=== PATIENT | female | born 1990 | race Caucasian/White ===

== ENCOUNTER 2016-08-08 18:27 | Emergency (ER) | payer MEDICAID, OTHER ==
[2016-08-08 20:56] LABS: CONTROL LINE UCG INT CTR LINE PRESENT
[2016-08-08] MEDS ORDERED: KETOROLAC 30 MG/ML VIAL (J1885) As Ordered ONE (22:07)
[2016-08-08] MEDS ORDERED: ONDANSETRON 4MG/2ML VIAL (J2405) As Ordered ONE ×2 (22:07→23:07)
[2016-08-08 22:36] LABS: BASO % 0.2 % (0.0-1.0); EOS % 0.2 % (0.0-3.0); LARGE UNSTAINED CELL # 0.1 K/mm3 (0.0-0.4); LYMPH # 0.9 K/mm3 (1.5-6.5); LYMPH % 17.8 % (24.0-44.0); MEAN CORPUSCULAR HEMOGLOBIN 29.7 pg (27.0-33.0); MEAN CORPUSCULAR HGB CONC 34.8 g/dl (32.0-36.5); MEAN CORPUSCULAR VOLUME 85.3 fl (80.0-96.0); MONO # 0.2 K/mm3 (0.0-0.8); NEUTROPHILS # 3.6 K/mm3 (1.8-7.7); NEUTROPHILS % 75.7 % (36.0-66.0); PLATELET COUNT, AUTOMATED 183 k/mm3 (150-450); RED CELL DISTRIBUTION WIDTH 12.1 % (11.5-14.5); WHITE BLOOD COUNT 4.8 K/mm3 (4.0-10.0)
[2016-08-08 22:55] LABS: ALBUMIN/GLOBULIN RATIO 1.11 (1.00-1.93); ALKALINE PHOSPHATASE 95 U/L (45-117); ALT/SGPT 24 U/L (12-78); ANION GAP 9 MEQ/L (8-16); AST/SGOT 33 U/L (15-37); BILIRUBIN,DIRECT 0.1 MG/DL (0.0-0.2); BILIRUBIN,TOTAL 0.4 MG/DL (0.2-1.0); BLOOD UREA NITROGEN 14 MG/DL (7-18); CARBON DIOXIDE LEVEL 27 MEQ/L (21-32); CHLORIDE LEVEL 102 MEQ/L (98-107); CREATININE FOR GFR 0.75 MG/DL (0.55-1.02); GLOMERULAR FILTRATION RATE > 60.0 (>60); GLUCOSE, FASTING 63 MG/DL (70-105); POTASSIUM SERUM 4.2 MEQ/L (3.5-5.1); SODIUM LEVEL 138 MEQ/L (136-145); TOTAL PROTEIN 7.6 GM/DL (6.4-8.2)
--- NOTE | 2016-08-08 23:42 | EDDOCDS ---
Physician Documentation [facility] Name: Marisa Hahn Age: 26 yrs Sex: Female : 1990 Arrival Date: 08/08/2016 Time: 18:27 Bed I3 / M3 Private MD: NO PRIMARY PHYSICIAN, . Disposition: 08/08/16 23:15 Discharged to Home/Self Care. Impression: Vomiting, Dehydration. - Condition is Stable. - Discharge Instructions: Dehydration, Adult, Nausea and Vomiting. - Prescriptions for ZOFRAN ODT 4 mg Oral - dissolve 1 tablet by ORAL route 4 times per day As needed do not chew, do not swallow whole; 20 tablet. - Medication Reconciliation, Work Release Form - 3 day, Local Pharmacy Hours form. - [facility] up: [facility]; When: Call to arrange an appointment; Reason: Recheck today's complaints, Continuance of care. Follow up: Jonathon Dick MD; When: Call to arrange an appointment; Reason: Recheck today's complaints, Continuance of care. - Problem is new. - Symptoms have improved. Historical: - Allergies: no known allergies; - Home Meds: 1. Suboxone 4-1 mg SL film 1 film once daily - PMHx: Substance Abuse; - PSHx: Tonsillectomy; ; - Social history: Smoking status: Patient uses tobacco products, current every day smoker. No barriers to communication noted, The patient speaks fluent Irish, Speaks appropriately for age. - Family history: Not pertinent. - : The pt / caregiver states he / she is not on anticoagulants. Home medication list is obtained from the patient. - Exposure Risk Screening:: None identified. 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 4 in. (162.56 cm) (R); Pain 4/10; 19:54 BP 108 / 61 LA Sitting (auto/reg); Pulse 89; Resp 18; Temp 99.5; Pulse Ox 90% on R/A; bnb Pain 9/10; 23:10 BP 98 / 52; Pulse 77; Resp 18; Temp 98.8(TE); Pulse Ox 97% on R/A; Pain 0/10; jmb 18:30 Body Mass Index 20.08 (53.07 kg, 162.56 cm) gr2 MDM: 20:27 UA Ordered. EDMS 20:27 Urine Culture Ordered. EDMS 20:27 UCG- In Lab Ordered. EDMS 21:52 NS 0.9% 1000 ml IV at bolus once ordered. mo1 21:52 Ondansetron 4 mg IVP once ordered. mo1 21:52 ketorolac 30 mg IVP once ordered. mo1 21:52 IV Saline Lock ordered. mo1 21:52 Undress patient appropriately for examination ordered. mo1 21:52 Basic Metabolic Profile Ordered. EDMS 21:52 CBC with Diff Ordered. EDMS 21:52 Lipase Ordered. EDMS 21:53 Liver Profile Ordered. EDMS 21:53 NOTHING BY MOUTH+DIET ordered. EDMS 22:18 Financial registration complete. zo 22:19 ON LICENSE OF [facility] Payment Agreement was scanned into [employer] and attached to record. zo 22:26 UCG- In Lab Reviewed. mo1 22:35 UA Reviewed. mo1 22:53 CBC with Diff Reviewed. mo1 23:03 Liver Profile Reviewed. mo1 23:03 Lipase Reviewed. mo1 23:03 Basic Metabolic Profile Reviewed. mo1 23:06 Ondansetron 4 mg IVP once ordered. mo1 Administered Medications: 22:19 Drug: NS 0.9% 1000 ml [sodium chloride 0.9 % intravenous solution] Route: IV; Rate: jmb bolus; Site: right antecubital; 22:19 Drug: Ondansetron 4 mg [ondansetron HCl 2 mg/mL intravenous solution (2 mL)] Route: jmb IVP; Site: right antecubital; 22:19 Drug: ketorolac 30 mg [ketorolac 30 mg/mL (1 mL) injection solution (1 mL)] Route: IVP; b Site: right antecubital; 23:10 Drug: Ondansetron 4 mg [ondansetron HCl 2 mg/mL intravenous solution (2 mL)] Route: jmb IVP; Site: right antecubital; Signatures: Dispatcher [employer] EDMS Denia Obando Michael, PA PA mo1 Pan Lockwood,RN RN Roxana BowmanRN RN carmencita The chart was reviewed and I authenticate all verbal orders and agree with the evaluation and treatment provided.Attachments: 22:19 ON LICENSE OF [facility] Payment Agreement zo MTDD
--- NOTE | 2016-08-08 23:42 | EDDOCDS ---
Nurse's Notes [facility] Name: Marisa Hahn Age: 26 yrs Sex: Female : 1990 Arrival Date: 08/08/2016 Time: 18:27 Bed I3 / M3 Private MD: NO PRIMARY PHYSICIAN, . Diagnosis: Vomiting;Dehydration Presentation: 08/08 18:43 Presenting complaint: Patient states: pt c/o n/v since last night. denies abdominal ead pain. denies vaginal bleeding. Adult Sepsis Screening: The patient does not have new or worsening altered mentation. Patient's respiratory rate is less than 22. Systolic blood pressure is greater than 100. Patient has a qSOFA score of 0- Negative Sepsis Screen. Suicide/Homicide risk assessment- the patient denies having any suicidal and/or homicidal ideations and does not present with any other emotional, behavioral or mental health complaints. Status: Patient is not a service architect or dependent. Transition of care: patient was not received from another setting of care. 18:43 Acuity: GIOVANNY Level 3 ead 18:43 Method Of Arrival: Walkin/Carried/Asstd ead Triage Assessment: 18:44 General: Appears in no apparent distress, Behavior is appropriate for age, cooperative. ead Pain: Location: abdomen Pain currently is 9 out of 10 on a pain scale. HIV screening NA for this visit Offered previously. Respiratory: Airway is patent Respiratory effort is even, unlabored. GI: Reports lower abdominal pain, nausea, vomiting. : Denies burning with urination, vaginal bleeding. Derm: Skin is pink, warm & dry. 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 Suboxone 4-1 mg SL film 1 film once daily - PMHx: Substance Abuse; - PSHx: Tonsillectomy; ; - Social history: Smoking status: Patient uses tobacco products, current every day smoker. No barriers to communication noted, The patient speaks fluent Albanian, Speaks appropriately for age. - Family history: Not pertinent. - : The pt / caregiver states he / she is not on anticoagulants. Home medication list is obtained from the patient. - Exposure Risk Screening:: None identified. Screenin:40 Screening information is obtained from the patient. Fall risk: No risks identified. jmb Assistance ADL's: requires no assistance with activities of daily living. Abuse/DV Screen: The patient / caregiver reports he/she is: not in a situation that causes fear, pain or injury. Nutritional screening: No deficits noted. Advance Directives: Currently, there is no health care proxy. There is no active DNR order. There is no living will. There is no Power of Livestock Agent. home support is adequate. Assessment: 22:44 General: Appears in no apparent distress, Behavior is appropriate for age, cooperative. jmb Neurological: Level of Consciousness is awake, alert, obeys commands, Oriented to person, place, time, Speech is normal, Facial symmetry appears normal, Facial symmetry: tongue is midline. Cardiovascular: Capillary refill < 3 seconds Heart tones present Pulses are all present. Rhythm is regular. Respiratory: Airway is patent Respiratory effort is even, unlabored, Respiratory pattern is regular, symmetrical, Breath sounds are clear bilaterally. GI: Abdomen is non- distended Bowel sounds present X 4 quads. Abd is soft X 4 quads. Derm: Skin is pink, warm & dry. Musculoskeletal: Range of motion intact in all extremities. 23:40 General: Patient instructed on discharge instructions. Patient asked if there were any b questions regarding discharge, patient stated no. IV discontinued per hospital policy. Patient signed discharge instructions. Patient discharged in stable condition.. Vital Signs: 18:30 BP 114 / 66; Pulse 103; Resp 18 S; Temp 98.7(O); Pulse Ox 97% on R/A; Weight 53.07 kg gr2 (R); Height 5 ft. 4 in. (162.56 cm) (R); Pain 4/10; 19:54 BP 108 / 61 LA Sitting (auto/reg); Pulse 89; Resp 18; Temp 99.5; Pulse Ox 90% on R/A; bnb Pain 9/10; 23:10 BP 98 / 52; Pulse 77; Resp 18; Temp 98.8(TE); Pulse Ox 97% on R/A; Pain 0/10; jmb 18:30 Body Mass Index 20.08 (53.07 kg, 162.56 cm) gr2 Vitals: 18:30 Log In Time: August 08, 2016 at 18:30. gr2 ED Course: 18:29 Patient visited by Brad Ni. gr2 18:29 Patient moved to Waiting gr2 18:30 NO PRIMARY PHYSICIAN, . is Private Physician. gr2 18:31 Patient visited by Brad Ni. gr2 18:31 Patient moved to Pre RCE gr2 18:44 Triage Initiated ead 19:57 Patient visited by Yuko Lockwood PCA. bnb 20:40 Patient moved to Triage 3 cz 21:32 Henrique Osorio PA is PHCP. mo1 21:32 Cosmo Rob DO is Attending Physician. mo1 21:53 Patient visited by Henrique Osorio PA. mo1 21:54 Patient moved to I3 / M3 ms18 22:13 Patient visited by Hoa Scott LPN. cp1 22:13 Basic Metabolic Profile Sent. cp1 22:13 CBC with Diff Sent. cp1 22:13 Lipase Sent. cp1 22:13 Liver Profile Sent. cp1 22:19 [facility] Payment Agreement was scanned into [employer] and attached to record. zo 22:45 Patient visited by Pan Lockwood RN. jmb 23:15 [facility] is Referral Physician. mo1 23:15 Jonathon Dick MD is Referral Physician. mo1 23:40 The patient / caregiver is instructed regarding the plan of care and ED course. jmb 23:40 Discontinued lock intact, bleeding controlled, pressure dressing applied, No jmb redness/swelling at site. No procedures done that require assistance. Administered Medications: 22:19 Drug: NS 0.9% 1000 ml [sodium chloride 0.9 % intravenous solution] Route: IV; Rate: jmb bolus; Site: right antecubital; 22:19 Drug: Ondansetron 4 mg [ondansetron HCl 2 mg/mL intravenous solution (2 mL)] Route: jmb IVP; Site: right antecubital; 22:19 Drug: ketorolac 30 mg [ketorolac 30 mg/mL (1 mL) injection solution (1 mL)] Route: IVP; jmb Site: right antecubital; 23:10 Drug: Ondansetron 4 mg [ondansetron HCl 2 mg/mL intravenous solution (2 mL)] Route: jmb IVP; Site: right antecubital; Order Results: Lab Order: UA; SPEC'M 08/08/16 20:31 Test: APPEARANCE, URINE; Value: HAZY; Range: CLEAR; Status: F Test: COLOR, URINE; Value: JACQUELINE; Range: YELLOW; Status: F Test: PH,URINE; Value: 5.0; Range: 5.0-9.0; Units: UNITS; Status: F Test: SPECIFIC GRAVITY URINE AUTO; Value: 1.028; Range: 1.002-1.035; Status: F Test: PROTEIN, URINE AUTO; Value: 1+; Range: NEGATIVE; Abnormal: Above high normal; Units: mg/dL; Status: F Test: GLUCOSE, URINE (UA) AUTO; Value: NEGATIVE; Range: NEGATIVE; Units: mg/dL; Status: F Test: KETONE, URINE AUTO; Value: 2+; Range: NEGATIVE; Abnormal: Above high normal; Units: mg/dL; Status: F Test: UROBILINOGEN, URINE AUTO; Value: 4.0; Range: 0.0-2.0; Abnormal: Above high normal; Units: mg/dL; Status: F Test: BILIRUBIN, URINE AUTO; Value: 1+; Range: NEGATIVE; Abnormal: Above high normal; Status: F Test: NITRITE, URINE AUTO; Value: NEGATIVE; Range: NEGATIVE; Status: F Test: LEUKOCYTE ESTERASE, URINE AUTO; Value: NEGATIVE; Range: NEGATIVE; Status: F Test: BLOOD, URINE BLOOD; Value: 1+; Range: NEGATIVE; Abnormal: Above high normal; Status: F Test: WBC, URINE AUTO; Value: 2; Range: 0-3; Units: /HPF; Status: F Test: RBC, URINE AUTO; Value: 2; Range: 0-3; Units: /HPF; Status: F Test: BACTERIA, URINE AUTO; Value: 1+; Range: NEGATIVE; Abnormal: Above high normal; Status: F Test: SQUAMOUS EPITHELIAL CELL UR AU; Value: 3; Range: 0-6; Units: /HPF; Status: F Test: TRANSITIONAL EPITHELIAL AUTO; Value: <1; Range: NONE; Units: /HPF; Status: F Test: MUCUS, URINE; Value: SMALL; Range: NEGATIVE; Status: F Test: HYALINE CAST, URINE AUTO; Value: 0; Range: 0-1; Units: /LPF; Status: F Lab Order: UCG- In Lab; SPEC'M 08/08/16 20:31 Test: URINE PREG TEST; Value: NEGATIVE; Range: NEGATIVE; Status: F Lab Order: Basic Metabolic Profile; SPEC'08/08/16 22:00 Test: GLUCOSE, FASTING; Value: 63; Range: 70-105; Abnormal: Below low normal; Units: MG/DL; Status: F Test: BLOOD UREA NITROGEN; Value: 14; Range: 7-18; Units: MG/DL; Status: F Test: CREATININE FOR GFR; Value: 0.75; Range: 0.55-1.02; Units: MG/DL; Status: F Test: GLOMERULAR FILTRATION RATE; Value: > 60.0; Range: >60; Status: F Test: SODIUM LEVEL; Value: 138; Range: 136-145; Units: MEQ/L; Status: F Test: POTASSIUM SERUM; Value: 4.2; Range: 3.5-5.1; Units: MEQ/L; Status: F Test: CHLORIDE LEVEL; Value: 102; Range: 98-107; Units: MEQ/L; Status: F Test: CARBON DIOXIDE LEVEL; Value: 27; Range: 21-32; Units: MEQ/L; Status: F Test: ANION GAP; Value: 9; Range: 8-16; Units: MEQ/L; Status: F Test: CALCIUM LEVEL; Value: 9.0; Range: 8.5-10.1; Units: MG/DL; Status: F Test Note: ; Units are mL/min/1.73 m2 Chronic Kidney Disease Staging per NKF: Stage I & II GFR >=60 Normal to Mildly Decreased Stage III GFR 30-59 Moderately Decreased Stage IV GFR 15-29 Severely Decreased Stage V GFR <15 Very Little GFR Left ESRD GFR <15 on FRONT OFFICE SUPERVISOR Lab Order: CBC with Diff; SPEC'08/08/16 22:00 Test: WHITE BLOOD COUNT; Value: 4.8; Range: 4.0-10.0; Units: K/mm3; Status: F Test: RED BLOOD COUNT; Value: 4.74; Range: 4.00-5.40; Units: M/mm3; Status: F Test: HEMOGLOBIN; Value: 14.1; Range: 12.0-16.0; Units: g/dl; Status: F Test: HEMATOCRIT; Value: 40.4; Range: 36.0-47.0; Units: %; Status: F Test: MEAN CORPUSCULAR VOLUME; Value: 85.3; Range: 80.0-96.0; Units: fl; Status: F Test: MEAN CORPUSCULAR HEMOGLOBIN; Value: 29.7; Range: 27.0-33.0; Units: pg; Status: F Test: MEAN CORPUSCULAR HGB CONC; Value: 34.8; Range: 32.0-36.5; Units: g/dl; Status: F Test: RED CELL DISTRIBUTION WIDTH; Value: 12.1; Range: 11.5-14.5; Units: %; Status: F Test: PLATELET COUNT, AUTOMATED; Value: 183; Range: 150-450; Units: k/mm3; Status: F Test: NEUTROPHILS %; Value: 75.7; Range: 36.0-66.0; Abnormal: Above high normal; Units: %; Status: F Test: LYMPH %; Value: 17.8; Range: 24.0-44.0; Abnormal: Below low normal; Units: %; Status: F Test: MONO %; Value: 4.0; Range: 0.0-5.0; Units: %; Status: F Test: EOS %; Value: 0.2; Range: 0.0-3.0; Units: %; Status: F Test: BASO %; Value: 0.2; Range: 0.0-1.0; Units: %; Status: F Test: LARGE UNSTAINED CELL %; Value: 2.0; Range: 0.0-4.0; Units: %; Status: F Test: NEUTROPHILS #; Value: 3.6; Range: 1.8-7.7; Units: K/mm3; Status: F Test: LYMPH #; Value: 0.9; Range: 1.5-6.5; Abnormal: Below low normal; Units: K/mm3; Status: F Test: MONO #; Value: 0.2; Range: 0.0-0.8; Units: K/mm3; Status: F Test: EOS #; Value: 0.0; Range: 0.0-0.50; Units: K/mm3; Status: F Test: BASO #; Value: 0.0; Range: 0.0-0.2; Units: K/mm3; Status: F Test: LARGE UNSTAINED CELL #; Value: 0.1; Range: 0.0-0.4; Units: K/mm3; Status: F Lab Order: Lipase; SPEC'M 08/08/16 22:00 Test: LIPASE; Value: 65; Range: 73-393; Abnormal: Below low normal; Units: U/L; Status: F Lab Order: Liver Profile; SPEC'M 08/08/16 22:00 Test: AST/SGOT; Value: 33; Range: 15-37; Units: U/L; Status: F Test: ALT/SGPT; Value: 24; Range: 12-78; Units: U/L; Status: F Test: ALKALINE PHOSPHATASE; Value: 95; Range: 45-117; Units: U/L; Status: F Test: BILIRUBIN,TOTAL; Value: 0.4; Range: 0.2-1.0; Units: MG/DL; Status: F Test: BILIRUBIN,DIRECT; Value: 0.1; Range: 0.0-0.2; Units: MG/DL; Status: F Test: TOTAL PROTEIN; Value: 7.6; Range: 6.4-8.2; Units: GM/DL; Status: F Test: ALBUMIN; Value: 4.0; Range: 3.2-5.2; Units: GM/DL; Status: F Test: ALBUMIN/GLOBULIN RATIO; Value: 1.11; Range: 1.00-1.93; Status: F Outcome: 23:15 Discharge ordered by Provider. mo1 23:40 Discharge Assessment: Patient awake, alert and oriented x 3. No cognitive and/or jmb functional deficits noted. Patient verbalized understanding of disposition instructions. Patient awake and alert. obeys commands, Oriented to person, place and time. Patient verbalized understanding of disposition instructions. Patient has no functional deficits. patient administered narcotics - no. The following High Risk Discharge criteria are identified: None. Discharged to home ambulatory. Condition: stable. Discharge instructions given to patient, Instructed on discharge instructions, follow up and referral plans. medication usage, Demonstrated understanding of instructions, medications, Pt was receptive of discharge instructions/ teaching. Prescriptions given X 1. Work note provided to patient. No special radiology studies were completed. Property sent home with patient. 23:42 Patient left the ED. jmb Signatures: Chang Key, RN RN cz Denia Obando Cheryl,SCHOOL LIBRARY MEDIA PROGRAM DIRECTOR SCHOOL LIBRARY MEDIA PROGRAM DIRECTOR cp1 Brad Ni gr2 Henrique Osorio PA PA mo1 Pan Locwkood,RN RN simonb Roxana Haro,RN RN Selene Redmond,RN RN [id number] Yuko Lockwood, ORGAN TUNER ELECTRONIC ORGAN TUNER ELECTRONIC bnb MTDD
--- NOTE | 2016-08-11 00:42 | EDDOCDS ---
Nurse's Notes [facility] Name: Marisa Hahn Age: 26 yrs Sex: Female : 1990 Arrival Date: 08/08/2016 Time: 18:27 Bed I3 / M3 Private MD: NO PRIMARY PHYSICIAN, . Diagnosis: Vomiting;Dehydration Presentation: 08/08 18:43 Presenting complaint: Patient states: pt c/o n/v since last night. denies abdominal ead pain. denies vaginal bleeding. Adult Sepsis Screening: The patient does not have new or worsening altered mentation. Patient's respiratory rate is less than 22. Systolic blood pressure is greater than 100. Patient has a qSOFA score of 0- Negative Sepsis Screen. Suicide/Homicide risk assessment- the patient denies having any suicidal and/or homicidal ideations and does not present with any other emotional, behavioral or mental health complaints. Status: Patient is not a financial services technician or dependent. Transition of care: patient was not received from another setting of care. 18:43 Acuity: GIOVANNY Level 3 ead 18:43 Method Of Arrival: Walkin/Carried/Asstd ead Triage Assessment: 18:44 General: Appears in no apparent distress, Behavior is appropriate for age, cooperative. ead Pain: Location: abdomen Pain currently is 9 out of 10 on a pain scale. HIV screening NA for this visit Offered previously. Respiratory: Airway is patent Respiratory effort is even, unlabored. GI: Reports lower abdominal pain, nausea, vomiting. : Denies burning with urination, vaginal bleeding. Derm: Skin is pink, warm & dry. 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 Suboxone 4-1 mg SL film 1 film once daily - PMHx: Substance Abuse; - PSHx: Tonsillectomy; ; - Social history: Smoking status: Patient uses tobacco products, current every day smoker. No barriers to communication noted, The patient speaks fluent Sudanese, Speaks appropriately for age. - Family history: Not pertinent. - : The pt / caregiver states he / she is not on anticoagulants. Home medication list is obtained from the patient. - Exposure Risk Screening:: None identified. Screenin:40 Screening information is obtained from the patient. Fall risk: No risks identified. jmb Assistance ADL's: requires no assistance with activities of daily living. Abuse/DV Screen: The patient / caregiver reports he/she is: not in a situation that causes fear, pain or injury. Nutritional screening: No deficits noted. Advance Directives: Currently, there is no health care proxy. There is no active DNR order. There is no living will. There is no Power of Ammonia Worker. home support is adequate. Assessment: 22:44 General: Appears in no apparent distress, Behavior is appropriate for age, cooperative. jmb Neurological: Level of Consciousness is awake, alert, obeys commands, Oriented to person, place, time, Speech is normal, Facial symmetry appears normal, Facial symmetry: tongue is midline. Cardiovascular: Capillary refill < 3 seconds Heart tones present Pulses are all present. Rhythm is regular. Respiratory: Airway is patent Respiratory effort is even, unlabored, Respiratory pattern is regular, symmetrical, Breath sounds are clear bilaterally. GI: Abdomen is non- distended Bowel sounds present X 4 quads. Abd is soft X 4 quads. Derm: Skin is pink, warm & dry. Musculoskeletal: Range of motion intact in all extremities. 23:40 General: Patient instructed on discharge instructions. Patient asked if there were any b questions regarding discharge, patient stated no. IV discontinued per hospital policy. Patient signed discharge instructions. Patient discharged in stable condition.. Vital Signs: 18:30 BP 114 / 66; Pulse 103; Resp 18 S; Temp 98.7(O); Pulse Ox 97% on R/A; Weight 53.07 kg gr2 (R); Height 5 ft. 4 in. (162.56 cm) (R); Pain 4/10; 19:54 BP 108 / 61 LA Sitting (auto/reg); Pulse 89; Resp 18; Temp 99.5; Pulse Ox 90% on R/A; bnb Pain 9/10; 23:10 BP 98 / 52; Pulse 77; Resp 18; Temp 98.8(TE); Pulse Ox 97% on R/A; Pain 0/10; jmb 18:30 Body Mass Index 20.08 (53.07 kg, 162.56 cm) gr2 Vitals: 18:30 Log In Time: August 08, 2016 at 18:30. gr2 ED Course: 18:29 Patient visited by Brad Ni. gr2 18:29 Patient moved to Waiting gr2 18:30 NO PRIMARY PHYSICIAN, . is Private Physician. gr2 18:31 Patient visited by Brad Ni. gr2 18:31 Patient moved to Pre RCE gr2 18:44 Triage Initiated ead 19:57 Patient visited by Yuko Lockwood PCA. bnb 20:40 Patient moved to Triage 3 cz 21:32 Henrique Osorio PA is PHCP. mo1 21:32 Cosmo Rob DO is Attending Physician. mo1 21:53 Patient visited by Henrique Osorio PA. mo1 21:54 Patient moved to I3 / M3 ms18 22:13 Patient visited by Hoa Scott LPN. cp1 22:13 Basic Metabolic Profile Sent. cp1 22:13 CBC with Diff Sent. cp1 22:13 Lipase Sent. cp1 22:13 Liver Profile Sent. cp1 22:19 [facility] Payment Agreement was scanned into [employer] and attached to record. zo 22:45 Patient visited by Pan Lockwood RN. jmb 23:15 [facility] is Referral Physician. mo1 23:15 Jonathon Dick MD is Referral Physician. mo1 23:40 The patient / caregiver is instructed regarding the plan of care and ED course. jmb 23:40 Discontinued lock intact, bleeding controlled, pressure dressing applied, No jmb redness/swelling at site. No procedures done that require assistance. 08/09 09:47 T-Sheet-- Draft Copy was scanned into [employer] and attached to record. gb Administered Medications: 08/08 22:19 Drug: NS 0.9% 1000 ml [sodium chloride 0.9 % intravenous solution] Route: IV; Rate: jmb bolus; Site: right antecubital; 22:19 Drug: Ondansetron 4 mg [ondansetron HCl 2 mg/mL intravenous solution (2 mL)] Route: jmb IVP; Site: right antecubital; 22:19 Drug: ketorolac 30 mg [ketorolac 30 mg/mL (1 mL) injection solution (1 mL)] Route: IVP; jmb Site: right antecubital; 23:10 Drug: Ondansetron 4 mg [ondansetron HCl 2 mg/mL intravenous solution (2 mL)] Route: jmb IVP; Site: right antecubital; Order Results: Lab Order: UA; SPEC'M 08/08/16 20:31 Test: APPEARANCE, URINE; Value: HAZY; Range: CLEAR; Status: F Test: COLOR, URINE; Value: JACQUELINE; Range: YELLOW; Status: F Test: PH,URINE; Value: 5.0; Range: 5.0-9.0; Units: UNITS; Status: F Test: SPECIFIC GRAVITY URINE AUTO; Value: 1.028; Range: 1.002-1.035; Status: F Test: PROTEIN, URINE AUTO; Value: 1+; Range: NEGATIVE; Abnormal: Above high normal; Units: mg/dL; Status: F Test: GLUCOSE, URINE (UA) AUTO; Value: NEGATIVE; Range: NEGATIVE; Units: mg/dL; Status: F Test: KETONE, URINE AUTO; Value: 2+; Range: NEGATIVE; Abnormal: Above high normal; Units: mg/dL; Status: F Test: UROBILINOGEN, URINE AUTO; Value: 4.0; Range: 0.0-2.0; Abnormal: Above high normal; Units: mg/dL; Status: F Test: BILIRUBIN, URINE AUTO; Value: 1+; Range: NEGATIVE; Abnormal: Above high normal; Status: F Test: NITRITE, URINE AUTO; Value: NEGATIVE; Range: NEGATIVE; Status: F Test: LEUKOCYTE ESTERASE, URINE AUTO; Value: NEGATIVE; Range: NEGATIVE; Status: F Test: BLOOD, URINE BLOOD; Value: 1+; Range: NEGATIVE; Abnormal: Above high normal; Status: F Test: WBC, URINE AUTO; Value: 2; Range: 0-3; Units: /HPF; Status: F Test: RBC, URINE AUTO; Value: 2; Range: 0-3; Units: /HPF; Status: F Test: BACTERIA, URINE AUTO; Value: 1+; Range: NEGATIVE; Abnormal: Above high normal; Status: F Test: SQUAMOUS EPITHELIAL CELL UR AU; Value: 3; Range: 0-6; Units: /HPF; Status: F Test: TRANSITIONAL EPITHELIAL AUTO; Value: <1; Range: NONE; Units: /HPF; Status: F Test: MUCUS, URINE; Value: SMALL; Range: NEGATIVE; Status: F Test: HYALINE CAST, URINE AUTO; Value: 0; Range: 0-1; Units: /LPF; Status: F Lab Order: Urine Culture; SPECM 08/08/16 20:31 Test: URINE CULTURE; Value: URINE CULTURE RESULT NO GROWTH CLINICAL SIGNIFICANCE 1 ORGANISM; Status: F Lab Order: UCG- In Lab; SPEC08/08/16 20:31 Test: URINE PREG TEST; Value: NEGATIVE; Range: NEGATIVE; Status: F Lab Order: Basic Metabolic Profile; SPEC08/08/16 22:00 Test: GLUCOSE, FASTING; Value: 63; Range: 70-105; Abnormal: Below low normal; Units: MG/DL; Status: F Test: BLOOD UREA NITROGEN; Value: 14; Range: 7-18; Units: MG/DL; Status: F Test: CREATININE FOR GFR; Value: 0.75; Range: 0.55-1.02; Units: MG/DL; Status: F Test: GLOMERULAR FILTRATION RATE; Value: > 60.0; Range: >60; Status: F Test: SODIUM LEVEL; Value: 138; Range: 136-145; Units: MEQ/L; Status: F Test: POTASSIUM SERUM; Value: 4.2; Range: 3.5-5.1; Units: MEQ/L; Status: F Test: CHLORIDE LEVEL; Value: 102; Range: 98-107; Units: MEQ/L; Status: F Test: CARBON DIOXIDE LEVEL; Value: 27; Range: 21-32; Units: MEQ/L; Status: F Test: ANION GAP; Value: 9; Range: 8-16; Units: MEQ/L; Status: F Test: CALCIUM LEVEL; Value: 9.0; Range: 8.5-10.1; Units: MG/DL; Status: F Test Note: ; Units are mL/min/1.73 m2 Chronic Kidney Disease Staging per NKF: Stage I & II GFR >=60 Normal to Mildly Decreased Stage III GFR 30-59 Moderately Decreased Stage IV GFR 15-29 Severely Decreased Stage V GFR <15 Very Little GFR Left ESRD GFR <15 on MOLDED GOODS SPOT PICKER Lab Order: CBC with Diff; SPECM 08/08/16 22:00 Test: WHITE BLOOD COUNT; Value: 4.8; Range: 4.0-10.0; Units: K/mm3; Status: F Test: RED BLOOD COUNT; Value: 4.74; Range: 4.00-5.40; Units: M/mm3; Status: F Test: HEMOGLOBIN; Value: 14.1; Range: 12.0-16.0; Units: g/dl; Status: F Test: HEMATOCRIT; Value: 40.4; Range: 36.0-47.0; Units: %; Status: F Test: MEAN CORPUSCULAR VOLUME; Value: 85.3; Range: 80.0-96.0; Units: fl; Status: F Test: MEAN CORPUSCULAR HEMOGLOBIN; Value: 29.7; Range: 27.0-33.0; Units: pg; Status: F Test: MEAN CORPUSCULAR HGB CONC; Value: 34.8; Range: 32.0-36.5; Units: g/dl; Status: F Test: RED CELL DISTRIBUTION WIDTH; Value: 12.1; Range: 11.5-14.5; Units: %; Status: F Test: PLATELET COUNT, AUTOMATED; Value: 183; Range: 150-450; Units: k/mm3; Status: F Test: NEUTROPHILS %; Value: 75.7; Range: 36.0-66.0; Abnormal: Above high normal; Units: %; Status: F Test: LYMPH %; Value: 17.8; Range: 24.0-44.0; Abnormal: Below low normal; Units: %; Status: F Test: MONO %; Value: 4.0; Range: 0.0-5.0; Units: %; Status: F Test: EOS %; Value: 0.2; Range: 0.0-3.0; Units: %; Status: F Test: BASO %; Value: 0.2; Range: 0.0-1.0; Units: %; Status: F Test: LARGE UNSTAINED CELL %; Value: 2.0; Range: 0.0-4.0; Units: %; Status: F Test: NEUTROPHILS #; Value: 3.6; Range: 1.8-7.7; Units: K/mm3; Status: F Test: LYMPH #; Value: 0.9; Range: 1.5-6.5; Abnormal: Below low normal; Units: K/mm3; Status: F Test: MONO #; Value: 0.2; Range: 0.0-0.8; Units: K/mm3; Status: F Test: EOS #; Value: 0.0; Range: 0.0-0.50; Units: K/mm3; Status: F Test: BASO #; Value: 0.0; Range: 0.0-0.2; Units: K/mm3; Status: F Test: LARGE UNSTAINED CELL #; Value: 0.1; Range: 0.0-0.4; Units: K/mm3; Status: F Lab Order: Lipase; SPEC'M 08/08/16 22:00 Test: LIPASE; Value: 65; Range: 73-393; Abnormal: Below low normal; Units: U/L; Status: F Lab Order: Liver Profile; [facility]' 08/08/16 22:00 Test: AST/SGOT; Value: 33; Range: 15-37; Units: U/L; Status: F Test: ALT/SGPT; Value: 24; Range: 12-78; Units: U/L; Status: F Test: ALKALINE PHOSPHATASE; Value: 95; Range: 45-117; Units: U/L; Status: F Test: BILIRUBIN,TOTAL; Value: 0.4; Range: 0.2-1.0; Units: MG/DL; Status: F Test: BILIRUBIN,DIRECT; Value: 0.1; Range: 0.0-0.2; Units: MG/DL; Status: F Test: TOTAL PROTEIN; Value: 7.6; Range: 6.4-8.2; Units: GM/DL; Status: F Test: ALBUMIN; Value: 4.0; Range: 3.2-5.2; Units: GM/DL; Status: F Test: ALBUMIN/GLOBULIN RATIO; Value: 1.11; Range: 1.00-1.93; Status: F Outcome: 23:15 Discharge ordered by Provider. mo1 23:40 Discharge Assessment: Patient awake, alert and oriented x 3. No cognitive and/or jmb functional deficits noted. Patient verbalized understanding of disposition instructions. Patient awake and alert. obeys commands, Oriented to person, place and time. Patient verbalized understanding of disposition instructions. Patient has no functional deficits. patient administered narcotics - no. The following High Risk Discharge criteria are identified: None. Discharged to home ambulatory. Condition: stable. Discharge instructions given to patient, Instructed on discharge instructions, follow up and referral plans. medication usage, Demonstrated understanding of instructions, medications, Pt was receptive of discharge instructions/ teaching. Prescriptions given X 1. Work note provided to patient. No special radiology studies were completed. Property sent home with patient. 23:42 Patient left the ED. sultana Signatures: Chang Key, RN RN cz Yamel Mccall, Reg Reg gb Denia Obando Cheryl,SENIOR SUPPORT ENGINEER SENIOR SUPPORT ENGINEER cp1 Brad Ni gr2 Henrique Osorio PA PA mo1 Pan Lockwood,RN RN Roxana BowmanRN RN Selene Redmond RN RN [id number] Yuko Lockwood, GISSELLE BUSINESS CONTINUITY CONSULTANT bnb Chart Complete DEEDEED
--- NOTE | 2016-08-11 00:42 | EDDOCDS ---
Physician Documentation [facility] Name: Marisa Hahn Age: 26 yrs Sex: Female : 1990 Arrival Date: 08/08/2016 Time: 18:27 Bed I3 / M3 Private MD: NO PRIMARY PHYSICIAN, . Disposition: 08/08/16 23:15 Discharged to Home/Self Care. Impression: Vomiting, Dehydration. - Condition is Stable. - Discharge Instructions: Dehydration, Adult, Nausea and Vomiting. - Prescriptions for ZOFRAN ODT 4 mg Oral - dissolve 1 tablet by ORAL route 4 times per day As needed do not chew, do not swallow whole; 20 tablet. - Medication Reconciliation, Work Release Form - 3 day, Local Pharmacy Hours form. - [facility]: [facility]; When: Call to arrange an appointment; Reason: Recheck today's complaints, Continuance of care. Follow up: Jonathon Dick MD; When: Call to arrange an appointment; Reason: Recheck today's complaints, Continuance of care. - Problem is new. - Symptoms have improved. Historical: - Allergies: no known allergies; - Home Meds: 1. Suboxone 4-1 mg SL film 1 film once daily - PMHx: Substance Abuse; - PSHx: Tonsillectomy; ; - Social history: Smoking status: Patient uses tobacco products, current every day smoker. No barriers to communication noted, The patient speaks fluent Irish, Speaks appropriately for age. - Family history: Not pertinent. - : The pt / caregiver states he / she is not on anticoagulants. Home medication list is obtained from the patient. - Exposure Risk Screening:: None identified. 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 4 in. (162.56 cm) (R); Pain 4/10; 19:54 BP 108 / 61 LA Sitting (auto/reg); Pulse 89; Resp 18; Temp 99.5; Pulse Ox 90% on R/A; bnb Pain 9/10; 23:10 BP 98 / 52; Pulse 77; Resp 18; Temp 98.8(TE); Pulse Ox 97% on R/A; Pain 0/10; jmb 18:30 Body Mass Index 20.08 (53.07 kg, 162.56 cm) gr2 MDM: 20:27 UA Ordered. EDMS 20:27 Urine Culture Ordered. EDMS 20:27 UCG- In Lab Ordered. EDMS 21:52 NS 0.9% 1000 ml IV at bolus once ordered. mo1 21:52 Ondansetron 4 mg IVP once ordered. mo1 21:52 ketorolac 30 mg IVP once ordered. mo1 21:52 IV Saline Lock ordered. mo1 21:52 Undress patient appropriately for examination ordered. mo1 21:52 Basic Metabolic Profile Ordered. EDMS 21:52 CBC with Diff Ordered. EDMS 21:52 Lipase Ordered. EDMS 21:53 Liver Profile Ordered. EDMS 21:53 NOTHING BY MOUTH+DIET ordered. EDMS 22:18 Financial registration complete. zo 22:19 [facility] Payment Agreement was scanned into [employer] and attached to record. zo 22:26 UCG- In Lab Reviewed. mo1 22:35 UA Reviewed. mo1 22:53 CBC with Diff Reviewed. mo1 23:03 Liver Profile Reviewed. mo1 23:03 Lipase Reviewed. mo1 23:03 Basic Metabolic Profile Reviewed. mo1 23:06 Ondansetron 4 mg IVP once ordered. mo1 08/09 09:47 T-Sheet-- Draft Copy was scanned into [employer] and attached to record. gb Administered Medications: 08/08 22:19 Drug: NS 0.9% 1000 ml [sodium chloride 0.9 % intravenous solution] Route: IV; Rate: jmb bolus; Site: right antecubital; 22:19 Drug: Ondansetron 4 mg [ondansetron HCl 2 mg/mL intravenous solution (2 mL)] Route: jmb IVP; Site: right antecubital; 22:19 Drug: ketorolac 30 mg [ketorolac 30 mg/mL (1 mL) injection solution (1 mL)] Route: IVP; jmb Site: right antecubital; 23:10 Drug: Ondansetron 4 mg [ondansetron HCl 2 mg/mL intravenous solution (2 mL)] Route: jmb IVP; Site: right antecubital; Signatures: Dispatcher [employer] EDYamel Figueroa, Reg Reg gb Denia Obando Michael, PA PA mo1 Pan Lockwood,RN RN Roxana Bowman,RN RN carmencita The chart was reviewed and I authenticate all verbal orders and agree with the evaluation and treatment provided.Attachments: 22:19 [facility] [place] Agreement zo 08/09 09:47 T-Sheet-- Draft Copy gb Chart Complete MTDD
--- NOTE | 2016-08-11 00:42 | EDDOCDS ---
Physician Documentation [facility] Name: Marisa Hahn Age: 26 yrs Sex: Female : 1990 Arrival Date: 08/08/2016 Time: 18:27 Bed I3 / M3 Private MD: NO PRIMARY PHYSICIAN, . Disposition: 08/08/16 23:15 Discharged to Home/Self Care. Impression: Vomiting, Dehydration. - Condition is Stable. - Discharge Instructions: Dehydration, Adult, Nausea and Vomiting. - Prescriptions for ZOFRAN ODT 4 mg Oral - dissolve 1 tablet by ORAL route 4 times per day As needed do not chew, do not swallow whole; 20 tablet. - Medication Reconciliation, Work Release Form - 3 day, Local Pharmacy Hours form. - [facility] up: [facility]; When: Call to arrange an appointment; Reason: Recheck today's complaints, Continuance of care. Follow up: Jonathon Dick MD; When: Call to arrange an appointment; Reason: Recheck today's complaints, Continuance of care. - Problem is new. - Symptoms have improved. Historical: - Allergies: no known allergies; - Home Meds: 1. Suboxone 4-1 mg SL film 1 film once daily - PMHx: Substance Abuse; - PSHx: Tonsillectomy; ; - Social history: Smoking status: Patient uses tobacco products, current every day smoker. No barriers to communication noted, The patient speaks fluent Greenlandic, Speaks appropriately for age. - Family history: Not pertinent. - : The pt / caregiver states he / she is not on anticoagulants. Home medication list is obtained from the patient. - Exposure Risk Screening:: None identified. 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 4 in. (162.56 cm) (R); Pain 4/10; 19:54 BP 108 / 61 LA Sitting (auto/reg); Pulse 89; Resp 18; Temp 99.5; Pulse Ox 90% on R/A; bnb Pain 9/10; 23:10 BP 98 / 52; Pulse 77; Resp 18; Temp 98.8(TE); Pulse Ox 97% on R/A; Pain 0/10; jmb 18:30 Body Mass Index 20.08 (53.07 kg, 162.56 cm) gr2 MDM: 20:27 UA Ordered. EDMS 20:27 Urine Culture Ordered. EDMS 20:27 UCG- In Lab Ordered. EDMS 21:52 NS 0.9% 1000 ml IV at bolus once ordered. mo1 21:52 Ondansetron 4 mg IVP once ordered. mo1 21:52 ketorolac 30 mg IVP once ordered. mo1 21:52 IV Saline Lock ordered. mo1 21:52 Undress patient appropriately for examination ordered. mo1 21:52 Basic Metabolic Profile Ordered. EDMS 21:52 CBC with Diff Ordered. EDMS 21:52 Lipase Ordered. EDMS 21:53 Liver Profile Ordered. EDMS 21:53 NOTHING BY MOUTH+DIET ordered. EDMS 22:18 Financial registration complete. zo 22:19 [facility] Payment Agreement was scanned into [employer] and attached to record. zo 22:26 UCG- In Lab Reviewed. mo1 22:35 UA Reviewed. mo1 22:53 CBC with Diff Reviewed. mo1 23:03 Liver Profile Reviewed. mo1 23:03 Lipase Reviewed. mo1 23:03 Basic Metabolic Profile Reviewed. mo1 23:06 Ondansetron 4 mg IVP once ordered. mo1 08/09 09:47 T-Sheet-- Draft Copy was scanned into [employer] and attached to record. gb Administered Medications: 08/08 22:19 Drug: NS 0.9% 1000 ml [sodium chloride 0.9 % intravenous solution] Route: IV; Rate: jmb bolus; Site: right antecubital; 22:19 Drug: Ondansetron 4 mg [ondansetron HCl 2 mg/mL intravenous solution (2 mL)] Route: jmb IVP; Site: right antecubital; 22:19 Drug: ketorolac 30 mg [ketorolac 30 mg/mL (1 mL) injection solution (1 mL)] Route: IVP; jmb Site: right antecubital; 23:10 Drug: Ondansetron 4 mg [ondansetron HCl 2 mg/mL intravenous solution (2 mL)] Route: jmb IVP; Site: right antecubital; Signatures: Dispatcher [employer] EDYamel Figueroa, Reg Reg gb Denia Obando Michael, PA PA mo1 Pan Lockwood,RN RN Roxana Bowman,RN RN carmencita The chart was reviewed and I authenticate all verbal orders and agree with the evaluation and treatment provided.Attachments: 22:19 [facility] [place] Agreement zo 08/09 09:47 T-Sheet-- Draft Copy gb Chart Complete MTDD
== END 2016-08-08 23:42 | disposition home or self-care (01) ==
LOC: M ED 18:27
DX: R11.2 Nausea with vomiting, unspecified (principal); E86.0 Dehydration; F17.210 Nicotine dependence, cigarettes, uncomplicated; Z79.899 Other long term (current) drug therapy

== ENCOUNTER 2016-09-17 01:40 | Emergency (ER) | payer OTHER ==
[2016-09-17 02:17] LABS: CONTROL LINE UCG INT CTR LINE PRESENT; MICROSCOPIC INDICATED? MAN YES (NO)
[2016-09-17 02:24] LABS: HYALINE CAST, URINE NONE SEEN /lpf (0-1); RBC, URINE 0-1 /hpf (0-3); SQUAMOUS EPITHELIAL CELL URINE LARGE AMOUNT /hpf (SMALL AMT); WBC, URINE 0-1 /hpf (0-3)
[2016-09-17 02:26] LABS: BACTERIA, URINE MOD AMOUNT; MICROSCOPIC EXAM PERFORMED
--- NOTE | 2016-09-17 02:54 | EDDOCDS ---
Physician Documentation [facility] Name: Marisa Hahn Age: 26 yrs Sex: Female : 1990 Arrival Date: 09/17/2016 Time: 01:40 Bed Triage 2 Private MD: Disposition: 09/17/16 02:47 Discharged to Home/Self Care. Impression: Dysuria. - Condition is Stable. - Discharge Instructions: Dysuria. - Prescriptions for Pyridium 200 mg Oral Tablet - take 1 tablet by ORAL route every 8 hours for 3 days; 9 tablet. - Medication Reconciliation, Local Pharmacy Hours form. - Follow up: Private Physician; When: Call to arrange an appointment; Reason: Recheck today's complaints, Continuance of care. - Problem is an ongoing problem. - Symptoms are unchanged. Historical: - Allergies: No known drug Allergies; - Home Meds: 1. Suboxone 4-1 mg SL film .5 film once daily (Last dose: 09/16/2016) 2. nitrofurantoin macrocrystal 100 mg Oral cap 1 cap twice a day (Last dose: 09/16/2016) 3. AZO Standard 95 mg Oral tab as needed (Last dose: 09/16/2016 22:00) 4. cranberry oral oral 2 tabs (Last dose: 09/16/2016) - PMHx: Substance Abuse; - PSHx: Tonsillectomy; ; - Social history: Smoking status: Patient uses tobacco products, light tobacco smoker. No barriers to communication noted, The patient speaks fluent Puerto Rican, Speaks appropriately for age. - Family history: Not pertinent. - : The pt / caregiver states he / she is not on anticoagulants. Home medication list is obtained from the patient. - Exposure Risk Screening:: None identified. 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 4 in. (162.56 cm) (R); Pain 7/10; 02:25 Body Mass Index 20.08 (53.07 kg, 162.56 cm) kmg1 MDM: 01:59 Urine Culture Ordered. EDMS 01:59 Urine Test-In Lab Ordered. EDMS 02:16 URINALYSIS MANUAL Ordered. EDMS 02:18 MICROSCOPIC, URINE Ordered. EDMS 02:19 Urine Test-In Lab Reviewed. mo1 02:20 URINALYSIS MANUAL Reviewed. mo1 02:42 MICROSCOPIC, URINE Reviewed. mo1 Signatures: Dispatcher [employer] EDMS Alicia Fatima RN RN kmg1 Henrique Osorio PA PA mo1 Kiara Thomas LPN LPN slm The chart was reviewed and I authenticate all verbal orders and agree with the evaluation and treatment provided.Corrections: (The following items were deleted from the chart) 02:16 01:59 URINALYSIS+LAB ordered. EDMS EDMS MTDD
--- NOTE | 2016-09-17 02:54 | EDDOCDS ---
Nurse's Notes [facility] Name: Marisa Hahn Age: 26 yrs Sex: Female : 1990 Arrival Date: 09/17/2016 Time: 01:40 Bed Triage 2 Private MD: Diagnosis: Dysuria Presentation: 09/17 02:21 Presenting complaint: Patient states: Was seen at doctor Monday and treated for UTI. kmg1 Taking generic macrobid and Azo but symptoms are not improvong. Suicide/Homicide risk assessment- the patient denies having any suicidal and/or homicidal ideations and does not present with any other emotional, behavioral or mental health complaints. Status: Patient is not a service delivery manager or dependent. Transition of care: patient was not received from another setting of care. 02:21 Acuity: GIOVANNY Level 5 [facility] 02:21 Method Of Arrival: Walkin/Carried/Asstd [facility] Triage Assessment: 02:25 General: Appears in no apparent distress, comfortable, Behavior is appropriate for age, kmg1 cooperative, pleasant. Pain: Location: suprapubic area Pain currently is 7 out of 10 on a pain scale. Quality of pain is described as pressure. HIV screening NA for this visit Offered previously. : Reports burning with urination urgency urinary frequency. 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 Suboxone 4-1 mg SL film .5 film once daily (Last dose: 09/16/2016) 2. nitrofurantoin macrocrystal 100 mg Oral cap 1 cap twice a day (Last dose: 09/16/2016) 3. AZO Standard 95 mg Oral tab as needed (Last dose: 09/16/2016 22:00) 4. cranberry oral oral 2 tabs (Last dose: 09/16/2016) - PMHx: Substance Abuse; - PSHx: Tonsillectomy; ; - Social history: Smoking status: Patient uses tobacco products, light tobacco smoker. No barriers to communication noted, The patient speaks fluent Cambodian, Speaks appropriately for age. - Family history: Not pertinent. - : The pt / caregiver states he / she is not on anticoagulants. Home medication list is obtained from the patient. - Exposure Risk Screening:: None identified. Screenin:51 Screening information is obtained from the patient. Fall risk: No risks identified. slm Assistance ADL's: requires no assistance with activities of daily living. Abuse/DV Screen: The patient / caregiver reports he/she is: not in a situation that causes fear, pain or injury. Nutritional screening: No deficits noted. Advance Directives: Currently, there is no health care proxy. There is no active DNR order. There is no living will. There is no Power of Regulatory Affairs Director. Advance directive information has not previously been placed in an [facility] medical record. home support is adequate. Assessment: 02:50 General: Appears in no apparent distress, comfortable, Behavior is appropriate for age, slm cooperative. Vital Signs: 02:25 BP 118 / 55; Pulse 80; Resp 18; Temp 99(TE); Weight 53.07 kg (R); Height 5 ft. 4 in. [facility] (162.56 cm) (R); Pain 7/10; 02:25 Body Mass Index 20.08 (53.07 kg, 162.56 cm) [facility] ED Course: 01:41 Patient visited by Karyn Jack Reg. hs2 01:41 Patient moved to Waiting hs2 02:22 Triage Initiated kmg1 02:24 Henrique Osorio PA is PHCP. mo1 02:24 Davie Juan DO is Attending Physician. mo1 02:45 Patient moved to Triage Bed 1 mo1 02:46 Patient visited by Henrique Osorio PA. mo1 02:46 Patient moved to Triage 2 mo1 02:50 Kiara Thomas LPN is Primary Nurse. slm 02:52 No IV's were initiated during this patient's visit. No procedures done that require slm assistance. Order Results: Lab Order: Urine Test-In Lab; SPEC'M 09/17/16 02:06 Test: URINE PREG TEST; Value: NEGATIVE; Range: NEGATIVE; Status: F Lab Order: URINALYSIS MANUAL; SPEC'M 09/17/16 02:06 Test: APPEARANCE, URINE MANUAL; Value: HAZY; Range: CLEAR; Abnormal: Above high normal; Status: F Test: COLOR, URINE MANUAL; Value: ORANGE; Range: YELLOW; Abnormal: Above high normal; Status: F Test: PH,URINE MAN; Value: OBSCURED; Range: 5.0 - 9.0; Abnormal: Above high normal; Units: UNITS; Status: F Test: SPECIFIC GRAVITY,URINE MANUAL; Value: 1.022; Range: 1.002-1.035; Status: F Test: PROTEIN, URINE MANUAL; Value: OBSCURED; Range: NEGATIVE; Abnormal: Above high normal; Units: mg/dL; Status: F Test: GLUCOSE, URINE (UA) MANUAL; Value: OBSCURED; Range: NEGATIVE; Abnormal: Above high normal; Units: mg/dL; Status: F Test: KETONE, URINE MANUAL; Value: OBSCURED; Range: NEGATIVE; Abnormal: Above high normal; Units: mg/dL; Status: F Test: UROBILINOGEN, URINE MANUAL; Value: OBSCURED; Range: NORMAL; Abnormal: Above high normal; Units: mg/dl; Status: F Test: BILIRUBIN, URINE MANUAL; Value: OBSCURED; Range: NEGATIVE; Abnormal: Above high normal; Status: F Test: NITRITE, URINE MANUAL; Value: OBSCURED; Range: NEGATIVE; Abnormal: Above high normal; Status: F Test: LEUKOCYTE ESTERASE, URINE MAN; Value: OBSCURED; Range: NEGATIVE; Abnormal: Above high normal; Status: F Test: BLOOD URINE MANUAL; Value: OBSCURED; Range: NEGATIVE; Abnormal: Above high normal; Status: F Lab Order: MICROSCOPIC, URINE; SPEC'M 09/17/16 02:06 Test: WBC, URINE; Value: 0-1; Range: 0-3; Units: /hpf; Status: F Test: RBC, URINE; Value: 0-1; Range: 0-3; Units: /hpf; Status: F Test: SQUAMOUS EPITHELIAL CELL URINE; Value: LARGE AMOUNT; Range: SMALL AMT; Abnormal: Above high normal; Units: /hpf; Status: F Test: BACTERIA, URINE; Value: MOD AMOUNT; Range: NONE; Abnormal: Above high normal; Status: F Test: HYALINE CAST, URINE; Value: NONE SEEN; Range: 0-1; Units: /lpf; Status: F Test: MICROSCOPIC EXAM; Status: I Test: MUCUS, URINE; Value: LARGE AMOUNT; Range: NEGATIVE; Abnormal: Above high normal; Status: F Test: AMORPHOUS SEDIMENT, URINE; Value: MOD AMOUNT; Range: NEGATIVE; Abnormal: Above high normal; Status: F Test: MICROSCOPIC EXAM; Value: PERFORMED; Status: F Outcome: 02:47 Discharge ordered by Provider. mo1 02:51 Discharge Assessment: Patient awake, alert and oriented x 3. No cognitive and/or slm functional deficits noted. Patient verbalized understanding of disposition instructions. patient administered narcotics - no. The following High Risk Discharge criteria are identified: None. Discharged to home ambulatory. Condition: good. Discharge instructions given to patient, Instructed on discharge instructions, follow up and referral plans. medication usage, Demonstrated understanding of instructions, medications, Pt was receptive of discharge instructions/ teaching. Prescriptions given X 1. No special radiology studies were completed. Property :Personal belongings accompany Pt. 02:53 Patient left the ED. slm Signatures: Alicia Fatima RN RN km Henrique Osorio PA PA mo1 Kiara Thomas LPN LPN slm Karyn Jack, Reg Reg hs2 KI
--- NOTE | 2016-09-19 03:54 | EDDOCDS ---
Physician Documentation [facility] Name: Marisa Hahn Age: 26 yrs Sex: Female : 1990 Arrival Date: 09/17/2016 Time: 01:40 Bed Triage 2 Private MD: Disposition: 09/17/16 02:47 Discharged to Home/Self Care. Impression: Dysuria. - Condition is Stable. - Discharge Instructions: Dysuria. - Prescriptions for Pyridium 200 mg Oral Tablet - take 1 tablet by ORAL route every 8 hours for 3 days; 9 tablet. - Medication Reconciliation, Local Pharmacy Hours form. - Follow up: Private Physician; When: Call to arrange an appointment; Reason: Recheck today's complaints, Continuance of care. - Problem is an ongoing problem. - Symptoms are unchanged. Historical: - Allergies: No known drug Allergies; - Home Meds: 1. Suboxone 4-1 mg SL film .5 film once daily (Last dose: 09/16/2016) 2. nitrofurantoin macrocrystal 100 mg Oral cap 1 cap twice a day (Last dose: 09/16/2016) 3. AZO Standard 95 mg Oral tab as needed (Last dose: 09/16/2016 22:00) 4. cranberry oral oral 2 tabs (Last dose: 09/16/2016) - PMHx: Substance Abuse; - PSHx: Tonsillectomy; ; - Social history: Smoking status: Patient uses tobacco products, light tobacco smoker. No barriers to communication noted, The patient speaks fluent French, Speaks appropriately for age. - Family history: Not pertinent. - : The pt / caregiver states he / she is not on anticoagulants. Home medication list is obtained from the patient. - Exposure Risk Screening:: None identified. REPRODUCTIVE HEALTHCARE ASSISTANT: 09/17 02:25 LMP 09/03/2016 kmg1 Vital Signs: 02:25 BP 118 / 55; Pulse 80; Resp 18; Temp 99(TE); Weight 53.07 kg / 117 lbs (R); Height 5 kmg1 ft. 4 in. (162.56 cm) (R); Pain 7/10; 02:25 Body Mass Index 20.08 (53.07 kg, 162.56 cm) kmg1 MDM: 01:59 Urine Culture Ordered. EDMS 01:59 Urine Test-In Lab Ordered. EDMS 02:16 URINALYSIS MANUAL Ordered. EDMS 02:18 MICROSCOPIC, URINE Ordered. EDMS 02:19 Urine Test-In Lab Reviewed. mo1 02:20 URINALYSIS MANUAL Reviewed. mo1 02:42 MICROSCOPIC, URINE Reviewed. mo1 02:54 Financial registration complete. hs2 04:02 [facility] Payment Agreement was scanned into [employer] and attached to record. hs2 08:39 T-Sheet-- Draft Copy was scanned into [employer] and attached to record. [facility] Signatures: Dispatcher [employer] [facility] Alicia Fatima, RN RN kmg1 Henrique Osorio, PA PA mo1 Kiara Thomas LPN EXECUTIVE SECRETARY slm Karyn Jack, Reg Reg hs2 Shanelle Linares [facility] The chart was reviewed and I authenticate all verbal orders and agree with the evaluation and treatment provided.Corrections: (The following items were deleted from the chart) 02:16 01:59 URINALYSIS+LAB ordered. EDOH EDMS Attachments: 04:02 [facility] Payment Agreement hs2 08:39 T-Sheet-- Draft Copy [facility] Chart Complete [facility]
--- NOTE | 2016-09-19 03:54 | EDDOCDS ---
Nurse's Notes [facility] Name: Marisa Hahn Age: 26 yrs Sex: Female : 1990 Arrival Date: 09/17/2016 Time: 01:40 Bed Triage 2 Private MD: Diagnosis: Dysuria Presentation: 09/17 02:21 Presenting complaint: Patient states: Was seen at doctor Monday and treated for UTI. kmg1 Taking generic macrobid and Azo but symptoms are not improvong. Suicide/Homicide risk assessment- the patient denies having any suicidal and/or homicidal ideations and does not present with any other emotional, behavioral or mental health complaints. 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 Transition of care: patient was not received from another setting of care. 02:21 Acuity: GIOVANNY Level 5 [facility] [place] Method Of Arrival: [place]in[place] [facility] [place] Assessment: 02:25 General: Appears in no apparent distress, comfortable, Behavior is appropriate for age, kmg1 cooperative, pleasant. Pain: Location: suprapubic area Pain currently is 7 out of 10 on a pain scale. Quality of pain is described as pressure. HIV screening NA for this visit Offered previously. : Reports burning with urination urgency urinary frequency. 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 Suboxone 4-1 mg SL film .5 film once daily (Last dose: 09/16/2016) 2. nitrofurantoin macrocrystal 100 mg Oral cap 1 cap twice a day (Last dose: 09/16/2016) 3. AZO Standard 95 mg Oral tab as needed (Last dose: 09/16/2016 22:00) 4. cranberry oral oral 2 tabs (Last dose: 09/16/2016) - PMHx: Substance Abuse; - PSHx: Tonsillectomy; ; - Social history: Smoking status: Patient uses tobacco products, light tobacco smoker. No barriers to communication noted, The patient speaks fluent Jamaican, Speaks appropriately for age. - Family history: Not pertinent. - : The pt / caregiver states he / she is not on anticoagulants. Home medication list is obtained from the patient. - Exposure Risk Screening:: None identified. Screenin:51 Screening information is obtained from the patient. Fall risk: No risks identified. slm Assistance ADL's: requires no assistance with activities of daily living. Abuse/DV Screen: The patient / caregiver reports he/she is: not in a situation that causes fear, pain or injury. Nutritional screening: No deficits noted. Advance Directives: Currently, there is no health care proxy. There is no active DNR order. There is no living will. There is no Power of Electronic Assembler Group Leader. Advance directive information has not previously been placed in an [facility] medical record. home support is adequate. Assessment: 02:50 General: Appears in no apparent distress, comfortable, Behavior is appropriate for age, slm cooperative. Vital Signs: 02:25 BP 118 / 55; Pulse 80; Resp 18; Temp 99(TE); Weight 53.07 kg (R); Height 5 ft. 4 in. km (162.56 cm) (R); Pain 7/10; 02:25 Body Mass Index 20.08 (53.07 kg, 162.56 cm) [facility] [place] Course: 01:41 Patient visited by Karyn Jack Reg. hs2 01:41 Patient moved to Waiting hs2 02:22 Triage Initiated kmg1 02:24 Henrique Osorio PA is PHCP. mo1 02:24 Davie Juan DO is Attending Physician. mo1 02:45 Patient moved to Triage Bed 1 mo1 02:46 Patient visited by Henrique Osorio PA. mo1 02:46 Patient moved to Triage 2 mo1 02:50 Kiara Thomas LPN is Primary Nurse. slm 02:52 No IV's were initiated during this patient's visit. No procedures done that require slm assistance. 04:02 [facility] Payment Agreement was scanned into [employer] and attached to record. hs2 08:39 T-Sheet-- Draft Copy was scanned into [employer] and attached to record. [facility] Order Results: Lab Order: Urine Culture; SPEC'M 09/17/16 02:05 Test: URINE CULTURE; Value: <EXTERNAL COMMENT eCWMed> FULL REPORT IN LAB NOTES (eCW and Medent).; Status: F Test: URINE CULTURE; Value: URINE CULTURE RESULT NO GROWTH; Status: F Lab Order: Urine Test-In Lab; SPEC'M 09/17/16 02:06 Test: URINE PREG TEST; Value: NEGATIVE; Range: NEGATIVE; Status: F Lab Order: URINALYSIS MANUAL; SPEC' 09/17/16 02:06 Test: APPEARANCE, URINE MANUAL; Value: HAZY; Range: CLEAR; Abnormal: Above high normal; Status: F Test: COLOR, URINE MANUAL; Value: ORANGE; Range: YELLOW; Abnormal: Above high normal; Status: F Test: PH,URINE MAN; Value: OBSCURED; Range: 5.0 - 9.0; Abnormal: Above high normal; Units: UNITS; Status: F Test: SPECIFIC GRAVITY,URINE MANUAL; Value: 1.022; Range: 1.002-1.035; Status: F Test: PROTEIN, URINE MANUAL; Value: OBSCURED; Range: NEGATIVE; Abnormal: Above high normal; Units: mg/dL; Status: F Test: GLUCOSE, URINE (UA) MANUAL; Value: OBSCURED; Range: NEGATIVE; Abnormal: Above high normal; Units: mg/dL; Status: F Test: KETONE, URINE MANUAL; Value: OBSCURED; Range: NEGATIVE; Abnormal: Above high normal; Units: mg/dL; Status: F Test: UROBILINOGEN, URINE MANUAL; Value: OBSCURED; Range: NORMAL; Abnormal: Above high normal; Units: mg/dl; Status: F Test: BILIRUBIN, URINE MANUAL; Value: OBSCURED; Range: NEGATIVE; Abnormal: Above high normal; Status: F Test: NITRITE, URINE MANUAL; Value: OBSCURED; Range: NEGATIVE; Abnormal: Above high normal; Status: F Test: LEUKOCYTE ESTERASE, URINE MAN; Value: OBSCURED; Range: NEGATIVE; Abnormal: Above high normal; Status: F Test: BLOOD URINE MANUAL; Value: OBSCURED; Range: NEGATIVE; Abnormal: Above high normal; Status: F Lab Order: MICROSCOPIC, URINE; SPEC'M 09/17/16 02:06 Test: WBC, URINE; Value: 0-1; Range: 0-3; Units: /hpf; Status: F Test: RBC, URINE; Value: 0-1; Range: 0-3; Units: /hpf; Status: F Test: SQUAMOUS EPITHELIAL CELL URINE; Value: LARGE AMOUNT; Range: SMALL AMT; Abnormal: Above high normal; Units: /hpf; Status: F Test: BACTERIA, URINE; Value: MOD AMOUNT; Range: NONE; Abnormal: Above high normal; Status: F Test: HYALINE CAST, URINE; Value: NONE SEEN; Range: 0-1; Units: /lpf; Status: F Test: MICROSCOPIC EXAM; Status: I Test: MUCUS, URINE; Value: LARGE AMOUNT; Range: NEGATIVE; Abnormal: Above high normal; Status: F Test: AMORPHOUS SEDIMENT, URINE; Value: MOD AMOUNT; Range: NEGATIVE; Abnormal: Above high normal; Status: F Test: MICROSCOPIC EXAM; Value: PERFORMED; Status: F Outcome: 02:47 Discharge ordered by Provider. mo1 02:51 Discharge Assessment: Patient awake, alert and oriented x 3. No cognitive and/or slm functional deficits noted. Patient verbalized understanding of disposition instructions. patient administered narcotics - no. The following High Risk Discharge criteria are identified: None. Discharged to home ambulatory. Condition: good. Discharge instructions given to patient, Instructed on discharge instructions, follow up and referral plans. medication usage, Demonstrated understanding of instructions, medications, Pt was receptive of discharge instructions/ teaching. Prescriptions given X 1. No special radiology studies were completed. Property :Personal belongings accompany Pt. 02:53 Patient left the ED. slm Signatures: Alicia Fatima, RN RN kmg1 Henrique Osorio PA PA mo1 Kiara Thomas LPN LPN slm Karyn Jack, Reg Reg hs2 Shanelle Linares Chart Complete MTDD
--- NOTE | 2016-09-19 03:54 | EDDOCDS ---
Physician Documentation [facility] Name: Marisa Hahn Age: 26 yrs Sex: Female : 1990 Arrival Date: 09/17/2016 Time: 01:40 Bed Triage 2 Private MD: Disposition: 09/17/16 02:47 Discharged to Home/Self Care. Impression: Dysuria. - Condition is Stable. - Discharge Instructions: Dysuria. - Prescriptions for Pyridium 200 mg Oral Tablet - take 1 tablet by ORAL route every 8 hours for 3 days; 9 tablet. - Medication Reconciliation, Local Pharmacy Hours form. - Follow up: Private Physician; When: Call to arrange an appointment; Reason: Recheck today's complaints, Continuance of care. - Problem is an ongoing problem. - Symptoms are unchanged. Historical: - Allergies: No known drug Allergies; - Home Meds: 1. Suboxone 4-1 mg SL film .5 film once daily (Last dose: 09/16/2016) 2. nitrofurantoin macrocrystal 100 mg Oral cap 1 cap twice a day (Last dose: 09/16/2016) 3. AZO Standard 95 mg Oral tab as needed (Last dose: 09/16/2016 22:00) 4. cranberry oral oral 2 tabs (Last dose: 09/16/2016) - PMHx: Substance Abuse; - PSHx: Tonsillectomy; ; - Social history: Smoking status: Patient uses tobacco products, light tobacco smoker. No barriers to communication noted, The patient speaks fluent South Korean, Speaks appropriately for age. - Family history: Not pertinent. - : The pt / caregiver states he / she is not on anticoagulants. Home medication list is obtained from the patient. - Exposure Risk Screening:: None identified. 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 4 in. (162.56 cm) (R); Pain 7/10; 02:25 Body Mass Index 20.08 (53.07 kg, 162.56 cm) kmg1 MDM: 01:59 Urine Culture Ordered. EDMS 01:59 Urine Test-In Lab Ordered. EDMS 02:16 URINALYSIS MANUAL Ordered. EDMS 02:18 MICROSCOPIC, URINE Ordered. EDMS 02:19 Urine Test-In Lab Reviewed. mo1 02:20 URINALYSIS MANUAL Reviewed. mo1 02:42 MICROSCOPIC, URINE Reviewed. mo1 02:54 Financial registration complete. hs2 04:02 [facility] Payment Agreement was scanned into [employer] and attached to record. hs2 08:39 T-Sheet-- Draft Copy was scanned into [employer] and attached to record. [facility] Signatures: Dispatcher [employer] [facility] Alicia Fatima, RN RN kmg1 Henrique Osorio, PA PA mo1 Kiara Thomas LPN FOREST LANDSCAPE ECOLOGY PROFESSOR slm Karyn Jack, Reg Reg hs2 Shanelle Linares [facility] The chart was reviewed and I authenticate all verbal orders and agree with the evaluation and treatment provided.Corrections: (The following items were deleted from the chart) 02:16 01:59 URINALYSIS+LAB ordered. EDID EDMS Attachments: 04:02 [facility] Payment Agreement hs2 08:39 T-Sheet-- Draft Copy [facility]
== END 2016-09-17 02:53 | disposition home or self-care (01) ==
LOC: M ED 01:40
DX: R30.0 Dysuria (principal); F19.10 Other psychoactive substance abuse, uncomplicated; Z72.0 Tobacco use; Z79.899 Other long term (current) drug therapy

== ENCOUNTER → 2016-09-17 | Outpatient (REF) | payer OTHER | LOC: M LAB REF 17:36 | PROVIDERS: ATTEND Physician Assistant Medical | DX: N39.0 Urinary tract infection, site not specified (principal) ==

== ENCOUNTER 2016-09-18 17:52 | Emergency (ER) | payer OTHER ==
[2016-09-18] MEDS ORDERED: KETOROLAC 30 MG/ML VIAL (J1885) As Ordered ONE (19:03)
[2016-09-18 19:11] LABS: MICROSCOPIC INDICATED? MAN YES (NO)
[2016-09-18 19:22] LABS: RBC, URINE NONE SEEN /hpf (0-3); SQUAMOUS EPITHELIAL CELL URINE MOD AMOUNT /hpf (SMALL AMT); WBC, URINE NONE SEEN /hpf (0-3)
[2016-09-18 19:23] LABS: BACTERIA, URINE NONE SEEN; HYALINE CAST, URINE NONE SEEN /lpf (0-1)
[2016-09-18 19:25] LABS: MICROSCOPIC EXAM PERFORMED
[2016-09-18 19:45] LABS: BASO % 0.2 % (0.0-1.0); EOS # 0.1 K/mm3 (0.0-0.50); EOS % 0.9 % (0.0-3.0); LARGE UNSTAINED CELL # 0.1 K/mm3 (0.0-0.4); LARGE UNSTAINED CELL % 1.2 % (0.0-4.0); LYMPH # 2.5 K/mm3 (1.5-6.5); LYMPH % 29.7 % (24.0-44.0); MEAN CORPUSCULAR HEMOGLOBIN 28.9 pg (27.0-33.0); MEAN CORPUSCULAR HGB CONC 33.7 g/dl (32.0-36.5); MEAN CORPUSCULAR VOLUME 85.7 fl (80.0-96.0); MONO # 0.4 K/mm3 (0.0-0.8); MONO % 4.5 % (0.0-5.0); NEUTROPHILS # 5.1 K/mm3 (1.8-7.7); NEUTROPHILS % 63.5 % (36.0-66.0); PLATELET COUNT, AUTOMATED 244 k/mm3 (150-450); RED CELL DISTRIBUTION WIDTH 12.2 % (11.5-14.5)
[2016-09-18 19:57] LABS: ALBUMIN/GLOBULIN RATIO 1.08 (1.00-1.93); ALKALINE PHOSPHATASE 73 U/L (45-117); ALT/SGPT 17 U/L (12-78); AMYLASE 45 U/L (25-115); ANION GAP 9 MEQ/L (8-16); AST/SGOT 20 U/L (15-37); BILIRUBIN,DIRECT 0.1 MG/DL (0.0-0.2); BILIRUBIN,TOTAL 0.4 MG/DL (0.2-1.0); BLOOD UREA NITROGEN 10 MG/DL (7-18); CALCIUM LEVEL 8.5 MG/DL (8.5-10.1); CARBON DIOXIDE LEVEL 25 MEQ/L (21-32); CHLORIDE LEVEL 105 MEQ/L (98-107); CREATININE FOR GFR 0.89 MG/DL (0.55-1.02); GLOMERULAR FILTRATION RATE > 60.0 (>60); GLUCOSE, FASTING 94 MG/DL (70-105); POTASSIUM SERUM 3.7 MEQ/L (3.5-5.1); SODIUM LEVEL 139 MEQ/L (136-145); TOTAL PROTEIN 7.7 GM/DL (6.4-8.2)
[2016-09-18] MEDS ORDERED: ISOVUE-370 76% 100ML VIAL (Q9967) As Ordered ONE (20:56)
--- NOTE | 2016-09-18 21:40 | REPUSA ---
CT of the abdomen and pelvis with contrast Clinical statement: Pain. Technique: Multiple axial CT images were obtained from the base of the lungs through the floor of the pelvis utilizing 5 mm axial slices after administration of nonionic intravenous contrast. Coronal an d sagittal reconstructions were also obtained. No comparison is available. Findings: Chest: The visualized lung bases are clear. Abdomen: The liver, spleen, pancreas, kidneys, and adrenal glands are unremarkable. Several gallstone s are seen within the gallbladder. A small amount of pericholecystic free fluid is seen. The aorta is within normal limits. There is no evidence of abdominal lymphadenopathy. Pelvis: Moderate amount of stool fills the colon.The bowel is otherwise unremarkable, with no obstruc tive or inflammatory changes. The urinary bladder is within normal limits. The other pelvic structure s appear grossly intact. There is no evidence of pelvic lymphadenopathy or ascites. Bones: There are no suspicious osseous abnormalities seen. Impression: 1. Gallstone filled gallbladder with small amount of pericholecystic free fluid. No evidence of bilia ry ductal dilatation. Ultrasound would be helpful for further evaluation. 2. Mild constipation. No obstructive or inflammatory bowel changes. 3. The kidneys are unremarkable bilaterally.
--- NOTE | 2016-09-18 22:35 | EDDOCDS ---
Physician Documentation [facility] Name: Marisa Hahn Age: 26 yrs Sex: Female : 1990 Arrival Date: 09/18/2016 Time: 17:52 Bed I3 / M3 Private MD: Disposition: 09/18/16 22:19 Discharged to Home/Self Care. Impression: Frequency of micturition, Constipation, Cholelithiasis. - Condition is Stable. - Discharge Instructions: Constipation, Adult, Cholelithiasis, Urinary Frequency. - Prescriptions for Cipro 500 mg Oral Tablet - take 1 tablet by ORAL route every 12 hours; 14 tablet. Lactulose 10 gram/15 mL Oral Solution - take 30 milliliter by ORAL route once daily; 300 milliliter. - Medication Reconciliation, Local Pharmacy Hours form. - Follow up: Jarvis Malone; When: 1 - 2 days; Reason: Recheck today's complaints, Continuance of care. Follow up: Andrew Arceo; When: 1 week; Reason: Recheck today's complaints, Continuance of care. - Problem is new. - Symptoms have improved. - Notes: STOP BACTRIM, START CIPRO, CALL UROLOGY TOMORROW FOR FOLLOW UP WITH WEEK. FOLLOW UP WITH DR ARCEO REGARDING YOUR GALL STONES, IF NAUSEA/VOMITING/ UPPER ABDOMINAL PAIN OR OTHER CONCERNING SYMPTOMS OCCUR, RETURN TO THE ER Historical: - Allergies: no known allergies; - Home Meds: 1. Suboxone 4-1 mg SL film 0.5 film once daily (Last dose: 09/18/2016 07:00) 2. nitrofurantoin macrocrystal 100 mg Oral cap 1 cap twice a day (Last dose: 09/18/2016 08:00) 3. Bactrim DS 800-160 mg Oral tab 1 tab 2 times per day (Last dose: 09/18/2016 08:00) - PMHx: Substance Abuse; - PSHx: Cesearean Section; Tonsillectomy; - Social history: Smoking status: Patient uses tobacco products, current every day smoker. Patient uses saboxone , Patient/guardian denies using alcohol, No barriers to communication noted, The patient speaks fluent Qatari, Speaks appropriately for age. - Family history: Not pertinent. - : The pt / caregiver states he / she is not on anticoagulants. Home medication list is obtained from the patient. - Exposure Risk Screening:: None identified. 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 4 in. (162.56 cm) (R); Pain 9/10; 17:53 Body Mass Index 19.57 (51.71 kg, 162.56 cm) lr2 MDM: 18:56 Undress patient appropriately for examination ordered. ck7 18:56 IV Saline Lock ordered. ck7 18:56 NS 0.9% 1000 ml IV at bolus once ordered. ck7 18:56 ketorolac 30 mg IVP once ordered. ck7 18:57 Amylase Ordered. EDMS 18:57 Basic Metabolic Profile Ordered. EDMS 18:57 CBC with Diff Ordered. EDMS 18:57 Lipase Ordered. EDMS 18:57 Liver Profile Ordered. EDMS 18:57 Urine Culture Ordered. EDMS 18:57 NOTHING BY MOUTH+DIET ordered. EDMS 18:57 CT ABD & PELVIS: IV Contrast Only Ordered. EDMS 19:10 URINALYSIS MANUAL Ordered. EDMS 19:13 MICROSCOPIC, URINE Ordered. EDMS 19:45 Financial registration complete. zo 19:59 URINALYSIS MANUAL Reviewed. ck7 19:59 MICROSCOPIC, URINE Reviewed. ck7 19:59 Amylase Reviewed. ck7 19:59 Basic Metabolic Profile Reviewed. ck7 19:59 CBC with Diff Reviewed. ck7 19:59 Lipase Reviewed. ck7 19:59 Liver Profile Reviewed. ck7 20:08 [facility] Payment Agreement was scanned into [employer] and attached to record. zo Point of Care Testing: Urine : 20:08 hCG Reading: Negative; Control Reading: Positive; jlm Ranges: Administered Medications: 19:32 Drug: NS 0.9% 1000 ml [sodium chloride 0.9 % intravenous solution] Route: IV; Rate: rs3 bolus; Site: right forearm; 19:32 Drug: ketorolac 30 mg [ketorolac 30 mg/mL (1 mL) injection solution (1 mL)] Route: IVP; rs3 Site: right forearm; Signatures: Dispatcher [employer] EDMS Denia Obando Michele,FLEET MAINTENANCE FOREMAN FLEET MAINTENANCE FOREMAN [id number] Charles Haque, RPA-C [id number] Olga Barboza RN RN ttb Trudy Martínez RN rs3 The chart was reviewed and I authenticate all verbal orders and agree with the evaluation and treatment provided.Corrections: (The following items were deleted from the chart) 19:10 18:57 URINALYSIS+LAB ordered. EDMS EDMS 20:10 20:01 LAB URINE TEST+LAB ordered. EDMS EDMS Attachments: 20:08 [facility] Payment Agreement zo MTDD
--- NOTE | 2016-09-18 22:35 | EDDOCDS ---
Nurse's Notes [facility] Name: Marisa Hahn Age: 26 yrs Sex: Female : 1990 Arrival Date: 09/18/2016 Time: 17:52 Bed I3 / M3 Private MD: Diagnosis: Frequency of micturition;Constipation;Cholelithiasis Presentation: 09/18 18:54 Presenting complaint: Patient states: UTI symptoms x5 days. Adult Sepsis Screening: The ttb patient does not have new or worsening altered mentation. Patient's respiratory rate is less than 22. Systolic blood pressure is greater than 100. Patient has a qSOFA score of 0- Negative Sepsis Screen. Suicide/Homicide risk assessment- the patient denies having any suicidal and/or homicidal ideations and does not present with any other emotional, behavioral or mental health complaints. Status: Patient is not a radiology services manager or dependent. Transition of care: patient was not received from another setting of care. 18:54 Acuity: GIOVANNY Level 3 ttb 18:54 Method Of Arrival: Walkin/Carried/Asstd ttb Triage Assessment: 18:56 General: Appears uncomfortable, well nourished, well groomed, Behavior is appropriate ttb for age, cooperative, pleasant. Pain: Location: lower abd 9/10. HIV screening NA for this visit Offered previously. Neurological: Level of Consciousness is awake, alert. Respiratory: No deficits noted. GI: Reports nausea. : Denies burning with urination, urinary frequency, urgency. Derm: Skin is normal. NEWS LIBRARIAN: 18:56 LMP 09/02/2016 ttb Historical: - Allergies: no known allergies; - Home Meds: 1. Suboxone 4-1 mg SL film 0.5 film once daily (Last dose: 09/18/2016 07:00) 2. nitrofurantoin macrocrystal 100 mg Oral cap 1 cap twice a day (Last dose: 09/18/2016 08:00) 3. Bactrim DS 800-160 mg Oral tab 1 tab 2 times per day (Last dose: 09/18/2016 08:00) - PMHx: Substance Abuse; - PSHx: Cesearean Section; Tonsillectomy; - Social history: Smoking status: Patient uses tobacco products, current every day smoker. Patient uses saboxone , Patient/guardian denies using alcohol, No barriers to communication noted, The patient speaks fluent Kyrgyz, Speaks appropriately for age. - Family history: Not pertinent. - : The pt / caregiver states he / she is not on anticoagulants. Home medication list is obtained from the patient. - Exposure Risk Screening:: None identified. Screenin:33 Screening information is obtained from the patient. Fall risk: No risks identified. mf4 Assistance ADL's: requires no assistance with activities of daily living. Abuse/DV Screen: The patient / caregiver reports he/she is: not in a situation that causes fear, pain or injury. Nutritional screening: No deficits noted. Advance Directives: Unable to assess Advance Directive status due to pt condition. home support is adequate. Assessment: 19:34 General: Appears in no apparent distress, Behavior is appropriate for age, cooperative. rs3 Pain: Location: pelvis. Respiratory: Airway is patent Respiratory effort is even, unlabored. : Reports burning with urination pain in lower back with urination urgency urinary frequency. Derm: Skin is pink, warm & dry. 20:45 General: Appears in no apparent distress, Behavior is appropriate for age, cooperative. rs3 General: denies of acute distress. waiting for CT scan. Neurological: Level of Consciousness is awake, alert. Vital Signs: 17:53 BP 122 / 61; Pulse 72; Resp 16; Temp 97.7(O); Pulse Ox 99% on R/A; Weight 51.71 kg (R); lr2 Height 5 ft. 4 in. (162.56 cm) (R); Pain 9/10; 17:53 Body Mass Index 19.57 (51.71 kg, 162.56 cm) lr2 Vitals: 17:53 Log In Time: September 18, 2016 at 17:52. lr2 ED Course: 17:53 Patient visited by Abril Pemberton. lr2 17:53 Patient moved to Waiting lr2 17:55 Patient moved to Pre RCE lr2 18:18 Patient visited by Henrique Webster RN. mlb1 18:19 Triage Initiated mlb1 18:22 Patient moved to Triage 2 ar3 18:29 Charles Haque RPA-C [facility] ck7 18:29 Puma Starr MD is Attending Physician. ck7 18:29 Patient visited by Charles Haque RPA-C. ck7 18:57 Patient moved to I3 / M3 ttb 19:23 Patient visited by Charles Haque RPA-C. ck7 19:28 Patient visited by Kiara Thomas LPN. slm 19:28 Inserted saline lock: 20 gauge in right antecubital area and blood collected. The [facility] patient tolerated the procedure well. 19:33 Liver Profile Sent. rs3 19:33 Lipase Sent. rs3 19:33 CBC with Diff Sent. rs3 19:33 Basic Metabolic Profile Sent. rs3 19:58 Patient visited by Charles Haque RPA-C. ck7 20:08 Patient visited by Michelle Gibson Unit Clerk. jlm 20:08 [facility] Payment Agreement was scanned into [employer] and attached to record. zo 20:44 Patient visited by Trudy aMrtínez RN. rs3 21:31 Patient visited by Charles Haque RPA-C. ck7 22:03 Patient visited by Charles Haque RPA-C. ck7 22:07 CT ABD & PELVIS: IV Contrast Only Returned. EDMS 22:18 Jarvis Malone is Referral Physician. ck7 22:19 Andrew Camacho is Referral Physician. ck7 22:33 The patient / caregiver is instructed regarding the plan of care and ED course. mf4 22:33 Discontinued lock. No procedures done that require assistance. mf4 Administered Medications: 19:32 Drug: NS 0.9% 1000 ml [sodium chloride 0.9 % intravenous solution] Route: IV; Rate: rs3 bolus; Site: right forearm; 19:32 Drug: ketorolac 30 mg [ketorolac 30 mg/mL (1 mL) injection solution (1 mL)] Route: IVP; rs3 Site: right forearm; Point of Care Testing: Urine : 20:08 hCG Reading: Negative; Control Reading: Positive; [facility] Ranges: Order Results: Lab Order: Amylase; SPEC'M 09/18/16 19:25 Test: AMYLASE; Value: 45; Range: 25-115; Units: U/L; Status: F Lab Order: Basic Metabolic Profile; SPEC'M 09/18/16 19:25 Test: GLUCOSE, FASTING; Value: 94; Range: 70-105; Units: MG/DL; Status: F Test: BLOOD UREA NITROGEN; Value: 10; Range: 7-18; Units: MG/DL; Status: F Test: CREATININE FOR GFR; Value: 0.89; Range: 0.55-1.02; Units: MG/DL; Status: F Test: GLOMERULAR FILTRATION RATE; Value: > 60.0; Range: >60; Status: F Test: SODIUM LEVEL; Value: 139; Range: 136-145; Units: MEQ/L; Status: F Test: POTASSIUM SERUM; Value: 3.7; Range: 3.5-5.1; Units: MEQ/L; Status: F Test: CHLORIDE LEVEL; Value: 105; Range: 98-107; Units: MEQ/L; Status: F Test: CARBON DIOXIDE LEVEL; Value: 25; Range: 21-32; Units: MEQ/L; Status: F Test: ANION GAP; Value: 9; Range: 8-16; Units: MEQ/L; Status: F Test: CALCIUM LEVEL; Value: 8.5; Range: 8.5-10.1; Units: MG/DL; Status: F Test Note: ; Units are mL/min/1.73 m2 Chronic Kidney Disease Staging per NKF: Stage I & II GFR >=60 Normal to Mildly Decreased Stage III GFR 30-59 Moderately Decreased Stage IV GFR 15-29 Severely Decreased Stage V GFR <15 Very Little GFR Left ESRD GFR <15 on EMERGENCY VEHICLE TECHNICIAN Lab Order: CBC with Diff; SPEC'M 09/18/16 19:25 Test: WHITE BLOOD COUNT; Value: 8.0; Range: 4.0-10.0; Units: K/mm3; Status: F Test: RED BLOOD COUNT; Value: 4.54; Range: 4.00-5.40; Units: M/mm3; Status: F Test: HEMOGLOBIN; Value: 13.1; Range: 12.0-16.0; Units: g/dl; Status: F Test: HEMATOCRIT; Value: 38.9; Range: 36.0-47.0; Units: %; Status: F Test: MEAN CORPUSCULAR VOLUME; Value: 85.7; Range: 80.0-96.0; Units: fl; Status: F Test: MEAN CORPUSCULAR HEMOGLOBIN; Value: 28.9; Range: 27.0-33.0; Units: pg; Status: F Test: MEAN CORPUSCULAR HGB CONC; Value: 33.7; Range: 32.0-36.5; Units: g/dl; Status: F Test: RED CELL DISTRIBUTION WIDTH; Value: 12.2; Range: 11.5-14.5; Units: %; Status: F Test: PLATELET COUNT, AUTOMATED; Value: 244; Range: 150-450; Units: k/mm3; Status: F Test: NEUTROPHILS %; Value: 63.5; Range: 36.0-66.0; Units: %; Status: F Test: LYMPH %; Value: 29.7; Range: 24.0-44.0; Units: %; Status: F Test: MONO %; Value: 4.5; Range: 0.0-5.0; Units: %; Status: F Test: EOS %; Value: 0.9; Range: 0.0-3.0; Units: %; Status: F Test: BASO %; Value: 0.2; Range: 0.0-1.0; Units: %; Status: F Test: LARGE UNSTAINED CELL %; Value: 1.2; Range: 0.0-4.0; Units: %; Status: F Test: NEUTROPHILS #; Value: 5.1; Range: 1.8-7.7; Units: K/mm3; Status: F Test: LYMPH #; Value: 2.5; Range: 1.5-6.5; Units: K/mm3; Status: F Test: MONO #; Value: 0.4; Range: 0.0-0.8; Units: K/mm3; Status: F Test: EOS #; Value: 0.1; Range: 0.0-0.50; Units: K/mm3; Status: F Test: BASO #; Value: 0.0; Range: 0.0-0.2; Units: K/mm3; Status: F Test: LARGE UNSTAINED CELL #; Value: 0.1; Range: 0.0-0.4; Units: K/mm3; Status: F Lab Order: Lipase; SPEC'M 09/18/16 19:25 Test: LIPASE; Value: 105; Range: 73-393; Units: U/L; Status: F Lab Order: Liver Profile; SPEC'M 09/18/16 19:25 Test: AST/SGOT; Value: 20; Range: 15-37; Units: U/L; Status: F Test: ALT/SGPT; Value: 17; Range: 12-78; Units: U/L; Status: F Test: ALKALINE PHOSPHATASE; Value: 73; Range: 45-117; Units: U/L; Status: F Test: BILIRUBIN,TOTAL; Value: 0.4; Range: 0.2-1.0; Units: MG/DL; Status: F Test: BILIRUBIN,DIRECT; Value: 0.1; Range: 0.0-0.2; Units: MG/DL; Status: F Test: TOTAL PROTEIN; Value: 7.7; Range: 6.4-8.2; Units: GM/DL; Status: F Test: ALBUMIN; Value: 4.0; Range: 3.2-5.2; Units: GM/DL; Status: F Test: ALBUMIN/GLOBULIN RATIO; Value: 1.08; Range: 1.00-1.93; Status: F Lab Order: URINALYSIS MANUAL; SPEC'M 09/18/16 18:58 Test: APPEARANCE, URINE MANUAL; Value: HAZY; Range: CLEAR; Abnormal: Above high normal; Status: F Test: COLOR, URINE MANUAL; Value: ORANGE; Range: YELLOW; Abnormal: Above high normal; Status: F Test: PH,URINE MAN; Value: OBSCURED; Range: 5.0 - 9.0; Abnormal: Above high normal; Units: UNITS; Status: F Test: SPECIFIC GRAVITY,URINE MANUAL; Value: 1.026; Range: 1.002-1.035; Status: F Test: PROTEIN, URINE MANUAL; Value: OBSCURED; Range: NEGATIVE; Abnormal: Above high normal; Units: mg/dL; Status: F Test: GLUCOSE, URINE (UA) MANUAL; Value: OBSCURED; Range: NEGATIVE; Abnormal: Above high normal; Units: mg/dL; Status: F Test: KETONE, URINE MANUAL; Value: OBSCURED; Range: NEGATIVE; Abnormal: Above high normal; Units: mg/dL; Status: F Test: UROBILINOGEN, URINE MANUAL; Value: OBSCURED; Range: NORMAL; Abnormal: Above high normal; Units: mg/dl; Status: F Test: BILIRUBIN, URINE MANUAL; Value: OBSCURED; Range: NEGATIVE; Abnormal: Above high normal; Status: F Test: NITRITE, URINE MANUAL; Value: OBSCURED; Range: NEGATIVE; Abnormal: Above high normal; Status: F Test: LEUKOCYTE ESTERASE, URINE MAN; Value: OBSCURED; Range: NEGATIVE; Abnormal: Above high normal; Status: F Test: BLOOD URINE MANUAL; Value: OBSCURED; Range: NEGATIVE; Abnormal: Above high normal; Status: F Lab Order: MICROSCOPIC, URINE; SPEC'M 09/18/16 18:58 Test: WBC, URINE; Value: NONE SEEN; Range: 0-3; Units: /hpf; Status: F Test: RBC, URINE; Value: NONE SEEN; Range: 0-3; Units: /hpf; Status: F Test: SQUAMOUS EPITHELIAL CELL URINE; Value: MOD AMOUNT; Range: SMALL AMT; Abnormal: Above high normal; Units: /hpf; Status: F Test: BACTERIA, URINE; Value: NONE SEEN; Range: NONE; Status: F Test: HYALINE CAST, URINE; Value: NONE SEEN; Range: 0-1; Units: /lpf; Status: F Test: MICROSCOPIC EXAM; Status: I Test: AMORPHOUS SEDIMENT, URINE; Value: LARGE AMOUNT; Range: NEGATIVE; Abnormal: Above high normal; Status: F Test: MICROSCOPIC EXAM; Value: PERFORMED; Status: F Radiology Order: CT ABD & PELVIS: IV Contrast Only Test: CT ABD & PELVIS: IV Contrast Only REASON FOR EXAMINATION: R/O PYELONEPHRITIS; ; CT of the abdomen and pelvis with contrast; Clinical statement: Pain.; Technique: Multiple axial CT images were obtained from the base of the lungs through the floor of the; pelvis utilizing 5 mm axial slices after administration of nonionic intravenous contrast. Coronal an; d sagittal reconstructions were also obtained.; No comparison is available.; Findings:; Chest: The visualized lung bases are clear.; Abdomen: The liver, spleen, pancreas, kidneys, and adrenal glands are unremarkable. Several gallstone; s are seen within the gallbladder. A small amount of pericholecystic free fluid is seen. The aorta is; within normal limits. There is no evidence of abdominal lymphadenopathy.; Pelvis: Moderate amount of stool fills the colon.The bowel is otherwise unremarkable, with no obstruc; tive or inflammatory changes. The urinary bladder is within normal limits. The other pelvic structure; s appear grossly intact. There is no evidence of pelvic lymphadenopathy or ascites.; Bones: There are no suspicious osseous abnormalities seen.; Impression:; 1. Gallstone filled gallbladder with small amount of pericholecystic free fluid. No evidence of bilia; ry ductal dilatation. Ultrasound would be helpful for further evaluation.; 2. Mild constipation. No obstructive or inflammatory bowel changes.; 3. The kidneys are unremarkable bilaterally.; ; Outcome: 22:19 Discharge ordered by Provider. ck7 22:33 Discharge Assessment: Patient awake, alert and oriented x 3. No cognitive and/or mf4 functional deficits noted. Patient verbalized understanding of disposition instructions. patient administered narcotics - no. The following High Risk Discharge criteria are identified: None. Discharged to home ambulatory. Condition: good Condition: stable. Discharge instructions given to patient, Instructed on discharge instructions, follow up and referral plans. medication usage, Demonstrated understanding of instructions, Pt was receptive of discharge instructions/ teaching. Prescriptions given X escribed. No special radiology studies were completed. Property sent home with patient. 22:34 Patient left the ED. mf4 Signatures: Dispatcher [employer] EDMS Henrique Webster RN RN mlb1 Denia Obando Rosemary,RN RN rs3 Betsey Winn, BALANCE WHEEL FACER BALANCE WHEEL FACER ar3 Zander Mack,LORI BELT BUILDER HELPER mf4 Charles Haque, RPA-C RPA-Cck7 Olga Barboza RN RN ttb Kiara Thomas LPN BELT BUILDER HELPER slMichelle Flores, Tube And Manifold Builder Unit Abril King lr2 Corrections: (The following items were deleted from the chart) 18:20 18:19 Presenting complaint: Patient states: Tripped over a pet gait at home injuring mlb1 right elbow last evening mlb1 18:20 18:19 Adult Sepsis Screening: The patient does not have new or worsening altered mlb1 mentation. Patient's respiratory rate is less than 22. Systolic blood pressure is greater than 100. Patient has a qSOFA score of 0- Negative Sepsis Screen. mlb1 18:20 18:19 Suicide/Homicide risk assessment- the patient denies having any suicidal and/or mlb1 homicidal ideations and does not present with any other emotional, behavioral or mental health complaints [facility] 18: 18:19 Status: Patient is not a radiology services manager or dependent. b1 [facility] : 18: Transition of care: patient was not received from another setting of care. b1 [facility] 18: Acuity: GIOVANNY Level 4 [place] [id number] : 18: Method Of Arrival: Walkin/Carried/Asstd [place] [id number] MTDD
--- NOTE | 2016-09-20 23:36 | EDDOCDS ---
Physician Documentation [facility] Name: Marisa Hahn Age: 26 yrs Sex: Female : 1990 Arrival Date: 09/18/2016 Time: 17:52 Bed I3 / M3 Private MD: Disposition: 09/18/16 22:19 Discharged to Home/Self Care. Impression: Frequency of micturition, Constipation, Cholelithiasis. - Condition is Stable. - Discharge Instructions: Constipation, Adult, Cholelithiasis, Urinary Frequency. - Prescriptions for Cipro 500 mg Oral Tablet - take 1 tablet by ORAL route every 12 hours; 14 tablet. Lactulose 10 gram/15 mL Oral Solution - take 30 milliliter by ORAL route once daily; 300 milliliter. - Medication Reconciliation, Local Pharmacy Hours form. - Follow up: Jarvis Malone; When: 1 - 2 days; Reason: Recheck today's complaints, Continuance of care. Follow up: Andrew Arceo; When: 1 week; Reason: Recheck today's complaints, Continuance of care. - Problem is new. - Symptoms have improved. - Notes: STOP BACTRIM, START CIPRO, CALL UROLOGY TOMORROW FOR FOLLOW UP WITH WEEK. FOLLOW UP WITH DR ARCEO REGARDING YOUR GALL STONES, IF NAUSEA/VOMITING/ UPPER ABDOMINAL PAIN OR OTHER CONCERNING SYMPTOMS OCCUR, RETURN TO THE ER Historical: - Allergies: no known allergies; - Home Meds: 1. Suboxone 4-1 mg SL film 0.5 film once daily (Last dose: 09/18/2016 07:00) 2. nitrofurantoin macrocrystal 100 mg Oral cap 1 cap twice a day (Last dose: 09/18/2016 08:00) 3. Bactrim DS 800-160 mg Oral tab 1 tab 2 times per day (Last dose: 09/18/2016 08:00) - PMHx: Substance Abuse; - PSHx: Cesearean Section; Tonsillectomy; - Social history: Smoking status: Patient uses tobacco products, current every day smoker. Patient uses saboxone , Patient/guardian denies using alcohol, No barriers to communication noted, The patient speaks fluent [place], Speaks appropriately for age. - Family history: Not pertinent. - : The pt / caregiver states he / she is not on anticoagulants. Home medication list is obtained from the patient. - Exposure Risk Screening:: None identified. 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 4 in. (162.56 cm) (R); Pain 9/10; 17:53 Body Mass Index 19.57 (51.71 kg, 162.56 cm) lr2 MDM: 18:56 Undress patient appropriately for examination ordered. ck7 18:56 IV Saline Lock ordered. ck7 18:56 NS 0.9% 1000 ml IV at bolus once ordered. ck7 18:56 ketorolac 30 mg IVP once ordered. ck7 18:57 Amylase Ordered. EDMS 18:57 Basic Metabolic Profile Ordered. EDMS 18:57 CBC with Diff Ordered. EDMS 18:57 Lipase Ordered. EDMS 18:57 Liver Profile Ordered. EDMS 18:57 Urine Culture Ordered. EDMS 18:57 NOTHING BY MOUTH+DIET ordered. EDMS 18:57 CT ABD & PELVIS: IV Contrast Only Ordered. EDMS 19:10 URINALYSIS MANUAL Ordered. EDMS 19:13 MICROSCOPIC, URINE Ordered. EDMS 19:45 Financial registration complete. zo 19:59 URINALYSIS MANUAL Reviewed. ck7 19:59 MICROSCOPIC, URINE Reviewed. ck7 19:59 Amylase Reviewed. ck7 19:59 Basic Metabolic Profile Reviewed. ck7 19:59 CBC with Diff Reviewed. ck7 19:59 Lipase Reviewed. ck7 19:59 Liver Profile Reviewed. ck7 20:08 [facility] Payment Agreement was scanned into [employer] and attached to record. zo 09/19 09:52 T-Sheet-- Draft Copy was scanned into [employer] and attached to record. gb Point of Care Testing: Urine : 09/18 20:08 hCG Reading: Negative; Control Reading: Positive; jlm Ranges: Administered Medications: 19:32 Drug: NS 0.9% 1000 ml [sodium chloride 0.9 % intravenous solution] Route: IV; Rate: rs3 bolus; Site: right forearm; 19:32 Drug: ketorolac 30 mg [ketorolac 30 mg/mL (1 mL) injection solution (1 mL)] Route: IVP; rs3 Site: right forearm; Signatures: Dispatcher [employer] EDMS Yamel Mccall, Rangel Reg gb Topher, Zander Hu LPN LPN mf4 Charles Haque, DEEPC RPA-Cck7 Olga Barboza RN RN ttb Trudy Martínez RN rs3 The chart was reviewed and I authenticate all verbal orders and agree with the evaluation and treatment provided.Corrections: (The following items were deleted from the chart) 19:10 18:57 URINALYSIS+LAB ordered. EDMS EDMS 20:10 20:01 LAB URINE TEST+LAB ordered. EDMS EDMS Attachments: 20:08 [facility] Payment Agreement zo 09/19 09:52 T-Sheet-- Draft Copy gb Chart Complete MTDD
--- NOTE | 2016-09-20 23:36 | EDDOCDS ---
Physician Documentation [facility] Name: Marisa Hahn Age: 26 yrs Sex: Female : 1990 Arrival Date: 09/18/2016 Time: 17:52 Bed I3 / M3 Private MD: Disposition: 09/18/16 22:19 Discharged to Home/Self Care. Impression: Frequency of micturition, Constipation, Cholelithiasis. - Condition is Stable. - Discharge Instructions: Constipation, Adult, Cholelithiasis, Urinary Frequency. - Prescriptions for Cipro 500 mg Oral Tablet - take 1 tablet by ORAL route every 12 hours; 14 tablet. Lactulose 10 gram/15 mL Oral Solution - take 30 milliliter by ORAL route once daily; 300 milliliter. - Medication Reconciliation, Local Pharmacy Hours form. - Follow up: Jarvis Malone; When: 1 - 2 days; Reason: Recheck today's complaints, Continuance of care. Follow up: Andrew Arceo; When: 1 week; Reason: Recheck today's complaints, Continuance of care. - Problem is new. - Symptoms have improved. - Notes: STOP BACTRIM, START CIPRO, CALL UROLOGY TOMORROW FOR FOLLOW UP WITH WEEK. FOLLOW UP WITH DR ARCEO REGARDING YOUR GALL STONES, IF NAUSEA/VOMITING/ UPPER ABDOMINAL PAIN OR OTHER CONCERNING SYMPTOMS OCCUR, RETURN TO THE ER Historical: - Allergies: no known allergies; - Home Meds: 1. Suboxone 4-1 mg SL film 0.5 film once daily (Last dose: 09/18/2016 07:00) 2. nitrofurantoin macrocrystal 100 mg Oral cap 1 cap twice a day (Last dose: 09/18/2016 08:00) 3. Bactrim DS 800-160 mg Oral tab 1 tab 2 times per day (Last dose: 09/18/2016 08:00) - PMHx: Substance Abuse; - PSHx: Cesearean Section; Tonsillectomy; - Social history: Smoking status: Patient uses tobacco products, current every day smoker. Patient uses saboxone , Patient/guardian denies using alcohol, No barriers to communication noted, The patient speaks fluent Argentine, Speaks appropriately for age. - Family history: Not pertinent. - : The pt / caregiver states he / she is not on anticoagulants. Home medication list is obtained from the patient. - Exposure Risk Screening:: None identified. 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 4 in. (162.56 cm) (R); Pain 9/10; 17:53 Body Mass Index 19.57 (51.71 kg, 162.56 cm) lr2 MDM: 18:56 Undress patient appropriately for examination ordered. ck7 18:56 IV Saline Lock ordered. ck7 18:56 NS 0.9% 1000 ml IV at bolus once ordered. ck7 18:56 ketorolac 30 mg IVP once ordered. ck7 18:57 Amylase Ordered. EDMS 18:57 Basic Metabolic Profile Ordered. EDMS 18:57 CBC with Diff Ordered. EDMS 18:57 Lipase Ordered. EDMS 18:57 Liver Profile Ordered. EDMS 18:57 Urine Culture Ordered. EDMS 18:57 NOTHING BY MOUTH+DIET ordered. EDMS 18:57 CT ABD & PELVIS: IV Contrast Only Ordered. EDMS 19:10 URINALYSIS MANUAL Ordered. EDMS 19:13 MICROSCOPIC, URINE Ordered. EDMS 19:45 Financial registration complete. zo 19:59 URINALYSIS MANUAL Reviewed. ck7 19:59 MICROSCOPIC, URINE Reviewed. ck7 19:59 Amylase Reviewed. ck7 19:59 Basic Metabolic Profile Reviewed. ck7 19:59 CBC with Diff Reviewed. ck7 19:59 Lipase Reviewed. ck7 19:59 Liver Profile Reviewed. ck7 20:08 [facility] Payment Agreement was scanned into [employer] and attached to record. zo 09/19 09:52 T-Sheet-- Draft Copy was scanned into [employer] and attached to record. gb Point of Care Testing: Urine : 09/18 20:08 hCG Reading: Negative; Control Reading: Positive; jlm Ranges: Administered Medications: 19:32 Drug: NS 0.9% 1000 ml [sodium chloride 0.9 % intravenous solution] Route: IV; Rate: rs3 bolus; Site: right forearm; 19:32 Drug: ketorolac 30 mg [ketorolac 30 mg/mL (1 mL) injection solution (1 mL)] Route: IVP; rs3 Site: right forearm; Signatures: Dispatcher [employer] EDMS Yamel Mccall, Rangel Reg gb Topher, aZnder Hu LPN LPN mf4 Charles Haque, DEEPC RPA-Cck7 Olga Barboza RN RN ttb Trudy Martínez RN rs3 The chart was reviewed and I authenticate all verbal orders and agree with the evaluation and treatment provided.Corrections: (The following items were deleted from the chart) 19:10 18:57 URINALYSIS+LAB ordered. EDMS EDMS 20:10 20:01 LAB URINE TEST+LAB ordered. EDMS EDMS Attachments: 20:08 [facility] Payment Agreement zo 09/19 09:52 T-Sheet-- Draft Copy gb Chart Complete MTDD
--- NOTE | 2016-09-20 23:36 | EDDOCDS ---
Nurse's Notes [facility] Name: Marisa Hahn Age: 26 yrs Sex: Female : 1990 Arrival Date: 09/18/2016 Time: 17:52 Bed I3 / M3 Private MD: Diagnosis: Frequency of micturition;Constipation;Cholelithiasis Presentation: 09/18 18:54 Presenting complaint: Patient states: UTI symptoms x5 days. Adult Sepsis Screening: The ttb patient does not have new or worsening altered mentation. Patient's respiratory rate is less than 22. Systolic blood pressure is greater than 100. Patient has a qSOFA score of 0- Negative Sepsis Screen. Suicide/Homicide risk assessment- the patient denies having any suicidal and/or homicidal ideations and does not present with any other emotional, behavioral or mental health complaints. Status: Patient is not a nutrition services aide or dependent. Transition of care: patient was not received from another setting of care. 18:54 Acuity: GIOVANNY Level 3 ttb 18:54 Method Of Arrival: Walkin/Carried/Asstd ttb Triage Assessment: 18:56 General: Appears uncomfortable, well nourished, well groomed, Behavior is appropriate ttb for age, cooperative, pleasant. Pain: Location: lower abd 9/10. HIV screening NA for this visit Offered previously. Neurological: Level of Consciousness is awake, alert. Respiratory: No deficits noted. GI: Reports nausea. : Denies burning with urination, urinary frequency, urgency. Derm: Skin is normal. 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 Suboxone 4-1 mg SL film 0.5 film once daily (Last dose: 09/18/2016 07:00) 2. nitrofurantoin macrocrystal 100 mg Oral cap 1 cap twice a day (Last dose: 09/18/2016 08:00) 3. Bactrim DS 800-160 mg Oral tab 1 tab 2 times per day (Last dose: 09/18/2016 08:00) - PMHx: Substance Abuse; - PSHx: Cesearean Section; Tonsillectomy; - Social history: Smoking status: Patient uses tobacco products, current every day smoker. Patient uses saboxone , Patient/guardian denies using alcohol, No barriers to communication noted, The patient speaks fluent Arabic, Speaks appropriately for age. - Family history: Not pertinent. - : The pt / caregiver states he / she is not on anticoagulants. Home medication list is obtained from the patient. - Exposure Risk Screening:: None identified. Screenin:33 Screening information is obtained from the patient. Fall risk: No risks identified. mf4 Assistance ADL's: requires no assistance with activities of daily living. Abuse/DV Screen: The patient / caregiver reports he/she is: not in a situation that causes fear, pain or injury. Nutritional screening: No deficits noted. Advance Directives: Unable to assess Advance Directive status due to pt condition. home support is adequate. Assessment: 19:34 General: Appears in no apparent distress, Behavior is appropriate for age, cooperative. rs3 Pain: Location: pelvis. Respiratory: Airway is patent Respiratory effort is even, unlabored. : Reports burning with urination pain in lower back with urination urgency urinary frequency. Derm: Skin is pink, warm & dry. 20:45 General: Appears in no apparent distress, Behavior is appropriate for age, cooperative. rs3 General: denies of acute distress. waiting for CT scan. Neurological: Level of Consciousness is awake, alert. Vital Signs: 17:53 BP 122 / 61; Pulse 72; Resp 16; Temp 97.7(O); Pulse Ox 99% on R/A; Weight 51.71 kg (R); lr2 Height 5 ft. 4 in. (162.56 cm) (R); Pain 9/10; 17:53 Body Mass Index 19.57 (51.71 kg, 162.56 cm) lr2 Vitals: 17:53 Log In Time: September 18, 2016 at 17:52. lr2 ED Course: 17:53 Patient visited by Abril Pemberton. lr2 17:53 Patient moved to Waiting lr2 17:55 Patient moved to Pre RCE lr2 18:18 Patient visited by Henrique Webster RN. mlb1 18:19 Triage Initiated mlb1 18:22 Patient moved to Triage 2 ar3 18:29 [facility] Haque RPA-C [facility] ck7 18:29 Puma Starr MD is Attending Physician. ck7 18:29 Patient visited by Charles Haque RPA-C. ck7 18:57 Patient moved to I3 / M3 ttb 19:23 Patient visited by Charles Haque RPA-C. ck7 19:28 Patient visited by Kiara Thomas LPN. m 19:28 Inserted saline lock: 20 gauge in right antecubital area and blood collected. The [facility] patient tolerated the procedure well. 19:33 Liver Profile Sent. rs3 19:33 Lipase Sent. rs3 19:33 CBC with Diff Sent. rs3 19:33 Basic Metabolic Profile Sent. rs3 19:58 Patient visited by Charles Haque RPA-C. ck7 20:08 Patient visited by Michelle Gibson Unit Clerk. jlm 20:08 [facility] Payment Agreement was scanned into [employer] and attached to record. zo 20:44 Patient visited by Trudy Martínez RN. rs3 21:31 Patient visited by Charles Haque RPA-C. ck7 22:03 Patient visited by Charles Haque RPA-C. ck7 22:07 CT ABD & PELVIS: IV Contrast Only Returned. EDMS 22:18 Jarvis Malone is Referral Physician. ck7 22:19 Andrew Camacho is Referral Physician. ck7 22:33 The patient / caregiver is instructed regarding the plan of care and ED course. mf4 22:33 Discontinued lock. No procedures done that require assistance. [facility] 09/19 09:52 T-Sheet-- Draft Copy was scanned into [employer] and attached to record. gb Administered Medications: 09/18 19:32 Drug: NS 0.9% 1000 ml [sodium chloride 0.9 % intravenous solution] Route: IV; Rate: rs3 bolus; Site: right forearm; 19:32 Drug: ketorolac 30 mg [ketorolac 30 mg/mL (1 mL) injection solution (1 mL)] Route: IVP; rs3 Site: right forearm; Point of Care Testing: Urine : 20:08 hCG Reading: Negative; Control Reading: Positive; [facility] [place] Ranges: Order Results: Lab Order: Amylase; SPEC'M 09/18/16 19:25 Test: AMYLASE; Value: 45; Range: 25-115; Units: U/L; Status: F Lab Order: Basic Metabolic Profile; SPEC'M 09/18/16 19:25 Test: GLUCOSE, FASTING; Value: 94; Range: 70-105; Units: MG/DL; Status: F Test: BLOOD UREA NITROGEN; Value: 10; Range: 7-18; Units: MG/DL; Status: F Test: CREATININE FOR GFR; Value: 0.89; Range: 0.55-1.02; Units: MG/DL; Status: F Test: GLOMERULAR FILTRATION RATE; Value: > 60.0; Range: >60; Status: F Test: SODIUM LEVEL; Value: 139; Range: 136-145; Units: MEQ/L; Status: F Test: POTASSIUM SERUM; Value: 3.7; Range: 3.5-5.1; Units: MEQ/L; Status: F Test: CHLORIDE LEVEL; Value: 105; Range: 98-107; Units: MEQ/L; Status: F Test: CARBON DIOXIDE LEVEL; Value: 25; Range: 21-32; Units: MEQ/L; Status: F Test: ANION GAP; Value: 9; Range: 8-16; Units: MEQ/L; Status: F Test: CALCIUM LEVEL; Value: 8.5; Range: 8.5-10.1; Units: MG/DL; Status: F Test Note: ; Units are mL/min/1.73 m2 Chronic Kidney Disease Staging per NKF: Stage I & II GFR >=60 Normal to Mildly Decreased Stage III GFR 30-59 Moderately Decreased Stage IV GFR 15-29 Severely Decreased Stage V GFR <15 Very Little GFR Left ESRD GFR <15 on VIDEO GAME PRODUCER Lab Order: CBC with Diff; SPEC'M 09/18/16 19:25 Test: WHITE BLOOD COUNT; Value: 8.0; Range: 4.0-10.0; Units: K/mm3; Status: F Test: RED BLOOD COUNT; Value: 4.54; Range: 4.00-5.40; Units: M/mm3; Status: F Test: HEMOGLOBIN; Value: 13.1; Range: 12.0-16.0; Units: g/dl; Status: F Test: HEMATOCRIT; Value: 38.9; Range: 36.0-47.0; Units: %; Status: F Test: MEAN CORPUSCULAR VOLUME; Value: 85.7; Range: 80.0-96.0; Units: fl; Status: F Test: MEAN CORPUSCULAR HEMOGLOBIN; Value: 28.9; Range: 27.0-33.0; Units: pg; Status: F Test: MEAN CORPUSCULAR HGB CONC; Value: 33.7; Range: 32.0-36.5; Units: g/dl; Status: F Test: RED CELL DISTRIBUTION WIDTH; Value: 12.2; Range: 11.5-14.5; Units: %; Status: F Test: PLATELET COUNT, AUTOMATED; Value: 244; Range: 150-450; Units: k/mm3; Status: F Test: NEUTROPHILS %; Value: 63.5; Range: 36.0-66.0; Units: %; Status: F Test: LYMPH %; Value: 29.7; Range: 24.0-44.0; Units: %; Status: F Test: MONO %; Value: 4.5; Range: 0.0-5.0; Units: %; Status: F Test: EOS %; Value: 0.9; Range: 0.0-3.0; Units: %; Status: F Test: BASO %; Value: 0.2; Range: 0.0-1.0; Units: %; Status: F Test: LARGE UNSTAINED CELL %; Value: 1.2; Range: 0.0-4.0; Units: %; Status: F Test: NEUTROPHILS #; Value: 5.1; Range: 1.8-7.7; Units: K/mm3; Status: F Test: LYMPH #; Value: 2.5; Range: 1.5-6.5; Units: K/mm3; Status: F Test: MONO #; Value: 0.4; Range: 0.0-0.8; Units: K/mm3; Status: F Test: EOS #; Value: 0.1; Range: 0.0-0.50; Units: K/mm3; Status: F Test: BASO #; Value: 0.0; Range: 0.0-0.2; Units: K/mm3; Status: F Test: LARGE UNSTAINED CELL #; Value: 0.1; Range: 0.0-0.4; Units: K/mm3; Status: F Lab Order: Lipase; SPEC'M 09/18/16 19:25 Test: LIPASE; Value: 105; Range: 73-393; Units: U/L; Status: F Lab Order: Liver Profile; [facility] 09/18/16 19:25 Test: AST/SGOT; Value: 20; Range: 15-37; Units: U/L; Status: F Test: ALT/SGPT; Value: 17; Range: 12-78; Units: U/L; Status: F Test: ALKALINE PHOSPHATASE; Value: 73; Range: 45-117; Units: U/L; Status: F Test: BILIRUBIN,TOTAL; Value: 0.4; Range: 0.2-1.0; Units: MG/DL; Status: F Test: BILIRUBIN,DIRECT; Value: 0.1; Range: 0.0-0.2; Units: MG/DL; Status: F Test: TOTAL PROTEIN; Value: 7.7; Range: 6.4-8.2; Units: GM/DL; Status: F Test: ALBUMIN; Value: 4.0; Range: 3.2-5.2; Units: GM/DL; Status: F Test: ALBUMIN/GLOBULIN RATIO; Value: 1.08; Range: 1.00-1.93; Status: F Lab Order: Urine Culture; [facility] 09/18/16 18:58 Test: URINE CULTURE; Value: <EXTERNAL COMMENT eCWMed> FULL REPORT IN LAB NOTES (eCW and Medent).; Status: F Test: URINE CULTURE; Value: URINE CULTURE RESULT NO GROWTH; Status: F Lab Order: URINALYSIS MANUAL; [facility] 09/18/16 18:58 Test: APPEARANCE, URINE MANUAL; Value: HAZY; Range: CLEAR; Abnormal: Above high normal; Status: F Test: COLOR, URINE MANUAL; Value: ORANGE; Range: YELLOW; Abnormal: Above high normal; Status: F Test: PH,URINE MAN; Value: OBSCURED; Range: 5.0 - 9.0; Abnormal: Above high normal; Units: UNITS; Status: F Test: SPECIFIC GRAVITY,URINE MANUAL; Value: 1.026; Range: 1.002-1.035; Status: F Test: PROTEIN, URINE MANUAL; Value: OBSCURED; Range: NEGATIVE; Abnormal: Above high normal; Units: mg/dL; Status: F Test: GLUCOSE, URINE (UA) MANUAL; Value: OBSCURED; Range: NEGATIVE; Abnormal: Above high normal; Units: mg/dL; Status: F Test: KETONE, URINE MANUAL; Value: OBSCURED; Range: NEGATIVE; Abnormal: Above high normal; Units: mg/dL; Status: F Test: UROBILINOGEN, URINE MANUAL; Value: OBSCURED; Range: NORMAL; Abnormal: Above high normal; Units: mg/dl; Status: F Test: BILIRUBIN, URINE MANUAL; Value: OBSCURED; Range: NEGATIVE; Abnormal: Above high normal; Status: F Test: NITRITE, URINE MANUAL; Value: OBSCURED; Range: NEGATIVE; Abnormal: Above high normal; Status: F Test: LEUKOCYTE ESTERASE, URINE MAN; Value: OBSCURED; Range: NEGATIVE; Abnormal: Above high normal; Status: F Test: BLOOD URINE MANUAL; Value: OBSCURED; Range: NEGATIVE; Abnormal: Above high normal; Status: F Lab Order: MICROSCOPIC, URINE; SPEC'M 09/18/16 18:58 Test: WBC, URINE; Value: NONE SEEN; Range: 0-3; Units: /hpf; Status: F Test: RBC, URINE; Value: NONE SEEN; Range: 0-3; Units: /hpf; Status: F Test: SQUAMOUS EPITHELIAL CELL URINE; Value: MOD AMOUNT; Range: SMALL AMT; Abnormal: Above high normal; Units: /hpf; Status: F Test: BACTERIA, URINE; Value: NONE SEEN; Range: NONE; Status: F Test: HYALINE CAST, URINE; Value: NONE SEEN; Range: 0-1; Units: /lpf; Status: F Test: MICROSCOPIC EXAM; Status: I Test: AMORPHOUS SEDIMENT, URINE; Value: LARGE AMOUNT; Range: NEGATIVE; Abnormal: Above high normal; Status: F Test: MICROSCOPIC EXAM; Value: PERFORMED; Status: F Radiology Order: CT ABD & PELVIS: IV Contrast Only Test: CT ABD & PELVIS: IV Contrast Only REASON FOR EXAMINATION: R/O PYELONEPHRITIS; ; CT of the abdomen and pelvis with contrast; Clinical statement: Pain.; Technique: Multiple axial CT images were obtained from the base of the lungs through the floor of the; pelvis utilizing 5 mm axial slices after administration of nonionic intravenous contrast. Coronal an; d sagittal reconstructions were also obtained.; No comparison is available.; Findings:; Chest: The visualized lung bases are clear.; Abdomen: The liver, spleen, pancreas, kidneys, and adrenal glands are unremarkable. Several gallstone; s are seen within the gallbladder. A small amount of pericholecystic free fluid is seen. The aorta is; within normal limits. There is no evidence of abdominal lymphadenopathy.; Pelvis: Moderate amount of stool fills the colon.The bowel is otherwise unremarkable, with no obstruc; tive or inflammatory changes. The urinary bladder is within normal limits. The other pelvic structure; s appear grossly intact. There is no evidence of pelvic lymphadenopathy or ascites.; Bones: There are no suspicious osseous abnormalities seen.; Impression:; 1. Gallstone filled gallbladder with small amount of pericholecystic free fluid. No evidence of bilia; ry ductal dilatation. Ultrasound would be helpful for further evaluation.; 2. Mild constipation. No obstructive or inflammatory bowel changes.; 3. The kidneys are unremarkable bilaterally.; ; Outcome: 22:19 Discharge ordered by Provider. ck7 22:33 Discharge Assessment: Patient awake, alert and oriented x 3. No cognitive and/or mf4 functional deficits noted. Patient verbalized understanding of disposition instructions. patient administered narcotics - no. The following High Risk Discharge criteria are identified: None. Discharged to home ambulatory. Condition: good Condition: stable. Discharge instructions given to patient, Instructed on discharge instructions, follow up and referral plans. medication usage, Demonstrated understanding of instructions, Pt was receptive of discharge instructions/ teaching. Prescriptions given X escribed. No special radiology studies were completed. Property sent home with patient. 22:34 Patient left the ED. mf4 Signatures: Dispatcher [employer] EDMS Yamel Mccall, Reg Reg Henrique Mccloud, RN RN mlb1 Denia Obando RosemaryRN RN rs3 Betsey Winn, DIRECTOR OF STRATEGY & MOBILE DIRECTOR OF STRATEGY & MOBILE ar3 Zander Mack,LORI DIRECTOR OF PHYSICAL SECURITY mf4 Charles Haque, SHARATH-C RPA-Cck7 Olga Barboza, RN RN Kiara Bangura LPN LPN slm Michelle Gibson, Rope Walker Unit Abril King2 Corrections: (The following items were deleted from the chart) 18:20 18:19 Presenting complaint: Patient states: Tripped over a pet gait at home injuring b1 right elbow last evening [facility] 18: 18:19 Adult Sepsis Screening: The patient does not have new or worsening altered mlb1 mentation. Patient's respiratory rate is less than 22. Systolic blood pressure is greater than 100. Patient has a qSOFA score of 0- Negative Sepsis Screen. [facility] 18: 18:19 Suicide/Homicide risk assessment- the patient denies having any suicidal and/or mlb1 homicidal ideations and does not present with any other emotional, behavioral or mental health complaints [facility] 18: 18:19 Status: Patient is not a nutrition services aide or dependent. [place] [id number] : 18:19 Transition of care: patient was not received from another setting of care. [place] [id number] 18: Acuity: GIOVANNY Level 4 [place] [id number] 18:19 Method Of Arrival: Walkin/Carried/Asstd [place] [id number] Chart Complete MTDD
== END 2016-09-18 22:34 | disposition home or self-care (01) ==
LOC: M ED 17:52
DX: R35.0 Frequency of micturition (principal); K59.00 Constipation, unspecified; K80.20 Calculus of gallbladder without cholecystitis without obstruction; F11.21 Opioid dependence, in remission; Z79.899 Other long term (current) drug therapy; F17.210 Nicotine dependence, cigarettes, uncomplicated

== ENCOUNTER 2016-11-14 20:23 | Emergency (ER) | payer OTHER ==
[~2016-11-14] VITALS: Ht 162.6 cm; Wt 51.7 kg
[2016-11-14 20:25] VITALS: BP 105/50
[2016-11-14] MEDS ORDERED: IBUP60TA PO (20:35)
[2016-11-14] MEDS ORDERED: SUBO8MIS SL (20:35)
== END 2016-11-14 22:15 | disposition left against medical advice (07) ==
LOC: M ED 22:11
DX: K08.89 Other specified disorders of teeth and supporting structures (principal); Z53.29 Procedure and treatment not carried out because of patient's decision for other reasons

== ENCOUNTER → 2017-06-23 | Outpatient (REF) | payer OTHER ==
[~2017-06-23] MED LIST: AZO95TAB PO; BACT800T5 PO; CITRSOL8 PO; IBUP1TAB6 PO; SUBO8MIS SL; ZOFR4TAB3 PO
[2017-06-23 13:54] LABS: BASO % 0.3 % (0.0-1.0); EOS # 0.2 10^3/uL (0.0-0.50); EOS % 2.5 % (0.0-3.0); LYMPH # 2.4 10^3/uL (1.5-6.5); LYMPH % 40.3 % (24.0-44.0); MEAN CORPUSCULAR HEMOGLOBIN 29.4 pg (27.0-33.0); MEAN CORPUSCULAR HGB CONC 33.6 g/dl (32.0-36.5); MEAN CORPUSCULAR VOLUME 87.6 fl (80.0-96.0); MONO # 0.4 10^3/uL (0.0-0.8); MONO % 6.4 % (0.0-5.0); NEUTROPHILS % 50.5 % (36.0-66.0); PLATELET COUNT, AUTOMATED 255 10^3/uL (150-450); RED CELL DISTRIBUTION WIDTH 12.1 % (11.5-14.5); WHITE BLOOD COUNT 5.9 10^3/uL (4.0-10.0)
[2017-06-23 14:12] LABS: CONTROL LINE HCG INT CTR LINE PRESENT
[2017-06-23 14:32] LABS: ALBUMIN 4.1 GM/DL (3.2-5.2); ALBUMIN/GLOBULIN RATIO 1.24 (1.00-1.93); ALKALINE PHOSPHATASE 61 U/L (45-117); ALT/SGPT 16 U/L (12-78); ANION GAP 5 MEQ/L (8-16); AST/SGOT 13 U/L (7-37); BILIRUBIN,TOTAL 0.3 MG/DL (0.2-1.0); BLOOD UREA NITROGEN 14 MG/DL (7-18); CALCIUM LEVEL 8.9 MG/DL (8.5-10.1); CARBON DIOXIDE LEVEL 30 MEQ/L (21-32); CHLORIDE LEVEL 104 MEQ/L (98-107); CREATININE FOR GFR 0.76 MG/DL (0.55-1.02); GLOMERULAR FILTRATION RATE > 60.0 (>60); GLUCOSE, FASTING 91 MG/DL (70-105); SODIUM LEVEL 139 MEQ/L (136-145); TOTAL PROTEIN 7.4 GM/DL (6.4-8.2)
[2017-06-28 00:06] LABS: TESTOSTERONE %FREE+WEAKLY BOUN 8.5 % (3.0-18.0); TESTOSTERONE FREE+WEAKLY BOUND 1.9 ng/dL (0.0-9.5)
== END ==
LOC: M LABDRWAD 13:35
DX: F11.20 Opioid dependence, uncomplicated (principal)

== ENCOUNTER 2017-06-29 23:03 | Emergency (ER) | payer OTHER ==
[~2017-06-29] VITALS: Ht 162.6 cm; Wt 53.2 kg
[~2017-06-29 23:03] MED LIST changes: -AZO95TAB PO; -BACT800T5 PO; -CITRSOL8 PO; -ZOFR4TAB3 PO
[2017-06-29 23:04] VITALS: BP 125/71
[2017-06-29] MEDS ORDERED: BACT800T5 PO (23:40)
[2017-06-29] MEDS ORDERED: AZO95TAB PO (23:40)
[2017-06-30] MEDS ORDERED: CITRSOL8 PO (01:50)
[2017-06-30] MEDS ORDERED: MAGNESIUM CITRATE 300 ML BTL PO ONE (02:00)
== END 2017-06-30 02:02 | disposition home or self-care (01) ==
LOC: M ED 23:03
DX: R30.0 Dysuria (principal); K59.00 Constipation, unspecified; Z79.891 Long term (current) use of opiate analgesic

== ENCOUNTER → 2017-06-29 | Outpatient (REF) | payer OTHER | LOC: M SFHCADAM 13:52 | PROVIDERS: ATTEND Family Medicine | DX: R30.0 Dysuria (principal) ==

== ENCOUNTER 2017-07-03 10:15 | Emergency (ER) | payer OTHER ==
[~2017-07-03] VITALS: Ht 162.6 cm; Wt 54.5 kg
[~2017-07-03 10:15] MED LIST changes: +AZO95TAB PO; +BACT800T5 PO; +CITRSOL8 PO
[2017-07-03] MEDS ORDERED: ONDANSETRON 4 MG ORAL DISINTEGRATING TAB (S0181) PO ONE (12:00)
[2017-07-03 12:20] LABS: MICROSCOPIC INDICATED? MAN YES (NO)
[2017-07-03 12:52] LABS: BACTERIA, URINE MOD AMOUNT; RBC, URINE 0-1 /hpf (0-3); SQUAMOUS EPITHELIAL CELL URINE SMALL AMOUNT /hpf (SMALL AMT); WBC, URINE 0-1 /hpf (0-3)
[2017-07-03 12:53] LABS: HYALINE CAST, URINE NONE SEEN /lpf (0-1); MICROSCOPIC EXAM PERFORMED
[2017-07-03] MEDS ORDERED: ZOFR4TAB3 PO (13:18)
[2017-07-03 13:33] VITALS: BP 120/65
== END 2017-07-03 13:37 | disposition home or self-care (01) ==
LOC: M ED 10:15
DX: E86.0 Dehydration (principal); R11.0 Nausea

== ENCOUNTER 2017-07-09 01:49 | Emergency (ER) | payer OTHER ==
[~2017-07-09] VITALS: Ht 162.6 cm; Wt 53.2 kg
[~2017-07-09 01:49] MED LIST changes: +ZOFR4TAB3 PO
[2017-07-09] MEDS ORDERED: KETOROLAC 60 MG/2 ML VIAL (J1885) IM ONE (02:30)
[2017-07-09] MEDS ORDERED: PENICILLIN V POTASSIUM 500 MG TAB PO ONE (02:30)
[2017-07-09] MEDS ORDERED: PENI250T57 PO (02:58)
[2017-07-09 03:02] VITALS: BP 130/60
== END 2017-07-09 03:05 | disposition home or self-care (01) ==
LOC: M ED 01:49
DX: K02.9 Dental caries, unspecified (principal); F19.21 Other psychoactive substance dependence, in remission; Z79.891 Long term (current) use of opiate analgesic
CPT/HCPCS: 96372; 99283; J1885

== ENCOUNTER → 2018-10-04 | Outpatient (REF) | payer OTHER ==
[~2018-10-04] MED LIST changes: +PENI250T57 PO; +PREN1CHW6 PO; +PROM1SUP2 PR; +SUBO4MIS; +ZOFR4TAB14 PO; -ZOFR4TAB3 PO
[2018-10-04 19:32] LABS: HEMATOCRIT 36.5 % (36.0-47.0); HEMOGLOBIN 12.2 g/dl (12.0-15.5); MEAN CORPUSCULAR HEMOGLOBIN 29.6 pg (27.0-33.0); MEAN CORPUSCULAR HGB CONC 33.4 g/dl (32.0-36.5); MEAN CORPUSCULAR VOLUME 88.6 fl (80.0-96.0); PLATELET COUNT, AUTOMATED 235 10^3/uL (150-450); RED BLOOD COUNT 4.12 10^6/uL (4.00-5.40); WHITE BLOOD COUNT 7.6 10^3/uL (4.0-10.0)
[2018-10-05 09:05] LABS: HCG, SERUM QUANTITATIVE 13983 MIU/ML
[2018-10-05 11:43] LABS: RUBELLA IgG QUALITATIVE IMMUNE (IMMUNE)
[2018-10-05 11:44] LABS: HEPATITIS B SURFACE ANTIGEN NEGATIVE (NEGATIVE)
[2018-10-05 12:12] LABS: HIV 1&2 SCREEN CENTAUR NEGATIVE (NEGATIVE)
== END ==
LOC: M LAB REF 16:34
PROVIDERS: ATTEND Obstetrics & Gynecology
DX: Z32.01 Encounter for pregnancy test, result positive (principal); O36.80X0 Pregnancy with inconclusive fetal viability, not applicable or unspecified; Z3A.00 Weeks of gestation of pregnancy not specified

== ENCOUNTER 2018-10-09 11:03 | Emergency (ER) | payer OTHER ==
[~2018-10-09] VITALS: Ht 162.6 cm; Wt 59.1 kg
[~2018-10-09 11:03] MED LIST changes: -PREN1CHW6 PO; -PROM1SUP2 PR; -SUBO4MIS
[2018-10-09] MEDS ORDERED: PREN1CHW6 PO (11:15)
[2018-10-09] MEDS ORDERED: SUBO4MIS (11:15)
[2018-10-09] MEDS ORDERED: METOCLOPRAMIDE INJ 10MG/2ML VIAL (J2765) IV ONE (11:30)
[2018-10-09] MEDS ORDERED: NS 1,000 ML IV ONE ×2 (11:30→13:30)
[2018-10-09 11:44] LABS: BASO % 0.2 % (0.0-1.0); EOS % 0.1 % (0.0-3.0); HEMATOCRIT 37.9 % (36.0-47.0); HEMOGLOBIN 13.1 g/dl (12.0-15.5); LYMPH # 1.1 10^3/uL (1.5-6.5); LYMPH % 10.2 % (24.0-44.0); MEAN CORPUSCULAR HEMOGLOBIN 30.2 pg (27.0-33.0); MEAN CORPUSCULAR HGB CONC 34.6 g/dl (32.0-36.5); MEAN CORPUSCULAR VOLUME 87.3 fl (80.0-96.0); MONO # 0.5 10^3/uL (0.0-0.8); MONO % 4.2 % (0.0-5.0); NEUTROPHILS # 9.6 10^3/uL (1.8-7.7); PLATELET COUNT, AUTOMATED 230 10^3/uL (150-450); RED BLOOD COUNT 4.34 10^6/uL (4.00-5.40); WHITE BLOOD COUNT 11.2 10^3/uL (4.0-10.0)
[2018-10-09 12:17] LABS: ALBUMIN 4.5 GM/DL (3.2-5.2); ALT/SGPT 304 U/L (12-78); BILIRUBIN,DIRECT 0.6 MG/DL (0.0-0.2); BILIRUBIN,TOTAL 1.4 MG/DL (0.2-1.0); BLOOD UREA NITROGEN 15 MG/DL (7-18); CALCIUM LEVEL 8.9 MG/DL (8.5-10.1); CARBON DIOXIDE LEVEL 23 MEQ/L (21-32); CHLORIDE LEVEL 103 MEQ/L (98-107); CREATININE FOR GFR 0.68 MG/DL (0.55-1.30); GLOMERULAR FILTRATION RATE > 60.0 (>60); GLUCOSE, FASTING 78 MG/DL (70-100); LIPASE 48 U/L (73-393); POTASSIUM SERUM 4.2 MEQ/L (3.5-5.1); SODIUM LEVEL 135 MEQ/L (136-145); TOTAL PROTEIN 7.8 GM/DL (6.4-8.2)
--- NOTE | 2018-10-09 14:50 | REP ---
RIGHT UPPER QUADRANT SONOGRAPHY: HISTORY: Elevated liver function studies. Abdominal pain. Previous CT study from September 18, 2016 showed evidence of cholelithiasis. FINDINGS: Scanning through the right upper quadrant of the abdomen demonstrates tenderness to scanning over the gallbladder. Gallstones are seen. Gallbladder wall is not visibly thickened. No pericholecystic fluid is seen. Gallstones are large. Common bile duct is normal measuring 0.6 cm in greatest diameter. Liver parenchyma is homogeneous by ultrasound. No pancreatic abnormality is seen. Pancreas is partially obscured by abdominal gas. There is no evidence of ascites or right renal abnormality. The right kidney measures 11.2 x 4.6 x 3.7 cm. IMPRESSION: Tenderness to scanning over the gallbladder. Multiple large gallstones seen. Otherwise negative right upper quadrant sonography. Electronically Signed by Dioni Mclaughlin MD 10/09/2018 07:50 P
--- NOTE | 2018-10-09 14:51 | REP ---
EMERGENCY OBSTETRIC FIRST TRIMESTER ULTRASOUND: HISTORY: Abdominal pain. FINDINGS: Transabdominal scanning demonstrates a single living intrauterine gestation. The embryonic pole measures 5.3 mm in crown-rump length. This corresponds with a gestational age estimate of 6 weeks 2 days. heart rate is recorded at 112 beats per minute. No subchorionic hemorrhage is seen. There is a 2.3 cm cystic area in the maternal right ovary consistent with corpus luteum. IMPRESSION: Viable single intrauterine gestation at 6 weeks 2 days by crown-rump length. VINCENZO by sonography June 02, 2019. No complication is identified. Electronically Signed by Dioni Mclaughlin MD 10/09/2018 07:50 P
[2018-10-09] MEDS ORDERED: PROMETHAZINE 25 MG TAB PO ONE (15:00)
[2018-10-09] MEDS ORDERED: ONDANSETRON 4MG/2ML VIAL (J2405) IV ONE (15:45)
[2018-10-09] MEDS ORDERED: PROM1SUP2 PR (16:44)
[2018-10-09 16:54] VITALS: BP 115/56
== END 2018-10-09 17:08 | disposition home or self-care (01) ==
LOC: M ED 11:03
DX: O99.611 Diseases of the digestive system complicating pregnancy, first trimester (principal); K80.70 Calculus of gallbladder and bile duct without cholecystitis without obstruction; O21.8 Other vomiting complicating pregnancy; O99.321 Drug use complicating pregnancy, first trimester; F19.10 Other psychoactive substance abuse, uncomplicated; Z3A.08 8 weeks gestation of pregnancy; Z79.899 Other long term (current) drug therapy
CPT/HCPCS: 76705; 76801; 80048; 80076; 81001; 83690; 85025; 96361; 96374; 96375; 99284; J2405; J2765

== ENCOUNTER → 2018-12-20 | Outpatient (REF) | payer OTHER ==
[~2018-12-20] MED LIST changes: +PREN1CHW6 PO; +PROM1SUP2 PR; +SUBO4MIS
== END ==
LOC: M LAB REF 12:26
PROVIDERS: ATTEND Obstetrics & Gynecology
DX: N39.0 Urinary tract infection, site not specified (principal)

== ENCOUNTER → 2019-02-27 | Outpatient (REF) | payer OTHER ==
[2019-02-27 14:19] LABS: ALBUMIN 3.2 GM/DL (3.2-5.2); ALT/SGPT 15 U/L (12-78); BILIRUBIN,DIRECT 0.1 MG/DL (0.0-0.2); BILIRUBIN,TOTAL 0.3 MG/DL (0.2-1.0); HCG, SERUM QUANTITATIVE 18013 MIU/ML; HEPATITIS A ANTIBODY IGM NEGATIVE (NEGATIVE); HEPATITIS B CORE ANTIBODY IGM NEGATIVE (NEGATIVE); HEPATITIS B SURFACE ANTIGEN NEGATIVE (NEGATIVE); HEPATITIS C VIRUS ABY INDEX 0.1 INDEX (<0.8); TESTOSTERONE 48 NG/DL (14-76)
== END ==
LOC: M LABDRWAD 12:26
PROVIDERS: ATTEND Physical Medicine & Rehabilitation
DX: F11.20 Opioid dependence, uncomplicated (principal)

== ENCOUNTER → 2019-04-08 | Outpatient (CLI) | payer OTHER ==
[~2019-04-08] MED LIST changes: +IBUP80TA PO; +OXYC1TAB23 PO
[2019-04-08 11:17] LABS: HEMATOCRIT 26.2 % (36.0-47.0); HEMOGLOBIN 9.1 g/dl (12.0-15.5); MEAN CORPUSCULAR HGB CONC 34.7 g/dl (32.0-36.5); MEAN CORPUSCULAR VOLUME 92.3 fl (80.0-96.0); PLATELET COUNT, AUTOMATED 146 10^3/uL (150-450); RED BLOOD COUNT 2.84 10^6/uL (4.00-5.40); WHITE BLOOD COUNT 12.3 10^3/uL (4.0-10.0)
== END ==
LOC: M LAB 09:47
PROVIDERS: ATTEND Obstetrics & Gynecology
DX: Z34.83 Encounter for supervision of other normal pregnancy, third trimester (principal); Z3A.00 Weeks of gestation of pregnancy not specified

== ENCOUNTER → 2019-05-07 | Outpatient (REF) | payer OTHER ==
[~2019-05-07] MED LIST changes: -IBUP80TA PO; -OXYC1TAB23 PO
== END ==
LOC: M LAB REF 12:09
PROVIDERS: ATTEND Obstetrics & Gynecology
DX: Z36.85 Encounter for antenatal screening for Streptococcus B (principal)

== ENCOUNTER 2019-05-25 20:30 | Outpatient (CLI) | payer OTHER ==
[~2019-05-25] VITALS: Ht 162.6 cm; Wt 66.9 kg
[2019-05-25] MEDS ORDERED: LACTATED RINGER'S 1000 ML IV STA (20:41)
[2019-05-25] MEDS ORDERED: LR 1,000 ML IV SCH (20:41)
[2019-05-25 20:47] VITALS: BP 112/71
[2019-05-25 21:31] LABS: HEMATOCRIT 30.7 % (36.0-47.0); HEMOGLOBIN 10.2 g/dl (12.0-15.5); MEAN CORPUSCULAR HEMOGLOBIN 29.9 pg (27.0-33.0); MEAN CORPUSCULAR HGB CONC 33.2 g/dl (32.0-36.5); PLATELET COUNT, AUTOMATED 201 10^3/uL (150-450); RED BLOOD COUNT 3.41 10^6/uL (4.00-5.40); WHITE BLOOD COUNT 11.9 10^3/uL (4.0-10.0)
[2019-05-25 21:56] LABS: ALBUMIN 2.6 GM/DL (3.2-5.2); ALT/SGPT 11 U/L (12-78); BILIRUBIN,TOTAL 0.6 MG/DL (0.2-1.0); BLOOD UREA NITROGEN 10 MG/DL (7-18); CALCIUM LEVEL 8.3 MG/DL (8.5-10.1); CARBON DIOXIDE LEVEL 24 MEQ/L (21-32); CHLORIDE LEVEL 104 MEQ/L (98-107); CREATININE FOR GFR 0.77 MG/DL (0.55-1.30); GLOMERULAR FILTRATION RATE > 60.0 (>60); GLUCOSE, FASTING 96 MG/DL (70-100); LIPASE 79 U/L (73-393); POTASSIUM SERUM 3.3 MEQ/L (3.5-5.1); SODIUM LEVEL 138 MEQ/L (136-145); TOTAL PROTEIN 5.7 GM/DL (6.4-8.2)
== END 2019-05-25 22:51 | disposition home or self-care (01) ==
LOC: M LDO 20:30
PROVIDERS: ATTEND Specialist
DX: O47.1 False labor at or after 37 completed weeks of gestation (principal); Z3A.38 38 weeks gestation of pregnancy

== ENCOUNTER 2019-05-31 21:04 | Inpatient (IN) | payer OTHER ==
[~2019-05-31] VITALS: Ht 162.6 cm; Wt 66.6 kg
[2019-05-31 21:23] VITALS: BP 135/80
[2019-05-31] MEDS ORDERED: LR 1,000 ML IV SCH ×2 (21:58→23:57)
[2019-05-31] MEDS ORDERED: LACTATED RINGER'S 1000 ML IV STA (21:58)
[2019-05-31] MEDS ORDERED: AZITHROMYCIN INJ 500 MG, VIAL MATE ADAPTER 1 EACH in D5W 250 ML IV ONE (22:00)
[2019-05-31] MEDS ORDERED: ceFAZolin SOD 2 GM in IV 1 EA IV ONE (22:00)
[2019-05-31] MEDS ORDERED: BICITRA 30ML SOLN UDC PO ONE (22:00)
--- NOTE | 2019-05-31 22:18 | HPEPDOC ---
Obstetrical History & Physical General Date of Admission May 31, 2019 at 21:56 History of Present Illness Chief Complaint: Contractions, term, LOF, term Information Provided By: Patient Age: 29 : 2 Term: 1 Pre-term: 0 Abortions: 0 Livin Care Care: Good Care Dating Final EDC: Jun 05, 2019 Final EDC by: 1st trimester (US) EGA at Admission: 39 (+2) Antepartum Course Height (inches): 64 Pre- weight (lbs.): 124 Admission Weight (lbs.): 147 Past Medical History Past Obstetrical History : Past Obstetrical History: Primgravida (2014) Type of Delivery: Ceserean section Sex of : Male (7#4) Complications: Yes (failure to progress) Past Medical History Medical History +HPV Surgical History: section, Tonsilectomy Family History Significant Family History: No pertinent family hx Social History Marital Status: Single Family situation: Spouse/partner home Psychosocial History: No pertinent psych hx * Smoker: former Smoker Alcohol: Denies Drugs: denies, other (currently on suboxone 4mg daily) Abuse Violence Screening Have you been hit/kicked/slapp: No Have you been sexually assault: No Allergies Coded Allergies: No Known Allergies (Unverified , 05/28/19) Medications Scheduled Vit37/Iron/Folic Acid (Prenata Chewable Tablet) 1 Chw Chw, 1 TAB PO DAILY Miscellaneous Medications Buprenorphine HCl/Naloxone HCl (Suboxone 4 mg-1 mg Sl Film) 1 Mis Mis Physical Examination Physical Examination GENERAL: Alert and oriented times three. BREAST: . ABDOMEN: Gravid and non-tender to touch. FETUS: Is vertex (VTX) by sterile vaginal examination (SVE), fetus is vertex (VTX) by Stas. Moderate clear fluid draining PV HEART RATE: Regular rate and rhythm. LUNGS: Clear to auscultation (CTA). EXTREMITIES: No edema. No clonus. Deep tendon reflexes (DTRs) + 2 Vital Signs/I&O Vital Signs Date Time Temp Pulse Resp B/P (MAP) Pulse Ox O2 Delivery O2 Flow Rate FiO2 05/31/19 21:23 98.5 55 18 135/80 (98) Pertinent Laboratoy Data Blood Type: A+ RBC Antibody Screen: Negative HIV: Negative Hepatitis B: Negative Hepatitis C: Negative Rapid Plasma Reagin: Nonreactive Rubella: Immune Chlamydia/Gonorrhea: Negative Group B Streptococcus: Negative Quad Screen Test: Declined Glucose Tolerance Test: 95 Anatomy Ultrasound Ultrasound Date: Jan 18, 2019 Placenta Location: Posterior Normal Anatomy: Yes Placenta Previa: No Estimated Weight (grams): 394 Other Ultrasounds 10/11/18 dating 6w1d VINCENZO 06/05/19 02/21/19 remainder anatomy WNL EFW 906gm 05/17/19 growth 3072gm, 47.4%, vertex Steroid Therapy Steroid Therapy: No Vaginal Examination Dilation: 3 cm Effacement: 90% Station: -1 Cervical Consistency: Soft Cervical Position: Middle Presentation: Cephalic presentation Assessment Heart Rate (FHR): 130 Variability: Moderate Accelerations: Positive Decelerations: None Tocometer Contractions: Yes Frequency: every 3-7 min. Duration: greater than 60 seconds Strength: palpated as moderate Assessment/Plan Assessment Marisa is a 29-year-old (G)2 para (P)1-0-0-1 at 39+2 weeks by 6-week ultrasound. Presents to Labor and Delivery (L&D) with complaints of contractions and loss of fluid since 1400. Reports light bloody show and good movement. Spec exam moderate pooling clear fluid, + nitrazine, + fern. SVE /-1. Pt of [facility] plans a repeat section. Plan Admit and orient. Parts Specialist and consent. Diet: NPO. Group B Streptococcus (GBS) negative. Labs and intravenous (IV) per unit protocol. Lactated Ringers (LR): Bolus 1000 mL, then at 125 mL/hr. Dr White notified for repeat plan Sofía Armas CNM May 31, 2019 22:18
[2019-05-31 22:24] LABS: HEMATOCRIT 31.1 % (36.0-47.0); HEMOGLOBIN 10.4 g/dl (12.0-15.5); MEAN CORPUSCULAR HEMOGLOBIN 30.3 pg (27.0-33.0); MEAN CORPUSCULAR HGB CONC 33.4 g/dl (32.0-36.5); MEAN CORPUSCULAR VOLUME 90.7 fl (80.0-96.0); PLATELET COUNT, AUTOMATED 221 10^3/uL (150-450); RED BLOOD COUNT 3.43 10^6/uL (4.00-5.40); WHITE BLOOD COUNT 13.7 10^3/uL (4.0-10.0)
[2019-05-31] MEDS ORDERED: OXYTOCIN INJ 10 UNITS/ML VIAL (J2590) As Ordered ONE (23:29)
[2019-05-31] MEDS ORDERED: MORPHINE PRES-FREE INJ 10 MG/10 ML VIAL (J2274) As Ordered ONE (23:29)
[2019-05-31] MEDS ORDERED: ONDANSETRON 4MG/2ML VIAL (J2405) As Ordered ONE (23:37)
[2019-05-31] MEDS ORDERED: FAMOTIDINE/NS 20 MG/50 ML BAG (S0028) As Ordered ONE (23:38)
[2019-06-01] VITALS (10 sets, daily range): BP systolic 109–159; BP diastolic 57–90
[2019-06-01] MEDS ORDERED: PERCOCET 5MG/325MG TAB PO PRN
[2019-06-01] MEDS ORDERED: KETOROLAC 30 MG/ML VIAL (J1885) IV SCH
[2019-06-01] MEDS ORDERED: DOCUSATE SODIUM 100 MG CAP PO PRN
[2019-06-01] MEDS ORDERED: RHOGAM 300 MCG (1500 IU) INJ (J2790) IM SCH
[2019-06-01] MEDS ORDERED: MEASLES,MUMPS,RUBELLA VACCINE INJ (MMR-II) (90707) SC SCH
--- NOTE | 2019-06-01 00:24 | RO ---
DATE OF PROCEDURE: 05/31/2019 PREPROCEDURE DIAGNOSIS: 39-5/7 weeks gestation, labor, spontaneous rupture of membranes, prior section times one. POSTPROCEDURE DIAGNOSIS: 39-5/7 weeks gestation, labor, spontaneous rupture of membranes, prior section times one. PROCEDURE: Repeat low transverse section. SURGEON: Jeremy White MD SENIOR ELECTRICAL PROJECT MANAGER: Jon Mcneil DO ANESTHESIA: Spinal. ESTIMATED BLOOD LOSS: 500 mL. URINE OUTPUT: 100 mL. FINDINGS: 6 pound 8 ounce male . scores 8 and 9. Normal uterus, fallopian tubes and ovaries. DESCRIPTION OF PROCEDURE: The patient was taken to the operating room where spinal anesthesia was induced. She was prepped and draped in a sterile fashion in the supine position. A Hutchinson catheter was placed. A Pfannenstiel skin incision was made with a scalpel and carried through to the fascia. The fascia was nicked and extended and the fascia was dissected off the rectus muscles. The peritoneal cavity was entered. A bladder flap was created. A curvilinear incision was made in the lower uterine segment until clear fluid was noted. This was extended manually. The infant was delivered from the vertex position without difficulty. The cord was doubly clamped and cut. The infant was handed off to the awaiting nurse. The placenta was expressed. The uterus was exteriorized and cleared of clots and debris. The uterine incision was closed with #0 Vicryl in a running locked fashion. A second imbricating layer of #0 Vicryl was placed. The uterus was placed back in the abdominal cavity. The peritoneum was closed with #2-0 Vicryl in a running fashion. The fascia was closed with #0 Vicryl. The deep layer was irrigated. The skin was closed with #4-0 Monocryl subcuticular sutures. Sponge, instrument, and needle counts were correct.
[2019-06-01] MEDS ORDERED: NALBUPHINE HCL 10 MG/ML AMP (J2300) IV PRN (00:30)
[2019-06-01] MEDS ORDERED: KETOROLAC 30 MG/ML VIAL (J1885) IV PRN (00:30)
[2019-06-01] MEDS ORDERED: ONDANSETRON 4MG/2ML VIAL (J2405) IV PRN ×2 (00:30)
[2019-06-01] MEDS ORDERED: NORCO, ANEXSIA 5/325MG TABLET (HYDROcodone/ACETAMINOPHEN) PO PRN (00:30)
[2019-06-01] MEDS ORDERED: MEPERIDINE INJ 25 MG/ML VIAL (J2175) IV PRN (00:30)
[2019-06-01] MEDS ORDERED: fentaNYL 100 MCG/2 ML INJECTION (J3010) IV PRN (00:30)
[2019-06-01] MEDS ORDERED: diphenhydrAMINE INJ 50MG/ML VIAL (J1200) IV PRN (00:30)
[2019-06-01] MEDS ORDERED: fentaNYL 100 MCG/2 ML INJECTION (J3010) As Ordered ONE (00:34)
[2019-06-01] MEDS: KETOROLAC 30 MG/ML VIAL (J1885) IV SCH ×3 (03:13→14:10)
[2019-06-01] MEDS: PERCOCET 5MG/325MG TAB PO PRN ×4 (03:45→20:35)
[2019-06-01 07:08] LABS: HEMATOCRIT 25.3 % (36.0-47.0); HEMOGLOBIN 8.6 g/dl (12.0-15.5); MEAN CORPUSCULAR HEMOGLOBIN 30.7 pg (27.0-33.0); MEAN CORPUSCULAR VOLUME 90.4 fl (80.0-96.0); PLATELET COUNT, AUTOMATED 191 10^3/uL (150-450); WHITE BLOOD COUNT 14.9 10^3/uL (4.0-10.0)
[2019-06-01] MEDS: PRENATAL VITAMINS CHEWABLE TABLET PO SCH (08:36)
--- NOTE | 2019-06-01 09:37 | IPNPDOC ---
Text Note Date of Service The patient was seen on 06/01/19. NOTE PO #1 Feels well. . Adequate pain management. Hutchinson discontinued, due to void VSS, afebrile, normotensive Breasts soft Fundus firm, NT Dressing intact with old drainage. Lochia rubra scant without odor PO #1 Routine care. Anticipate D/C in am VS,Fishbone, I+O VS, Fishbone, I+O Laboratory Tests 05/31/19 22:17 06/01/19 06:57 Vital Signs Date Time Temp Pulse Resp B/P (MAP) Pulse Ox O2 Delivery O2 Flow Rate FiO2 06/01/19 07:25 98.6 61 19 112/57 (75) 98 Room Air I&O- Last 24 Hours up to 6 AM 06/01/19 06:00 Intake Total 60 ml Output Total 700 ml Balance -640 ml Sofía Armas CNM Jun 01, 2019 09:37
[2019-06-01] MEDS: IBUPROFEN 800 MG TAB PO SCH (23:33)
[2019-06-02] MEDS: PERCOCET 5MG/325MG TAB PO PRN ×2 (02:23→09:24)
[2019-06-02 06:00] VITALS: BP 116/61
[2019-06-02] MEDS: IBUPROFEN 800 MG TAB PO SCH (06:28)
[2019-06-02] MEDS ORDERED: OXYC1TAB23 PO (08:47)
[2019-06-02] MEDS ORDERED: IBUP80TA PO (08:49)
--- NOTE | 2019-06-02 09:20 | DSES ---
DATE OF ADMISSION: 05/31/2019 DATE OF DISCHARGE: 06/02/2019 29-year-old, (G) 2, para (P) 1 female at 39 plus weeks gestation who presented with ruptured membranes and contractions starting earlier on the day of admission. The contractions increased in intensity. The patient has history of a prior section and was scheduled for repeat later next week. Her medical history is significant for history of drug use and current use of Subutex for narcotic replacement. HOSPITAL COURSE: On 05/31/2019, later in the evening, the patient underwent repeat section for a 6 pound 8 ounce male , Apgars 8 and 9. The procedure was without complication. Her postoperative course was significant for a postoperative hemoglobin of 8.6 g/dL. This was an expected drop compared to her preoperative hemoglobin. She had swelling of her labia and mons postoperatively which was consistent with fluid dissecting through the inguinal canal. This did not inhibit her in any way and it was not overly painful. She had adequate return of bladder and bowel function. For pain management, she used Percocet instead of Subutex and achieved adequate pain relief. She was deemed stable for discharge on postoperative day #2. ADMISSION DIAGNOSIS: at 39 plus weeks, prior section, labor. DISCHARGE DIAGNOSIS: Delivered. PROCEDURE: Repeat low transverse section. DISPOSITION: The patient will followup with Dr. Harris in 1-2 weeks. She prefers to use Percocet for pain relief postoperatively. She understands that she will not use Subutex and Percocet simultaneously and once she is done with Percocet she can transition back to her maintenance Subutex for continued out patient use. edited: 06/03/2019 0744 tkf MTDD
[2019-06-02] MEDS: PRENATAL VITAMINS CHEWABLE TABLET PO SCH (09:23)
== END 2019-06-02 10:54 | disposition home or self-care (01) | DRG 540 ==
LOC: M LDO 21:04 → M LDI 21:56 → M OBS 06-01 01:45
PROVIDERS: ADMIT Advanced Practice Midwife; ATTEND Specialist
PROC: 10D00Z1 Extraction of Products of Conception, Low, Open Approach (ICD-10-PCS; principal; 2019-05-31 23:17)
DX: O34.211 Maternal care for low transverse scar from previous cesarean delivery (principal); O75.82 Onset (spontaneous) of labor after 37 completed weeks of gestation but before 39 completed weeks gestation, with delivery by (planned) cesarean section; Z3A.39 39 weeks gestation of pregnancy; Z37.0 Single live birth

== ENCOUNTER 2019-09-11 03:47 | Emergency (ER) | payer OTHER ==
[~2019-09-11] VITALS: Ht 162.6 cm; Wt 57.8 kg
[~2019-09-11 03:47] MED LIST changes: +IBUP80TA PO; +OXYC1TAB23 PO
[2019-09-11] MEDS ORDERED: BUPR2SUB (03:54)
[2019-09-11 06:18] VITALS: BP 129/63
[2019-09-11] MEDS ORDERED: KETOROLAC 60 MG/2 ML VIAL (J1885) IM ONE (06:30)
== END 2019-09-11 06:25 | disposition home or self-care (01) ==
LOC: M ED 03:47
DX: K02.9 Dental caries, unspecified (principal); K08.89 Other specified disorders of teeth and supporting structures; Z79.899 Other long term (current) drug therapy; Z87.898 Personal history of other specified conditions
CPT/HCPCS: 99283; J1885

== ENCOUNTER → 2019-10-17 | Outpatient (REF) | payer OTHER ==
[~2019-10-17] MED LIST changes: +BUPR2SUB
== END ==
LOC: M SFHCADAM 12:12
PROVIDERS: ATTEND Family Medicine
DX: R30.0 Dysuria (principal)

== ENCOUNTER → 2020-01-08 | Outpatient (REF) | payer OTHER ==
[~2020-01-08] MED LIST changes: +BUPR8SUB SL; +DULC5TAB PO; +IRON1TAB2 PO; +PRENTAB53 PO
[2020-01-08 13:08] LABS: HEMATOCRIT 33.8 % (36.0-47.0); HEMOGLOBIN 11.6 g/dl (12.0-15.5); MEAN CORPUSCULAR HEMOGLOBIN 29.5 pg (27.0-33.0); MEAN CORPUSCULAR HGB CONC 34.3 g/dl (32.0-36.5); PLATELET COUNT, AUTOMATED 227 10^3/uL (150-450); RED BLOOD COUNT 3.93 10^6/uL (4.00-5.40); WHITE BLOOD COUNT 7.6 10^3/uL (4.0-10.0)
[2020-01-08 14:11] LABS: HEPATITIS B SURFACE ANTIGEN NEGATIVE (NEGATIVE); HEPATITIS C VIRUS ABY INDEX 0.2 INDEX (<0.8); HIV 1&2 SCREEN CENTAUR NEGATIVE (NEGATIVE)
[2020-01-08 14:35] LABS: CHLAMYDIA DNA AMPLIFICATION NEGATIVE (NEGATIVE); GC DNA AMPLIFICATION NEGATIVE (NEGATIVE)
== END ==
LOC: M PLALAB 09:52
PROVIDERS: ATTEND Advanced Practice Midwife
DX: O34.211 Maternal care for low transverse scar from previous cesarean delivery (principal)

== ENCOUNTER → 2020-02-21 | Outpatient (CLI) | payer OTHER ==
[~2020-02-21] MED LIST changes: -BUPR8SUB SL; -DULC5TAB PO; -IRON1TAB2 PO; -PRENTAB53 PO
--- NOTE | 2020-04-13 09:10 | REP ---
This report was delayed due to a malware attack on this facility. HISTORY: Supervision of for anatomy. SONOGRAPHIC FINDINGS: Scanning through the gravid uterus demonstrates a single living intrauterine gestation in the transverse, head to the maternal right lie. motion is observed and heart rate is recorded at 156 beats per minute. An anterior grade 0 placenta is seen without evidence of previa or abruption. Amniotic fluid is subjectively normal. Closed cervical length measured transabdominally is 3.1 cm. No anomaly is seen. spine is less than optimally seen due to position today. The following additional anatomic structures are identified and felt to be unremarkable: cranium and intracranial anatomy, left-sided stomach, kidneys and bladder, four chamber heart with left and right ventricular outflow tract views, three-vessel cord, abdominal wall cord insertion, upper and lower extremities, face and lips. BIOMETRY CHART BPD 50 mm 21 weeks 2 days Head Circumference 176 mm 20 weeks 2 days Abdominal Circumference 162 mm 21 weeks 2 days Femur Length 32 mm 20 weeks 2 days Humeral Length 30 mm 20 weeks 2 days Cerebellar Diameter 20 mm 20 weeks 4 days Estimated Weight 374 grams Second percentile IMPRESSION: Viable single intrauterine gestation at 20 weeks 6 days by todays composite sonographic criteria. Estimated date of delivery ([facility]) by today sonography 07/04/2020. spine less than optimally visualized due to position. MTDD
== END ==
LOC: M WHC 10:44
PROVIDERS: ATTEND Advanced Practice Midwife
DX: Z34.00 Encounter for supervision of normal first pregnancy, unspecified trimester (principal)

== ENCOUNTER → 2020-05-20 | Outpatient (REF) | payer OTHER ==
[2020-05-20 13:43] LABS: HEMATOCRIT 29.3 % (36.0-47.0); HEMOGLOBIN 9.9 g/dl (12.0-15.5); MEAN CORPUSCULAR HEMOGLOBIN 31.2 pg (27.0-33.0); MEAN CORPUSCULAR HGB CONC 33.8 g/dl (32.0-36.5); MEAN CORPUSCULAR VOLUME 92.4 fl (80.0-96.0); PLATELET COUNT, AUTOMATED 190 10^3/uL (150-450); RED BLOOD COUNT 3.17 10^6/uL (4.00-5.40); WHITE BLOOD COUNT 11.9 10^3/uL (4.0-10.0)
== END ==
LOC: M PLALAB 11:03
PROVIDERS: ATTEND Advanced Practice Midwife
DX: O34.211 Maternal care for low transverse scar from previous cesarean delivery (principal)

== ENCOUNTER → 2020-06-24 | Outpatient (CLI) | payer OTHER ==
[~2020-06-24] MED LIST changes: +BUPR8SUB SL; +DULC5TAB PO; +IRON1TAB2 PO; +PRENTAB53 PO
== END ==
LOC: M LABSMTC 10:21
PROVIDERS: ATTEND Anesthesiology
DX: Z01.812 Encounter for preprocedural laboratory examination (principal); Z20.828 Contact with and (suspected) exposure to other viral communicable diseases

== ENCOUNTER → 2020-06-25 | Outpatient (REF) | payer OTHER | LOC: M SFHCWAGY 13:24 | PROVIDERS: ATTEND Specialist | DX: Z34.83 Encounter for supervision of other normal pregnancy, third trimester (principal) ==

== ENCOUNTER 2020-06-29 05:40 | Inpatient (IN) | payer OTHER ==
[~2020-06-29] VITALS: Ht 162.6 cm; Wt 63.5 kg
[2020-06-29] VITALS (9 sets, daily range): BP systolic 105–146; BP diastolic 55–81
[2020-06-29] MEDS ORDERED: LR 1,000 ML IV SCH (06:15)
[2020-06-29] MEDS ORDERED: BICITRA 30ML SOLN UDC PO ONE (06:15)
[2020-06-29] MEDS ORDERED: ceFAZolin SOD 2 GM in IV 1 EA IV ONE (06:15)
[2020-06-29] MEDS ORDERED: LR 800 ML IV ONE (06:15)
[2020-06-29 06:38] LABS: HEMOGLOBIN 9.5 g/dl (12.0-15.5); MEAN CORPUSCULAR HEMOGLOBIN 29.5 pg (27.0-33.0); MEAN CORPUSCULAR HGB CONC 32.8 g/dl (32.0-36.5); MEAN CORPUSCULAR VOLUME 90.1 fl (80.0-96.0); PLATELET COUNT, AUTOMATED 271 10^3/uL (150-450); RED BLOOD COUNT 3.22 10^6/uL (4.00-5.40); WHITE BLOOD COUNT 12.9 10^3/uL (4.0-10.0)
[2020-06-29] MEDS ORDERED: MORPHINE PRES-FREE INJ 10 MG/10 ML VIAL (J2274) As Ordered ONE (07:01)
[2020-06-29] MEDS ORDERED: dexameTHASONE 4 MG/ML 1ML VIAL (J1100 PER 1MG) As Ordered ONE (07:02)
[2020-06-29] MEDS ORDERED: ONDANSETRON 4MG/2ML VIAL As Ordered ONE (07:02)
[2020-06-29] MEDS ORDERED: OXYTOCIN INJ 10 UNITS/ML VIAL (J2590) As Ordered ONE (07:02)
[2020-06-29] MEDS ORDERED: OXYTOCIN 30 UNITS IN 0.9% NaCl 500ML IV BAG (J2590) As Ordered ONE ×2 (07:02→09:58)
[2020-06-29] MEDS ORDERED: KETOROLAC 60MG 2ML VIAL As Ordered ONE (07:02)
[2020-06-29] MEDS ORDERED: ePHEDrine SULFATE 25 MG/5 ML(5MG/ML) SYRINGE As Ordered ONE (07:07)
[2020-06-29] MEDS ORDERED: PHENYLephrine HCL 500 MCG/5 ML (100MCG/ML) SYRINGE (J2370) As Ordered ONE (07:07)
[2020-06-29] MEDS ORDERED: NALBUPHINE HCL 10 MG/ML AMP (J2300) IV PRN (08:08)
[2020-06-29] MEDS ORDERED: diphenhydrAMINE 50MG/ML VIAL (J1200) IV PRN ×2 (08:08→09:45)
[2020-06-29] MEDS ORDERED: NALOXONE INJ 0.4MG/1ML VIAL (J2310 PER 1MG) IV PRN ×2 (08:08)
[2020-06-29] MEDS ORDERED: METOCLOPRAMIDE INJ 10MG/2ML VIAL (J2765 PER 1) IV PRN (08:08)
[2020-06-29] MEDS ORDERED: ONDANSETRON 4MG/2ML VIAL IV PRN ×3 (08:08→09:45)
[2020-06-29] MEDS ORDERED: ACETAMINOPHEN 1000MG 100ML IV BTL (OFIRMEV) (J0131 PER 10MG) As Ordered ONE (08:41)
[2020-06-29] MEDS ORDERED: fentaNYL 100 MCG/2 ML INJECTION (J3010) As Ordered ONE ×2 (08:51→09:46)
[2020-06-29] MEDS ORDERED: propofoL 200 MG/20 ML VIAL As Ordered ONE (08:53)
[2020-06-29] MEDS ORDERED: BUPRENORPHINE/NALOXONE 8-2MG SUBLINGUAL TABLET(SUBOXONE) SL SCH (09:00)
[2020-06-29] MEDS ORDERED: OXYTOCIN DRIP 30 UNITS in IV 1 EA IV SCH (09:40)
[2020-06-29] MEDS ORDERED: PROMETHAZINE 25 MG TAB PO PRN (09:45)
[2020-06-29] MEDS ORDERED: HYDROMORPHONE HCL 0.5 MG/ 0.5 ML SYRINGE (J1170 PER 1) IV PRN (09:45)
[2020-06-29] MEDS ORDERED: MEASLES,MUMPS,RUBELLA VACCINE INJ (MMR-II) (90707) SC SCH (09:45)
[2020-06-29] MEDS ORDERED: oxyCODONE 5MG TAB PO PRN (09:45)
[2020-06-29] MEDS ORDERED: MEPERIDINE INJ 25 MG/ML VIAL (J2175) IV PRN (09:45)
[2020-06-29] MEDS ORDERED: DOCUSATE SODIUM 100MG CAPSULE PO PRN (09:45)
[2020-06-29] MEDS ORDERED: RHOGAM 300 MCG (1500 IU) INJ (J2790) IM SCH (09:45)
--- NOTE | 2020-06-29 09:51 | ROOPDOC ---
[facility] Report Of Operation Report of Operation DATE OF PROCEDURE: 06/29/2020 PREPROCEDURE DIAGNOSES: 39+ weeks gestation, history of low transverse section 2, satisfied parity POSTPROCEDURE DIAGNOSES: Same PROCEDURE: Repeat low transverse section with [place] bilateral tubal ligation. SURGEON: Greg Dong DO FACOG ELECTRICAL CONTROLS DESIGNER: Ryan Fuchs CNM (Essential role in retraction, extraction, and closure of all tissue layers) ANESTHESIA: Spinal with Duramorph ESTIMATED BLOOD LOSS: 500 mL. IV FLUIDS: 1500 mL LR URINE OUTPUT: 100 mL COMPLICATIONS: None. FINDINGS: Normal uterus and bilateral fallopian tubes/ovaries. PREOPERATIVE ANTIBIOTICS: Ancef 2g IV x 1. DATA: Apgars 8 and 9. Birthweight 2540g, 5lbs 10oz . SPECIMENS: right and left fallopian tubal segments. PRIMARY INDICATION FOR : history of LTCS x 2, satisfied parity DESCRIPTION OF PROCEDURE: The patient was counseled on the risks, benefits, indications and alternatives of the procedure. Informed consent was obtained. She was taken to the operating room with IV running and placed on the operating table in the dorsal supine position with a leftward tilt. Regional anesthesia/epidural was bolused and found to be adequate. Sequential compression devices were placed on the lower extremities. A Hutchinson catheter was placed under sterile conditions. She was p repared and draped in normal sterile fashion. A time out was performed per protocol. Epidural anesthesia was again found to be adequate. A Pfannenstiel skin incision was made with the 10 blade. The 10 blade was used to dissect down to the level of the rectus sheath fascia. The rectus sheath pressure was incised midline and this was extended bilaterally with Cabrera scissors , and manual stretch. The rectus muscle bellies were dissected off the rectus sheath fascia superiorly and inferiorly using both sharp and blunt dissection. The midline was identified. The peritoneum was identified and entered digitally. The peritoneal opening was extended with manual stretch. The Mobius retractor was placed. The vesicouterine peritoneum was dissected with Metzenbaum scissors to create the bladder flap. A low transverse uterine incision was made with the 10 blade. This was extended with manual stretch. The amniotic sac was punctured, and clear fluid was noted. The head delivered through the hysterotomy without difficulty. The remainder of the body delivered with ease. The cord was doubly clamped and cut, and the baby was handed off to awaiting care. data shown above. The placenta was removed manually. The intrauterine cavity was cleared of all clot and debris. The hysterotomy was closed with 0 Vicryl in running locked fashion. This was reinforced with a second imbricating layer using 0 Vicryl in running fashion. Excellent hemostasis of the hysterotomy was noted. The right and left fallopian tubes were followed out to the fimbriated end. A ligation was performed on each fallopian tube using the following technique (Bryan valle): The ampullary portion of each was grasped with a [place] and elevated. A peritoneal window was created with Bovie along the mesosalpinx. Plain gut suture was used to tie two locations of the fallopian tube at the ends of the created window. The approximate 2-3cm intervening segment of fallopian tube was excised with Metzenbaum scissors. Bovie cautery was used to obliterate the lumen of the fallopian tube on each cut end, and to ensure hemostasis. Excellent hemostasis was noted. The pelvis was irrigated and the fluid suctioned. The Mobius retractor was removed. The peritoneum was closed with 3-0 Vicryl running fashion. The rectus muscle bellies were reapproximated with interrupted stitches using 3-0 Vicryl. The rectus muscles bellies were hemostatic. The rectus sheath fascia was closed with 0 Vicryl running fashion. The subcutaneous layer was irrigated and the fluid suctioned. Small bleeding vessels were cauterized with Bovie. Excellent hemostasis was noted. The subcutaneous layer was reapproximated with 3-0 Vicryl running fashion. Skin was closed with 3-0 Monocryl in subcuticular fashion. An Optifoam bandage was placed over the closed incision. Sponge, needle and instrument counts were correct per protocol throughout the procedure. The patient tolerated the entire procedure very well. She was transferred to the PACU in stable condition. DO IDRIS Purcell JONATHAN R. DO Jun 29, 2020 09:51
[2020-06-29] MEDS: fentaNYL 100 MCG/2 ML INJECTION (J3010) IV PRN ×3 (09:52→10:07)
[2020-06-29] MEDS ORDERED: SLF 3 ML SYR IV PRN (10:00)
[2020-06-29] MEDS ORDERED: PILL CUTTER 1 EACH XX PRN (10:00)
[2020-06-29] MEDS: LR 1,000 ML IV SCH ×2 (10:44→17:40)
[2020-06-29] MEDS: ACETAMINOPHEN 500 MG TAB PO PRN (11:28)
[2020-06-29] MEDS: BUPRENORPHINE HCL 8MG SUBINGUAL TABLET SL SCH (13:13)
[2020-06-29] MEDS ORDERED: PERCOCET 5MG/325MG TAB PO ONE (13:45)
[2020-06-29] MEDS: SLF 3 ML SYR IV SCH ×2 (14:01→22:08)
[2020-06-29] MEDS: KETOROLAC 30 MG/ML 1ML VIAL IV SCH ×2 (16:09→22:08)
[2020-06-29] MEDS: PERCOCET 5MG/325MG TAB PO PRN (20:56)
[2020-06-30 02:00] VITALS: BP 118/58
[2020-06-30] MEDS: KETOROLAC 30 MG/ML 1ML VIAL IV SCH (04:02)
[2020-06-30] MEDS: LR 1,000 ML IV SCH ×2 (05:30→09:40)
[2020-06-30 06:00] VITALS: BP 131/72
[2020-06-30 06:24] LABS: HEMATOCRIT 25.1 % (36.0-47.0); HEMOGLOBIN 8.2 g/dl (12.0-15.5); MEAN CORPUSCULAR HEMOGLOBIN 29.9 pg (27.0-33.0); MEAN CORPUSCULAR HGB CONC 32.7 g/dl (32.0-36.5); MEAN CORPUSCULAR VOLUME 91.6 fl (80.0-96.0); PLATELET COUNT, AUTOMATED 257 10^3/uL (150-450); RED BLOOD COUNT 2.74 10^6/uL (4.00-5.40); WHITE BLOOD COUNT 13.9 10^3/uL (4.0-10.0)
[2020-06-30] MEDS: PERCOCET 5MG/325MG TAB PO PRN ×4 (07:39→21:03)
--- NOTE | 2020-06-30 07:52 | IPNPDOC ---
Progress Note Date of Service: Jun 30, 2020 Day#: 1 Progress Note SUBJECT: Marisa is a 30-year old who is day 1 postoperative after a repeat section with a tubal ligation. She has been ambulating without any symptoms, voiding spontaneously without issue and tolerating regular diet. She is without any issue. Reports good latch from . She states she is feeling much better today. OBJECTIVE: VITAL SIGNS: Within normal limits, afebrile. Alert and oriented times three. Breath sounds clear to auscultation. Abdomen: Fundus firm at U-1. Minimal lochia. ASSESSMENT: Day 1 postoperative PLAN: 1. Continue supportive nursing care. 2. Patient may shower. 3. Continue ambulation. 4. May remove saline locks later today. VS, I&O, 24H, Fishbone Vital Signs/I&O Vital Signs Date Time Temp Pulse Resp B/P (MAP) Pulse Ox O2 Delivery O2 Flow Rate FiO2 06/30/20 07:39 18 Room Air 06/30/20 06:00 98.6 89 131/72 (91) 98 I&O- Last 24 Hours up to 6 AM 06/30/20 06:00 Intake Total 3637.5 ml Output Total 3525 ml Balance 112.5 ml Laboratory Data 24H LABS Laboratory Tests 2 06/30/20 06:06: Nucleated Red Blood Cells % (auto) 0.0 CBC/BMP Laboratory Tests 06/30/20 06:06 EMILIANO CRUZ CNM Jun 30, 2020 07:52
[2020-06-30] MEDS: PRENATAL VITAMINS CHEWABLE TABLET PO SCH (08:17)
[2020-06-30] MEDS: BUPRENORPHINE HCL 8MG SUBINGUAL TABLET SL SCH (08:21)
[2020-06-30] MEDS: SLF 3 ML SYR IV SCH ×3 (09:56→21:03)
[2020-06-30 10:00] VITALS: BP 135/72
[2020-06-30] MEDS: ACETAMINOPHEN 500 MG TAB PO PRN ×2 (10:18→18:49)
[2020-06-30] MEDS: IBUPROFEN 800 MG TAB PO SCH ×2 (11:48→19:36)
[2020-06-30 14:00] VITALS: BP 135/83
[2020-06-30 18:00] VITALS: BP 133/70
[2020-06-30 21:55] VITALS: BP 125/61
[2020-07-01] MEDS: PERCOCET 5MG/325MG TAB PO PRN ×2 (00:53→07:32)
[2020-07-01 02:23] VITALS: BP 106/54
[2020-07-01] MEDS: IBUPROFEN 800 MG TAB PO SCH ×2 (05:45→11:49)
[2020-07-01 06:32] VITALS: BP 111/54
[2020-07-01] MEDS ORDERED: IBUP80TA PO (08:11)
[2020-07-01 10:00] VITALS: BP 127/62
[2020-07-01] MEDS: PRENATAL VITAMINS CHEWABLE TABLET PO SCH (10:02)
[2020-07-01] MEDS: BUPRENORPHINE HCL 8MG SUBINGUAL TABLET SL SCH (10:03)
[2020-07-02] MEDS ORDERED: OXYC1TAB23 PO (16:12)
== END 2020-07-01 13:00 | disposition home or self-care (01) | DRG 540 ==
LOC: M LDI 05:40 → M OBS 11:01
PROVIDERS: ADMIT Specialist; ATTEND Specialist
PROC: 0UB70ZZ Excision of Bilateral Fallopian Tubes, Open Approach (ICD-10-PCS; 2020-06-29)
PROC: 10D00Z1 Extraction of Products of Conception, Low, Open Approach (ICD-10-PCS; principal; 2020-06-29 07:30)
DX: O34.211 Maternal care for low transverse scar from previous cesarean delivery (principal); Z37.0 Single live birth; Z3A.39 39 weeks gestation of pregnancy; Z30.2 Encounter for sterilization

== ENCOUNTER 2021-06-10 01:49 | Emergency (ER) | payer OTHER ==
[~2021-06-10] VITALS: Ht 162.6 cm; Wt 62.3 kg
[2021-06-10 01:50] VITALS: BP 140/78
[2021-06-10] MEDS ORDERED: AUGM875T28 PO (01:57)
--- OUTSIDE RECORDS SUMMARY | 2021-06-10 01:57 | CCD ---
Author Author AutogeneANGELA lama Auto generated Organization [facility] Address Unknown Phone Unavailable Care Team Providers [facility]osp[facility] Clinical Marketer Name Role Phone Post, Una Practitioner Octavia Angelo Practitioner Ranjan Tai Practitioner Nilay Faria AdmittingPractitioner1 Jomar Rush Practitioner Maite Wheat Practitioner Functional Status No Results Allergies No Known Allergy Information Encounters Program Name Primary Diagnosis Admission Date/ Time Discharge Date/Time DRP Continuing Care Opioi d use disorder, mild MonApr 23 14:43:00 EDT 2019 DRP Prescribing~INACTIVE MonAug 07 13:18:00 EST 2019Oct 17 08:42:00 EDT 2019 Immunizations No Known Immunizations Lab Results Result Type Result Value Date Creatinine 175.6NORMALNORMAL mg/ dL MonFeb 18 22:46:46 EDT 2020 pH 6.4NORMALNORMAL MonFeb 18 22:46:46 EDT 2020 Oxidants -4.00NegativeNegative m cg/mL MonFeb 18 22:46:46 EDT 2020 Validity Result VALIDVALIDVALID MonFeb 18 23:00:14 EDT 2020 Heroin (6-AM) -0.70NegativeNegative ng/mL MonFeb 18 22:46:46 EDT 2020 Methadone 10.00NegativeNegative ng/mL MonFeb 18 22:46:46 EDT 2020 Opiates -5.00NegativeNegative ng /mL MonFeb 18 22:46:46 EDT 2020 Synthetic Opiates -9.00Negative* Negative ng/mL [facility] Feb 18 22:46:46 EDT 2020 Cocaine Metabolites 386.00PRESUM PTIVE POSITIVEPRESUMPTIVE POSITIVE ng/mL [facility] Feb 18 22:46:46 EDT 2020 Ethyl Glucuronide 1910.00PRESUMP TIVE POSITIVEPRESUMPTIVE POSITIVE ng/mL [facility] Feb 18 22:46:47 EDT 2020 Ethyl Alcohol 17.00NegativeNegative mg/dL [facility] Feb 18 22:46:48 EDT 2020 Ecstasy (MDMA) 13.00NegativeNegativ e ng/mL [facility] Feb 18 22:46:48 EDT 2020 Phencyclidine -1.30NegativeNegative ng/mL [facility] Feb 18 22:46:48 EDT 2020 Cannabinoids -9.60NegativeNegative* ng/mL [facility] Feb 18 22:46:48 EDT 2020 Tramadol 22.00NegativeNegative n g/mL [facility] Feb 18 22:46:48 EDT 2020 Amphetamines 122.00NegativeNegative ng/mL [facility] Feb 18 22:46:48 EDT 2020 Buprenorphine 250Positive - Inco nsistentPOSITIVE> ng/mL MonFeb 22 11:47:37 EDT 2020 Norbuprenorphine 500Positive - I nconsistentPOSITIVE> ng/mL MonFeb 22 11:47:37 EDT 2020 Naloxone 1203.640Positive - Inco nsistentPOSITIVE ng/mL MonFeb 22 11:47:37 EDT 2020 Norfentanyl 0.000NegativeNegative * ng/mL MonFeb 22 11:47:37 EDT 2020 Fentanyl 0.130NegativeNegative n g/mL MonFeb 22 11:47:37 EDT 2020 Carfentanil 0.000NegativeNegative * ng/mL MonFeb 22 11:47:37 EDT 2020 Norcarfentanil 0.220NegativeNegativ e ng/mL MonFeb 22 11:47:37 EDT 2020 Sufentanil 0.100NegativeNegative ng/mL MonFeb 22 11:47:37 EDT 2020 Benzoylecgonine 1051.960Positive - InconsistentPOSITIVE ng/mL MonFeb 22 11:47:37 EDT 2020 Temazepam 0.000NegativeNegative ng/mL MonFeb 22 11:47:37 EDT 2020 Lorazepam 7.960NegativeNegative ng/mL MonFeb 22 11:47:37 EDT 2020 alpha-Hydroxyalprazolam 0.000Neg ativeNegative ng/mL MonFeb 22 11:47:37 EDT 2020 7-Aminoclonazepam 1.040Negative* Negative ng/mL MonFeb 22 11:47:37 EDT 2020 Oxazepam 10.240NegativeNegative ng/mL MonFeb 22 11:47:37 EDT 2020 Nordiazepam 1.270NegativeNegative * ng/mL MonFeb 22 11:47:37 EDT 2020 Ethyl Sulfate 327.220Negative Negative ng/mL MonFeb 20 09:02:07 EDT 2020 Ethyl Glucuronide 2410.550Positi ve - InconsistentPOSITIVE ng/mL MonFeb 20 09:02:07 EDT 2020 Pregabalin 30.220NegativeNegative * ng/mL MonFeb 22 11:47:38 EDT 2020 Gabapentin 168.860NegativeNegative* ng/mL MonFeb 22 11:47:38 EDT 2020 Creatinine 107.3NORMALNORMAL mg/ dL MonApr 06 20:41:16 EDT 2020 pH 7.8NORMALNORMAL Tue Sep 14 20:41:16 EDT 2020 Oxidants -4.00NegativeNegative m cg/mL Tue Sep 14 20:41:16 EDT 2020 Validity Result VALIDVALIDVALID Tue Sep 14 20:45:11 EDT 2020 Heroin (6-AM) -0.30NegativeNegative ng/mL Tue Sep 14 20:41:16 EDT 2020 Methadone -12.00NegativeNegative ng/mL Tue Sep 14 20:41:16 EDT 2020 Opiates -14.00NegativeNegative n g/mL Tue Sep 14 20:41:16 EDT 2020 Synthetic Opiates -16.00Negative Negative ng/mL Tue Sep 14 20:41:16 EDT 2020 Cocaine Metabolites 5.00Negative Negative ng/mL e Sep 14 20:41:16 EDT 2020 Ethyl Glucuronide 3361.00PRESUMP TIVE POSITIVEPRESUMPTIVE POSITIVE ng/mL Tue Sep 14 20:41:16 EDT 2020 Ethyl Alcohol 0.00NegativeNegative* mg/dL Tue Sep 14 20:41:17 EDT 2020 Ecstasy (MDMA) 10.00NegativeNegativ e ng/mL Tue Sep 14 20:41:17 EDT 2020 Phencyclidine -4.00NegativeNegative ng/mL Tue Sep 14 20:41:17 EDT 2020 Cannabinoids -9.50NegativeNegative* ng/mL Tue Sep 14 20:41:17 EDT 2020 Tramadol -3.00NegativeNegative n g/mL Tue Sep 14 20:41:17 EDT 2020 Amphetamines 39.00NegativeNegative* ng/mL Tue Sep 14 20:41:17 EDT 2020 Buprenorphine 122.880Positive - InconsistentPOSITIVE ng/mL [facility] 16 13:22:51 EDT 2020 Norbuprenorphine 490.510Positive - InconsistentPOSITIVE ng/mL [facility] 16 13:22:51 EDT 2020 Naloxone 24.530NegativeNegative ng/mL [facility] 16 13:22:51 EDT 2020 Norfentanyl 0.040NegativeNegative * ng/mL [facility] 16 13:22:51 EDT 2020 Fentanyl 0.050NegativeNegative n g/mL [facility] 16 13:22:51 EDT 2020 Carfentanil 0.030NegativeNegative * ng/mL [place] [id number] 13:22:52 EDT 2020 Norcarfentanil 0.190NegativeNegativ e ng/mL [place] [address] 13:22:52 EDT 2020 Sufentanil 0.150NegativeNegative ng/mL [facility] 16 13:22:52 EDT 2020 Temazepam 0.000NegativeNegative ng/mL [place] [address] 13:22:52 EDT 2020 Lorazepam 5.300NegativeNegative ng/mL [place] [address] 13:22:52 EDT 2020 alpha-Hydroxyalprazolam 0.000Neg ativeNegative ng/mL [place] [address] 13:22:52 EDT 2020 7-Aminoclonazepam 0.000Negative* Negative ng/mL [place] [address] 13:22:52 EDT 2020 Oxazepam 9.920NegativeNegative n g/mL [facility] 16 13:22:52 EDT 2020 Nordiazepam 3.560NegativeNegative * ng/mL [place] [address] 13:22:52 EDT 2020 Ethyl Sulfate 1147.130Positive - InconsistentPOSITIVE ng/mL [place] [address] 10:39:46 EDT 2020 Ethyl Glucuronide 5000Positive - InconsistentPOSITIVE> ng/mL [facility] Apr 08 10:39:46 EDT 2020 Pregabalin 0.000NegativeNegative ng/mL [place] Apr 08 13:22:52 ED2020 Gabapentin 46.720NegativeNegative * ng/mL [facility] Apr 08 13:22:52 EDT 2020 Medications Medication Directions Start Date End Date Buprenorphine [address] one an d one half (1.5) tablets under the tongue daily MonJun 01 00:00:00 EST 2020Jun 30 00:00:00 EST 2020 Zoloft 50 MG TAB Take one (1) tablet by m outh daily MonMay 17 00:00:00 ED2020Jun 15 00:00:00 2020 Nicotine Polacrilex 4 MG TAVO Apply one (1) each to mouth and gums every 1 hour, as needed MonMay 04 00:00:00 ED2020Oct 30 00:00:00 EDT 2021 Nicotine 0.0 TDM Apply one (1) pat ch on the skin once a day, as needed MonMay 04 00:00:00 2020Oct 30 00:00 :00 EDT 2021 Buprenorphine [address] one an d one half (1.5) tablets under the tongue daily MonMay 04 00:00:00 2020Jun 01 00:00:00 EST 2020 Buprenorphine [address] one an d one half (1.5) tablets under the tongue daily MonApr 06 00:00:00 2020May 04 00:00:00 2020 Buprenorphine [address] one an d one half (1.5) tablets under the tongue daily MonMar 09 00:00:00 2020Apr 06 00:00:00 2020 Buprenorphine [address] one an d one half (1.5) tablets under the tongue daily MonFeb 16 00:00:00 ED2020Mar 09 00:00:00 EDT 2020 [address]renorphine [address] one an d one half (1.5) tablets under the tongue daily MonJan 19 00:00:00 2020Feb 16 00:00:00 ED2020 Narcan 0.0 SPR [place] one (1) spray in nostril(s) as directed MonDec 22:00:00 EDT 2020Jun 19 00:00 :00 EST 2020 [address]renorphine [address] one an d one half (1.5) tablets under the tongue daily MonDec 22:00:00 2020Jan 19 00:00:00 2020 Buprenorphine [address] one an d one half (1.5) tablets under the tongue daily MonNovember 24 00:00:00 2020Dec 22 00:00:00 2020 Buprenorphine [address] one an d one half (1.5) tablets under the tongue daily MonOct 27 00:00:00 2020November 24 00:00:00 2020 Buprenorphine [address] one an d one half (1.5) tablets under the tongue daily MonOct 06:00:00 2020Oct 27 00:00:00 2020 Buprenorphine [address] one an d one half (1.5) tablets under the tongue daily MonOct 02:00:00 2020Oct 06:00:00 2020 Buprenorphine [address] one an d one half (1.5) tablets under the tongue daily MonSep 04 00:00:00 2020Oct 02:00:00 2020 Buprenorphine [address] one an d one half (1.5) tablets under the tongue daily MonAug 07:00:00 2020Sep 04:00:00 2020 Narcan 0.0 SPR [place] one (1) spray in nostril(s) as directed MonJul 09 00:00:00 2019Dec 22:00 :00 2020 Buprenorphine Hydrochloride [address] one and one half (1.5) tablets under the tongue daily MonJul 09:00:00 2019Aug 07:00:00 2020 Buprenorphine Hydrochloride [address] one and one half (1.5) tablets under the tongue daily MonJun 11:00:00 2019Jul 09 00:00:00 EST 2019 Buprenorphine Hydrochloride [address] one (1) tablet under the tongue three times a day MonFeb 20 00:00:00 EDT 2019Mar 21 00:00:00 EDT 2019 Buprenorphine Hydrochloride [address] one (1) tablet under the tongue twice a day MonAug 08 00:00:00 EST 2019Sep 05 00:00:00 EST 2019 Problems No Known Problems Procedures No Known Procedures Social History Social History Observation Description Tevin e Smoking Status Former Smoker MonOct 05 08:00:00 EDT 2020 Smoking Status Former Smoker MonOct 05 08:: EDT 2020 Smoking Status Former Smoker MonOct 05 08:00:00 EDT 2020 Smoking Status Unknown If Ever Smoked MonAug 07 07:00:2019 Smoking Status Unknown If Ever Smoked MonAug 07 07:00:2019 Smoking Status Unknown If Ever Smoked MonAug 07 07::2019 Smoking Status Unknown If Ever Smoked MonAug 07 07::2019 Smoking Status Unknown If Ever Smoked MonAug 07 07::2019 Smoking Status Unknown If Ever Smoked MonAug 07 07:00:00 EST 2019 Sex Female MonMar 25 08:00:00 EDT 1992 Vital Signs Vital Sign Measurement Date Height 5 4.0 ft MonFeb 15 10: 40:00 EDT 2020 Height 64 in MonFeb 15 10: 40:00 EDT 2020 Height 162.6 cm MonFeb 15 10: 40:00 EDT 2020 Weight Lbs 135 lbs MonFeb 15 10:40:00 EDT 2020 Weight Kgs 61.4 KG MonFeb 15 10:40:00 EDT 2020 BMI 23.2 MonFeb 15 10:40: 00 EDT 2020
--- OUTSIDE RECORDS SUMMARY | 2021-06-10 01:57 | CCD ---
Author Author AutogeneANGELA lama Auto generated Organization [facility] Address Unknown Phone Unavailable Care Team Providers Care Clock And Watch Hands Dipper Name Role Phone Post, Una Practitioner Octavia [...] EDT 2020 Synthetic Opiates -9.00Negative* Negative ng/mL [facility] Feb 18 22:46:46 EDT 2020 Cocaine Metabolites 386.00PRESUM PTIVE POSITIVEPRESUMPTIVE POSITIVE ng/mL [facility] Feb 18 22:46:46 EDT 2020 Ethyl Glucuronide 1910.00PRESUMP TIVE POSITIVEPRESUMPTIVE POSITIVE ng/mL [facility] Feb 18 22:46:47 EDT 2020 Ethyl Alcohol 17.00NegativeNegative mg/dL [facility] Feb 18 22:46:48 EDT 2020 Ecstasy (MDMA) 13.00NegativeNegativ e ng/mL [facility] Feb 18 22:46:48 EDT 2020 Phencyclidine -1.30NegativeNegative ng/mL [facility] Feb 18 22:46:48 EDT 2020 Cannabinoids -9.60NegativeNegative* ng/mL [facility] Feb 18 22:46:48 EDT 2020 Tramadol 22.00NegativeNegative n g/mL [facility] Feb 18 22:46:48 EDT 2020 Amphetamines 122.00NegativeNegative ng/mL [facility] Feb 18 22:46:48 EDT 2020 Buprenorphine 250Positive [...] EDT 2020 Buprenorphine 122.880Positive - InconsistentPOSITIVE ng/mL [facility] 16 13:22:51 EDT 2020 Norbuprenorphine 490.510Positive - InconsistentPOSITIVE ng/mL [facility] 16 13:22:51 EDT 2020 Naloxone 24.530NegativeNegative ng/mL [facility] 16 13:22:51 EDT 2020 Norfentanyl 0.040NegativeNegative * ng/mL [facility] 16 13:22:51 EDT 2020 Fentanyl 0.050NegativeNegative n g/mL [facility] 16 13:22:51 EDT 2020 Carfentanil 0.030NegativeNegative * ng/mL [place] [address] 13:22:52 EDT 2020 Norcarfentanil 0.190NegativeNegativ e ng/mL [place] [address] 13:22:52 EDT 2020 Sufentanil 0.150NegativeNegative ng/mL [facility] 16 13:22:52 EDT 2020 Temazepam 0.000NegativeNegative ng/mL [place] [address] 13:22:52 EDT 2020 Lorazepam 5.300NegativeNegative ng/mL [place] [address] 13:22:52 EDT 2020 alpha-Hydroxyalprazolam 0.000Neg ativeNegative ng/mL [place] [address] 13:22:52 EDT 2020 7-Aminoclonazepam 0.000Negative* Negative ng/mL [place] [address] 13:22:52 EDT 2020 Oxazepam 9.920NegativeNegative n g/mL [facility] 16 13:22:52 EDT 2020 Nordiazepam 3.560NegativeNegative * ng/mL [place] [address] 13:22:52 EDT 2020 Ethyl Sulfate 1147.130Positive - InconsistentPOSITIVE ng/mL [place] [address] 10:39:46 EDT 2020 Ethyl Glucuronide 5000Positive - InconsistentPOSITIVE> ng/mL [facility] Apr 08 10:39:46 EDT 2020 Pregabalin 0.000NegativeNegative ng/mL [place] Apr 08 13:22:52 EDT 2020 Gabapentin 46.720NegativeNegative * ng/mL [facility] Apr 08 13:22:52 EDT 2020 Medications Medication Directions Start Date End Date Zoloft 50 MG TAB Take one (1) tablet by m outh daily MonJun 07 00:00:00 EST 2020Jul 06 00:00:00 EST [address] one an d one half (1.5) tablets under the tongue daily MonJun 01 00:00:00 EST 2020Jun 30 00:00:00 EST 2020 Zoloft 50 MG TAB Take one (1) tablet by m outh daily MonMay 17 00:00:00 EDT 2020Jun 07 00:00:00 EST 2020 Nicotine Polacrilex 4 MG TAVO Apply one (1) each to mouth and gums every 1 hour, as needed MonMay 04 00:00:00 ED2020Oct 30 00:00:00 EDT 2021 Nicotine 0.0 TDM Apply one (1) pat ch on the skin once a day, as needed MonMay 04 00:00:00 EDT 2020Oct 30 00:00 :00 EDT 2021 [address] one an d one half (1.5) tablets under the tongue daily MonMay 04 00:00:00 T 2020Jun 01 00:00:00 EST 2020 [address]ren[address]ine [address] one an d one half (1.5) tablets under the tongue daily MonApr 06 00:00:00 2020May 04 00:00:00 2020 Buprenorphine [address] one an d one half (1.5) tablets under the tongue daily MonMar 09 00:00:00 EDT 2020Apr 06 00:00:00 EDT 2020 Buprenorphine [address] one an d one half (1.5) tablets under the tongue daily MonFeb 16 00:00:00 2020Mar 09 00:00:00 EDT [address]ine [address] one an d one half (1.5) tablets under the tongue daily MonJan 19 00:00:00 ED2020Feb 16 00:00:00 ED2020 Narcan 0.0 SPR [place] one (1) spray in nostril(s) as directed MonDec 22 00:00:00 EDT 2020Jun 19 00:00 :00 EST 2020 [address]ren[address] one an d one half (1.5) tablets under the tongue daily MonDec 22 00:00:00 EDT 2020Jan 19 00:00:00 EDT 2020 [address]uprenorphine [address] one an d one half (1.5) tablets under the tongue daily MonNovember 24 00:00:00 ED2020Dec 22 00:00:00 ED2020 Buprenorphine [address] one an d one half (1.5) tablets under the tongue daily MonOct 27 00:00:00 2020November 24 00:00:00 ED2020 Buprenorphine [address] one an d one half (1.5) tablets under the tongue daily MonOct 06 00:00:00 2020Oct 27 00:00:00 ED2020 Buprenorphine [address] one an d one half (1.5) tablets under the tongue daily MonOct 02 00:00:00 2020Oct 06 00:00:00 2020 Buprenorphine [address] one an d one half (1.5) tablets under the tongue daily MonSep 04 00:00:00 2020Oct 02 00:00:00 2020 Buprenorphine [address] one an d one half (1.5) tablets under the tongue daily MonAug 07 00:00:00 2020Sep 04 00:00:00 2020 Narcan 0.0 SPR [place] one (1) spray in nostril(s) as directed MonJul 09 00:00:00 2019Dec 22 00:00 :00 ED2020 Buprenorphine Hydrochloride [address] one and one half (1.5) tablets under the tongue daily MonJul 09 00:00:00 2019Aug 07 00:00:00 EST 2020 Buprenorphine Hydrochloride 0.[address] one and one half (1.5) tablets under the tongue daily MonJun 11 00:00:00 EST 2019Jul 09 00:00:00 2019 Buprenorphine Hydrochloride [address] [...] Unknown If Ever Smoked MonAug 07 07:00:00 2019 Smoking Status Unknown If Ever Smoked MonAug 07 07:00:00 2019 Smoking Status Unknown If Ever Smoked MonAug 07 07:00:00 2019 Smoking Status Unknown If Ever Smoked MonAug 07 07:00:00 2019 Smoking Status Unknown If Ever Smoked MonAug 07 07:00:00 2019 Smoking Status Unknown If Ever Smoked MonAug 07 07:00:00 2019 Sex Female MonMar 25 08:00:00 EDT 1991 Vital Signs Vital Sign Measurement Date Height [...]
--- OUTSIDE RECORDS SUMMARY | 2021-06-10 01:58 | CCD ---
Author Author AutogeneraANGELA jacobo Auto generated Organization [facility] Address Unknown Phone Unavailable Care Team Providers Care Bag Shop Worker Name Role Phone Post, Una Practitioner Octavia Angelo Practitioner Ranjan Tai Practitioner Nilay Faria AdmittingPractitioner1 Jomar Rush Practitioner Maite Wheat Practitioner Functional Status Allergies No Known Allergy Information Encounters Immunizations No Known Immunizations Lab Results Medications Problems No Known Problems Procedures No Known Procedures Social History Vital Signs
--- OUTSIDE RECORDS SUMMARY | 2021-06-10 01:58 | CCD ---
Author Author AutogeneraANGELA jacobo Auto generated Organization [facility] Address Unknown Phone Unavailable Care Team Providers Care Inside Sales Person Name Role Phone Post, Una Practitioner Octavia Angelo Practitioner Ranjan Tai Practitioner Nilay Faria AdmittingPractitioner1 Maite Wheat Practitioner Functional Status Allergies No Known Allergy Information Encounters Immunizations No Known Immunizations Lab Results Medications Problems No Known Problems Procedures No Known Procedures Social History Vital Signs
--- OUTSIDE RECORDS SUMMARY | 2021-06-10 01:58 | CCD ---
Author Author ANGELA MARTINES KUSHAL [facility] Address [address] [place] [id number] Care Team Providers Care Safety Compliance Specialist Name Role Phone Post, Una Practitioner Octavia Angelo Practitioner Ranjan Tai Practitioner Nilay Faria AdmittingPractitioner1 Maite Wheat Attphys Functional Status No Results Allergies No Known Allergy Information Encounters Program Name Primary Diagnosis Admission Date/ Time Discharge Date/Time DRP Continuing Care Opioi d use disorder, mild [place] Apr 23 13:43:00 EDT 2019 DRP Prescribing~INACTIVE MonAug 07 13:18:00 [...] EDT 2020 Synthetic Opiates -9.00Negative* Negative ng/mL [facility] Feb 18 22:46:46 EDT 2020 Cocaine Metabolites 386.00PRESUM PTIVE POSITIVEPRESUMPTIVE POSITIVE ng/mL [facility] Feb 18 22:46:46 EDT 2020 Ethyl Glucuronide 1910.00PRESUMP TIVE POSITIVEPRESUMPTIVE POSITIVE ng/mL [facility] Feb 18 22:46:47 EDT 2020 Ethyl Alcohol 17.00NegativeNegative mg/dL [facility] Feb 18 22:46:48 EDT 2020 Ecstasy (MDMA) 13.00NegativeNegativ e ng/mL [facility] Feb 18 22:46:48 EDT 2020 Phencyclidine -1.30NegativeNegative ng/mL [facility] Feb 18 22:46:48 EDT 2020 Cannabinoids -9.60NegativeNegative* ng/mL [facility] Feb 18 22:46:48 EDT 2020 Tramadol 22.00NegativeNegative n g/mL [facility] Feb 18 22:46:48 EDT 2020 Amphetamines 122.00NegativeNegative ng/mL [facility] Feb 18 22:46:48 EDT 2020 Buprenorphine 250Positive - Inco nsistentPOSITIVE> ng/mL [facility] Feb 22 11:47:37 EDT 2020 Norbuprenorphine 500Positive - I nconsistentPOSITIVE> ng/mL MonFeb 22 11:47:37 EDT 2020 Naloxone 1203.640Positive - Inco nsistentPOSITIVE ng/mL MonFeb 22 11:47:37 EDT 2020 Norfentanyl 0.000NegativeNegative * ng/mL MonFeb 22 11:47:37 EDT 2020 Fentanyl 0.130NegativeNegative n g/mL MonFeb 22 11:47:37 EDT 2020 Carfentanil 0.000NegativeNegative * ng/mL Mon Aug 02 11:47:37 EDT 2020 Norcarfentanil 0.220NegativeNegativ e ng/mL [...] EDT 2020 Ethyl Sulfate 327.220Negative Negative ng/mL [facility] Feb 20 09:02:07 ED2020 Ethyl Glucuronide 2410.550Positi ve - InconsistentPOSITIVE ng/mL MonFeb 20 09:02:07 ED2020 Pregabalin 30.220NegativeNegative * ng/mL MonFeb 22 11:47:38 EDT 2020 Gabapentin 168.860NegativeNegative* ng/mL MonFeb 22 11:47:38 ED2020 Medications Medication Directions Start Date End Date Buprenorphine [address] one an d one half (1.5) tablets under the tongue daily MonMar 09 00:00:00 ED2020Apr 07 00:00:00 EDT 2020 Buprenorphine [address] one an d one half (1.5) tablets under the tongue daily MonFeb 16 00:00:00 EDT 2020Mar 09 00:00:00 EDT [address]ren[address]ine [address] one an d one half (1.5) tablets under the tongue daily MonJan 19 00:00:00 EDT 2020Feb 16 00:00:00 EDT 2020 Narcan 0.0 SPR [place] one (1) spray in nostril(s) as directed MonDec 22 00:00:00 EDT 2020Jun 19 00:00 :00 EST 2020 [address] one an d one half (1.5) tablets under the tongue daily MonDec 22 00:00:00 2020Jan 19 00:00:00 ED2020 Buprenorphine [address] one an d one half (1.5) tablets under the tongue daily MonNovember 24 00:00:00 2020Dec 22 00:00:00 EDT 2020 Buprenorphine [address] one an d one half (1.5) tablets under the tongue daily MonOct 27 00:00:00 2020November 24 00:00:00 ED2020 Buprenorphine [address] one an d one half (1.5) tablets under the tongue daily MonOct 06 00:00:00 ED2020Oct 27 00:00:00 ED2020 Buprenorphine [address] one an d one half (1.5) tablets under the tongue daily MonOct 02 00:00:00 EST 2020Oct 06 00:00:00 EDT 2020 Buprenorphine [address] one an d one half (1.5) tablets under the tongue daily MonSep 04 00:00:00 EST 2020Oct 02 00:00:00 2020 Buprenorphine [address] one an d one half (1.5) tablets under the tongue daily MonAug 07 00:00:00 EST 2020Sep 04 00:00:00 EST 2020 Buprenorphine Hydrochloride [address] one and one half (1.5) tablets under the tongue daily MonJul 09 00:00:00 2019Aug 07 00:00:00 EST 2020 Narcan 0.0 SPR [place] one (1) spray in nostril(s) as directed MonJul 09 00:00:00 EST 2019Dec 22 00:00 :00 EDT 2020 Buprenorphine Hydrochloride [address] one and one half (1.5) tablets under the tongue daily MonJun 11 00:00:00 EST 2019Jul 09:00:00 EST 2019 Buprenorphine Hydrochloride 2 MG TAB [...]
--- OUTSIDE RECORDS SUMMARY | 2021-06-10 01:58 | CCD ---
Author Author AutogeneraANGELA jacobo Auto generated Organization [facility] Address Unknown Phone Unavailable Care Team Providers Care Tunneller Name Role Phone Post, Una Practitioner Octavia Angelo Practitioner Ranjan Tai Practitioner Nilay Faria AdmittingPractitioner1 Maite Wheat Practitioner Functional Status No Results Allergies No Known Allergy Information Encounters Program Name Primary Diagnosis Admission Date/ Time Discharge Date/Time DRP Prescribing~INACTIVE MonAug 07 13:18:00 EST 2019Oct 17 08:42:00 EDT 2019 DRP Continuing Care Opioi d use disorder, mild [place] Apr 23 13:43:00 EDT 2019 Immunizations No Known Immunizations Lab [...] EDT 2020 Synthetic Opiates -9.00Negative* Negative ng/mL [place] Feb 18 22:46:46 EDT 2020 Cocaine Metabolites 386.00PRESUM PTIVE POSITIVEPRESUMPTIVE POSITIVE ng/mL [facility] Feb 18 22:46:46 EDT 2020 Ethyl Glucuronide 1910.00PRESUMP TIVE POSITIVEPRESUMPTIVE POSITIVE ng/mL [facility] Feb 18 22:46:47 EDT 2020 Ethyl Alcohol 17.00NegativeNegative mg/dL [facility] Feb 18 22:46:48 EDT 2020 Ecstasy (MDMA) 13.00NegativeNegativ e ng/mL [facility] Feb 18 22:46:48 EDT 2020 Phencyclidine -1.30NegativeNegative ng/mL [facility] Feb 18 22:46:48 EDT 2020 Cannabinoids -9.60NegativeNegative* ng/mL [facility] Feb 18 22:46:48 EDT 2020 Tramadol 22.00NegativeNegative n g/mL [facility] Feb 18 22:46:48 EDT 2020 Amphetamines 122.00NegativeNegative ng/mL [facility] Feb 18 22:46:48 EDT 2020 Buprenorphine [...] Nordiazepam 1.270NegativeNegative * ng/mL MonFeb 22 11:47:37 ED2020 Ethyl Sulfate 327.220Negative Negative ng/mL [facility] Feb 20 09:02:07 2020 Ethyl Glucuronide 2410.550Positi ve - InconsistentPOSITIVE ng/mL [facility] Feb 20 09:02:07 2020 Pregabalin 30.220NegativeNegative * ng/mL MonFeb 22 11:47:38 EDT 2020 Gabapentin 168.860NegativeNegative* ng/mL MonFeb 22 11:47:38 ED2020 Medications Medication Directions Start Date End Date Buprenorphine [address] one an d one half (1.5) tablets under the tongue daily MonMar 09 00:00:00 2020Apr 07 00:00:00 2020 Buprenorphine [address] one an d one half (1.5) tablets under the tongue daily MonFeb 16 00:00:00 ED2020Mar 09 00:00:00 EDT 2020 Buprenorphine [address] one an d one half (1.5) tablets under the tongue daily MonJan 19 00:00:00 EDT 2020Feb 16 00:00:00 EDT 2020 Narcan 0.0 SPR [place] one (1) spray in nostril(s) as directed [...] daily MonNovember 24 00:00:00 ED2020Dec 22 00:00:00 EDT 2020 [address]ren[address]ine [address] one an d one half (1.5) tablets under the tongue daily MonOct 27 00:00:00 ED2020November 24 00:00:00 ED2020 Buprenorphine [address] one an d one half (1.5) tablets under the tongue daily MonOct 06 00:00:00 2020Oct 27 00:00:00 2020 Buprenorphine [address] one an d one half (1.5) tablets under the tongue daily MonOct 02 00:00:00 2020Oct 06 00:00:00 EDT 2020 Buprenorphine [address] one an d one half (1.5) tablets under the tongue daily MonSep 04 00:00:00 EST 2020Oct 02 00:00:00 2020 Buprenorphine [address] one an d one half (1.5) tablets under the tongue daily MonAug 07 00:00:00 EST 2020Sep 04 00:00:00 2020 Buprenorphine Hydrochloride [address] one and one half (1.5) tablets under the tongue daily MonJul 09 00:00:00 EST 2019Aug 07 00:00:00 EST 2020 Narcan 0.0 SPR [place] one (1) spray in nostril(s) as directed MonJul 09 00:00:00 2019Dec 22 00:00 :00 EDT 2020 Buprenorphine Hydrochloride [address] one and one half (1.5) tablets under the tongue daily MonJun 11 00:00:00 2019Jul 09:00:00 2019 Buprenorphine Hydrochloride [address] one (1) tablet under the tongue three times a day MonFeb 20 00:00:00 EDT 2019Mar 21 00:00:00 EDT 2019 Buprenorphine Hydrochloride [address] one (1) tablet under the tongue twice a day MonAug 08 00:00:00 2019Sep 05 00:00:00 EST 2019 Problems No [...]
--- OUTSIDE RECORDS SUMMARY | 2021-06-10 01:58 | CCD ---
Author Author AutogeneraANGELA jacobo Auto generated Organization [facility] Address Unknown Phone Unavailable Care Team Providers Care Poker In Name Role Phone Post, Una Practitioner Octavia [...] EDT 2020 Synthetic Opiates -9.00Negative* Negative ng/mL [facility] Feb 18 22:46:46 EDT 2020 Cocaine Metabolites 386.00PRESUM PTIVE POSITIVEPRESUMPTIVE POSITIVE ng/mL [facility] Feb 18 22:46:46 EDT 2020 Ethyl Glucuronide 1910.00PRESUMP TIVE POSITIVEPRESUMPTIVE POSITIVE ng/mL [facility] Feb 18 22:46:47 EDT 2020 Ethyl Alcohol 17.00NegativeNegative mg/dL [facility] Feb 18 22:46:48 EDT 2020 Ecstasy (MDMA) 13.00NegativeNegativ e ng/mL [facility] Feb 18 22:46:48 EDT 2020 Phencyclidine -1.30NegativeNegative ng/mL [facility] Feb 18 22:46:48 EDT 2020 Cannabinoids -9.60NegativeNegative* ng/mL [facility] Feb 18 22:46:48 EDT 2020 Tramadol 22.00NegativeNegative n g/mL [facility] Feb 18 22:46:48 EDT 2020 Amphetamines 122.00NegativeNegative ng/mL [facility] Feb 18 22:46:48 EDT 2020 Buprenorphine [...] EDT 2020 Ethyl Sulfate 327.220Negative Negative ng/mL [facility] Feb 20 09:02:07 EDT 2020 Ethyl Glucuronide 2410.550Positi ve - InconsistentPOSITIVE ng/mL [facility] Feb 20 09:02:07 EDT 2020 Pregabalin 30.220NegativeNegative * ng/mL MonFeb 22 11:47:38 EDT 2020 Gabapentin 168.860NegativeNegative* ng/mL MonFeb 22 11:47:38 EDT 2020 Creatinine 107.3NORMALNORMAL mg/ dL MonApr 06 20:41:16 EDT 2020 pH 7.8NORMALNORMAL MonApr 06 20:41:16 EDT 2020 Oxidants -4.00NegativeNegative m cg/mL [...] EDT 2020 Cocaine Metabolites 5.00Negative Negative ng/mL Tue Sep 14 20:41:16 EDT 2020 Ethyl Glucuronide [...] EDT 2020 Buprenorphine 122.880Positive - InconsistentPOSITIVE ng/mL [place] Sep 16 13:22:51 EDT 2020 Norbuprenorphine 490.510Positive - InconsistentPOSITIVE ng/mL [facility] 16 13:22:51 EDT 2020 Naloxone 24.530NegativeNegative ng/mL [facility] 16 13:22:51 EDT 2020 Norfentanyl 0.040NegativeNegative * ng/mL [facility] 16 13:22:51 EDT 2020 Fentanyl 0.050NegativeNegative n g/mL [facility] 16 13:22:51 EDT 2020 Carfentanil 0.030NegativeNegative * ng/mL [place] [address] 13:22:52 EDT 2020 Norcarfentanil 0.190NegativeNegativ e ng/mL [place] [address] 13:22:52 EDT 2020 Sufentanil 0.150NegativeNegative ng/mL [place] [address] 13:22:52 EDT 2020 Temazepam 0.000NegativeNegative ng/mL [facility] 16 13:22:52 EDT 2020 Lorazepam 5.300NegativeNegative ng/mL [place] [address] 13:22:52 EDT 2020 alpha-Hydroxyalprazolam 0.000Neg ativeNegative ng/mL [place] [address] 13:22:52 EDT 2020 7-Aminoclonazepam 0.000Negative* Negative ng/mL [facility] 16 13:22:52 EDT 2020 Oxazepam 9.920NegativeNegative n g/mL [facility] 16 13:22:52 EDT 2020 Nordiazepam 3.560NegativeNegative * ng/mL [facility] 16 13:22:52 EDT 2020 Ethyl Sulfate 1147.130Positive - InconsistentPOSITIVE ng/mL [place] [address] 10:39:46 EDT 2020 Ethyl Glucuronide 5000Positive - InconsistentPOSITIVE> ng/mL [facility] 10:39:46 EDT 2020 Pregabalin 0.000NegativeNegative ng/mL [facility] 16 13:22:52 EDT 2020 Gabapentin 46.720NegativeNegative * ng/mL [facility] 16 13:22:52 EDT 2020 Medications Medication Directions Start Date End Date Buprenorphine [address] one an d one half (1.5) tablets under the tongue daily MonApr 06 00:00:00 EDT 2020May 05 00:00:00 EDT 2020 [address]uprenorphine [address] one an d one half (1.5) tablets under the tongue daily MonMar 09 00:00:00 ED2020Apr 06 00:00:00 ED2020 Buprenorphine [address] one an d one half (1.5) tablets under the tongue daily MonFeb 16 00:00:00 2020Mar 09 00:00:00 ED2020 Buprenorphine [address] one an d one half (1.5) tablets under the tongue daily MonJan 19 00:00:00 2020Feb 16 00:00:00 EDT 2020 Narcan 0.0 SPR [place] one (1) spray in nostril(s) as directed MonDec 22 00:00:00 ED2020Jun 19 00:00 :00 2020 [address]ren[address] one an d one half (1.5) tablets under the tongue daily MonDec 22 00:00:00 2020Jan 19 00:00:00 EDT 2020 Buprenorphine 8 [...] daily MonOct 06 00:00:00 ED2020Oct 27 00:00:00 EDT 2020 [address]uprenorphine [address] one an d one half (1.5) tablets under the tongue daily MonOct 02:00:00 2020Oct 06:00:00 2020 Buprenorphine [address] one an d one half (1.5) tablets under the tongue daily MonSep 04:00:00 2020Oct 02:00:00 2020 [address]uprenorphine [address] one an d one half (1.5) tablets under the tongue daily MonAug 07:00:00 2020Sep 04:00:00 2020 Narcan 0.0 SPR [place] one (1) spray in nostril(s) as directed MonJul 09:00:00 2019Dec 22:00 :00 2020 Buprenorphine Hydrochloride [address] one and one half (1.5) tablets under the tongue daily MonJul 09:00:00 2019Aug 07:00:00 2020 Buprenorphine Hydrochloride [address] one and one half (1.5) tablets under the tongue daily MonJun 11:00:00 2019Jul 09:00:00 2019 Buprenorphine Hydrochloride [address] one (1) tablet under the tongue three times a day MonFeb 20:00:00 2019Mar 21:00:00 2019 Buprenorphine Hydrochloride [address] one (1) tablet under the tongue twice a day MonAug 08:00:00 2019Sep 05 00:00:00 2019 Problems No Known Problems Procedures No Known Procedures Social History Social History Observation Description Tevin e Smoking Status Former Smoker MonOct 05 08:00:00 ED2020 Smoking Status Former Smoker MonOct 05 08:00:00 2020 Smoking Status Former Smoker MonOct 05 08:00:00 ED2020 Smoking Status Unknown If Ever Smoked MonAug 07 07:00:00 2019 Smoking Status Unknown If Ever Smoked MonAug 07 07:00:00 2019 Smoking Status Unknown If Ever Smoked MonAug 07::2019 Smoking Status Unknown If Ever Smoked MonAug 07 07::00 2019 Smoking Status Unknown If Ever Smoked [...]
--- OUTSIDE RECORDS SUMMARY | 2021-06-10 01:58 | CCD ---
Author Author AutogeneraANGELA jacobo Auto generated Organization [facility] Address Unknown Phone Unavailable Care Team Providers Care Turbo Generator Oiler Name Role Phone Post, Una Practitioner Octavia [...] Cocaine Metabolites 386.00PRESUM PTIVE POSITIVEPRESUMPTIVE POSITIVE ng/mL [facility] Feb 18 22:46:46 EDT 2020 Ethyl Glucuronide 1910.00PRESUMP TIVE POSITIVEPRESUMPTIVE POSITIVE ng/mL [facility] Feb 18 22:46:47 EDT 2020 Ethyl Alcohol 17.00NegativeNegative mg/dL [facility] Feb 18 22:46:48 EDT 2020 Ecstasy (MDMA) 13.00NegativeNegativ e ng/mL [facility] Feb 18 22:46:48 EDT 2020 Phencyclidine -1.30NegativeNegative ng/mL [facility] Feb 18 22:46:48 EDT 2020 Cannabinoids -9.60NegativeNegative* ng/mL [facility] Feb 18 22:46:48 EDT 2020 Tramadol 22.00NegativeNegative n g/mL [facility] Feb 18 22:46:48 EDT 2020 Amphetamines 122.00NegativeNegative ng/mL [facility] Feb 18 22:46:48 EDT 2020 Buprenorphine [...] 11:47:37 ED2020 Ethyl Sulfate 327.220Negative Negative ng/mL [facility] Feb 20 09:02:07 2020 Ethyl Glucuronide 2410.550Positi ve - InconsistentPOSITIVE ng/mL [facility] Feb 20 09:02:07 ED2020 Pregabalin 30.220NegativeNegative * ng/mL MonFeb 22 11:47:38 EDT 2020 Gabapentin 168.860NegativeNegative* ng/mL MonFeb 22 11:47:38 ED2020 Medications Medication Directions Start Date End Date Buprenorphine [address] one an d one half (1.5) tablets under the tongue daily MonApr 06 00:00:00 ED2020May 05 00:00:00 ED2020 Buprenorphine [address] one an d one half (1.5) tablets under the tongue daily MonMar 09 00:00:00 2020Apr 06 00:00:00 2020 [address]ren[address] one an d one half (1.5) tablets under the tongue daily MonFeb 16 00:00:00 2020Mar 09 00:00:00 [address] one an d one half (1.5) tablets under the tongue daily MonJan 19 00:00:00 2020Feb 16 00:00:00 2020 Narcan 0.0 SPR [place] one (1) spray in nostril(s) as directed MonDec 22 00:00:00 2020Jun 19 00:00 :00 EST [address] one an d one half (1.5) tablets under the tongue daily MonDec 22 00:00:00 2020Jan 19 00:00:00 2020 Buprenorphine 8 MG [...] 00:00:00 EST 2020Sep 04 00:00:00 EST 2020 Narcan 0.0 SPR [place] one (1) spray in nostril(s) as directed MonJul 09 00:00:00 EST 2019Dec 22:00 :00 EDT 2020 Buprenorphine Hydrochloride [address] one and one half (1.5) tablets under the tongue daily MonJul 09:00:00 EST 2019Aug 07 00:00:00 2020 Buprenorphine Hydrochloride 0.[address] one [...] a day MonAug 08:00:00 2019Sep 05 00:00:00 EST 2019 Problems No Known Problems Procedures No Known Procedures Social History Social History Observation Description Tevin e Smoking Status Former Smoker MonOct 05 08:00:00 EDT 2020 Smoking Status Former Smoker MonOct 05 08:00:00 EDT 2020 Smoking Status Former Smoker MonOct 05 08:00:00 EDT 2020 Smoking Status Unknown If Ever Smoked MonAug 07 07:00:00 EST 2019 Smoking Status Unknown If Ever Smoked MonAug 07 07:00:2019 Smoking Status Unknown If Ever Smoked MonAug 07 07::2019 Smoking Status Unknown If Ever Smoked MonAug 07 07:00:2019 Smoking Status Unknown If Ever Smoked MonAug 07 07:00:2019 Smoking Status Unknown If Ever Smoked MonAug 07 07:00: EST 2019 Sex Female MonMar 25 08:00:00 [...]
--- OUTSIDE RECORDS SUMMARY | 2021-06-10 01:58 | CCD ---
Author Author AutogeneraANGELA jacobo Auto generated Organization [facility] Address Unknown Phone Unavailable Care Team Providers Care Student Counselor Name Role Phone Post, Una Practitioner Octavia Angelo Practitioner Ranjan Tai Practitioner Nilay Faria AdmittingPractitioner1 Jomar Rush Practitioner Maite Wheat Practitioner Functional Status Allergies No Known Allergy Information Encounters Immunizations No Known Immunizations Lab Results Medications Problems No Known Problems Procedures No Known Procedures Social History Vital Signs
--- OUTSIDE RECORDS SUMMARY | 2021-06-10 01:58 | CCD ---
Author [facility] [employer] [facility] Address Unknown Phone Unavailable Care Team Providers Care Supervisor Park Workers Name Role Phone Jennifer Carpenter Unavailable PROBLEMS Type Condition ICD9-CM Code [id number] Code Onset Dates Condition S tatus W/U Status Risk SNOMED Code Notes Problem Calculus of gallbladder without cholecystitis wi thout obstruction K80.20 Active confirmed 351646116 Problem Supervision of other normal Z34.80 Ac tive confirm 730173333 Problem Tobacco abuse Z72.0 Active confirmed 190660 000 ALLERGIES No Known Allergies ENCOUNTERS from 1992 to 2021-04-02 Encounter Location Date Provider Diagnosis [address] [place] [address] Mar, Jennifer Alfonso-Tarteandie IMMUNIZATIONS No Information SOCIAL HISTORY Tobacco Use: Social History Observation Description Date Details (start date - stop date) Former Smoker Sex Assigned At : Social History Observation Description Sex Assigned At Unknown Audit Question Answer Notes Total Score: 0 Interpretation: Alcohol Education Drug and Alcohol Question Answer Notes Total Score: 0 Interpretation: No problems reported Alcohol Screening: Question Answer Notes Did you have a drink containing alcohol in the past year? No Points 0 Interpretation Negative Tobacco Use: Question Answer Notes Are you a: former smoker quit September 2019 REASON FOR REFERRAL No Information VITAL SIGNS No information MEDICATIONS Medication SIG (Take, Route, Frequency, Duration) Notes Start Da te End Date Status Prenat IZ-Oku-Wquuppfagdaq-FA 0.6-0.4 MG 1 tablet Oral ly Once a day for 30 day(s) Not-Taking Ferrous Gluconate 324 (38 Fe) MG 1 tablet with water o r juice between meals Orally three times per day Apr, Activ e Multivitamin - 1 tablet Orally Once a day Active Vitamin 27-0.8 MG 1 tablet Orally Once a day Active Colace 100 MG 1 capsule as needed Orally Once a day as needed Active Ondansetron [address] ONE TABLET BY MOUTH TH REE TIMES A DAY NEEDED FOR NAUSEA AND VOMITING Oral for 3 N ot-Taking Meclizine HCl 25 mg 1 tablet Orally every 6 hours as needed for 7 day(s) Oct, Active Subutex Active PROCEDURES No Information RESULTS No Results REASON FOR VISIT no show 04/01/2021 MEDICAL (GENERAL) HISTORY Type Description Date Medical History opiate dependency -- on suboxone, julianne kiser Medical History gallstones seen on 09/2018 Surgical History tonsillectomy 2006 Surgical History C section 09/24/2014 Surgical History 05/31/2019 Hospitalization History Childbirth Goals Section No Information Health Concerns No Information MEDICAL EQUIPMENT No Information MENTAL STATUS No Information FUNCTIONAL STATUS No Information ASSESSMENTS No Information PLAN OF TREATMENT No Information Insurance Providers Payer Name Payer Address Payer Phone Insured Name Patient Relati onship to Insured Coverage Start Date Coverage End Date [facility] CORPOR[facility] CLAIMS DEPT [address] [facility] [phone] ANGELA IBANEZ self
--- OUTSIDE RECORDS SUMMARY | 2021-06-10 01:58 | CCD ---
Author Author AutogeneANGELA lama Auto generated Organization [facility] Address Unknown Phone Unavailable Care Team Providers Care Tooling Engineer Name Role Phone Post, Una Practitioner Octavia Angelo Practitioner Ranjan Tai Practitioner Nilay Faria AdmittingPractitioner1 Maite Wheat Practitioner Functional Status Allergies No Known Allergy Information Encounters Immunizations No Known Immunizations Lab Results Medications Problems No Known Problems Procedures No Known Procedures Social History Vital Signs
--- OUTSIDE RECORDS SUMMARY | 2021-06-10 01:58 | CCD ---
Author Author AutogeneraANGELA jacobo Auto generated Organization [facility] Address Unknown Phone Unavailable Care Team Providers Care Box Storage Worker Name Role Phone Post, Una Practitioner [...] EDT 2020 Synthetic Opiates -9.00Negative* Negative ng/mL [facility] Feb 18 22:46:46 EDT 2020 Cocaine Metabolites 386.00PRESUM PTIVE POSITIVEPRESUMPTIVE POSITIVE ng/mL [facility] Feb 18 22:46:46 EDT 2020 Ethyl Glucuronide 1910.00PRESUMP TIVE POSITIVEPRESUMPTIVE POSITIVE ng/mL [facility] Feb 18 22:46:47 EDT 2020 Ethyl Alcohol 17.00NegativeNegative mg/dL [facility] Feb 18 22:46:48 EDT 2020 Ecstasy (MDMA) 13.00NegativeNegativ e ng/mL [facility] Feb 18 22:46:48 EDT 2020 Phencyclidine -1.30NegativeNegative ng/mL [facility] Feb 18 22:46:48 EDT 2020 Cannabinoids -9.60NegativeNegative* ng/mL [facility] Feb 18 22:46:48 EDT 2020 Tramadol 22.00NegativeNegative n g/mL [facility] Feb 18 22:46:48 EDT 2020 Amphetamines 122.00NegativeNegative ng/mL [facility] Feb 18 22:46:48 EDT 2020 Buprenorphine [...] EDT 2020 Ethyl Sulfate 327.220Negative Negative ng/mL [facility] Feb 20 09:02:07 EDT 2020 Ethyl Glucuronide 2410.550Positi ve - InconsistentPOSITIVE ng/mL [facility] Feb 20 09:02:07 EDT 2020 Pregabalin 30.220NegativeNegative [...] EDT 2020 Norbuprenorphine 490.510Positive - InconsistentPOSITIVE ng/mL [facility] 16 13:22:51 EDT 2020 Naloxone 24.530NegativeNegative ng/mL [facility] 16 13:22:51 EDT 2020 Norfentanyl 0.040NegativeNegative * ng/mL [facility] 16 13:22:51 EDT 2020 Fentanyl 0.050NegativeNegative n g/mL [facility] 16 13:22:51 EDT 2020 Carfentanil 0.030NegativeNegative * ng/mL [place] [address] 13:22:52 EDT 2020 Norcarfentanil 0.190NegativeNegativ e ng/mL [place] [address] 13:22:52 EDT 2020 Sufentanil 0.150NegativeNegative ng/mL [place] [address] 13:22:52 EDT 2020 Temazepam 0.000NegativeNegative ng/mL [facility] 16 13:22:52 EDT 2020 Lorazepam 5.300NegativeNegative ng/mL [place] [address] 13:22:52 EDT 2020 alpha-Hydroxyalprazolam 0.000Neg ativeNegative ng/mL [place] [address] 13:22:52 EDT 2020 7-Aminoclonazepam 0.000Negative* Negative ng/mL [facility] 16 13:22:52 EDT 2020 Oxazepam 9.920NegativeNegative n g/mL [facility] 16 13:22:52 EDT 2020 Nordiazepam 3.560NegativeNegative * ng/mL [facility] 16 13:22:52 EDT 2020 Ethyl Sulfate 1147.130Positive - InconsistentPOSITIVE ng/mL [place] [address] 10:39:46 EDT 2020 Ethyl Glucuronide 5000Positive - InconsistentPOSITIVE> ng/mL [facility] 10:39:46 EDT 2020 Pregabalin 0.000NegativeNegative ng/mL [facility] 16 13:22:52 EDT 2020 Gabapentin 46.720NegativeNegative * ng/mL [facility] 16 13:22:52 EDT 2020 Medications Medication [...] 16 00:00:00 EDT 2020 Narcan 0.0 SPR [place] one (1) spray in nostril(s) as directed [...] 07:00:00 2020Sep 04:00:00 2020 Narcan 0.0 SPR [place] one (1) spray in nostril(s) as directed [...]
--- OUTSIDE RECORDS SUMMARY | 2021-06-10 01:58 | CCD ---
Author Author AutogeneraANGELA jacobo Auto generated Organization [facility] Address Unknown Phone Unavailable Care Team Providers Care Turbine Engineer Name Role Phone Post, Una Practitioner Octavia Angelo Practitioner Ranjan Tai Practitioner Nilay Faria AdmittingPractitioner1 Jomar Rush Practitioner Maite Wheat Practitioner Functional Status Allergies No Known Allergy Information Encounters Immunizations No Known Immunizations Lab Results Medications Problems No Known Problems Procedures No Known Procedures Social History Vital Signs
--- OUTSIDE RECORDS SUMMARY | 2021-06-10 01:58 | CCD ---
Author Author AutogeneraANGELA jacobo Auto generated Organization [facility] Address Unknown Phone Unavailable Care Team Providers Care Wood Fence Erector Name Role Phone Post, Una Practitioner Octavia [...] Cocaine Metabolites 386.00PRESUM PTIVE POSITIVEPRESUMPTIVE POSITIVE ng/mL [facility] Feb 18 22:46:46 EDT 2020 Ethyl Glucuronide 1910.00PRESUMP TIVE POSITIVEPRESUMPTIVE POSITIVE ng/mL [facility] Feb 18 22:46:47 EDT 2020 Ethyl Alcohol 17.00NegativeNegative mg/dL [facility] Feb 18 22:46:48 EDT 2020 Ecstasy (MDMA) 13.00NegativeNegativ e ng/mL [facility] Feb 18 22:46:48 EDT 2020 Phencyclidine -1.30NegativeNegative ng/mL [facility] Feb 18 22:46:48 EDT 2020 Cannabinoids -9.60NegativeNegative* ng/mL [facility] Feb 18 22:46:48 EDT 2020 Tramadol 22.00NegativeNegative n g/mL [facility] Feb 18 22:46:48 EDT 2020 Amphetamines 122.00NegativeNegative ng/mL [facility] Feb 18 22:46:48 EDT 2020 Buprenorphine [...] 11:47:37 ED2020 Ethyl Sulfate 327.220Negative Negative ng/mL [facility] Feb 20 09:02:07 2020 Ethyl Glucuronide 2410.550Positi ve - InconsistentPOSITIVE ng/mL [facility] Feb 20 09:02:07 2020 Pregabalin 30.220NegativeNegative * [...] 16 00:00:00 EDT 2020 Narcan 0.0 SPR [place] one (1) spray in nostril(s) as directed [...] 07 00:00:00 EST 2020 Narcan 0.0 SPR [place] one (1) spray in nostril(s) as directed [...]
--- OUTSIDE RECORDS SUMMARY | 2021-06-10 01:58 | CCD ---
Author Author AutogeneraANGELA jacobo Auto generated Organization [facility] Address Unknown Phone Unavailable Care Team Providers Care Buttoner Name Role Phone Post, Una Practitioner Octavia [...] Cocaine Metabolites 386.00PRESUM PTIVE POSITIVEPRESUMPTIVE POSITIVE ng/mL [facility] Feb 18 22:46:46 EDT 2020 Ethyl Glucuronide 1910.00PRESUMP TIVE POSITIVEPRESUMPTIVE POSITIVE ng/mL [facility] Feb 18 22:46:47 EDT 2020 Ethyl Alcohol 17.00NegativeNegative mg/dL [facility] Feb 18 22:46:48 EDT 2020 Ecstasy (MDMA) 13.00NegativeNegativ e ng/mL [facility] Feb 18 22:46:48 EDT 2020 Phencyclidine -1.30NegativeNegative ng/mL [facility] Feb 18 22:46:48 EDT 2020 Cannabinoids -9.60NegativeNegative* ng/mL [facility] Feb 18 22:46:48 EDT 2020 Tramadol 22.00NegativeNegative n g/mL [facility] Feb 18 22:46:48 EDT 2020 Amphetamines 122.00NegativeNegative ng/mL [facility] Feb 18 22:46:48 EDT 2020 Buprenorphine [...] EDT 2020 Ethyl Sulfate 327.220Negative Negative ng/mL [facility] Feb 20 09:02:07 EDT 2020 Ethyl Glucuronide 2410.550Positi ve - InconsistentPOSITIVE ng/mL [facility] Feb 20 09:02:07 EDT 2020 [...] EDT 2020 Norbuprenorphine 490.510Positive - InconsistentPOSITIVE ng/mL [facility] 16 13:22:51 EDT 2020 Naloxone 24.530NegativeNegative ng/mL [facility] 16 13:22:51 EDT 2020 Norfentanyl 0.040NegativeNegative * ng/mL [facility] 16 13:22:51 EDT 2020 Fentanyl 0.050NegativeNegative n g/mL [facility] 16 13:22:51 EDT 2020 Carfentanil 0.030NegativeNegative * ng/mL [place] [address] 13:22:52 EDT 2020 Norcarfentanil 0.190NegativeNegativ e ng/mL [place] [address] 13:22:52 EDT 2020 Sufentanil 0.150NegativeNegative ng/mL [place] [address] 13:22:52 EDT 2020 Temazepam 0.000NegativeNegative ng/mL [facility] 16 13:22:52 EDT 2020 Lorazepam 5.300NegativeNegative ng/mL [place] [address] 13:22:52 EDT 2020 alpha-Hydroxyalprazolam 0.000Neg ativeNegative ng/mL [place] [address] 13:22:52 EDT 2020 7-Aminoclonazepam 0.000Negative* Negative ng/mL [facility] 16 13:22:52 EDT 2020 Oxazepam 9.920NegativeNegative n g/mL [facility] 16 13:22:52 EDT 2020 Nordiazepam 3.560NegativeNegative * ng/mL [facility] 16 13:22:52 EDT 2020 Ethyl Sulfate 1147.130Positive - InconsistentPOSITIVE ng/mL [place] [address] 10:39:46 EDT 2020 Ethyl Glucuronide 5000Positive - InconsistentPOSITIVE> ng/mL [facility] 10:39:46 EDT 2020 Pregabalin 0.000NegativeNegative ng/mL [facility] 16 13:22:52 EDT 2020 Gabapentin 46.720NegativeNegative * ng/mL [facility] 16 13:22:52 EDT 2020 Medications Medication [...] 16 00:00:00 EDT 2020 Narcan 0.0 SPR [place] one (1) spray in nostril(s) as directed [...] 07:00:00 2020Sep 04:00:00 2020 Narcan 0.0 SPR [place] one (1) spray in nostril(s) as directed [...]
--- OUTSIDE RECORDS SUMMARY | 2021-06-10 01:58 | CCD ---
Author Author AutogeneANGELA lama Auto generated Organization [facility] Address Unknown Phone Unavailable Care Team Providers Care Mushroom Growth Media Mixer Name Role Phone Post, Una Practitioner Octavia [...] EDT 2020 Synthetic Opiates -9.00Negative* Negative ng/mL [facility] Feb 18 22:46:46 EDT 2020 Cocaine Metabolites 386.00PRESUM PTIVE POSITIVEPRESUMPTIVE POSITIVE ng/mL [facility] Feb 18 22:46:46 EDT 2020 Ethyl Glucuronide 1910.00PRESUMP TIVE POSITIVEPRESUMPTIVE POSITIVE ng/mL [facility] Feb 18 22:46:47 EDT 2020 Ethyl Alcohol 17.00NegativeNegative mg/dL [facility] Feb 18 22:46:48 EDT 2020 Ecstasy (MDMA) 13.00NegativeNegativ e ng/mL [facility] Feb 18 22:46:48 EDT 2020 Phencyclidine -1.30NegativeNegative ng/mL [facility] Feb 18 22:46:48 EDT 2020 Cannabinoids -9.60NegativeNegative* ng/mL [facility] Feb 18 22:46:48 EDT 2020 Tramadol 22.00NegativeNegative n g/mL [facility] Feb 18 22:46:48 EDT 2020 Amphetamines 122.00NegativeNegative ng/mL [facility] Feb 18 22:46:48 EDT 2020 Buprenorphine 250Positive [...] EDT 2020 Ethyl Sulfate 327.220Negative Negative ng/mL [facility] Feb 20 09:02:07 EDT 2020 Ethyl Glucuronide 2410.550Positi ve - InconsistentPOSITIVE ng/mL [facility] Feb 20 09:02:07 EDT 2020 [...] EDT 2020 Norbuprenorphine 490.510Positive - InconsistentPOSITIVE ng/mL [facility] 16 13:22:51 EDT 2020 Naloxone 24.530NegativeNegative ng/mL [facility] 16 13:22:51 EDT 2020 Norfentanyl 0.040NegativeNegative * ng/mL [facility] 16 13:22:51 EDT 2020 Fentanyl 0.050NegativeNegative n g/mL [facility] 16 13:22:51 EDT 2020 Carfentanil 0.030NegativeNegative * ng/mL [place] [address] 13:22:52 EDT 2020 Norcarfentanil 0.190NegativeNegativ e ng/mL [place] [address] 13:22:52 EDT 2020 Sufentanil 0.150NegativeNegative ng/mL [place] [address] 13:22:52 EDT 2020 Temazepam 0.000NegativeNegative ng/mL [facility] 16 13:22:52 EDT 2020 Lorazepam 5.300NegativeNegative ng/mL [place] [address] 13:22:52 EDT 2020 alpha-Hydroxyalprazolam 0.000Neg ativeNegative ng/mL [place] [address] 13:22:52 EDT 2020 7-Aminoclonazepam 0.000Negative* Negative ng/mL [facility] 16 13:22:52 EDT 2020 Oxazepam 9.920NegativeNegative n g/mL [facility] 16 13:22:52 EDT 2020 Nordiazepam 3.560NegativeNegative * ng/mL [facility] 16 13:22:52 EDT 2020 Ethyl Sulfate 1147.130Positive - InconsistentPOSITIVE ng/mL [place] [address] 10:39:46 EDT 2020 Ethyl Glucuronide 5000Positive - InconsistentPOSITIVE> ng/mL [facility] Apr 08 10:39:46 EDT 2020 Pregabalin 0.000NegativeNegative ng/mL [facility] 13:22:52 EDT 2020 Gabapentin 46.720NegativeNegative * ng/mL [facility] 13:22:52 EDT 2020 Medications Medication Directions Start Date End Date Nicotine Polacrilex 4 MG TAVO Apply one (1) each to mouth and gums every 1 hour, as needed MonMay 04 00:00:00 2020Oct 30 00:00:00 2021 Nicotine 0.0 TDM Apply one (1) pat ch on the skin once a day, as needed MonMay 04 00:00:00 2020Oct 30 00:00 :00 2021 [address]ren[address] one an d one half (1.5) tablets under the tongue daily MonMay 04 00:00:00 2020Jun 02 00:00:00 EST 2020 Buprenorphine 8 MG TAB [...] 2020Feb 16 00:00:00 2020 Narcan 0.0 SPR [place] one (1) spray in nostril(s) as directed MonDec 22 00:00:00 2020Jun 19 00:00 :00 EST 2020 [address] one an d one half (1.5) tablets under the tongue daily MonDec 22 00:00:00 2020Jan 19 00:00:00 2020 Buprenorphine [address] one an d one half (1.5) tablets under the tongue daily MonNovember 24:00:00 2020Dec 22:00:00 2020 Buprenorphine [address] one an d one half (1.5) tablets under the tongue daily MonOct 27 00:00:00 ED2020November 24:00:00 2020 Buprenorphine [address] one [...] the tongue daily MonAug 07 00:00:00 2020Sep 04:00:00 2020 Narcan 0.0 SPR [place] one (1) spray in nostril(s) as directed MonJul 09 00:00:00 2019Dec 22:00 :00 2020 Buprenorphine Hydrochloride [address] one and one half (1.5) tablets under the tongue daily MonJul 09:00:00 2019Aug 07 00:00:00 2020 Buprenorphine Hydrochloride 0.[address] one and one half (1.5) tablets under the tongue daily MonJun 11 00:00:00 2019Jul 09:00:00 2019 Buprenorphine Hydrochloride [address] one (1) tablet under the tongue three times a day MonFeb 20 00:00:00 2019Mar 21 00:00:00 2019 Buprenorphine Hydrochloride 2 MG TAB [...]
--- OUTSIDE RECORDS SUMMARY | 2021-06-10 01:58 | CCD ---
Author Author ANGELA JACKSON Organization [facility] Address [address] [place] [address] Care Team Providers Care Transportation Program Director Name Role Phone Post, Una Practitioner Octavia [...] Synthetic Opiates -9.00Negative* Negative ng/mL [facility] Feb 18 22:46:46 EDT 2020 Cocaine Metabolites 386.00PRESUM PTIVE POSITIVEPRESUMPTIVE POSITIVE ng/mL [facility] Feb 18 22:46:46 EDT 2020 Ethyl Glucuronide 1910.00PRESUMP TIVE POSITIVEPRESUMPTIVE POSITIVE ng/mL [facility] Feb 18 22:46:47 EDT 2020 Ethyl Alcohol 17.00NegativeNegative mg/dL [facility] Feb 18 22:46:48 EDT 2020 Ecstasy (MDMA) 13.00NegativeNegativ e ng/mL [facility] Feb 18 22:46:48 EDT 2020 Phencyclidine -1.30NegativeNegative ng/mL [facility] Feb 18 22:46:48 EDT 2020 Cannabinoids -9.60NegativeNegative* ng/mL [facility] Feb 18 22:46:48 EDT 2020 Tramadol 22.00NegativeNegative n g/mL [facility] Feb 18 22:46:48 EDT 2020 Amphetamines 122.00NegativeNegative ng/mL [facility] Feb 18 22:46:48 EDT 2020 Buprenorphine [...] EDT 2020 Buprenorphine 122.880Positive - InconsistentPOSITIVE ng/mL [facility] 16 13:22:51 EDT 2020 Norbuprenorphine 490.510Positive - InconsistentPOSITIVE ng/mL [facility] 16 13:22:51 EDT 2020 Naloxone 24.530NegativeNegative ng/mL [facility] 16 13:22:51 EDT 2020 Norfentanyl 0.040NegativeNegative * ng/mL [facility] 16 13:22:51 EDT 2020 Fentanyl 0.050NegativeNegative n g/mL [facility] 16 13:22:51 EDT 2020 Carfentanil 0.030NegativeNegative * ng/mL [place] [id number] 13:22:52 EDT 2020 Norcarfentanil 0.190NegativeNegativ e ng/mL [place] [id number] 13:22:52 EDT 2020 Sufentanil 0.150NegativeNegative ng/mL [facility] 16 13:22:52 EDT 2020 Temazepam 0.000NegativeNegative ng/mL [place] [id number] 13:22:52 EDT 2020 Lorazepam 5.300NegativeNegative ng/mL [place] [id number] 13:22:52 EDT 2020 alpha-Hydroxyalprazolam 0.000Neg ativeNegative ng/mL [place] [id number] 13:22:52 EDT 2020 7-Aminoclonazepam 0.000Negative* Negative ng/mL [place] [id number] 13:22:52 EDT 2020 Oxazepam 9.920NegativeNegative n g/mL [facility] 16 13:22:52 EDT 2020 Nordiazepam 3.560NegativeNegative * ng/mL [place] [id number] 13:22:52 EDT 2020 Ethyl Sulfate 1147.130Positive - InconsistentPOSITIVE ng/mL [place] [id number] 10:39:46 EDT 2020 Ethyl Glucuronide 5000Positive - InconsistentPOSITIVE> ng/mL [facility] 16 10:39:46 EDT 2020 Pregabalin 0.000NegativeNegative ng/mL [facility] 16 13:22:52 EDT 2020 Gabapentin 46.720NegativeNegative * ng/mL [facility] 13:22:52 EDT 2020 Medications Medication Directions [...] 16 00:00:00 EDT 2020 Narcan 0.0 SPR [place] one (1) spray in nostril(s) as directed MonDec 22 00:00:00 EDT 2020Jun 19 00:00 :00 [address] one an d one half (1.5) tablets under the tongue daily MonDec 22 00:00:00 EDT 2020Jan 19 00:00:00 EDT 2020 [address] one an d one half (1.5) tablets under the tongue daily MonNovember 24 00:00:00 EDT 2020Dec 22 00:00:00 EDT 2020 [address]uprenorphine [address] one an d one half (1.5) tablets under the tongue daily MonOct 27 00:00:00 EDT 2020November 24 00:00:00 EDT 2020 Buprenorphine 8 MG TAB [...] under the tongue daily MonAug 07:00:00 2020Sep 04 00:00:00 2020 Narcan 0.0 SPR [place] one (1) spray in nostril(s) as directed MonJul 09 00:00:00 2019Dec 22 00:00 :00 2020 Buprenorphine Hydrochloride [address] one and one half (1.5) tablets under the tongue daily MonJul 09:00:00 2019Aug 07:00:00 2020 Buprenorphine Hydrochloride 0.[address] one and one half (1.5) tablets under the tongue daily MonJun 11 00:00:00 2019Jul 09:00:00 2019 Buprenorphine Hydrochloride [address] one (1) tablet under the tongue three times a day MonFeb 20 00:00:00 ED2019Mar 21 00:00:00 ED2019 Buprenorphine Hydrochloride [address] one (1) tablet under the tongue twice a day MonAug 08 00:00:00 2019Sep 05 00:00:00 2019 Problems No Known Problems Procedures No Known Procedures Social History Social History Observation Description Tevin e Smoking Status Former Smoker MonOct 05 08:00:00 ED2020 Smoking Status Former Smoker MonOct 05 08:00:00 ED2020 Smoking Status Former Smoker MonOct 05 08:00:00 2020 Smoking Status Unknown If Ever Smoked [...]
--- OUTSIDE RECORDS SUMMARY | 2021-06-10 01:59 | CCD ---
Author Author [facility] Organization [facility] Address Unknown Phone Unavailable Support Name Relationship Address Phone DOLLTREE Next Of Kin [address] [place] [address] AMARI BALDERAS Next Of Kin [address] [place] [address] DOLLAR TREE [place] [address] DOLLAR Next Of Kin [address] [facility] [address] [address] DELISA ISSAC Next Of Kin [address] [place] [address] [employer] Next Of Kin [address] [facility] [address] [place] [address] UNEMPLOYED Next Of Kin [id number] [address] LIBBY BRIGGS Next Of Kin [address] [place] [address] FRANCO WORKMAN Next Of Kin [address] [facility] [address] [place] [address] JEAN PAUL WORKMAN Next Of Kin Unknown UE Next Of Kin Unknown Unavailable FRANCO WORKMAN Next Of Kin [address] [facility] [address] [place] [address] [place] Next Of Kin Unknown Unavailable JEAN PAUL IBANEZ Next Of Kin [address] [place] [address] LIBBY BRIGGS [address] [place], [place] [address] [phone] Care Team Providers Care Computer Information Systems Instructor Name Role Phone Bryant CHAN MD Unavailable Unavailable Bryant CHAN MD Unavailable Unavailable Bryant CHAN MD Unavailable Unavailable Bryant CHAN MD Unavailable Unavailable Bryant CHAN MD Unavailable Unavailable Bryant CHAN MD Unavailable Unavailable Bryant CHAN MD Unavailable Unavailable Bryant CHAN MD Unavailable Unavailable Bryant CHAN MD Unavailable Unavailable Bryant CHAN MD Unavailable Unavailable Bryant CHAN MD Unavailable Unavailable Bryant CHAN MD Unavailable Unavailable Bryant CHAN MD Unavailable Unavailable Bryant CHAN MD Unavailable Unavailable Bryant CHAN MD Unavailable Unavailable Bryant CHAN MD Unavailable Unavailable Bryant CHAN MD Unavailable Unavailable Bryant CHAN MD Unavailable Unavailable Bryant CHAN MD Unavailable Unavailable Bryant CHAN MD Unavailable Unavailable Bryant CHAN MD Unavailable Unavailable Bryant CHAN MD Unavailable Unavailable Bryant CHAN MD Unavailable Unavailable Bryant CHAN MD Unavailable Unavailable LINSEY, A. BRANDS EDITOR SUNSHINE Unavailable [phone] LINSEY, A. BRANDS EDITOR SUNSHINE Unavailable [phone] LINSEY, A. BRANDS EDITOR SUNSHINE Unavailable [phone] LINSEY, A. BRANDS EDITOR SUNSHINE Unavailable [phone] LINSEY, A. BRANDS EDITOR SUNSHINE Unavailable [phone] LINSEY, A. BRANDS EDITOR SUNSHINE Unavailable [phone] LINSEY, A. BRANDS EDITOR SUNSHINE Unavailable [phone] LINSEY, A. BRANDS EDITOR SUNSHINE Unavailable [phone] LINSEY, A. BRANDS EDITOR SUNSHINE Unavailable [phone] LINSEY, A. BRANDS EDITOR SUNSHINE Unavailable [phone] LINSEY, A. BRANDS EDITOR SUNSHINE Unavailable [phone] LINSEY, A. BRANDS EDITOR SUNSHINE Unavailable [phone] LINSEY, A. BRANDS EDITOR SUNSHINE Unavailable [phone] LINSEY, A. BRANDS EDITOR SUNSHINE Unavailable [phone] Wiliam STILES WERNER GONSALEZ Unavailable [phone] LINSEYWiliam MARTIN WERNER GONSALEZ Unavailable [phone] Morris Faria Unavailable Unavailable Re-disclosure Warning The records that you are about to access may contain information from federally-assisted alcohol or drug abuse programs. If such information is present, then the following federally mandated warning applies: This information has been disclosed to you from records protected by federal confidentiality rules (42 CFR part 2). The federal rules prohibit you from making any further disclosure of this information unless further disclosure is expressly permitted by the written consent of the person to whom it pertains or as otherwise permitted by 42 CFR part 2. A general authorization for the release of medical or other information is NOT sufficient for this purpose. The Federal rules restrict any use of the information to criminally investigate or prosecute any alcohol or drug abuse patient.The records that you are about to access may contain highly sensitive health information, the redisclosure of which is protected by Article 27-F of the [facility] Public Health law. If you continue you may have access to information: Regarding HIV / AIDS; Provided by facilities licensed or operated by the [facility] Office of Mental Health; or Provided by the [facility] Office for People With Developmental Disabilities. If such information is present, then the following [facility] mandated warning applies: This information has been disclosed to you from confidential records which are protected by state law. State law prohibits you from making any further disclosure of this information without the specific written consent of the person to whom it pertains, or as otherwise permitted by law. Any unauthorized further disclosure in violation of state law may result in a fine or longterm sentence or both. A general authorization for the release of medical or other information is NOT sufficient authorization for further disc losure. Family History Family Member Name Family Member Gender Family Member Status Date o f Status Description Data Source(s) Unknown Unknown Problem [facility] ([facility]) Encounters Encounter Providers Location Date Indications Data Source(s ) Outpatient Attender: LOUIS CHAN MD 06/09 12:09:35 PM EST - 06/09/2021 01:14:09 PM NATALIE Porter ([facility] ) Outpatient Attender: SUNSHINE STILES 04/23 08:55:32 AM EDT - 05/02/2021 09:43:19 AM EDT [facility] ([facility] ) [place] [address] [facility] [address] 04/01/2021 12:00:00 AM EDT [facility]) [place] [address] [facility] [address] 02/04/2021 12:00:00 AM EDT [facility]) [place] [address] [facility] [address] 02/03/2021 12:00:00 AM EDT [facility] [place] [address] [facility] [address] 07/02/2020 12:00:00 AM EST [facility]CW1 [facility]) Unlisted evaluation and management service Performer: Nilay wood 06/25/2020 07:00:00 PM EST - 06/25/2020 07:24:00 PM EST [facility] ([facility]) ( ESTOB) WCenter Est OB [address] [place] [address] 06/25/2020 12:00:00 AM EST eCW1 ([facility]) Unlisted evaluation and management service Performer: Nilay wood 06/11/2020 02:15:00 PM EST - 06/11/2020 02:30:00 PM EST [facility] ([facility]) (WC ESTOB) [facility] Est OB [address] [place] [address] 05/20/2020 12:00:00 AM EDT eCW1 ([facility]) [place] [address] [facility] [address] 05/20/2020 12:00:00 AM EDT [facility]CW1 [facility]) (WC ESTOB) WCenter Est OB [address] [place] [address] 05/07/2020 12:00:00 AM EDT eCW1 ([facility]) Unlisted evaluation and management service Performer: Nilay Davedyan wood 04/23/2020 06:43:00 PM EDT [facility] ([facility]) Medications Medication Brand Name Start Date Product Form Dose Route Admi nistrative Instructions Pharmacy Instructions Status Indications Reaction Description Data Source(s) Sertraline 50 MG Oral Tablet [Zoloft] Zoloft 06/07/2021 05:00 :00 AM EST 1.0 Tablet Oral active [facility] ([facility]) Buprenorphine 8 MG Sublingual Tablet Buprenorphine 06/01/2021 05:00 :00 AM EST 1.5 Tablet Sublingual active [facility] ( [facility]) Sertraline 50 MG Oral Tablet [Zoloft] Zoloft 05/17/2021 04:00 :00 AM EDT 1.0 Tablet Oral active [facility] ([facility]) Nicotine 4 MG Oral Lozenge Nicotine Polacrilex 05/04/2021 04:00:00 AM EDT 1.0 Each Oromucosal active [facility] ([email or web address]) 24 HR Nicotine 0.292 MG/HR Transdermal Patch Nicotine 05/04/2021 04:00:00 AM EDT 1.0 Patch Transdermal active NE [facility] ([facility]) Buprenorphine 8 MG Sublingual Tablet Buprenorphine 05/04/2021 04:00 :00 AM EDT 1.5 Tablet Sublingual active [facility] ( [facility]) Buprenorphine 8 MG Sublingual Tablet Buprenorphine 04/06/2021 04:00 :00 AM EDT 1.5 Tablet Sublingual active [facility] ( [facility]) Buprenorphine 8 MG Sublingual Tablet Buprenorphine 03/09/2021 04:00 :00 AM EDT 1.5 Tablet Sublingual active [facility] ( [facility]) Buprenorphine 8 MG Sublingual Tablet Buprenorphine 02/16/2021 04:00 :00 AM EDT 1.5 Tablet Sublingual active [facility] ( [facility]) Buprenorphine 8 MG Sublingual Tablet Buprenorphine 01/19/2021 04:00 :00 AM EDT 1.5 Tablet Sublingual active [facility] ( [facility]) Buprenorphine 8 MG Sublingual Tablet Buprenorphine 12/22/2020 04:00 :00 AM EDT 1.5 Tablet Sublingual active [facility] ( [facility]) Narcan 12/22/2020 04:00:00 AM EDT 1.0 [place] Nasal activ e [facility] ([facility]) Buprenorphine 8 MG Sublingual Tablet Buprenorphine 11/24/2020 04:00 :00 AM EDT 1.5 Tablet Sublingual active [facility] ( [facility]) Buprenorphine 8 MG Sublingual Tablet Buprenorphine 10/27/2020 04:00 :00 AM EDT 1.5 Tablet Sublingual active [facility] ( [facility]) Buprenorphine 8 MG Sublingual Tablet Buprenorphine 10/06/2020 04:00 :00 AM EDT 1.5 Tablet Sublingual active [facility] ( [facility]) Buprenorphine 8 MG Sublingual Tablet Buprenorphine 10/02/2020 05:00 :00 AM EST 1.5 Tablet Sublingual active [facility] ( [facility]) Buprenorphine 8 MG Sublingual Tablet Buprenorphine 09/04/2020 05:00 :00 AM EST 1.5 Tablet Sublingual active [facility] ( [facility]) Buprenorphine 8 MG Sublingual Tablet Buprenorphine 08/07/2020 05:00 :00 AM EST 1.5 Tablet Sublingual active [facility] ( [facility]) Buprenorphine 8 MG Sublingual Tablet Buprenorphine Hydrochlo ride 07/09/2020 05:00:00 AM EST 1.5 Tablet Sublingual active [facility] ([facility]) Narcan 07/09/2020 05:00:00 AM EST 1.0 [place] Nasal activ e [facility] ([facility]) Buprenorphine Hydrochloride 06/11/2020 05:00:00 AM EST 1 .5 Tablet [id number] active [facility] ([facility]) ferrous gluconate 324 MG Oral Tablet Ferrous Gluconate 324 (38 Fe) MG Ferrous Gluconate 324 (38 Fe) MG 05/20/2020 12:00:00 AM EDT active Ferrous Gluconate 324 (38 Fe) MG eCW1 ([facility]) ferrous gluconate 324 MG Oral Tablet Ferrous Gluconate 324 (38 Fe) MG Ferrous Gluconate 324 (38 Fe) MG 05/20/2020 12:00:00 AM EDT active Ferrous Gluconate 324 (38 Fe) MG eCW1 ([facility]) ferrous gluconate 324 MG Oral Tablet Ferrous Gluconate 324 (38 Fe) MG Ferrous Gluconate 324 (38 Fe) MG 05/20/2020 12:00:00 AM EDT active Ferrous Gluconate 324 (38 Fe) MG eCW1 ([facility]) ferrous gluconate 324 MG Oral Tablet Ferrous Gluconate 324 (38 Fe) MG Ferrous Gluconate 324 (38 Fe) MG 05/20/2020 12:00:00 AM EDT active Ferrous Gluconate 324 (38 Fe) MG eCW1 ([facility]) ferrous gluconate 324 MG Oral Tablet Ferrous Gluconate 324 (38 Fe) MG Ferrous Gluconate 324 (38 Fe) MG 05/20/2020 12:00:00 AM EDT active Ferrous Gluconate 324 (38 Fe) MG eCW1 ([facility]) ferrous gluconate 324 MG Oral Tablet Ferrous Gluconate 324 (38 Fe) MG Ferrous Gluconate 324 (38 Fe) MG 05/20/2020 12:00:00 AM EDT active Ferrous Gluconate 324 (38 Fe) MG eCW1 ([facility]) ferrous gluconate 324 MG Oral Tablet Ferrous Gluconate 324 (38 Fe) MG Ferrous Gluconate 324 (38 Fe) MG 05/20/2020 12:00:00 AM EDT active Ferrous Gluconate 324 (38 Fe) MG eCW1 ([facility]) ferrous gluconate 324 MG Oral Tablet Ferrous Gluconate 324 (38 Fe) MG Ferrous Gluconate 324 (38 Fe) MG 05/20/2020 12:00:00 AM EDT active Ferrous Gluconate 324 (38 Fe) MG eCW1 ([facility]) ferrous gluconate 324 MG Oral Tablet Ferrous Gluconate 324 (38 Fe) MG Ferrous Gluconate 324 (38 Fe) MG 05/20/2020 12:00:00 AM EDT active Ferrous Gluconate 324 (38 Fe) MG eCW1 ([facility]) Insurance Providers Payer name Policy type / Coverage type Policy ID Covered republican ID Covered republican's relationship to suazo Policy Suazo Plan Information [employer] [id number] Self [id number] [employer] 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 [id number] 18 [id number] [employer] [place] -OP [id number] 18 [id number] ANSI-Commercial [id number] ANSI-Commercial [id number] JERSON [id number] SP [id number] JERSON CARE [place] O [id number] S [id number] MEDICAID [id number] SP [id number] NCO EPALS [id number] SP [id number] SELF PAY UNAVAILABLE SP UNAVAILA BLE JERSON [id number] SP [id number] SELF PAY UNAVAILABLE SP UNAVAILA BLE JERSON [id number] SP [id number] Problems, Conditions, and Diagnoses No Information Surgeries/Procedures No Information Results ID Date Data Source [id number] 05/02/2021 09:30:00 AM EDT [facility] Name Value Range Interpretation Code Description Data Leonie rce(s) Supporting Document(s) SARS-CoV-2 RNA Resp Ql TANA+probe NOT DETECTED [facility] This lab was ordered by STEPHANIE leon and reported by STEPHANIE Camejo. ID Date Data Source [id number] 04/05/2021 03:20:00 PM EDT [facility] ([employer]) Name Value Range Interpretation Code Description Data Leonie rce(s) Supporting Document(s) pH 7.8NORMALNORMAL [facility] ([facility]) Creatinine 107.3NORMALNORMAL NE [facility]SM[facility] ([facility]) Oxidants -4.00NegativeNegative [facility]SM[facility] ([facility]) Validity Result VALIDVALIDVALID [facility] ([facility]) Heroin (6-AM) -0.30NegativeNegative [facility] ([facility]) Opiates -14.00NegativeNegative [facility] ([facility]) Methadone -12.00NegativeNegative [facility] ([facility]) Ethyl Glucuronide 3361.00PRESUMPTIVE POSITIVEPRESUMPTIVE POSI TIVE [facility] ([facility]) Synthetic Opiates -16.00NegativeNegative [facility] ([facility]) Cocaine Metabolites 5.00NegativeNegative [facility] ([facility]) Ethyl Alcohol 0.00NegativeNegative [facility] ([facility]) Ecstasy (MDMA) 10.00NegativeNegative [facility] ([facility]) Phencyclidine -4.00NegativeNegative [facility] ([facility]) Cannabinoids -9.50NegativeNegative [facility] ([facility]) Amphetamines 39.00NegativeNegative [facility] ([facility]) Tramadol -3.00NegativeNegative [facility] ([facility]) Naloxone 24.530NegativeNegative [facility] ([facility]) Norbuprenorphine 490.510Positive - InconsistentPOSITIVE [facility] ([facility]) Buprenorphine 122.880Positive - InconsistentPOSITIVE [facility] ([facility]) Fentanyl 0.050NegativeNegative [facility] ([facility]) Norfentanyl 0.040NegativeNegative [facility] ([facility]) Norcarfentanil 0.190NegativeNegative [facility] ([facility]) Carfentanil 0.030NegativeNegative [facility] ([facility]) Temazepam 0.000NegativeNegative [facility] ([facility]) Sufentanil 0.150NegativeNegative [facility] ([facility]) Lorazepam 5.300NegativeNegative [facility] ([facility]) alpha-Hydroxyalprazolam 0.000NegativeNegative [facility] ([facility]) 7-Aminoclonazepam 0.000NegativeNegative [facility] ([facility]) Nordiazepam 3.560NegativeNegative [facility] ([facility]) Oxazepam 9.920NegativeNegative [facility] ([facility]) Ethyl Sulfate 1147.130Positive - InconsistentPOSITIVE NETSMART ([facility]) Ethyl Glucuronide 5000Positive - InconsistentPOSITIVE> [facility] ([facility]) Pregabalin 0.000NegativeNegative [facility] ([facility]) Gabapentin 46.720NegativeNegative [facility] ([facility]) ID Date Data Source [id number] 04/08/2021 02:15:47 PM EDT [facility] NOTE: Presumptive Positive indicates a n onnegative test result by immunoassay screen. It is a preliminary result. [facility] recommends that a Presumptive Positive result be confirmed by an additional, more specific test such as mass spectrometry NOTE: Presumptive Positive indicates a n onnegative test result by immunoassay screen. It is a preliminary result. [facility] recommends that a Presumptive Positive result be confirmed by an additional, more specific test such as mass spectrometry NOTE: Presumptive Positive indicates a n onnegative test result by immunoassay screen. It is a preliminary result. [facility] recommends that a Presumptive Positive result be confirmed by an additional, more specific test such as mass spectrometry NOTE: Presumptive Positive indicates a n onnegative test result by immunoassay screen. It is a preliminary result. [facility] recommends that a Presumptive Positive result be confirmed by an additional, more specific test such as mass spectrometry NOTE: Presumptive Positive indicates a n onnegative test result by immunoassay screen. It is a preliminary result. [facility] recommends that a Presumptive Positive result be confirmed by an additional, more specific test such as mass spectrometry NOTE: Presumptive Positive indicates a n onnegative test result by immunoassay screen. It is a preliminary result. [facility] recommends that a Presumptive Positive result be confirmed by an additional, more specific test such as mass spectrometry NOTE: Presumptive Positive indicates a n onnegative test result by immunoassay screen. It is a preliminary result. [facility] recommends that a Presumptive Positive result be confirmed by an additional, more specific test such as mass spectrometry NOTE: Presumptive Positive indicates a n onnegative test result by immunoassay screen. It is a preliminary result. [facility] recommends that a Presumptive Positive result be confirmed by an additional, more specific test such as mass spectrometry NOTE: Presumptive Positive indicates a n onnegative test result by immunoassay screen. It is a preliminary result. [facility] recommends that a Presumptive Positive result be confirmed by an additional, more specific test such as mass spectrometry NOTE: Presumptive Positive indicates a n onnegative test result by immunoassay screen. It is a preliminary result. [facility] recommends that a Presumptive Positive result be confirmed by an additional, more specific test such as mass spectrometry NOTE: Presumptive Positive indicates a n onnegative test result by immunoassay screen. It is a preliminary result. [facility] recommends that a Presumptive Positive result be confirmed by an additional, more specific test such as mass spectrometry NOTE: Presumptive Positive indicates a n onnegative test result by immunoassay screen. It is a preliminary result. [facility] recommends that a Presumptive Positive result be confirmed by an additional, more specific test such as mass spectrometry Name Value Range Interpretation Code Description Data Leonie rce(s) Supporting Document(s) Creatinine 107.3NORMALNORMAL mg/dL 20.0-300.0 mg/dL [facility] pH 7.8NORMALNORMAL 3.5-9.2 [facility] Oxidants -4.00NegativeNegative mcg/mL 200.00 mcg/mL [facility] Validity Result VALIDVALIDVALID [facility] ID Date Data Source [id number] 04/08/2021 02:15:49 PM EDT [facility] NOTE: Presumptive Positive indicates a n onnegative test result by immunoassay screen. It is a preliminary result. [facility] recommends that a Presumptive Positive result be confirmed by an additional, more specific test such as mass spectrometry NOTE: Presumptive Positive indicates a n onnegative test result by immunoassay screen. It is a preliminary result. [facility] recommends that a Presumptive Positive result be confirmed by an additional, more specific test such as mass spectrometry NOTE: Presumptive Positive indicates a n onnegative test result by immunoassay screen. It is a preliminary result. [facility] recommends that a Presumptive Positive result be confirmed by an additional, more specific test such as mass spectrometry NOTE: Presumptive Positive indicates a n onnegative test result by immunoassay screen. It is a preliminary result. [facility] recommends that a Presumptive Positive result be confirmed by an additional, more specific test such as mass spectrometry NOTE: Presumptive Positive indicates a n onnegative test result by immunoassay screen. It is a preliminary result. [facility] recommends that a Presumptive Positive result be confirmed by an additional, more specific test such as mass spectrometry NOTE: Presumptive Positive indicates a n onnegative test result by immunoassay screen. It is a preliminary result. [facility] recommends that a Presumptive Positive result be confirmed by an additional, more specific test such as mass spectrometry NOTE: Presumptive Positive indicates a n onnegative test result by immunoassay screen. It is a preliminary result. [facility] recommends that a Presumptive Positive result be confirmed by an additional, more specific test such as mass spectrometry NOTE: Presumptive Positive indicates a n onnegative test result by immunoassay screen. It is a preliminary result. [facility] recommends that a Presumptive Positive result be confirmed by an additional, more specific test such as mass spectrometry NOTE: Presumptive Positive indicates a n onnegative test result by immunoassay screen. It is a preliminary result. [facility] recommends that a Presumptive Positive result be confirmed by an additional, more specific test such as mass spectrometry NOTE: Presumptive Positive indicates a n onnegative test result by immunoassay screen. It is a preliminary result. [facility] recommends that a Presumptive Positive result be confirmed by an additional, more specific test such as mass spectrometry NOTE: Presumptive Positive indicates a n onnegative test result by immunoassay screen. It is a preliminary result. [facility] recommends that a Presumptive Positive result be confirmed by an additional, more specific test such as mass spectrometry NOTE: Presumptive Positive indicates a n onnegative test result by immunoassay screen. It is a preliminary result. [facility] recommends that a Presumptive Positive result be confirmed by an additional, more specific test such as mass spectrometry Name Value Range Interpretation Code Description Data Leonie rce(s) Supporting Document(s) Heroin (6-AM) -0.30NegativeNegative ng/mL 10.00 ng/mL [facility] ID Date Data Source [id number] 04/08/2021 02:15:49 PM EDT [facility] NOTE: Presumptive Positive indicates a n onnegative test result by immunoassay screen. It is a preliminary result. [facility] recommends that a Presumptive Positive result be confirmed by an additional, more specific test such as mass spectrometry NOTE: Presumptive Positive indicates a n onnegative test result by immunoassay screen. It is a preliminary result. [facility] recommends that a Presumptive Positive result be confirmed by an additional, more specific test such as mass spectrometry NOTE: Presumptive Positive indicates a n onnegative test result by immunoassay screen. It is a preliminary result. [facility] recommends that a Presumptive Positive result be confirmed by an additional, more specific test such as mass spectrometry NOTE: Presumptive Positive indicates a n onnegative test result by immunoassay screen. It is a preliminary result. [facility] recommends that a Presumptive Positive result be confirmed by an additional, more specific test such as mass spectrometry NOTE: Presumptive Positive indicates a n onnegative test result by immunoassay screen. It is a preliminary result. [facility] recommends that a Presumptive Positive result be confirmed by an additional, more specific test such as mass spectrometry NOTE: Presumptive Positive indicates a n onnegative test result by immunoassay screen. It is a preliminary result. [facility] recommends that a Presumptive Positive result be confirmed by an additional, more specific test such as mass spectrometry NOTE: Presumptive Positive indicates a n onnegative test result by immunoassay screen. It is a preliminary result. [facility] recommends that a Presumptive Positive result be confirmed by an additional, more specific test such as mass spectrometry NOTE: Presumptive Positive indicates a n onnegative test result by immunoassay screen. It is a preliminary result. [facility] recommends that a Presumptive Positive result be confirmed by an additional, more specific test such as mass spectrometry NOTE: Presumptive Positive indicates a n onnegative test result by immunoassay screen. It is a preliminary result. [facility] recommends that a Presumptive Positive result be confirmed by an additional, more specific test such as mass spectrometry NOTE: Presumptive Positive indicates a n onnegative test result by immunoassay screen. It is a preliminary result. [facility] recommends that a Presumptive Positive result be confirmed by an additional, more specific test such as mass spectrometry NOTE: Presumptive Positive indicates a n onnegative test result by immunoassay screen. It is a preliminary result. [facility] recommends that a Presumptive Positive result be confirmed by an additional, more specific test such as mass spectrometry NOTE: Presumptive Positive indicates a n onnegative test result by immunoassay screen. It is a preliminary result. [facility] recommends that a Presumptive Positive result be confirmed by an additional, more specific test such as mass spectrometry Name Value Range Interpretation Code Description Data Leonie rce(s) Supporting Document(s) Methadone -12.00NegativeNegative ng/mL 300.00 ng/mL [facility] ID Date Data Source [id number] 04/08/2021 02:15:49 PM EDT [facility] NOTE: Presumptive Positive indicates a n onnegative test result by immunoassay screen. It is a preliminary result. [facility] recommends that a Presumptive Positive result be confirmed by an additional, more specific test such as mass spectrometry NOTE: Presumptive Positive indicates a n onnegative test result by immunoassay screen. It is a preliminary result. [facility] recommends that a Presumptive Positive result be confirmed by an additional, more specific test such as mass spectrometry NOTE: Presumptive Positive indicates a n onnegative test result by immunoassay screen. It is a preliminary result. [facility] recommends that a Presumptive Positive result be confirmed by an additional, more specific test such as mass spectrometry NOTE: Presumptive Positive indicates a n onnegative test result by immunoassay screen. It is a preliminary result. [facility] recommends that a Presumptive Positive result be confirmed by an additional, more specific test such as mass spectrometry NOTE: Presumptive Positive indicates a n onnegative test result by immunoassay screen. It is a preliminary result. [facility] recommends that a Presumptive Positive result be confirmed by an additional, more specific test such as mass spectrometry NOTE: Presumptive Positive indicates a n onnegative test result by immunoassay screen. It is a preliminary result. [facility] recommends that a Presumptive Positive result be confirmed by an additional, more specific test such as mass spectrometry NOTE: Presumptive Positive indicates a n onnegative test result by immunoassay screen. It is a preliminary result. [facility] recommends that a Presumptive Positive result be confirmed by an additional, more specific test such as mass spectrometry NOTE: Presumptive Positive indicates a n onnegative test result by immunoassay screen. It is a preliminary result. [facility] recommends that a Presumptive Positive result be confirmed by an additional, more specific test such as mass spectrometry NOTE: Presumptive Positive indicates a n onnegative test result by immunoassay screen. It is a preliminary result. [facility] recommends that a Presumptive Positive result be confirmed by an additional, more specific test such as mass spectrometry NOTE: Presumptive Positive indicates a n onnegative test result by immunoassay screen. It is a preliminary result. [facility] recommends that a Presumptive Positive result be confirmed by an additional, more specific test such as mass spectrometry NOTE: Presumptive Positive indicates a n onnegative test result by immunoassay screen. It is a preliminary result. [facility] recommends that a Presumptive Positive result be confirmed by an additional, more specific test such as mass spectrometry NOTE: Presumptive Positive indicates a n onnegative test result by immunoassay screen. It is a preliminary result. [facility] recommends that a Presumptive Positive result be confirmed by an additional, more specific test such as mass spectrometry Name Value Range Interpretation Code Description Data Leonie rce(s) Supporting Document(s) Opiates -14.00NegativeNegative ng/mL 300.00 ng/mL [facility] ID Date Data Source [id number] 04/08/2021 02:15:49 PM EDT [facility] NOTE: Presumptive Positive indicates a n onnegative test result by immunoassay screen. It is a preliminary result. [facility] recommends that a Presumptive Positive result be confirmed by an additional, more specific test such as mass spectrometry NOTE: Presumptive Positive indicates a n onnegative test result by immunoassay screen. It is a preliminary result. [facility] recommends that a Presumptive Positive result be confirmed by an additional, more specific test such as mass spectrometry NOTE: Presumptive Positive indicates a n onnegative test result by immunoassay screen. It is a preliminary result. [facility] recommends that a Presumptive Positive result be confirmed by an additional, more specific test such as mass spectrometry NOTE: Presumptive Positive indicates a n onnegative test result by immunoassay screen. It is a preliminary result. [facility] recommends that a Presumptive Positive result be confirmed by an additional, more specific test such as mass spectrometry NOTE: Presumptive Positive indicates a n onnegative test result by immunoassay screen. It is a preliminary result. [facility] recommends that a Presumptive Positive result be confirmed by an additional, more specific test such as mass spectrometry NOTE: Presumptive Positive indicates a n onnegative test result by immunoassay screen. It is a preliminary result. [facility] recommends that a Presumptive Positive result be confirmed by an additional, more specific test such as mass spectrometry NOTE: Presumptive Positive indicates a n onnegative test result by immunoassay screen. It is a preliminary result. [facility] recommends that a Presumptive Positive result be confirmed by an additional, more specific test such as mass spectrometry NOTE: Presumptive Positive indicates a n onnegative test result by immunoassay screen. It is a preliminary result. [facility] recommends that a Presumptive Positive result be confirmed by an additional, more specific test such as mass spectrometry NOTE: Presumptive Positive indicates a n onnegative test result by immunoassay screen. It is a preliminary result. [facility] recommends that a Presumptive Positive result be confirmed by an additional, more specific test such as mass spectrometry NOTE: Presumptive Positive indicates a n onnegative test result by immunoassay screen. It is a preliminary result. [facility] recommends that a Presumptive Positive result be confirmed by an additional, more specific test such as mass spectrometry NOTE: Presumptive Positive indicates a n onnegative test result by immunoassay screen. It is a preliminary result. [facility] recommends that a Presumptive Positive result be confirmed by an additional, more specific test such as mass spectrometry NOTE: Presumptive Positive indicates a n onnegative test result by immunoassay screen. It is a preliminary result. [facility] recommends that a Presumptive Positive result be confirmed by an additional, more specific test such as mass spectrometry Name Value Range Interpretation Code Description Data Leonie rce(s) Supporting Document(s) Synthetic Opiates -16.00NegativeNegative ng/mL 100.00 ng/mL [facility] ID Date Data Source [id number] 04/08/2021 02:15:50 PM EDT [facility] NOTE: Presumptive Positive indicates a n onnegative test result by immunoassay screen. It is a preliminary result. [facility] recommends that a Presumptive Positive result be confirmed by an additional, more specific test such as mass spectrometry NOTE: Presumptive Positive indicates a n onnegative test result by immunoassay screen. It is a preliminary result. [facility] recommends that a Presumptive Positive result be confirmed by an additional, more specific test such as mass spectrometry NOTE: Presumptive Positive indicates a n onnegative test result by immunoassay screen. It is a preliminary result. [facility] recommends that a Presumptive Positive result be confirmed by an additional, more specific test such as mass spectrometry NOTE: Presumptive Positive indicates a n onnegative test result by immunoassay screen. It is a preliminary result. [facility] recommends that a Presumptive Positive result be confirmed by an additional, more specific test such as mass spectrometry NOTE: Presumptive Positive indicates a n onnegative test result by immunoassay screen. It is a preliminary result. [facility] recommends that a Presumptive Positive result be confirmed by an additional, more specific test such as mass spectrometry NOTE: Presumptive Positive indicates a n onnegative test result by immunoassay screen. It is a preliminary result. [facility] recommends that a Presumptive Positive result be confirmed by an additional, more specific test such as mass spectrometry NOTE: Presumptive Positive indicates a n onnegative test result by immunoassay screen. It is a preliminary result. [facility] recommends that a Presumptive Positive result be confirmed by an additional, more specific test such as mass spectrometry NOTE: Presumptive Positive indicates a n onnegative test result by immunoassay screen. It is a preliminary result. [facility] recommends that a Presumptive Positive result be confirmed by an additional, more specific test such as mass spectrometry NOTE: Presumptive Positive indicates a n onnegative test result by immunoassay screen. It is a preliminary result. [facility] recommends that a Presumptive Positive result be confirmed by an additional, more specific test such as mass spectrometry NOTE: Presumptive Positive indicates a n onnegative test result by immunoassay screen. It is a preliminary result. [facility] recommends that a Presumptive Positive result be confirmed by an additional, more specific test such as mass spectrometry NOTE: Presumptive Positive indicates a n onnegative test result by immunoassay screen. It is a preliminary result. [facility] recommends that a Presumptive Positive result be confirmed by an additional, more specific test such as mass spectrometry NOTE: Presumptive Positive indicates a n onnegative test result by immunoassay screen. It is a preliminary result. [facility] recommends that a Presumptive Positive result be confirmed by an additional, more specific test such as mass spectrometry Name Value Range Interpretation Code Description Data Leonie rce(s) Supporting Document(s) Cocaine Metabolites 5.00NegativeNegative ng/mL 300.00 ng/mL [facility] ID Date Data Source [id number] 04/08/2021 02:15:50 PM EDT [facility] NOTE: Presumptive Positive indicates a n onnegative test result by immunoassay screen. It is a preliminary result. [facility] recommends that a Presumptive Positive result be confirmed by an additional, more specific test such as mass spectrometry NOTE: Presumptive Positive indicates a n onnegative test result by immunoassay screen. It is a preliminary result. [facility] recommends that a Presumptive Positive result be confirmed by an additional, more specific test such as mass spectrometry NOTE: Presumptive Positive indicates a n onnegative test result by immunoassay screen. It is a preliminary result. [facility] recommends that a Presumptive Positive result be confirmed by an additional, more specific test such as mass spectrometry NOTE: Presumptive Positive indicates a n onnegative test result by immunoassay screen. It is a preliminary result. [facility] recommends that a Presumptive Positive result be confirmed by an additional, more specific test such as mass spectrometry NOTE: Presumptive Positive indicates a n onnegative test result by immunoassay screen. It is a preliminary result. [facility] recommends that a Presumptive Positive result be confirmed by an additional, more specific test such as mass spectrometry NOTE: Presumptive Positive indicates a n onnegative test result by immunoassay screen. It is a preliminary result. [facility] recommends that a Presumptive Positive result be confirmed by an additional, more specific test such as mass spectrometry NOTE: Presumptive Positive indicates a n onnegative test result by immunoassay screen. It is a preliminary result. [facility] recommends that a Presumptive Positive result be confirmed by an additional, more specific test such as mass spectrometry NOTE: Presumptive Positive indicates a n onnegative test result by immunoassay screen. It is a preliminary result. [facility] recommends that a Presumptive Positive result be confirmed by an additional, more specific test such as mass spectrometry NOTE: Presumptive Positive indicates a n onnegative test result by immunoassay screen. It is a preliminary result. [facility] recommends that a Presumptive Positive result be confirmed by an additional, more specific test such as mass spectrometry NOTE: Presumptive Positive indicates a n onnegative test result by immunoassay screen. It is a preliminary result. [facility] recommends that a Presumptive Positive result be confirmed by an additional, more specific test such as mass spectrometry NOTE: Presumptive Positive indicates a n onnegative test result by immunoassay screen. It is a preliminary result. [facility] recommends that a Presumptive Positive result be confirmed by an additional, more specific test such as mass spectrometry NOTE: Presumptive Positive indicates a n onnegative test result by immunoassay screen. It is a preliminary result. [facility] recommends that a Presumptive Positive result be confirmed by an additional, more specific test such as mass spectrometry Name Value Range Interpretation Code Description Data Leonie rce(s) Supporting Document(s) Ethyl Glucuronide 3361.00PRESUMPTIVE POSITI VEPRESUMPTIVE POSITIVE ng/mL 500.00 ng/mL [facility] ID Date Data Source [id number] 04/08/2021 02:15:50 PM EDT [facility] NOTE: Presumptive Positive indicates a n onnegative test result by immunoassay screen. It is a preliminary result. [facility] recommends that a Presumptive Positive result be confirmed by an additional, more specific test such as mass spectrometry NOTE: Presumptive Positive indicates a n onnegative test result by immunoassay screen. It is a preliminary result. [facility] recommends that a Presumptive Positive result be confirmed by an additional, more specific test such as mass spectrometry NOTE: Presumptive Positive indicates a n onnegative test result by immunoassay screen. It is a preliminary result. [facility] recommends that a Presumptive Positive result be confirmed by an additional, more specific test such as mass spectrometry NOTE: Presumptive Positive indicates a n onnegative test result by immunoassay screen. It is a preliminary result. [facility] recommends that a Presumptive Positive result be confirmed by an additional, more specific test such as mass spectrometry NOTE: Presumptive Positive indicates a n onnegative test result by immunoassay screen. It is a preliminary result. [facility] recommends that a Presumptive Positive result be confirmed by an additional, more specific test such as mass spectrometry NOTE: Presumptive Positive indicates a n onnegative test result by immunoassay screen. It is a preliminary result. [facility] recommends that a Presumptive Positive result be confirmed by an additional, more specific test such as mass spectrometry NOTE: Presumptive Positive indicates a n onnegative test result by immunoassay screen. It is a preliminary result. [facility] recommends that a Presumptive Positive result be confirmed by an additional, more specific test such as mass spectrometry NOTE: Presumptive Positive indicates a n onnegative test result by immunoassay screen. It is a preliminary result. [facility] recommends that a Presumptive Positive result be confirmed by an additional, more specific test such as mass spectrometry NOTE: Presumptive Positive indicates a n onnegative test result by immunoassay screen. It is a preliminary result. [facility] recommends that a Presumptive Positive result be confirmed by an additional, more specific test such as mass spectrometry NOTE: Presumptive Positive indicates a n onnegative test result by immunoassay screen. It is a preliminary result. [facility] recommends that a Presumptive Positive result be confirmed by an additional, more specific test such as mass spectrometry NOTE: Presumptive Positive indicates a n onnegative test result by immunoassay screen. It is a preliminary result. [facility] recommends that a Presumptive Positive result be confirmed by an additional, more specific test such as mass spectrometry NOTE: Presumptive Positive indicates a n onnegative test result by immunoassay screen. It is a preliminary result. [facility] recommends that a Presumptive Positive result be confirmed by an additional, more specific test such as mass spectrometry Name Value Range Interpretation Code Description Data Leonie rce(s) Supporting Document(s) Ethyl Alcohol 0.00NegativeNegative mg/dL 100.00 mg/dL [facility] ID Date Data Source [id number] 04/08/2021 02:15:50 PM EDT [facility] NOTE: Presumptive Positive indicates a n onnegative test result by immunoassay screen. It is a preliminary result. [facility] recommends that a Presumptive Positive result be confirmed by an additional, more specific test such as mass spectrometry NOTE: Presumptive Positive indicates a n onnegative test result by immunoassay screen. It is a preliminary result. [facility] recommends that a Presumptive Positive result be confirmed by an additional, more specific test such as mass spectrometry NOTE: Presumptive Positive indicates a n onnegative test result by immunoassay screen. It is a preliminary result. [facility] recommends that a Presumptive Positive result be confirmed by an additional, more specific test such as mass spectrometry NOTE: Presumptive Positive indicates a n onnegative test result by immunoassay screen. It is a preliminary result. [facility] recommends that a Presumptive Positive result be confirmed by an additional, more specific test such as mass spectrometry NOTE: Presumptive Positive indicates a n onnegative test result by immunoassay screen. It is a preliminary result. [facility] recommends that a Presumptive Positive result be confirmed by an additional, more specific test such as mass spectrometry NOTE: Presumptive Positive indicates a n onnegative test result by immunoassay screen. It is a preliminary result. [facility] recommends that a Presumptive Positive result be confirmed by an additional, more specific test such as mass spectrometry NOTE: Presumptive Positive indicates a n onnegative test result by immunoassay screen. It is a preliminary result. [facility] recommends that a Presumptive Positive result be confirmed by an additional, more specific test such as mass spectrometry NOTE: Presumptive Positive indicates a n onnegative test result by immunoassay screen. It is a preliminary result. [facility] recommends that a Presumptive Positive result be confirmed by an additional, more specific test such as mass spectrometry NOTE: Presumptive Positive indicates a n onnegative test result by immunoassay screen. It is a preliminary result. [facility] recommends that a Presumptive Positive result be confirmed by an additional, more specific test such as mass spectrometry NOTE: Presumptive Positive indicates a n onnegative test result by immunoassay screen. It is a preliminary result. [facility] recommends that a Presumptive Positive result be confirmed by an additional, more specific test such as mass spectrometry NOTE: Presumptive Positive indicates a n onnegative test result by immunoassay screen. It is a preliminary result. [facility] recommends that a Presumptive Positive result be confirmed by an additional, more specific test such as mass spectrometry NOTE: Presumptive Positive indicates a n onnegative test result by immunoassay screen. It is a preliminary result. [facility] recommends that a Presumptive Positive result be confirmed by an additional, more specific test such as mass spectrometry Name Value Range Interpretation Code Description Data Leonie rce(s) Supporting Document(s) Ecstasy (MDMA) 10.00NegativeNegative ng/mL 500.00 ng/mL [facility] ID Date Data Source [id number] 04/08/2021 02:15:51 PM EDT [facility] NOTE: Presumptive Positive indicates a n onnegative test result by immunoassay screen. It is a preliminary result. [facility] recommends that a Presumptive Positive result be confirmed by an additional, more specific test such as mass spectrometry NOTE: Presumptive Positive indicates a n onnegative test result by immunoassay screen. It is a preliminary result. [facility] recommends that a Presumptive Positive result be confirmed by an additional, more specific test such as mass spectrometry NOTE: Presumptive Positive indicates a n onnegative test result by immunoassay screen. It is a preliminary result. [facility] recommends that a Presumptive Positive result be confirmed by an additional, more specific test such as mass spectrometry NOTE: Presumptive Positive indicates a n onnegative test result by immunoassay screen. It is a preliminary result. [facility] recommends that a Presumptive Positive result be confirmed by an additional, more specific test such as mass spectrometry NOTE: Presumptive Positive indicates a n onnegative test result by immunoassay screen. It is a preliminary result. [facility] recommends that a Presumptive Positive result be confirmed by an additional, more specific test such as mass spectrometry NOTE: Presumptive Positive indicates a n onnegative test result by immunoassay screen. It is a preliminary result. [facility] recommends that a Presumptive Positive result be confirmed by an additional, more specific test such as mass spectrometry NOTE: Presumptive Positive indicates a n onnegative test result by immunoassay screen. It is a preliminary result. [facility] recommends that a Presumptive Positive result be confirmed by an additional, more specific test such as mass spectrometry NOTE: Presumptive Positive indicates a n onnegative test result by immunoassay screen. It is a preliminary result. [facility] recommends that a Presumptive Positive result be confirmed by an additional, more specific test such as mass spectrometry NOTE: Presumptive Positive indicates a n onnegative test result by immunoassay screen. It is a preliminary result. [facility] recommends that a Presumptive Positive result be confirmed by an additional, more specific test such as mass spectrometry NOTE: Presumptive Positive indicates a n onnegative test result by immunoassay screen. It is a preliminary result. [facility] recommends that a Presumptive Positive result be confirmed by an additional, more specific test such as mass spectrometry NOTE: Presumptive Positive indicates a n onnegative test result by immunoassay screen. It is a preliminary result. [facility] recommends that a Presumptive Positive result be confirmed by an additional, more specific test such as mass spectrometry NOTE: Presumptive Positive indicates a n onnegative test result by immunoassay screen. It is a preliminary result. [facility] recommends that a Presumptive Positive result be confirmed by an additional, more specific test such as mass spectrometry Name Value Range Interpretation Code Description Data Leonie rce(s) Supporting Document(s) Phencyclidine -4.00NegativeNegative ng/mL 25.00 ng/mL [facility] ID Date Data Source [id number] 04/08/2021 02:15:51 PM EDT [facility] NOTE: Presumptive Positive indicates a n onnegative test result by immunoassay screen. It is a preliminary result. [facility] recommends that a Presumptive Positive result be confirmed by an additional, more specific test such as mass spectrometry NOTE: Presumptive Positive indicates a n onnegative test result by immunoassay screen. It is a preliminary result. [facility] recommends that a Presumptive Positive result be confirmed by an additional, more specific test such as mass spectrometry NOTE: Presumptive Positive indicates a n onnegative test result by immunoassay screen. It is a preliminary result. [facility] recommends that a Presumptive Positive result be confirmed by an additional, more specific test such as mass spectrometry NOTE: Presumptive Positive indicates a n onnegative test result by immunoassay screen. It is a preliminary result. [facility] recommends that a Presumptive Positive result be confirmed by an additional, more specific test such as mass spectrometry NOTE: Presumptive Positive indicates a n onnegative test result by immunoassay screen. It is a preliminary result. [facility] recommends that a Presumptive Positive result be confirmed by an additional, more specific test such as mass spectrometry NOTE: Presumptive Positive indicates a n onnegative test result by immunoassay screen. It is a preliminary result. [facility] recommends that a Presumptive Positive result be confirmed by an additional, more specific test such as mass spectrometry NOTE: Presumptive Positive indicates a n onnegative test result by immunoassay screen. It is a preliminary result. [facility] recommends that a Presumptive Positive result be confirmed by an additional, more specific test such as mass spectrometry NOTE: Presumptive Positive indicates a n onnegative test result by immunoassay screen. It is a preliminary result. [facility] recommends that a Presumptive Positive result be confirmed by an additional, more specific test such as mass spectrometry NOTE: Presumptive Positive indicates a n onnegative test result by immunoassay screen. It is a preliminary result. [facility] recommends that a Presumptive Positive result be confirmed by an additional, more specific test such as mass spectrometry NOTE: Presumptive Positive indicates a n onnegative test result by immunoassay screen. It is a preliminary result. [facility] recommends that a Presumptive Positive result be confirmed by an additional, more specific test such as mass spectrometry NOTE: Presumptive Positive indicates a n onnegative test result by immunoassay screen. It is a preliminary result. [facility] recommends that a Presumptive Positive result be confirmed by an additional, more specific test such as mass spectrometry NOTE: Presumptive Positive indicates a n onnegative test result by immunoassay screen. It is a preliminary result. [facility] recommends that a Presumptive Positive result be confirmed by an additional, more specific test such as mass spectrometry Name Value Range Interpretation Code Description Data Leonie rce(s) Supporting Document(s) Cannabinoids -9.50NegativeNegative ng/mL 20.00 ng/mL [facility] ID Date Data Source [id number] 04/08/2021 02:15:51 PM EDT [facility] NOTE: Presumptive Positive indicates a n onnegative test result by immunoassay screen. It is a preliminary result. [facility] recommends that a Presumptive Positive result be confirmed by an additional, more specific test such as mass spectrometry NOTE: Presumptive Positive indicates a n onnegative test result by immunoassay screen. It is a preliminary result. [facility] recommends that a Presumptive Positive result be confirmed by an additional, more specific test such as mass spectrometry NOTE: Presumptive Positive indicates a n onnegative test result by immunoassay screen. It is a preliminary result. [facility] recommends that a Presumptive Positive result be confirmed by an additional, more specific test such as mass spectrometry NOTE: Presumptive Positive indicates a n onnegative test result by immunoassay screen. It is a preliminary result. [facility] recommends that a Presumptive Positive result be confirmed by an additional, more specific test such as mass spectrometry NOTE: Presumptive Positive indicates a n onnegative test result by immunoassay screen. It is a preliminary result. [facility] recommends that a Presumptive Positive result be confirmed by an additional, more specific test such as mass spectrometry NOTE: Presumptive Positive indicates a n onnegative test result by immunoassay screen. It is a preliminary result. [facility] recommends that a Presumptive Positive result be confirmed by an additional, more specific test such as mass spectrometry NOTE: Presumptive Positive indicates a n onnegative test result by immunoassay screen. It is a preliminary result. [facility] recommends that a Presumptive Positive result be confirmed by an additional, more specific test such as mass spectrometry NOTE: Presumptive Positive indicates a n onnegative test result by immunoassay screen. It is a preliminary result. [facility] recommends that a Presumptive Positive result be confirmed by an additional, more specific test such as mass spectrometry NOTE: Presumptive Positive indicates a n onnegative test result by immunoassay screen. It is a preliminary result. [facility] recommends that a Presumptive Positive result be confirmed by an additional, more specific test such as mass spectrometry NOTE: Presumptive Positive indicates a n onnegative test result by immunoassay screen. It is a preliminary result. [facility] recommends that a Presumptive Positive result be confirmed by an additional, more specific test such as mass spectrometry NOTE: Presumptive Positive indicates a n onnegative test result by immunoassay screen. It is a preliminary result. [facility] recommends that a Presumptive Positive result be confirmed by an additional, more specific test such as mass spectrometry NOTE: Presumptive Positive indicates a n onnegative test result by immunoassay screen. It is a preliminary result. [facility] recommends that a Presumptive Positive result be confirmed by an additional, more specific test such as mass spectrometry Name Value Range Interpretation Code Description Data Leonie rce(s) Supporting Document(s) Tramadol -3.00NegativeNegative ng/mL 200.00 ng/mL [facility] ID Date Data Source [id number] 04/08/2021 02:15:51 PM EDT [facility] NOTE: Presumptive Positive indicates a n onnegative test result by immunoassay screen. It is a preliminary result. [facility] recommends that a Presumptive Positive result be confirmed by an additional, more specific test such as mass spectrometry NOTE: Presumptive Positive indicates a n onnegative test result by immunoassay screen. It is a preliminary result. [facility] recommends that a Presumptive Positive result be confirmed by an additional, more specific test such as mass spectrometry NOTE: Presumptive Positive indicates a n onnegative test result by immunoassay screen. It is a preliminary result. [facility] recommends that a Presumptive Positive result be confirmed by an additional, more specific test such as mass spectrometry NOTE: Presumptive Positive indicates a n onnegative test result by immunoassay screen. It is a preliminary result. [facility] recommends that a Presumptive Positive result be confirmed by an additional, more specific test such as mass spectrometry NOTE: Presumptive Positive indicates a n onnegative test result by immunoassay screen. It is a preliminary result. [facility] recommends that a Presumptive Positive result be confirmed by an additional, more specific test such as mass spectrometry NOTE: Presumptive Positive indicates a n onnegative test result by immunoassay screen. It is a preliminary result. [facility] recommends that a Presumptive Positive result be confirmed by an additional, more specific test such as mass spectrometry NOTE: Presumptive Positive indicates a n onnegative test result by immunoassay screen. It is a preliminary result. [facility] recommends that a Presumptive Positive result be confirmed by an additional, more specific test such as mass spectrometry NOTE: Presumptive Positive indicates a n onnegative test result by immunoassay screen. It is a preliminary result. [facility] recommends that a Presumptive Positive result be confirmed by an additional, more specific test such as mass spectrometry NOTE: Presumptive Positive indicates a n onnegative test result by immunoassay screen. It is a preliminary result. [facility] recommends that a Presumptive Positive result be confirmed by an additional, more specific test such as mass spectrometry NOTE: Presumptive Positive indicates a n onnegative test result by immunoassay screen. It is a preliminary result. [facility] recommends that a Presumptive Positive result be confirmed by an additional, more specific test such as mass spectrometry NOTE: Presumptive Positive indicates a n onnegative test result by immunoassay screen. It is a preliminary result. [facility] recommends that a Presumptive Positive result be confirmed by an additional, more specific test such as mass spectrometry NOTE: Presumptive Positive indicates a n onnegative test result by immunoassay screen. It is a preliminary result. [facility] recommends that a Presumptive Positive result be confirmed by an additional, more specific test such as mass spectrometry Name Value Range Interpretation Code Description Data Leonie rce(s) Supporting Document(s) Amphetamines 39.00NegativeNegative ng/mL 500.00 ng/mL [facility] ID Date Data Source [id number] 04/08/2021 02:15:52 PM EDT [facility] NOTE: Presumptive Positive indicates a n onnegative test result by immunoassay screen. It is a preliminary result. [facility] recommends that a Presumptive Positive result be confirmed by an additional, more specific test such as mass spectrometry NOTE: Presumptive Positive indicates a n onnegative test result by immunoassay screen. It is a preliminary result. [facility] recommends that a Presumptive Positive result be confirmed by an additional, more specific test such as mass spectrometry NOTE: Presumptive Positive indicates a n onnegative test result by immunoassay screen. It is a preliminary result. [facility] recommends that a Presumptive Positive result be confirmed by an additional, more specific test such as mass spectrometry NOTE: Presumptive Positive indicates a n onnegative test result by immunoassay screen. It is a preliminary result. [facility] recommends that a Presumptive Positive result be confirmed by an additional, more specific test such as mass spectrometry NOTE: Presumptive Positive indicates a n onnegative test result by immunoassay screen. It is a preliminary result. [facility] recommends that a Presumptive Positive result be confirmed by an additional, more specific test such as mass spectrometry NOTE: Presumptive Positive indicates a n onnegative test result by immunoassay screen. It is a preliminary result. [facility] recommends that a Presumptive Positive result be confirmed by an additional, more specific test such as mass spectrometry NOTE: Presumptive Positive indicates a n onnegative test result by immunoassay screen. It is a preliminary result. [facility] recommends that a Presumptive Positive result be confirmed by an additional, more specific test such as mass spectrometry NOTE: Presumptive Positive indicates a n onnegative test result by immunoassay screen. It is a preliminary result. [facility] recommends that a Presumptive Positive result be confirmed by an additional, more specific test such as mass spectrometry NOTE: Presumptive Positive indicates a n onnegative test result by immunoassay screen. It is a preliminary result. [facility] recommends that a Presumptive Positive result be confirmed by an additional, more specific test such as mass spectrometry NOTE: Presumptive Positive indicates a n onnegative test result by immunoassay screen. It is a preliminary result. [facility] recommends that a Presumptive Positive result be confirmed by an additional, more specific test such as mass spectrometry NOTE: Presumptive Positive indicates a n onnegative test result by immunoassay screen. It is a preliminary result. [facility] recommends that a Presumptive Positive result be confirmed by an additional, more specific test such as mass spectrometry NOTE: Presumptive Positive indicates a n onnegative test result by immunoassay screen. It is a preliminary result. [facility] recommends that a Presumptive Positive result be confirmed by an additional, more specific test such as mass spectrometry Name Value Range Interpretation Code Description Data Leonie rce(s) Supporting Document(s) Buprenorphine 122.880Positive - InconsistentPOSITIVE ng/mL 5.00 ng/mL Abnormal (applies to non-numeric results) [facility] Norbuprenorphine 490.510Positive - InconsistentPOSI TIVE ng/mL 10.00 ng/mL Abnormal (applies to non-numeric results) [facility] Naloxone 24.530NegativeNegative ng/mL 25.00 ng/mL [facility] ID Date Data Source [id number] 04/08/2021 02:15:53 PM EDT [facility] NOTE: Presumptive Positive indicates a n onnegative test result by immunoassay screen. It is a preliminary result. [facility] recommends that a Presumptive Positive result be confirmed by an additional, more specific test such as mass spectrometry NOTE: Presumptive Positive indicates a n onnegative test result by immunoassay screen. It is a preliminary result. [facility] recommends that a Presumptive Positive result be confirmed by an additional, more specific test such as mass spectrometry NOTE: Presumptive Positive indicates a n onnegative test result by immunoassay screen. It is a preliminary result. [facility] recommends that a Presumptive Positive result be confirmed by an additional, more specific test such as mass spectrometry NOTE: Presumptive Positive indicates a n onnegative test result by immunoassay screen. It is a preliminary result. [facility] recommends that a Presumptive Positive result be confirmed by an additional, more specific test such as mass spectrometry NOTE: Presumptive Positive indicates a n onnegative test result by immunoassay screen. It is a preliminary result. [facility] recommends that a Presumptive Positive result be confirmed by an additional, more specific test such as mass spectrometry NOTE: Presumptive Positive indicates a n onnegative test result by immunoassay screen. It is a preliminary result. [facility] recommends that a Presumptive Positive result be confirmed by an additional, more specific test such as mass spectrometry NOTE: Presumptive Positive indicates a n onnegative test result by immunoassay screen. It is a preliminary result. [facility] recommends that a Presumptive Positive result be confirmed by an additional, more specific test such as mass spectrometry NOTE: Presumptive Positive indicates a n onnegative test result by immunoassay screen. It is a preliminary result. [facility] recommends that a Presumptive Positive result be confirmed by an additional, more specific test such as mass spectrometry NOTE: Presumptive Positive indicates a n onnegative test result by immunoassay screen. It is a preliminary result. [facility] recommends that a Presumptive Positive result be confirmed by an additional, more specific test such as mass spectrometry NOTE: Presumptive Positive indicates a n onnegative test result by immunoassay screen. It is a preliminary result. [facility] recommends that a Presumptive Positive result be confirmed by an additional, more specific test such as mass spectrometry NOTE: Presumptive Positive indicates a n onnegative test result by immunoassay screen. It is a preliminary result. [facility] recommends that a Presumptive Positive result be confirmed by an additional, more specific test such as mass spectrometry NOTE: Presumptive Positive indicates a n onnegative test result by immunoassay screen. It is a preliminary result. [facility] recommends that a Presumptive Positive result be confirmed by an additional, more specific test such as mass spectrometry Name Value Range Interpretation Code Description Data Leonie rce(s) Supporting Document(s) Norfentanyl 0.040NegativeNegative ng/mL 1.00 ng/mL [facility] Fentanyl 0.050NegativeNegative ng/mL 1.00 ng/mL [facility] Carfentanil 0.030NegativeNegative ng/mL 1.00 ng/mL [facility] Norcarfentanil 0.190NegativeNegative ng/mL 1.00 ng/mL [facility] Sufentanil 0.150NegativeNegative ng/mL 1.00 ng/mL [facility] ID Date Data Source [id number] 04/08/2021 02:15:55 PM EDT [facility] NOTE: Presumptive Positive indicates a n onnegative test result by immunoassay screen. It is a preliminary result. [facility] recommends that a Presumptive Positive result be confirmed by an additional, more specific test such as mass spectrometry NOTE: Presumptive Positive indicates a n onnegative test result by immunoassay screen. It is a preliminary result. [facility] recommends that a Presumptive Positive result be confirmed by an additional, more specific test such as mass spectrometry NOTE: Presumptive Positive indicates a n onnegative test result by immunoassay screen. It is a preliminary result. [facility] recommends that a Presumptive Positive result be confirmed by an additional, more specific test such as mass spectrometry NOTE: Presumptive Positive indicates a n onnegative test result by immunoassay screen. It is a preliminary result. [facility] recommends that a Presumptive Positive result be confirmed by an additional, more specific test such as mass spectrometry NOTE: Presumptive Positive indicates a n onnegative test result by immunoassay screen. It is a preliminary result. [facility] recommends that a Presumptive Positive result be confirmed by an additional, more specific test such as mass spectrometry NOTE: Presumptive Positive indicates a n onnegative test result by immunoassay screen. It is a preliminary result. [facility] recommends that a Presumptive Positive result be confirmed by an additional, more specific test such as mass spectrometry NOTE: Presumptive Positive indicates a n onnegative test result by immunoassay screen. It is a preliminary result. [facility] recommends that a Presumptive Positive result be confirmed by an additional, more specific test such as mass spectrometry NOTE: Presumptive Positive indicates a n onnegative test result by immunoassay screen. It is a preliminary result. [facility] recommends that a Presumptive Positive result be confirmed by an additional, more specific test such as mass spectrometry NOTE: Presumptive Positive indicates a n onnegative test result by immunoassay screen. It is a preliminary result. [facility] recommends that a Presumptive Positive result be confirmed by an additional, more specific test such as mass spectrometry NOTE: Presumptive Positive indicates a n onnegative test result by immunoassay screen. It is a preliminary result. [facility] recommends that a Presumptive Positive result be confirmed by an additional, more specific test such as mass spectrometry NOTE: Presumptive Positive indicates a n onnegative test result by immunoassay screen. It is a preliminary result. [facility] recommends that a Presumptive Positive result be confirmed by an additional, more specific test such as mass spectrometry NOTE: Presumptive Positive indicates a n onnegative test result by immunoassay screen. It is a preliminary result. [facility] recommends that a Presumptive Positive result be confirmed by an additional, more specific test such as mass spectrometry Name Value Range Interpretation Code Description Data Leonie rce(s) Supporting Document(s) Temazepam 0.000NegativeNegative ng/mL 50.00 ng/mL [facility] Lorazepam 5.300NegativeNegative ng/mL 50.00 ng/mL [facility] alpha-Hydroxyalprazolam 0.000NegativeNegative ng/mL 50.00 ng /mL [facility] 7-Aminoclonazepam 0.000NegativeNegative ng/mL 50.00 ng/mL [facility] Oxazepam 9.920NegativeNegative ng/mL 50.00 ng/mL [facility] Nordiazepam 3.560NegativeNegative ng/mL 50.00 ng/mL [facility] ID Date Data Source [id number] 04/08/2021 02:15:58 PM EDT [facility] NOTE: Presumptive Positive indicates a n onnegative test result by immunoassay screen. It is a preliminary result. [facility] recommends that a Presumptive Positive result be confirmed by an additional, more specific test such as mass spectrometry NOTE: Presumptive Positive indicates a n onnegative test result by immunoassay screen. It is a preliminary result. [facility] recommends that a Presumptive Positive result be confirmed by an additional, more specific test such as mass spectrometry NOTE: Presumptive Positive indicates a n onnegative test result by immunoassay screen. It is a preliminary result. [facility] recommends that a Presumptive Positive result be confirmed by an additional, more specific test such as mass spectrometry NOTE: Presumptive Positive indicates a n onnegative test result by immunoassay screen. It is a preliminary result. [facility] recommends that a Presumptive Positive result be confirmed by an additional, more specific test such as mass spectrometry NOTE: Presumptive Positive indicates a n onnegative test result by immunoassay screen. It is a preliminary result. [facility] recommends that a Presumptive Positive result be confirmed by an additional, more specific test such as mass spectrometry NOTE: Presumptive Positive indicates a n onnegative test result by immunoassay screen. It is a preliminary result. [facility] recommends that a Presumptive Positive result be confirmed by an additional, more specific test such as mass spectrometry NOTE: Presumptive Positive indicates a n onnegative test result by immunoassay screen. It is a preliminary result. [facility] recommends that a Presumptive Positive result be confirmed by an additional, more specific test such as mass spectrometry NOTE: Presumptive Positive indicates a n onnegative test result by immunoassay screen. It is a preliminary result. [facility] recommends that a Presumptive Positive result be confirmed by an additional, more specific test such as mass spectrometry NOTE: Presumptive Positive indicates a n onnegative test result by immunoassay screen. It is a preliminary result. [facility] recommends that a Presumptive Positive result be confirmed by an additional, more specific test such as mass spectrometry NOTE: Presumptive Positive indicates a n onnegative test result by immunoassay screen. It is a preliminary result. [facility] recommends that a Presumptive Positive result be confirmed by an additional, more specific test such as mass spectrometry NOTE: Presumptive Positive indicates a n onnegative test result by immunoassay screen. It is a preliminary result. [facility] recommends that a Presumptive Positive result be confirmed by an additional, more specific test such as mass spectrometry NOTE: Presumptive Positive indicates a n onnegative test result by immunoassay screen. It is a preliminary result. [facility] recommends that a Presumptive Positive result be confirmed by an additional, more specific test such as mass spectrometry Name Value Range Interpretation Code Description Data Leonie rce(s) Supporting Document(s) Ethyl Sulfate 1147.130Positive - InconsistentPOS ITIVE ng/mL 500.00 ng/mL Abnormal (applies to non-numeric results) [facility] Ethyl Glucuronide 5000Positive - InconsistentPOSITIV E> ng/mL 500.00 ng/mL Abnormal (applies to non-numeric results) [facility] ID Date Data Source [id number] 04/08/2021 02:15:58 PM EDT [facility] NOTE: Presumptive Positive indicates a n onnegative test result by immunoassay screen. It is a preliminary result. [facility] recommends that a Presumptive Positive result be confirmed by an additional, more specific test such as mass spectrometry NOTE: Presumptive Positive indicates a n onnegative test result by immunoassay screen. It is a preliminary result. [facility] recommends that a Presumptive Positive result be confirmed by an additional, more specific test such as mass spectrometry NOTE: Presumptive Positive indicates a n onnegative test result by immunoassay screen. It is a preliminary result. [facility] recommends that a Presumptive Positive result be confirmed by an additional, more specific test such as mass spectrometry NOTE: Presumptive Positive indicates a n onnegative test result by immunoassay screen. It is a preliminary result. [facility] recommends that a Presumptive Positive result be confirmed by an additional, more specific test such as mass spectrometry NOTE: Presumptive Positive indicates a n onnegative test result by immunoassay screen. It is a preliminary result. [facility] recommends that a Presumptive Positive result be confirmed by an additional, more specific test such as mass spectrometry NOTE: Presumptive Positive indicates a n onnegative test result by immunoassay screen. It is a preliminary result. [facility] recommends that a Presumptive Positive result be confirmed by an additional, more specific test such as mass spectrometry NOTE: Presumptive Positive indicates a n onnegative test result by immunoassay screen. It is a preliminary result. [facility] recommends that a Presumptive Positive result be confirmed by an additional, more specific test such as mass spectrometry NOTE: Presumptive Positive indicates a n onnegative test result by immunoassay screen. It is a preliminary result. [facility] recommends that a Presumptive Positive result be confirmed by an additional, more specific test such as mass spectrometry NOTE: Presumptive Positive indicates a n onnegative test result by immunoassay screen. It is a preliminary result. [facility] recommends that a Presumptive Positive result be confirmed by an additional, more specific test such as mass spectrometry NOTE: Presumptive Positive indicates a n onnegative test result by immunoassay screen. It is a preliminary result. [facility] recommends that a Presumptive Positive result be confirmed by an additional, more specific test such as mass spectrometry NOTE: Presumptive Positive indicates a n onnegative test result by immunoassay screen. It is a preliminary result. [facility] recommends that a Presumptive Positive result be confirmed by an additional, more specific test such as mass spectrometry NOTE: Presumptive Positive indicates a n onnegative test result by immunoassay screen. It is a preliminary result. [facility] recommends that a Presumptive Positive result be confirmed by an additional, more specific test such as mass spectrometry Name Value Range Interpretation Code Description Data Leonie rce(s) Supporting Document(s) Pregabalin 0.000NegativeNegative ng/mL 500.00 ng/mL [facility] Gabapentin 46.720NegativeNegative ng/mL 500.00 ng/mL [facility] ID Date Data Source [id number] 02/15/2021 03:38:00 PM EDT [facility]SM[facility] ([facility]) Name Value Range Interpretation Code Description Data Leonie rce(s) Supporting Document(s) Creatinine 175.6NORMALNORMAL NE [facility]SMART ([facility]) pH 6.4NORMALNORMAL NETSM ART ([facility]) Oxidants -4.00NegativeNegative [facility]SMART ([facility]) Validity Result VALIDVALIDVALID [facility] ([facility]) Heroin (6-AM) -0.70NegativeNegative NETSMART ([facility]) Methadone 10.00NegativeNegative [facility] ([facility]) Synthetic Opiates -9.00NegativeNegative [facility] ([facility]) Opiates -5.00NegativeNegative [facility]SMART ([facility]) Ethyl Glucuronide 1910.00PRESUMPTIVE POSITIVEPRESUMPTIVE POSI TIVE [facility] ([facility]) Cocaine Metabolites 386.00PRESUMPTIVE POSITIVEPRESUMPTIVE POS ITIVE [facility] ([facility]) Ethyl Alcohol 17.00NegativeNegative [facility] ([facility]) Ecstasy (MDMA) 13.00NegativeNegative [facility]SM[facility] ([facility]) Phencyclidine -1.30NegativeNegative [facility]SMART ([facility]) Tramadol 22.00NegativeNegative [facility] ([facility]) Cannabinoids -9.60NegativeNegative [facility]SMART ([facility]) Amphetamines 122.00NegativeNegative [facility]SMART ([facility]) Buprenorphine 250Positive - InconsistentPOSITIVE> NETSMART ([facility]) Norbuprenorphine 500Positive - InconsistentPOSITIVE> NETSMART ([facility]) Naloxone 1203.640Positive - InconsistentPOSITIVE NETSMART ([facility]) Norfentanyl 0.000NegativeNegative [facility]SM[facility] ([facility]) Fentanyl 0.130NegativeNegative [facility]SM[facility] ([facility]) Carfentanil 0.000NegativeNegative [facility]SMART ([facility]) Benzoylecgonine 1051.960Positive - InconsistentPOSITIVE NETSMART ([facility]) Norcarfentanil 0.220NegativeNegative [facility]SMART ([facility]) Sufentanil 0.100NegativeNegative [facility]SM[facility] ([facility]) Lorazepam 7.960NegativeNegative [facility]SM[facility] ([facility]) Temazepam 0.000NegativeNegative [facility] ([facility]) Oxazepam 10.240NegativeNegative [facility]SM[facility] ([facility]) alpha-Hydroxyalprazolam 0.000NegativeNegative [facility]SMART ([facility]) 7-Aminoclonazepam 1.040NegativeNegative [facility]SMART ([facility]) Nordiazepam 1.270NegativeNegative [facility] ([facility]) Ethyl Sulfate 327.220NegativeNegative NETSMART ([facility]) Ethyl Glucuronide 2410.550Positive - InconsistentPOSITIVE NETSMART ([facility]) Pregabalin 30.220NegativeNegative [facility] ([facility]) Gabapentin 168.860NegativeNegative [facility] ([facility]) ID Date Data Source [id number] 02/24/2021 10:40:58 AM EDT [facility] NOTE: Presumptive Positive indicates a n onnegative test result by immunoassay screen. It is a preliminary result. [facility] recommends that a Presumptive Positive result be confirmed by an additional, more specific test such as mass spectrometry NOTE: Presumptive Positive indicates a n onnegative test result by immunoassay screen. It is a preliminary result. [facility] recommends that a Presumptive Positive result be confirmed by an additional, more specific test such as mass spectrometry NOTE: Presumptive Positive indicates a n onnegative test result by immunoassay screen. It is a preliminary result. [facility] recommends that a Presumptive Positive result be confirmed by an additional, more specific test such as mass spectrometry NOTE: Presumptive Positive indicates a n onnegative test result by immunoassay screen. It is a preliminary result. [facility] recommends that a Presumptive Positive result be confirmed by an additional, more specific test such as mass spectrometry NOTE: Presumptive Positive indicates a n onnegative test result by immunoassay screen. It is a preliminary result. [facility] recommends that a Presumptive Positive result be confirmed by an additional, more specific test such as mass spectrometry NOTE: Presumptive Positive indicates a n onnegative test result by immunoassay screen. It is a preliminary result. [facility] recommends that a Presumptive Positive result be confirmed by an additional, more specific test such as mass spectrometry NOTE: Presumptive Positive indicates a n onnegative test result by immunoassay screen. It is a preliminary result. [facility] recommends that a Presumptive Positive result be confirmed by an additional, more specific test such as mass spectrometry NOTE: Presumptive Positive indicates a n onnegative test result by immunoassay screen. It is a preliminary result. [facility] recommends that a Presumptive Positive result be confirmed by an additional, more specific test such as mass spectrometry NOTE: Presumptive Positive indicates a n onnegative test result by immunoassay screen. It is a preliminary result. [facility] recommends that a Presumptive Positive result be confirmed by an additional, more specific test such as mass spectrometry NOTE: Presumptive Positive indicates a n onnegative test result by immunoassay screen. It is a preliminary result. [facility] recommends that a Presumptive Positive result be confirmed by an additional, more specific test such as mass spectrometry NOTE: Presumptive Positive indicates a n onnegative test result by immunoassay screen. It is a preliminary result. [facility] recommends that a Presumptive Positive result be confirmed by an additional, more specific test such as mass spectrometry NOTE: Presumptive Positive indicates a n onnegative test result by immunoassay screen. It is a preliminary result. [facility] recommends that a Presumptive Positive result be confirmed by an additional, more specific test such as mass spectrometry Name Value Range Interpretation Code Description Data Leonie rce(s) Supporting Document(s) Creatinine 175.6NORMALNORMAL mg/dL 20.0-300.0 mg/dL [facility] pH 6.4NORMALNORMAL 3.5-9.2 [facility] Oxidants -4.00NegativeNegative mcg/mL 200.00 mcg/mL [facility] Validity Result VALIDVALIDVALID [facility] ID Date Data Source [id number] 02/24/2021 10:40:58 AM EDT [facility] NOTE: Presumptive Positive indicates a n onnegative test result by immunoassay screen. It is a preliminary result. [facility] recommends that a Presumptive Positive result be confirmed by an additional, more specific test such as mass spectrometry NOTE: Presumptive Positive indicates a n onnegative test result by immunoassay screen. It is a preliminary result. [facility] recommends that a Presumptive Positive result be confirmed by an additional, more specific test such as mass spectrometry NOTE: Presumptive Positive indicates a n onnegative test result by immunoassay screen. It is a preliminary result. [facility] recommends that a Presumptive Positive result be confirmed by an additional, more specific test such as mass spectrometry NOTE: Presumptive Positive indicates a n onnegative test result by immunoassay screen. It is a preliminary result. [facility] recommends that a Presumptive Positive result be confirmed by an additional, more specific test such as mass spectrometry NOTE: Presumptive Positive indicates a n onnegative test result by immunoassay screen. It is a preliminary result. [facility] recommends that a Presumptive Positive result be confirmed by an additional, more specific test such as mass spectrometry NOTE: Presumptive Positive indicates a n onnegative test result by immunoassay screen. It is a preliminary result. [facility] recommends that a Presumptive Positive result be confirmed by an additional, more specific test such as mass spectrometry NOTE: Presumptive Positive indicates a n onnegative test result by immunoassay screen. It is a preliminary result. [facility] recommends that a Presumptive Positive result be confirmed by an additional, more specific test such as mass spectrometry NOTE: Presumptive Positive indicates a n onnegative test result by immunoassay screen. It is a preliminary result. [facility] recommends that a Presumptive Positive result be confirmed by an additional, more specific test such as mass spectrometry NOTE: Presumptive Positive indicates a n onnegative test result by immunoassay screen. It is a preliminary result. [facility] recommends that a Presumptive Positive result be confirmed by an additional, more specific test such as mass spectrometry NOTE: Presumptive Positive indicates a n onnegative test result by immunoassay screen. It is a preliminary result. [facility] recommends that a Presumptive Positive result be confirmed by an additional, more specific test such as mass spectrometry NOTE: Presumptive Positive indicates a n onnegative test result by immunoassay screen. It is a preliminary result. [facility] recommends that a Presumptive Positive result be confirmed by an additional, more specific test such as mass spectrometry NOTE: Presumptive Positive indicates a n onnegative test result by immunoassay screen. It is a preliminary result. [facility] recommends that a Presumptive Positive result be confirmed by an additional, more specific test such as mass spectrometry Name Value Range Interpretation Code Description Data Leonie rce(s) Supporting Document(s) Heroin (6-AM) -0.70NegativeNegative ng/mL 10.00 ng/mL [facility] ID Date Data Source [id number] 02/24/2021 10:40:58 AM EDT [facility] NOTE: Presumptive Positive indicates a n onnegative test result by immunoassay screen. It is a preliminary result. [facility] recommends that a Presumptive Positive result be confirmed by an additional, more specific test such as mass spectrometry NOTE: Presumptive Positive indicates a n onnegative test result by immunoassay screen. It is a preliminary result. [facility] recommends that a Presumptive Positive result be confirmed by an additional, more specific test such as mass spectrometry NOTE: Presumptive Positive indicates a n onnegative test result by immunoassay screen. It is a preliminary result. [facility] recommends that a Presumptive Positive result be confirmed by an additional, more specific test such as mass spectrometry NOTE: Presumptive Positive indicates a n onnegative test result by immunoassay screen. It is a preliminary result. [facility] recommends that a Presumptive Positive result be confirmed by an additional, more specific test such as mass spectrometry NOTE: Presumptive Positive indicates a n onnegative test result by immunoassay screen. It is a preliminary result. [facility] recommends that a Presumptive Positive result be confirmed by an additional, more specific test such as mass spectrometry NOTE: Presumptive Positive indicates a n onnegative test result by immunoassay screen. It is a preliminary result. [facility] recommends that a Presumptive Positive result be confirmed by an additional, more specific test such as mass spectrometry NOTE: Presumptive Positive indicates a n onnegative test result by immunoassay screen. It is a preliminary result. [facility] recommends that a Presumptive Positive result be confirmed by an additional, more specific test such as mass spectrometry NOTE: Presumptive Positive indicates a n onnegative test result by immunoassay screen. It is a preliminary result. [facility] recommends that a Presumptive Positive result be confirmed by an additional, more specific test such as mass spectrometry NOTE: Presumptive Positive indicates a n onnegative test result by immunoassay screen. It is a preliminary result. [facility] recommends that a Presumptive Positive result be confirmed by an additional, more specific test such as mass spectrometry NOTE: Presumptive Positive indicates a n onnegative test result by immunoassay screen. It is a preliminary result. [facility] recommends that a Presumptive Positive result be confirmed by an additional, more specific test such as mass spectrometry NOTE: Presumptive Positive indicates a n onnegative test result by immunoassay screen. It is a preliminary result. [facility] recommends that a Presumptive Positive result be confirmed by an additional, more specific test such as mass spectrometry NOTE: Presumptive Positive indicates a n onnegative test result by immunoassay screen. It is a preliminary result. [facility] recommends that a Presumptive Positive result be confirmed by an additional, more specific test such as mass spectrometry Name Value Range Interpretation Code Description Data Leonie rce(s) Supporting Document(s) Methadone 10.00NegativeNegative ng/mL 300.00 ng/mL [facility] ID Date Data Source [id number] 02/24/2021 10:40:59 AM EDT [facility] NOTE: Presumptive Positive indicates a n onnegative test result by immunoassay screen. It is a preliminary result. [facility] recommends that a Presumptive Positive result be confirmed by an additional, more specific test such as mass spectrometry NOTE: Presumptive Positive indicates a n onnegative test result by immunoassay screen. It is a preliminary result. [facility] recommends that a Presumptive Positive result be confirmed by an additional, more specific test such as mass spectrometry NOTE: Presumptive Positive indicates a n onnegative test result by immunoassay screen. It is a preliminary result. [facility] recommends that a Presumptive Positive result be confirmed by an additional, more specific test such as mass spectrometry NOTE: Presumptive Positive indicates a n onnegative test result by immunoassay screen. It is a preliminary result. [facility] recommends that a Presumptive Positive result be confirmed by an additional, more specific test such as mass spectrometry NOTE: Presumptive Positive indicates a n onnegative test result by immunoassay screen. It is a preliminary result. [facility] recommends that a Presumptive Positive result be confirmed by an additional, more specific test such as mass spectrometry NOTE: Presumptive Positive indicates a n onnegative test result by immunoassay screen. It is a preliminary result. [facility] recommends that a Presumptive Positive result be confirmed by an additional, more specific test such as mass spectrometry NOTE: Presumptive Positive indicates a n onnegative test result by immunoassay screen. It is a preliminary result. [facility] recommends that a Presumptive Positive result be confirmed by an additional, more specific test such as mass spectrometry NOTE: Presumptive Positive indicates a n onnegative test result by immunoassay screen. It is a preliminary result. [facility] recommends that a Presumptive Positive result be confirmed by an additional, more specific test such as mass spectrometry NOTE: Presumptive Positive indicates a n onnegative test result by immunoassay screen. It is a preliminary result. [facility] recommends that a Presumptive Positive result be confirmed by an additional, more specific test such as mass spectrometry NOTE: Presumptive Positive indicates a n onnegative test result by immunoassay screen. It is a preliminary result. [facility] recommends that a Presumptive Positive result be confirmed by an additional, more specific test such as mass spectrometry NOTE: Presumptive Positive indicates a n onnegative test result by immunoassay screen. It is a preliminary result. [facility] recommends that a Presumptive Positive result be confirmed by an additional, more specific test such as mass spectrometry NOTE: Presumptive Positive indicates a n onnegative test result by immunoassay screen. It is a preliminary result. [facility] recommends that a Presumptive Positive result be confirmed by an additional, more specific test such as mass spectrometry Name Value Range Interpretation Code Description Data Leonie rce(s) Supporting Document(s) Opiates -5.00NegativeNegative ng/mL 300.00 ng/mL [facility] ID Date Data Source [id number] 02/24/2021 10:40:59 AM EDT [facility] NOTE: Presumptive Positive indicates a n onnegative test result by immunoassay screen. It is a preliminary result. [facility] recommends that a Presumptive Positive result be confirmed by an additional, more specific test such as mass spectrometry NOTE: Presumptive Positive indicates a n onnegative test result by immunoassay screen. It is a preliminary result. [facility] recommends that a Presumptive Positive result be confirmed by an additional, more specific test such as mass spectrometry NOTE: Presumptive Positive indicates a n onnegative test result by immunoassay screen. It is a preliminary result. [facility] recommends that a Presumptive Positive result be confirmed by an additional, more specific test such as mass spectrometry NOTE: Presumptive Positive indicates a n onnegative test result by immunoassay screen. It is a preliminary result. [facility] recommends that a Presumptive Positive result be confirmed by an additional, more specific test such as mass spectrometry NOTE: Presumptive Positive indicates a n onnegative test result by immunoassay screen. It is a preliminary result. [facility] recommends that a Presumptive Positive result be confirmed by an additional, more specific test such as mass spectrometry NOTE: Presumptive Positive indicates a n onnegative test result by immunoassay screen. It is a preliminary result. [facility] recommends that a Presumptive Positive result be confirmed by an additional, more specific test such as mass spectrometry NOTE: Presumptive Positive indicates a n onnegative test result by immunoassay screen. It is a preliminary result. [facility] recommends that a Presumptive Positive result be confirmed by an additional, more specific test such as mass spectrometry NOTE: Presumptive Positive indicates a n onnegative test result by immunoassay screen. It is a preliminary result. [facility] recommends that a Presumptive Positive result be confirmed by an additional, more specific test such as mass spectrometry NOTE: Presumptive Positive indicates a n onnegative test result by immunoassay screen. It is a preliminary result. [facility] recommends that a Presumptive Positive result be confirmed by an additional, more specific test such as mass spectrometry NOTE: Presumptive Positive indicates a n onnegative test result by immunoassay screen. It is a preliminary result. [facility] recommends that a Presumptive Positive result be confirmed by an additional, more specific test such as mass spectrometry NOTE: Presumptive Positive indicates a n onnegative test result by immunoassay screen. It is a preliminary result. [facility] recommends that a Presumptive Positive result be confirmed by an additional, more specific test such as mass spectrometry NOTE: Presumptive Positive indicates a n onnegative test result by immunoassay screen. It is a preliminary result. [facility] recommends that a Presumptive Positive result be confirmed by an additional, more specific test such as mass spectrometry Name Value Range Interpretation Code Description Data Leonie rce(s) Supporting Document(s) Synthetic Opiates -9.00NegativeNegative ng/mL 100.00 ng/mL [facility] ID Date Data Source [id number] 02/24/2021 10:40:59 AM EDT [facility] NOTE: Presumptive Positive indicates a n onnegative test result by immunoassay screen. It is a preliminary result. [facility] recommends that a Presumptive Positive result be confirmed by an additional, more specific test such as mass spectrometry NOTE: Presumptive Positive indicates a n onnegative test result by immunoassay screen. It is a preliminary result. [facility] recommends that a Presumptive Positive result be confirmed by an additional, more specific test such as mass spectrometry NOTE: Presumptive Positive indicates a n onnegative test result by immunoassay screen. It is a preliminary result. [facility] recommends that a Presumptive Positive result be confirmed by an additional, more specific test such as mass spectrometry NOTE: Presumptive Positive indicates a n onnegative test result by immunoassay screen. It is a preliminary result. [facility] recommends that a Presumptive Positive result be confirmed by an additional, more specific test such as mass spectrometry NOTE: Presumptive Positive indicates a n onnegative test result by immunoassay screen. It is a preliminary result. [facility] recommends that a Presumptive Positive result be confirmed by an additional, more specific test such as mass spectrometry NOTE: Presumptive Positive indicates a n onnegative test result by immunoassay screen. It is a preliminary result. [facility] recommends that a Presumptive Positive result be confirmed by an additional, more specific test such as mass spectrometry NOTE: Presumptive Positive indicates a n onnegative test result by immunoassay screen. It is a preliminary result. [facility] recommends that a Presumptive Positive result be confirmed by an additional, more specific test such as mass spectrometry NOTE: Presumptive Positive indicates a n onnegative test result by immunoassay screen. It is a preliminary result. [facility] recommends that a Presumptive Positive result be confirmed by an additional, more specific test such as mass spectrometry NOTE: Presumptive Positive indicates a n onnegative test result by immunoassay screen. It is a preliminary result. [facility] recommends that a Presumptive Positive result be confirmed by an additional, more specific test such as mass spectrometry NOTE: Presumptive Positive indicates a n onnegative test result by immunoassay screen. It is a preliminary result. [facility] recommends that a Presumptive Positive result be confirmed by an additional, more specific test such as mass spectrometry NOTE: Presumptive Positive indicates a n onnegative test result by immunoassay screen. It is a preliminary result. [facility] recommends that a Presumptive Positive result be confirmed by an additional, more specific test such as mass spectrometry NOTE: Presumptive Positive indicates a n onnegative test result by immunoassay screen. It is a preliminary result. [facility] recommends that a Presumptive Positive result be confirmed by an additional, more specific test such as mass spectrometry Name Value Range Interpretation Code Description Data Leonie rce(s) Supporting Document(s) Cocaine Metabolites 386.00PRESUMPTIVE POSITIV EPRESUMPTIVE POSITIVE ng/mL 300.00 ng/mL [facility] ID Date Data Source [id number] 02/24/2021 10:40:59 AM EDT [facility] NOTE: Presumptive Positive indicates a n onnegative test result by immunoassay screen. It is a preliminary result. [facility] recommends that a Presumptive Positive result be confirmed by an additional, more specific test such as mass spectrometry NOTE: Presumptive Positive indicates a n onnegative test result by immunoassay screen. It is a preliminary result. [facility] recommends that a Presumptive Positive result be confirmed by an additional, more specific test such as mass spectrometry NOTE: Presumptive Positive indicates a n onnegative test result by immunoassay screen. It is a preliminary result. [facility] recommends that a Presumptive Positive result be confirmed by an additional, more specific test such as mass spectrometry NOTE: Presumptive Positive indicates a n onnegative test result by immunoassay screen. It is a preliminary result. [facility] recommends that a Presumptive Positive result be confirmed by an additional, more specific test such as mass spectrometry NOTE: Presumptive Positive indicates a n onnegative test result by immunoassay screen. It is a preliminary result. [facility] recommends that a Presumptive Positive result be confirmed by an additional, more specific test such as mass spectrometry NOTE: Presumptive Positive indicates a n onnegative test result by immunoassay screen. It is a preliminary result. [facility] recommends that a Presumptive Positive result be confirmed by an additional, more specific test such as mass spectrometry NOTE: Presumptive Positive indicates a n onnegative test result by immunoassay screen. It is a preliminary result. [facility] recommends that a Presumptive Positive result be confirmed by an additional, more specific test such as mass spectrometry NOTE: Presumptive Positive indicates a n onnegative test result by immunoassay screen. It is a preliminary result. [facility] recommends that a Presumptive Positive result be confirmed by an additional, more specific test such as mass spectrometry NOTE: Presumptive Positive indicates a n onnegative test result by immunoassay screen. It is a preliminary result. [facility] recommends that a Presumptive Positive result be confirmed by an additional, more specific test such as mass spectrometry NOTE: Presumptive Positive indicates a n onnegative test result by immunoassay screen. It is a preliminary result. [facility] recommends that a Presumptive Positive result be confirmed by an additional, more specific test such as mass spectrometry NOTE: Presumptive Positive indicates a n onnegative test result by immunoassay screen. It is a preliminary result. [facility] recommends that a Presumptive Positive result be confirmed by an additional, more specific test such as mass spectrometry NOTE: Presumptive Positive indicates a n onnegative test result by immunoassay screen. It is a preliminary result. [facility] recommends that a Presumptive Positive result be confirmed by an additional, more specific test such as mass spectrometry Name Value Range Interpretation Code Description Data Leonie rce(s) Supporting Document(s) Ethyl Glucuronide 1910.00PRESUMPTIVE POSITI VEPRESUMPTIVE POSITIVE ng/mL 500.00 ng/mL [facility] ID Date Data Source [id number] 02/24/2021 10:40:59 AM EDT [facility] NOTE: Presumptive Positive indicates a n onnegative test result by immunoassay screen. It is a preliminary result. [facility] recommends that a Presumptive Positive result be confirmed by an additional, more specific test such as mass spectrometry NOTE: Presumptive Positive indicates a n onnegative test result by immunoassay screen. It is a preliminary result. [facility] recommends that a Presumptive Positive result be confirmed by an additional, more specific test such as mass spectrometry NOTE: Presumptive Positive indicates a n onnegative test result by immunoassay screen. It is a preliminary result. [facility] recommends that a Presumptive Positive result be confirmed by an additional, more specific test such as mass spectrometry NOTE: Presumptive Positive indicates a n onnegative test result by immunoassay screen. It is a preliminary result. [facility] recommends that a Presumptive Positive result be confirmed by an additional, more specific test such as mass spectrometry NOTE: Presumptive Positive indicates a n onnegative test result by immunoassay screen. It is a preliminary result. [facility] recommends that a Presumptive Positive result be confirmed by an additional, more specific test such as mass spectrometry NOTE: Presumptive Positive indicates a n onnegative test result by immunoassay screen. It is a preliminary result. [facility] recommends that a Presumptive Positive result be confirmed by an additional, more specific test such as mass spectrometry NOTE: Presumptive Positive indicates a n onnegative test result by immunoassay screen. It is a preliminary result. [facility] recommends that a Presumptive Positive result be confirmed by an additional, more specific test such as mass spectrometry NOTE: Presumptive Positive indicates a n onnegative test result by immunoassay screen. It is a preliminary result. [facility] recommends that a Presumptive Positive result be confirmed by an additional, more specific test such as mass spectrometry NOTE: Presumptive Positive indicates a n onnegative test result by immunoassay screen. It is a preliminary result. [facility] recommends that a Presumptive Positive result be confirmed by an additional, more specific test such as mass spectrometry NOTE: Presumptive Positive indicates a n onnegative test result by immunoassay screen. It is a preliminary result. [facility] recommends that a Presumptive Positive result be confirmed by an additional, more specific test such as mass spectrometry NOTE: Presumptive Positive indicates a n onnegative test result by immunoassay screen. It is a preliminary result. [facility] recommends that a Presumptive Positive result be confirmed by an additional, more specific test such as mass spectrometry NOTE: Presumptive Positive indicates a n onnegative test result by immunoassay screen. It is a preliminary result. [facility] recommends that a Presumptive Positive result be confirmed by an additional, more specific test such as mass spectrometry Name Value Range Interpretation Code Description Data Leonie rce(s) Supporting Document(s) Ethyl Alcohol 17.00NegativeNegative mg/dL 100.00 mg/dL [facility] ID Date Data Source [id number] 02/24/2021 10:41:00 AM EDT [facility] NOTE: Presumptive Positive indicates a n onnegative test result by immunoassay screen. It is a preliminary result. [facility] recommends that a Presumptive Positive result be confirmed by an additional, more specific test such as mass spectrometry NOTE: Presumptive Positive indicates a n onnegative test result by immunoassay screen. It is a preliminary result. [facility] recommends that a Presumptive Positive result be confirmed by an additional, more specific test such as mass spectrometry NOTE: Presumptive Positive indicates a n onnegative test result by immunoassay screen. It is a preliminary result. [facility] recommends that a Presumptive Positive result be confirmed by an additional, more specific test such as mass spectrometry NOTE: Presumptive Positive indicates a n onnegative test result by immunoassay screen. It is a preliminary result. [facility] recommends that a Presumptive Positive result be confirmed by an additional, more specific test such as mass spectrometry NOTE: Presumptive Positive indicates a n onnegative test result by immunoassay screen. It is a preliminary result. [facility] recommends that a Presumptive Positive result be confirmed by an additional, more specific test such as mass spectrometry NOTE: Presumptive Positive indicates a n onnegative test result by immunoassay screen. It is a preliminary result. [facility] recommends that a Presumptive Positive result be confirmed by an additional, more specific test such as mass spectrometry NOTE: Presumptive Positive indicates a n onnegative test result by immunoassay screen. It is a preliminary result. [facility] recommends that a Presumptive Positive result be confirmed by an additional, more specific test such as mass spectrometry NOTE: Presumptive Positive indicates a n onnegative test result by immunoassay screen. It is a preliminary result. [facility] recommends that a Presumptive Positive result be confirmed by an additional, more specific test such as mass spectrometry NOTE: Presumptive Positive indicates a n onnegative test result by immunoassay screen. It is a preliminary result. [facility] recommends that a Presumptive Positive result be confirmed by an additional, more specific test such as mass spectrometry NOTE: Presumptive Positive indicates a n onnegative test result by immunoassay screen. It is a preliminary result. [facility] recommends that a Presumptive Positive result be confirmed by an additional, more specific test such as mass spectrometry NOTE: Presumptive Positive indicates a n onnegative test result by immunoassay screen. It is a preliminary result. [facility] recommends that a Presumptive Positive result be confirmed by an additional, more specific test such as mass spectrometry NOTE: Presumptive Positive indicates a n onnegative test result by immunoassay screen. It is a preliminary result. [facility] recommends that a Presumptive Positive result be confirmed by an additional, more specific test such as mass spectrometry Name Value Range Interpretation Code Description Data Leonie rce(s) Supporting Document(s) Ecstasy (MDMA) 13.00NegativeNegative ng/mL 500.00 ng/mL [facility] ID Date Data Source [id number] 02/24/2021 10:41:00 AM EDT [facility] NOTE: Presumptive Positive indicates a n onnegative test result by immunoassay screen. It is a preliminary result. [facility] recommends that a Presumptive Positive result be confirmed by an additional, more specific test such as mass spectrometry NOTE: Presumptive Positive indicates a n onnegative test result by immunoassay screen. It is a preliminary result. [facility] recommends that a Presumptive Positive result be confirmed by an additional, more specific test such as mass spectrometry NOTE: Presumptive Positive indicates a n onnegative test result by immunoassay screen. It is a preliminary result. [facility] recommends that a Presumptive Positive result be confirmed by an additional, more specific test such as mass spectrometry NOTE: Presumptive Positive indicates a n onnegative test result by immunoassay screen. It is a preliminary result. [facility] recommends that a Presumptive Positive result be confirmed by an additional, more specific test such as mass spectrometry NOTE: Presumptive Positive indicates a n onnegative test result by immunoassay screen. It is a preliminary result. [facility] recommends that a Presumptive Positive result be confirmed by an additional, more specific test such as mass spectrometry NOTE: Presumptive Positive indicates a n onnegative test result by immunoassay screen. It is a preliminary result. [facility] recommends that a Presumptive Positive result be confirmed by an additional, more specific test such as mass spectrometry NOTE: Presumptive Positive indicates a n onnegative test result by immunoassay screen. It is a preliminary result. [facility] recommends that a Presumptive Positive result be confirmed by an additional, more specific test such as mass spectrometry NOTE: Presumptive Positive indicates a n onnegative test result by immunoassay screen. It is a preliminary result. [facility] recommends that a Presumptive Positive result be confirmed by an additional, more specific test such as mass spectrometry NOTE: Presumptive Positive indicates a n onnegative test result by immunoassay screen. It is a preliminary result. [facility] recommends that a Presumptive Positive result be confirmed by an additional, more specific test such as mass spectrometry NOTE: Presumptive Positive indicates a n onnegative test result by immunoassay screen. It is a preliminary result. [facility] recommends that a Presumptive Positive result be confirmed by an additional, more specific test such as mass spectrometry NOTE: Presumptive Positive indicates a n onnegative test result by immunoassay screen. It is a preliminary result. [facility] recommends that a Presumptive Positive result be confirmed by an additional, more specific test such as mass spectrometry NOTE: Presumptive Positive indicates a n onnegative test result by immunoassay screen. It is a preliminary result. [facility] recommends that a Presumptive Positive result be confirmed by an additional, more specific test such as mass spectrometry Name Value Range Interpretation Code Description Data Leonie rce(s) Supporting Document(s) Phencyclidine -1.30NegativeNegative ng/mL 25.00 ng/mL [facility] ID Date Data Source [id number] 02/24/2021 10:41:00 AM EDT [facility] NOTE: Presumptive Positive indicates a n onnegative test result by immunoassay screen. It is a preliminary result. [facility] recommends that a Presumptive Positive result be confirmed by an additional, more specific test such as mass spectrometry NOTE: Presumptive Positive indicates a n onnegative test result by immunoassay screen. It is a preliminary result. [facility] recommends that a Presumptive Positive result be confirmed by an additional, more specific test such as mass spectrometry NOTE: Presumptive Positive indicates a n onnegative test result by immunoassay screen. It is a preliminary result. [facility] recommends that a Presumptive Positive result be confirmed by an additional, more specific test such as mass spectrometry NOTE: Presumptive Positive indicates a n onnegative test result by immunoassay screen. It is a preliminary result. [facility] recommends that a Presumptive Positive result be confirmed by an additional, more specific test such as mass spectrometry NOTE: Presumptive Positive indicates a n onnegative test result by immunoassay screen. It is a preliminary result. [facility] recommends that a Presumptive Positive result be confirmed by an additional, more specific test such as mass spectrometry NOTE: Presumptive Positive indicates a n onnegative test result by immunoassay screen. It is a preliminary result. [facility] recommends that a Presumptive Positive result be confirmed by an additional, more specific test such as mass spectrometry NOTE: Presumptive Positive indicates a n onnegative test result by immunoassay screen. It is a preliminary result. [facility] recommends that a Presumptive Positive result be confirmed by an additional, more specific test such as mass spectrometry NOTE: Presumptive Positive indicates a n onnegative test result by immunoassay screen. It is a preliminary result. [facility] recommends that a Presumptive Positive result be confirmed by an additional, more specific test such as mass spectrometry NOTE: Presumptive Positive indicates a n onnegative test result by immunoassay screen. It is a preliminary result. [facility] recommends that a Presumptive Positive result be confirmed by an additional, more specific test such as mass spectrometry NOTE: Presumptive Positive indicates a n onnegative test result by immunoassay screen. It is a preliminary result. [facility] recommends that a Presumptive Positive result be confirmed by an additional, more specific test such as mass spectrometry NOTE: Presumptive Positive indicates a n onnegative test result by immunoassay screen. It is a preliminary result. [facility] recommends that a Presumptive Positive result be confirmed by an additional, more specific test such as mass spectrometry NOTE: Presumptive Positive indicates a n onnegative test result by immunoassay screen. It is a preliminary result. [facility] recommends that a Presumptive Positive result be confirmed by an additional, more specific test such as mass spectrometry Name Value Range Interpretation Code Description Data Leonie rce(s) Supporting Document(s) Cannabinoids -9.60NegativeNegative ng/mL 20.00 ng/mL [facility] ID Date Data Source [id number] 02/24/2021 10:41:00 AM EDT [facility] NOTE: Presumptive Positive indicates a n onnegative test result by immunoassay screen. It is a preliminary result. [facility] recommends that a Presumptive Positive result be confirmed by an additional, more specific test such as mass spectrometry NOTE: Presumptive Positive indicates a n onnegative test result by immunoassay screen. It is a preliminary result. [facility] recommends that a Presumptive Positive result be confirmed by an additional, more specific test such as mass spectrometry NOTE: Presumptive Positive indicates a n onnegative test result by immunoassay screen. It is a preliminary result. [facility] recommends that a Presumptive Positive result be confirmed by an additional, more specific test such as mass spectrometry NOTE: Presumptive Positive indicates a n onnegative test result by immunoassay screen. It is a preliminary result. [facility] recommends that a Presumptive Positive result be confirmed by an additional, more specific test such as mass spectrometry NOTE: Presumptive Positive indicates a n onnegative test result by immunoassay screen. It is a preliminary result. [facility] recommends that a Presumptive Positive result be confirmed by an additional, more specific test such as mass spectrometry NOTE: Presumptive Positive indicates a n onnegative test result by immunoassay screen. It is a preliminary result. [facility] recommends that a Presumptive Positive result be confirmed by an additional, more specific test such as mass spectrometry NOTE: Presumptive Positive indicates a n onnegative test result by immunoassay screen. It is a preliminary result. [facility] recommends that a Presumptive Positive result be confirmed by an additional, more specific test such as mass spectrometry NOTE: Presumptive Positive indicates a n onnegative test result by immunoassay screen. It is a preliminary result. [facility] recommends that a Presumptive Positive result be confirmed by an additional, more specific test such as mass spectrometry NOTE: Presumptive Positive indicates a n onnegative test result by immunoassay screen. It is a preliminary result. [facility] recommends that a Presumptive Positive result be confirmed by an additional, more specific test such as mass spectrometry NOTE: Presumptive Positive indicates a n onnegative test result by immunoassay screen. It is a preliminary result. [facility] recommends that a Presumptive Positive result be confirmed by an additional, more specific test such as mass spectrometry NOTE: Presumptive Positive indicates a n onnegative test result by immunoassay screen. It is a preliminary result. [facility] recommends that a Presumptive Positive result be confirmed by an additional, more specific test such as mass spectrometry NOTE: Presumptive Positive indicates a n onnegative test result by immunoassay screen. It is a preliminary result. [facility] recommends that a Presumptive Positive result be confirmed by an additional, more specific test such as mass spectrometry Name Value Range Interpretation Code Description Data Leonie rce(s) Supporting Document(s) Tramadol 22.00NegativeNegative ng/mL 200.00 ng/mL [facility] ID Date Data Source [id number] 02/24/2021 10:41:01 AM EDT [facility] NOTE: Presumptive Positive indicates a n onnegative test result by immunoassay screen. It is a preliminary result. [facility] recommends that a Presumptive Positive result be confirmed by an additional, more specific test such as mass spectrometry NOTE: Presumptive Positive indicates a n onnegative test result by immunoassay screen. It is a preliminary result. [facility] recommends that a Presumptive Positive result be confirmed by an additional, more specific test such as mass spectrometry NOTE: Presumptive Positive indicates a n onnegative test result by immunoassay screen. It is a preliminary result. [facility] recommends that a Presumptive Positive result be confirmed by an additional, more specific test such as mass spectrometry NOTE: Presumptive Positive indicates a n onnegative test result by immunoassay screen. It is a preliminary result. [facility] recommends that a Presumptive Positive result be confirmed by an additional, more specific test such as mass spectrometry NOTE: Presumptive Positive indicates a n onnegative test result by immunoassay screen. It is a preliminary result. [facility] recommends that a Presumptive Positive result be confirmed by an additional, more specific test such as mass spectrometry NOTE: Presumptive Positive indicates a n onnegative test result by immunoassay screen. It is a preliminary result. [facility] recommends that a Presumptive Positive result be confirmed by an additional, more specific test such as mass spectrometry NOTE: Presumptive Positive indicates a n onnegative test result by immunoassay screen. It is a preliminary result. [facility] recommends that a Presumptive Positive result be confirmed by an additional, more specific test such as mass spectrometry NOTE: Presumptive Positive indicates a n onnegative test result by immunoassay screen. It is a preliminary result. [facility] recommends that a Presumptive Positive result be confirmed by an additional, more specific test such as mass spectrometry NOTE: Presumptive Positive indicates a n onnegative test result by immunoassay screen. It is a preliminary result. [facility] recommends that a Presumptive Positive result be confirmed by an additional, more specific test such as mass spectrometry NOTE: Presumptive Positive indicates a n onnegative test result by immunoassay screen. It is a preliminary result. [facility] recommends that a Presumptive Positive result be confirmed by an additional, more specific test such as mass spectrometry NOTE: Presumptive Positive indicates a n onnegative test result by immunoassay screen. It is a preliminary result. [facility] recommends that a Presumptive Positive result be confirmed by an additional, more specific test such as mass spectrometry NOTE: Presumptive Positive indicates a n onnegative test result by immunoassay screen. It is a preliminary result. [facility] recommends that a Presumptive Positive result be confirmed by an additional, more specific test such as mass spectrometry Name Value Range Interpretation Code Description Data Leonie rce(s) Supporting Document(s) Amphetamines 122.00NegativeNegative ng/mL 500.00 ng/mL [facility] ID Date Data Source [id number] 02/24/2021 10:41:01 AM EDT [facility] NOTE: Presumptive Positive indicates a n onnegative test result by immunoassay screen. It is a preliminary result. [facility] recommends that a Presumptive Positive result be confirmed by an additional, more specific test such as mass spectrometry NOTE: Presumptive Positive indicates a n onnegative test result by immunoassay screen. It is a preliminary result. [facility] recommends that a Presumptive Positive result be confirmed by an additional, more specific test such as mass spectrometry NOTE: Presumptive Positive indicates a n onnegative test result by immunoassay screen. It is a preliminary result. [facility] recommends that a Presumptive Positive result be confirmed by an additional, more specific test such as mass spectrometry NOTE: Presumptive Positive indicates a n onnegative test result by immunoassay screen. It is a preliminary result. [facility] recommends that a Presumptive Positive result be confirmed by an additional, more specific test such as mass spectrometry NOTE: Presumptive Positive indicates a n onnegative test result by immunoassay screen. It is a preliminary result. [facility] recommends that a Presumptive Positive result be confirmed by an additional, more specific test such as mass spectrometry NOTE: Presumptive Positive indicates a n onnegative test result by immunoassay screen. It is a preliminary result. [facility] recommends that a Presumptive Positive result be confirmed by an additional, more specific test such as mass spectrometry NOTE: Presumptive Positive indicates a n onnegative test result by immunoassay screen. It is a preliminary result. [facility] recommends that a Presumptive Positive result be confirmed by an additional, more specific test such as mass spectrometry NOTE: Presumptive Positive indicates a n onnegative test result by immunoassay screen. It is a preliminary result. [facility] recommends that a Presumptive Positive result be confirmed by an additional, more specific test such as mass spectrometry NOTE: Presumptive Positive indicates a n onnegative test result by immunoassay screen. It is a preliminary result. [facility] recommends that a Presumptive Positive result be confirmed by an additional, more specific test such as mass spectrometry NOTE: Presumptive Positive indicates a n onnegative test result by immunoassay screen. It is a preliminary result. [facility] recommends that a Presumptive Positive result be confirmed by an additional, more specific test such as mass spectrometry NOTE: Presumptive Positive indicates a n onnegative test result by immunoassay screen. It is a preliminary result. [facility] recommends that a Presumptive Positive result be confirmed by an additional, more specific test such as mass spectrometry NOTE: Presumptive Positive indicates a n onnegative test result by immunoassay screen. It is a preliminary result. [facility] recommends that a Presumptive Positive result be confirmed by an additional, more specific test such as mass spectrometry Name Value Range Interpretation Code Description Data Leonie rce(s) Supporting Document(s) Buprenorphine 250Positive - InconsistentPOSITIVE> ng/ mL 5.00 ng/mL Abnormal (applies to non-numeric results) [facility] Norbuprenorphine 500Positive - InconsistentPOSITIVE> ng /mL 10.00 ng/mL Abnormal (applies to non-numeric results) [facility] Naloxone 1203.640Positive - InconsistentPOSITIVE ng/mL 25.00 ng/mL Abnormal (applies to non-numeric results) [facility] ID Date Data Source [id number] 02/24/2021 10:41:01 AM EDT [facility] NOTE: Presumptive Positive indicates a n onnegative test result by immunoassay screen. It is a preliminary result. [facility] recommends that a Presumptive Positive result be confirmed by an additional, more specific test such as mass spectrometry NOTE: Presumptive Positive indicates a n onnegative test result by immunoassay screen. It is a preliminary result. [facility] recommends that a Presumptive Positive result be confirmed by an additional, more specific test such as mass spectrometry NOTE: Presumptive Positive indicates a n onnegative test result by immunoassay screen. It is a preliminary result. [facility] recommends that a Presumptive Positive result be confirmed by an additional, more specific test such as mass spectrometry NOTE: Presumptive Positive indicates a n onnegative test result by immunoassay screen. It is a preliminary result. [facility] recommends that a Presumptive Positive result be confirmed by an additional, more specific test such as mass spectrometry NOTE: Presumptive Positive indicates a n onnegative test result by immunoassay screen. It is a preliminary result. [facility] recommends that a Presumptive Positive result be confirmed by an additional, more specific test such as mass spectrometry NOTE: Presumptive Positive indicates a n onnegative test result by immunoassay screen. It is a preliminary result. [facility] recommends that a Presumptive Positive result be confirmed by an additional, more specific test such as mass spectrometry NOTE: Presumptive Positive indicates a n onnegative test result by immunoassay screen. It is a preliminary result. [facility] recommends that a Presumptive Positive result be confirmed by an additional, more specific test such as mass spectrometry NOTE: Presumptive Positive indicates a n onnegative test result by immunoassay screen. It is a preliminary result. [facility] recommends that a Presumptive Positive result be confirmed by an additional, more specific test such as mass spectrometry NOTE: Presumptive Positive indicates a n onnegative test result by immunoassay screen. It is a preliminary result. [facility] recommends that a Presumptive Positive result be confirmed by an additional, more specific test such as mass spectrometry NOTE: Presumptive Positive indicates a n onnegative test result by immunoassay screen. It is a preliminary result. [facility] recommends that a Presumptive Positive result be confirmed by an additional, more specific test such as mass spectrometry NOTE: Presumptive Positive indicates a n onnegative test result by immunoassay screen. It is a preliminary result. [facility] recommends that a Presumptive Positive result be confirmed by an additional, more specific test such as mass spectrometry NOTE: Presumptive Positive indicates a n onnegative test result by immunoassay screen. It is a preliminary result. [facility] recommends that a Presumptive Positive result be confirmed by an additional, more specific test such as mass spectrometry Name Value Range Interpretation Code Description Data Leonie rce(s) Supporting Document(s) Norfentanyl 0.000NegativeNegative ng/mL 1.00 ng/mL [facility] Fentanyl 0.130NegativeNegative ng/mL 1.00 ng/mL [facility] Carfentanil 0.000NegativeNegative ng/mL 1.00 ng/mL [facility] Norcarfentanil 0.220NegativeNegative ng/mL 1.00 ng/mL [facility] Sufentanil 0.100NegativeNegative ng/mL 1.00 ng/mL [facility] ID Date Data Source [id number] 02/24/2021 10:41:02 AM EDT [facility] NOTE: Presumptive Positive indicates a n onnegative test result by immunoassay screen. It is a preliminary result. [facility] recommends that a Presumptive Positive result be confirmed by an additional, more specific test such as mass spectrometry NOTE: Presumptive Positive indicates a n onnegative test result by immunoassay screen. It is a preliminary result. [facility] recommends that a Presumptive Positive result be confirmed by an additional, more specific test such as mass spectrometry NOTE: Presumptive Positive indicates a n onnegative test result by immunoassay screen. It is a preliminary result. [facility] recommends that a Presumptive Positive result be confirmed by an additional, more specific test such as mass spectrometry NOTE: Presumptive Positive indicates a n onnegative test result by immunoassay screen. It is a preliminary result. [facility] recommends that a Presumptive Positive result be confirmed by an additional, more specific test such as mass spectrometry NOTE: Presumptive Positive indicates a n onnegative test result by immunoassay screen. It is a preliminary result. [facility] recommends that a Presumptive Positive result be confirmed by an additional, more specific test such as mass spectrometry NOTE: Presumptive Positive indicates a n onnegative test result by immunoassay screen. It is a preliminary result. [facility] recommends that a Presumptive Positive result be confirmed by an additional, more specific test such as mass spectrometry NOTE: Presumptive Positive indicates a n onnegative test result by immunoassay screen. It is a preliminary result. [facility] recommends that a Presumptive Positive result be confirmed by an additional, more specific test such as mass spectrometry NOTE: Presumptive Positive indicates a n onnegative test result by immunoassay screen. It is a preliminary result. [facility] recommends that a Presumptive Positive result be confirmed by an additional, more specific test such as mass spectrometry NOTE: Presumptive Positive indicates a n onnegative test result by immunoassay screen. It is a preliminary result. [facility] recommends that a Presumptive Positive result be confirmed by an additional, more specific test such as mass spectrometry NOTE: Presumptive Positive indicates a n onnegative test result by immunoassay screen. It is a preliminary result. [facility] recommends that a Presumptive Positive result be confirmed by an additional, more specific test such as mass spectrometry NOTE: Presumptive Positive indicates a n onnegative test result by immunoassay screen. It is a preliminary result. [facility] recommends that a Presumptive Positive result be confirmed by an additional, more specific test such as mass spectrometry NOTE: Presumptive Positive indicates a n onnegative test result by immunoassay screen. It is a preliminary result. [facility] recommends that a Presumptive Positive result be confirmed by an additional, more specific test such as mass spectrometry Name Value Range Interpretation Code Description Data Leonie rce(s) Supporting Document(s) Benzoylecgonine 1051.960Positive - InconsistentPOS ITIVE ng/mL 50.00 ng/mL Abnormal (applies to non-numeric results) [facility] ID Date Data Source [id number] 02/24/2021 10:41:01 AM EDT [facility] NOTE: Presumptive Positive indicates a n onnegative test result by immunoassay screen. It is a preliminary result. [facility] recommends that a Presumptive Positive result be confirmed by an additional, more specific test such as mass spectrometry NOTE: Presumptive Positive indicates a n onnegative test result by immunoassay screen. It is a preliminary result. [facility] recommends that a Presumptive Positive result be confirmed by an additional, more specific test such as mass spectrometry NOTE: Presumptive Positive indicates a n onnegative test result by immunoassay screen. It is a preliminary result. [facility] recommends that a Presumptive Positive result be confirmed by an additional, more specific test such as mass spectrometry NOTE: Presumptive Positive indicates a n onnegative test result by immunoassay screen. It is a preliminary result. [facility] recommends that a Presumptive Positive result be confirmed by an additional, more specific test such as mass spectrometry NOTE: Presumptive Positive indicates a n onnegative test result by immunoassay screen. It is a preliminary result. [facility] recommends that a Presumptive Positive result be confirmed by an additional, more specific test such as mass spectrometry NOTE: Presumptive Positive indicates a n onnegative test result by immunoassay screen. It is a preliminary result. [facility] recommends that a Presumptive Positive result be confirmed by an additional, more specific test such as mass spectrometry NOTE: Presumptive Positive indicates a n onnegative test result by immunoassay screen. It is a preliminary result. [facility] recommends that a Presumptive Positive result be confirmed by an additional, more specific test such as mass spectrometry NOTE: Presumptive Positive indicates a n onnegative test result by immunoassay screen. It is a preliminary result. [facility] recommends that a Presumptive Positive result be confirmed by an additional, more specific test such as mass spectrometry NOTE: Presumptive Positive indicates a n onnegative test result by immunoassay screen. It is a preliminary result. [facility] recommends that a Presumptive Positive result be confirmed by an additional, more specific test such as mass spectrometry NOTE: Presumptive Positive indicates a n onnegative test result by immunoassay screen. It is a preliminary result. [facility] recommends that a Presumptive Positive result be confirmed by an additional, more specific test such as mass spectrometry NOTE: Presumptive Positive indicates a n onnegative test result by immunoassay screen. It is a preliminary result. [facility] recommends that a Presumptive Positive result be confirmed by an additional, more specific test such as mass spectrometry NOTE: Presumptive Positive indicates a n onnegative test result by immunoassay screen. It is a preliminary result. [facility] recommends that a Presumptive Positive result be confirmed by an additional, more specific test such as mass spectrometry Name Value Range Interpretation Code Description Data Leonie rce(s) Supporting Document(s) Temazepam 0.000NegativeNegative ng/mL 50.00 ng/mL [facility] Lorazepam 7.960NegativeNegative ng/mL 50.00 ng/mL [facility] alpha-Hydroxyalprazolam 0.000NegativeNegative ng/mL 50.00 ng /mL [facility] 7-Aminoclonazepam 1.040NegativeNegative ng/mL 50.00 ng/mL [facility] Oxazepam 10.240NegativeNegative ng/mL 50.00 ng/mL [facility] Nordiazepam 1.270NegativeNegative ng/mL 50.00 ng/mL [facility] ID Date Data Source [id number] 02/24/2021 10:41:02 AM EDT [facility] NOTE: Presumptive Positive indicates a n onnegative test result by immunoassay screen. It is a preliminary result. [facility] recommends that a Presumptive Positive result be confirmed by an additional, more specific test such as mass spectrometry NOTE: Presumptive Positive indicates a n onnegative test result by immunoassay screen. It is a preliminary result. [facility] recommends that a Presumptive Positive result be confirmed by an additional, more specific test such as mass spectrometry NOTE: Presumptive Positive indicates a n onnegative test result by immunoassay screen. It is a preliminary result. [facility] recommends that a Presumptive Positive result be confirmed by an additional, more specific test such as mass spectrometry NOTE: Presumptive Positive indicates a n onnegative test result by immunoassay screen. It is a preliminary result. [facility] recommends that a Presumptive Positive result be confirmed by an additional, more specific test such as mass spectrometry NOTE: Presumptive Positive indicates a n onnegative test result by immunoassay screen. It is a preliminary result. [facility] recommends that a Presumptive Positive result be confirmed by an additional, more specific test such as mass spectrometry NOTE: Presumptive Positive indicates a n onnegative test result by immunoassay screen. It is a preliminary result. [facility] recommends that a Presumptive Positive result be confirmed by an additional, more specific test such as mass spectrometry NOTE: Presumptive Positive indicates a n onnegative test result by immunoassay screen. It is a preliminary result. [facility] recommends that a Presumptive Positive result be confirmed by an additional, more specific test such as mass spectrometry NOTE: Presumptive Positive indicates a n onnegative test result by immunoassay screen. It is a preliminary result. [facility] recommends that a Presumptive Positive result be confirmed by an additional, more specific test such as mass spectrometry NOTE: Presumptive Positive indicates a n onnegative test result by immunoassay screen. It is a preliminary result. [facility] recommends that a Presumptive Positive result be confirmed by an additional, more specific test such as mass spectrometry NOTE: Presumptive Positive indicates a n onnegative test result by immunoassay screen. It is a preliminary result. [facility] recommends that a Presumptive Positive result be confirmed by an additional, more specific test such as mass spectrometry NOTE: Presumptive Positive indicates a n onnegative test result by immunoassay screen. It is a preliminary result. [facility] recommends that a Presumptive Positive result be confirmed by an additional, more specific test such as mass spectrometry NOTE: Presumptive Positive indicates a n onnegative test result by immunoassay screen. It is a preliminary result. [facility] recommends that a Presumptive Positive result be confirmed by an additional, more specific test such as mass spectrometry Name Value Range Interpretation Code Description Data Leonie rce(s) Supporting Document(s) Ethyl Sulfate 327.220NegativeNegative ng/mL 500.00 ng/mL [facility] Ethyl Glucuronide 2410.550Positive - InconsistentPOS ITIVE ng/mL 500.00 ng/mL Abnormal (applies to non-numeric results) [facility] ID Date Data Source [id number] 02/24/2021 10:41:01 AM EDT [facility] NOTE: Presumptive Positive indicates a n onnegative test result by immunoassay screen. It is a preliminary result. [facility] recommends that a Presumptive Positive result be confirmed by an additional, more specific test such as mass spectrometry NOTE: Presumptive Positive indicates a n onnegative test result by immunoassay screen. It is a preliminary result. [facility] recommends that a Presumptive Positive result be confirmed by an additional, more specific test such as mass spectrometry NOTE: Presumptive Positive indicates a n onnegative test result by immunoassay screen. It is a preliminary result. [facility] recommends that a Presumptive Positive result be confirmed by an additional, more specific test such as mass spectrometry NOTE: Presumptive Positive indicates a n onnegative test result by immunoassay screen. It is a preliminary result. [facility] recommends that a Presumptive Positive result be confirmed by an additional, more specific test such as mass spectrometry NOTE: Presumptive Positive indicates a n onnegative test result by immunoassay screen. It is a preliminary result. [facility] recommends that a Presumptive Positive result be confirmed by an additional, more specific test such as mass spectrometry NOTE: Presumptive Positive indicates a n onnegative test result by immunoassay screen. It is a preliminary result. [facility] recommends that a Presumptive Positive result be confirmed by an additional, more specific test such as mass spectrometry NOTE: Presumptive Positive indicates a n onnegative test result by immunoassay screen. It is a preliminary result. [facility] recommends that a Presumptive Positive result be confirmed by an additional, more specific test such as mass spectrometry NOTE: Presumptive Positive indicates a n onnegative test result by immunoassay screen. It is a preliminary result. [facility] recommends that a Presumptive Positive result be confirmed by an additional, more specific test such as mass spectrometry NOTE: Presumptive Positive indicates a n onnegative test result by immunoassay screen. It is a preliminary result. [facility] recommends that a Presumptive Positive result be confirmed by an additional, more specific test such as mass spectrometry NOTE: Presumptive Positive indicates a n onnegative test result by immunoassay screen. It is a preliminary result. [facility] recommends that a Presumptive Positive result be confirmed by an additional, more specific test such as mass spectrometry NOTE: Presumptive Positive indicates a n onnegative test result by immunoassay screen. It is a preliminary result. [facility] recommends that a Presumptive Positive result be confirmed by an additional, more specific test such as mass spectrometry NOTE: Presumptive Positive indicates a n onnegative test result by immunoassay screen. It is a preliminary result. [facility] recommends that a Presumptive Positive result be confirmed by an additional, more specific test such as mass spectrometry Name Value Range Interpretation Code Description Data Leonie rce(s) Supporting Document(s) Pregabalin 30.220NegativeNegative ng/mL 500.00 ng/mL [facility] Gabapentin 168.860NegativeNegative ng/mL 500.00 ng/mL [facility] ID Date Data Source GROUP B STREP CULTURE 06/25/2020 12:00:00 AM EST eCW1 ([facility]) Name Value Range Interpretation Code Description Data Leonie rce(s) Supporting Document(s) GROUP B STREP CULTURE eCW1 ([facility]ly [facility]) ID Date Data Source [id number] 06/24/2020 11:15:00 AM EST [facility] Name Value Range Interpretation Code Description Data Leonie rce(s) Supporting Document(s) SARS coronavirus 2 RNA [facility] This lab was ordered by [facility] and reported by [facility]. ID Date Data Source Glucose Challenge Test 1 Hour 05/20/2020 03:54:21 AM EDT eCW 1 (Formerly [facility], [facility]) Name Value Range Interpretation Code Description Data Leonie rce(s) Supporting Document(s) 95 GLUCOSE CHALLENGE TEST 1 HOUR eCW1 ([facility], [facility]) ID Date Data Source Type and Screen (D Rh Antibody Screen) 05/20/2020 03:54:17 A M EDT eCW1 ([facility], [facility]) Name Value Range Interpretation Code Description Data Leonie rce(s) Supporting Document(s) NEGATIVE AB SCREEN (INDIRECT COOMB S)VIS eCW1 ([facility], [facility]) A POSITIVE BLOOD TYPE eCW1 ([facility]) ID Date Data Source CBC - Complete Blood Count 05/20/2020 03:54:10 AM EDT eCW1 ( [facility]) Name Value Range Interpretation Code Description Data Leonie rce(s) Supporting Document(s) 9.9 HEMOGLOBIN eCW1 ([facility]) 11.9 WHITE BLOOD COUNT eCW1 ([facility]) 3.17 RED BLOOD COUNT eCW1 ([facility]) 31.2 MEAN CORPUSCULAR HEMOGLOBIN eC W1 ([facility], [facility]) 29.3 HEMATOCRIT eCW1 ([facility]) 92.4 MEAN CORPUSCULAR VOLUME eCW1 ( [facility], [facility]) 33.8 MEAN CORPUSCULAR HGB CONC eCW1 ([facility], [facility]) 13.0 RED CELL DISTRIBUTION WIDTH eC W1 ([facility], [facility]) 190 PLATELET COUNT, AUTOMATED eCW1 ([facility]) ID Date Data Source WWBC OBS COMPLETE US 05/06/2020 09:51:54 AM EDT eCW1 ([facility]) Name Value Range Interpretation Code Description Data Leonie rce(s) Supporting Document(s) WWBC OBS COMPLETE US eCW1 ([facility]) Procedure Social History Code Duration Value Status Description Data Source(s ) Smoking 10/05/2020 12:00:00 PM EDT Ex-smoker (finding) completed Former Smoker [facility]SMART ([facility]) Smoking 08/17/2020 12:00:00 AM EST Former Smoker completed Former Smoker eCW1 ([facility]) Smoking 08/17/2020 12:00:00 AM EST Former Smoker completed Former Smoker eCW1 ([facility], [facility]) Smoking 08/17/2020 12:00:00 AM EST Former Smoker completed Former Smoker eCW1 ([facility]) Smoking 06/25/2020 12:00:00 AM EST Former Smoker completed Former Smoker eCW1 ([facility]) Smoking 06/25/2020 12:00:00 AM EST Former Smoker completed Former Smoker eCW1 ([facility]) Smoking 06/04/2020 12:00:00 AM EST Former Smoker completed Former Smoker eCW1 ([facility]) Smoking 06/01/2020 12:00:00 AM EST Former Smoker completed Former Smoker eCW1 ([facility]) Smoking 05/20/2020 12:00:00 AM EDT Former Smoker completed Former Smoker eCW1 ([facility]) Smoking 05/20/2020 12:00:00 AM EDT Former Smoker completed Former Smoker eCW1 ([facility], [facility]) Vital Signs ID Date Data Source UNK Name Value Range Interpretation Code Description Data Source(s) Body height 162.6 cm 162.6 cm NETSMART ([facility]) Body weight 61.4 KG 61.4 KG [facility]SMART ([facility]) Body mass index (BMI) [[facility]] 23[facility]2 [facility] Body weight 142.6 [lb_av] 142.6 [lb_av] eCW1 ([facility]) Systolic blood pressure 120 mm[Hg] 120 mm[Hg] e CW1 ([facility], [facility]) Body weight 64.68 kg 64.68 kg eCW1 ([facility]) Body height 64 [in_i] 64 [in_i] eCW1 ([facility]) Body mass index (BMI) [Ratio] 24.477 kg/m2 24.4 77 kg/m2 eCW1 ([facility], [facility]) Diastolic blood pressure 72 mm[Hg] 72 mm[Hg] eCW1 ([facility], [facility]) Body weight 138 [lb_av] 138 [lb_av] eCW1 ([facility]) Body height 64 [in_i] 64 [in_i] eCW1 ([facility]) Body mass index (BMI) [Ratio] 23.688 kg/m2 23.6 88 kg/m2 eCW1 ([facility], [facility]) Systolic blood pressure 110 mm[Hg] 110 mm[Hg] e CW1 ([facility]) Diastolic blood pressure 66 mm[Hg] 66 mm[Hg] eCW1 ([facility], [facility]) Body weight 135 [lb_av] 135 [lb_av] eCW1 ([facility]) Body height 64 [in_i] 64 [in_i] eCW1 ([facility]) Body mass index (BMI) [Ratio] 23.173 kg/m2 23.1 73 kg/m2 eCW1 (Formerly [facility], [facility]) Systolic blood pressure 100 mm[Hg] 100 mm[Hg] e CW1 (Formerly [facility], [facility]) Diastolic blood pressure 62 mm[Hg] 62 mm[Hg] eCW1 (Formerly [facility], [facility]) Patient Treatment Plan of Care Planned Activity Planned Date Details Description Data Source (s) ferrous gluconate 324 MG Oral Tablet 05/20/2020 12:00:00 AM EDT eCW1 (Formerly [facility], [facility]) ferrous gluconate 324 MG Oral Tablet 05/20/2020 12:00:00 AM EDT eCW1 (Formerly [facility], [facility]) ferrous gluconate 324 MG Oral Tablet 05/20/2020 12:00:00 AM EDT eCW1 (Formerly [facility], [facility]) ferrous gluconate 324 MG Oral Tablet 05/20/2020 12:00:00 AM EDT eCW1 (Formerly [facility], [facility])
--- OUTSIDE RECORDS SUMMARY | 2021-06-10 03:32 | CCD ---
Author Author [facility] Organization [facility] Address Unknown Phone Unavailable Care Team Providers Care Telehealth Case Manager Name Role Phone Bryant CHAN MD Unavailable [...] Bryant CHAN MD Unavailable Unavailable LINSEY, A. DRAFTING DETAILER SUNSHINE Unavailable [phone] LINSEY, A. DRAFTING DETAILER SUNSHINE Unavailable [phone] LINSEY, A. DRAFTING DETAILER SUNSHINE Unavailable [phone] LINSEY, A. DRAFTING DETAILER SUNSHINE Unavailable [phone] LINSEY, A. DRAFTING DETAILER SUNSHINE Unavailable [phone] LINSEY, A. DRAFTING DETAILER SUNSHINE Unavailable [phone] LINSEY, A. DRAFTING DETAILER SUNSHINE Unavailable [phone] LINSEY, A. DRAFTING DETAILER SUNSHINE Unavailable [phone] LINSEY, A. DRAFTING DETAILER SUNSHINE Unavailable [phone] LINSEY, A. DRAFTING DETAILER SUNSHINE Unavailable [phone] LINSEY, A. DRAFTING DETAILER SUNSHINE Unavailable [phone] LINSEY, A. DRAFTING DETAILER SUNSHINE Unavailable [phone] LINSEY, A. DRAFTING DETAILER SUNSHINE Unavailable [phone] LINSEY, A. DRAFTING DETAILER SUNSHINE Unavailable [phone] Wiliam STILES WERNER GONSALEZ Unavailable [phone] LINSEYWiliam MARTIN WERNER GONSALEZ Unavailable [phone] Morris Sethi Unavailable Unavailable Re-disclosure Warning The records that [...] is protected by Article 27-F of the [facility] Public Health law. If you continue you may have access to information: Regarding HIV / AIDS; Provided by facilities licensed or operated by the [facility] Office of Mental Health; or Provided by the [facility] Office for People With Developmental Disabilities. If such information is present, then the following [facility] mandated warning applies: This information has been [...] law may result in a fine or assisted sentence or both. A general authorization for [...] EST - 06/09/2021 01:14:09 PM NATALIE Porter ([facility] ) Outpatient Attender: SUNSHINE STILES 04/23 08:55:32 AM EDT - 05/02/2021 09:43:19 AM EDT [facility] ([facility] ) Unknown [address] [address] 04/01/2021 12:00:00 AM EDT eCW1 ([facility]) Unknown [address] [address] 02/04/2021 12:00:00 AM EDT eCW1 ([facility]) Unknown [address] [address] 02/03/2021 12:00:00 AM EDT eCW1 ([facility]) Unknown [address] [address] 07/02/2020 12:00:00 AM EST eCW1 ([facility]) Unlisted evaluation and management service Performer: David zamarripa 06/25/2020 07:00:00 PM EST - 06/25/2020 07:24:00 PM EST NETSMART ([facility]) ( ESTOB) WCenter Est OB [address] [place] [address] 06/25/2020 12:00:00 AM EST eCW1 ([facility]) Unlisted evaluation and management service Performer: Dvaid zamarripa 06/11/2020 02:15:00 PM EST - 06/11/2020 02:30:00 PM EST NETSMART ([facility]) (WC ESTOB) [facility] [address] [place] [address] 05/20/2020 12:00:00 AM EDT eCW1 ([facility]) Unknown [address] [address] 05/20/2020 12:00:00 AM EDT eCW1 ([facility]) (WC ESTOB) [facility] Est [facility] [address] [place] [address] 05/07/2020 12:00:00 AM EDT eCW1 ([facility]) Unlisted evaluation and management service Performer: David Whelan dallin 04/23/2020 06:43:00 PM EDT NETSMART ([facility]) Medications Medication Brand Name Start Date Product Form Dose Route Admi nistrative Instructions Pharmacy Instructions Status Indications Reaction Description Data Source(s) Sertraline 50 MG Oral Tablet [Zoloft] Zoloft 06/07/2021 05:00 :00 AM EST 1.0 Tablet Oral active NETSMART ([facility]) Buprenorphine 8 MG Sublingual Tablet Buprenorphine 06/01/2021 05:00 :00 AM EST 1.5 Tablet Sublingual active [facility] ( [facility]) Sertraline 50 MG Oral Tablet [Zoloft] Zoloft 05/17/2021 04:00 :00 AM EDT 1.0 Tablet Oral active [facility]SMART ([facility]) Nicotine 4 MG Oral Lozenge Nicotine Polacrilex 05/04/2021 04:00:00 AM EDT 1.0 Each Oromucosal active NETSMART ([facility]) 24 HR Nicotine 0.292 MG/HR Transdermal Patch Nicotine 05/04/2021 04:00:00 AM EDT 1.0 Patch Transdermal active NE TSMART ([facility]) Buprenorphine 8 MG Sublingual Tablet Buprenorphine 05/04/2021 04:00 :00 AM EDT 1.5 Tablet Sublingual active NETSM[facility] ( [facility]) Buprenorphine 8 MG Sublingual Tablet Buprenorphine 04/06/2021 04:00 :00 AM EDT 1.5 Tablet Sublingual active [facility]SM[facility] ( [facility]) Buprenorphine 8 MG Sublingual Tablet Buprenorphine 03/09/2021 04:00 :00 AM EDT 1.5 Tablet Sublingual active [facility]SMART ( [facility]) Buprenorphine 8 MG Sublingual Tablet Buprenorphine 02/16/2021 04:00 :00 AM EDT 1.5 Tablet Sublingual active NETSMART ( [facility]) Buprenorphine 8 MG Sublingual Tablet Buprenorphine 01/19/2021 04:00 :00 AM EDT 1.5 Tablet Sublingual active [facility]SMART ( [facility]) Buprenorphine 8 MG Sublingual Tablet Buprenorphine 12/22/2020 04:00 :00 AM EDT 1.5 Tablet Sublingual active [facility]SM[facility] ( [facility]) Narcan 12/22/2020 04:00:00 AM EDT 1.0 [place] Nasal activ e NETSMART ([facility]) Buprenorphine 8 MG Sublingual Tablet Buprenorphine 11/24/2020 04:00 :00 AM EDT 1.5 Tablet Sublingual active [facility]SMART ( [facility]) Buprenorphine 8 MG Sublingual Tablet Buprenorphine 10/27/2020 04:00 :00 AM EDT 1.5 Tablet Sublingual active [facility]SMART ( [facility]) Buprenorphine 8 MG Sublingual Tablet Buprenorphine 10/06/2020 04:00 :00 AM EDT 1.5 Tablet Sublingual active [facility]SMART ( [facility]) Buprenorphine 8 MG Sublingual Tablet Buprenorphine 10/02/2020 05:00 :00 AM EST 1.5 Tablet Sublingual active [facility] ( [facility]) Buprenorphine 8 MG Sublingual Tablet Buprenorphine 09/04/2020 05:00 :00 AM EST 1.5 Tablet Sublingual active [facility]SMART ( [facility]) Buprenorphine 8 MG Sublingual Tablet Buprenorphine 08/07/2020 05:00 :00 AM EST 1.5 Tablet Sublingual active [facility] ( [facility]) Buprenorphine 8 MG Sublingual Tablet Buprenorphine Hydrochlo ride 07/09/2020 05:00:00 AM EST 1.5 Tablet Sublingual active [facility]SMART ([facility]) Narcan 07/09/2020 05:00:00 AM EST 1.0 [place] Nasal activ e [facility]SMART ([facility]) Buprenorphine Hydrochloride 06/11/2020 05:00:00 AM EST 1 .5 Tablet [id number] active [facility]SMART ([facility]) ferrous gluconate 324 MG Oral Tablet Ferrous Gluconate 324 (38 Fe) MG Ferrous Gluconate 324 (38 Fe) MG 05/20/2020 12:00:00 AM EDT active Ferrous Gluconate 324 (38 Fe) MG eCW1 ([facility]) ferrous gluconate 324 MG Oral Tablet Ferrous Gluconate 324 (38 Fe) MG Ferrous Gluconate 324 (38 Fe) MG 05/20/2020 12:00:00 AM EDT active Ferrous Gluconate 324 (38 Fe) MG eCW1 ([facility]) ferrous gluconate 324 MG Oral Tablet Ferrous Gluconate 324 (38 Fe) MG Ferrous Gluconate 324 (38 Fe) MG 05/20/2020 12:00:00 AM EDT active Ferrous Gluconate 324 (38 Fe) MG eCW1 ([facility]) ferrous gluconate 324 MG Oral Tablet Ferrous Gluconate 324 (38 Fe) MG Ferrous Gluconate 324 (38 Fe) MG 05/20/2020 12:00:00 AM EDT active Ferrous Gluconate 324 (38 Fe) MG eCW1 ([facility]) ferrous gluconate 324 MG Oral Tablet Ferrous Gluconate 324 (38 Fe) MG Ferrous Gluconate 324 (38 Fe) MG 05/20/2020 12:00:00 AM EDT active Ferrous Gluconate 324 (38 Fe) MG eCW1 ([facility]) ferrous gluconate 324 MG Oral Tablet Ferrous Gluconate 324 (38 Fe) MG Ferrous Gluconate 324 (38 Fe) MG 05/20/2020 12:00:00 AM EDT active Ferrous Gluconate 324 (38 Fe) MG eCW1 ([facility]) ferrous gluconate 324 MG Oral Tablet Ferrous Gluconate 324 (38 Fe) MG Ferrous Gluconate 324 (38 Fe) MG 05/20/2020 12:00:00 AM EDT active Ferrous Gluconate 324 (38 Fe) MG eCW1 ([facility]) ferrous gluconate 324 MG Oral Tablet Ferrous Gluconate 324 (38 Fe) MG Ferrous Gluconate 324 (38 Fe) MG 05/20/2020 12:00:00 AM EDT active Ferrous Gluconate 324 (38 Fe) MG eCW1 ([facility]) ferrous gluconate 324 MG Oral Tablet Ferrous Gluconate 324 (38 Fe) MG Ferrous Gluconate 324 (38 Fe) MG 05/20/2020 12:00:00 AM EDT active Ferrous Gluconate 324 (38 Fe) MG eCW1 ([facility]) Insurance Providers Payer name Policy type / Coverage type Policy ID Covered green party ID Covered green party's relationship to best Policy Best Plan Information [employer] [id number] Self [id number] [employer] [id number] Self [id number] [employer] [facility] [id number] ANSI-Commercial [id number] ANSI-Commercial [id number] [facility] [place] [facility] -PHYSICIAN [id number] 18 [id number] [facility] [place] -[place] [id number] 18 [id number] ANSI-Commercial [id number] ANSI-Commercial [id number] JERSON [id number] SP [id number] [facility] [id number] S [id number] MEDICAID [id number] SP [id number] [employer] EPALS [id number] SP [id number] SELF PAY UNAVAILABLE SP UNAVAILA BLE JERSON [id number] SP [id number] SELF PAY UNAVAILABLE SP UNAVAILA BLE JERSON [id number] SP [id number] Problems, Conditions, and Diagnoses No Information Surgeries/Procedures No Information Results ID Date Data Source [id number] 05/02/2021 09:30:[address] [facility] Name Value Range Interpretation Code Description Data Leonie rce(s) Supporting Document(s) SARS-CoV-2 RNA Resp Ql TANA+probe NOT DETECTED [facility] This lab was ordered by STEPHANIE leon and reported by STEPHANIE Camejo. ID Date Data Source [id number] 04/05/2021 03:20:00 PM EDT NETSMART ([facility]) Name Value Range Interpretation Code Description Data Leonie rce(s) Supporting Document(s) pH 7.8NORMALNORMAL NETSM ART ([facility]) Creatinine 107.3NORMALNORMAL NE TSMART ([facility]) Oxidants -4.00NegativeNegative [facility]SMART ([facility]) Validity Result VALIDVALIDVALID [facility]SM[facility] ([facility]) Heroin (6-AM) -0.30NegativeNegative [facility]SMART ([facility]) Opiates -14.00NegativeNegative [facility]SMART ([facility]) Methadone -12.00NegativeNegative [facility]SM[facility] ([facility]) Ethyl Glucuronide 3361.00PRESUMPTIVE POSITIVEPRESUMPTIVE POSI TIVE [facility]SMART ([facility]) Synthetic Opiates -16.00NegativeNegative [facility]SMART ([facility]) Cocaine Metabolites 5.00NegativeNegative [facility]SMART ([facility]) Ethyl Alcohol 0.00NegativeNegative [facility]SMART ([facility]) Ecstasy (MDMA) 10.00NegativeNegative [facility]SMART ([facility]) Phencyclidine -4.00NegativeNegative [facility]SM[facility] ([facility]) Cannabinoids -9.50NegativeNegative [facility]SM[facility] ([facility]) Amphetamines 39.00NegativeNegative [facility] ([facility]) Tramadol -3.00NegativeNegative [facility] ([facility]) Naloxone 24.530NegativeNegative [facility]SM[facility] ([facility]) Norbuprenorphine 490.510Positive - InconsistentPOSITIVE NETSMART ([facility]) Buprenorphine 122.880Positive - InconsistentPOSITIVE [facility]SMART ([facility]) Fentanyl 0.050NegativeNegative [facility] ([facility]) Norfentanyl 0.040NegativeNegative [facility] ([facility]) Norcarfentanil 0.190NegativeNegative [facility]SMART ([facility]) Carfentanil 0.030NegativeNegative [facility] ([facility]) Temazepam 0.000NegativeNegative [facility] ([facility]) Sufentanil 0.150NegativeNegative [facility] ([facility]) Lorazepam 5.300NegativeNegative [facility]SM[facility] ([facility]) alpha-Hydroxyalprazolam 0.000NegativeNegative [facility] ([facility]) 7-Aminoclonazepam 0.000NegativeNegative [facility]SM[facility] ([facility]) Nordiazepam 3.560NegativeNegative [facility] ([facility]) Oxazepam 9.920NegativeNegative [facility] ([facility]) Ethyl Sulfate 1147.130Positive - InconsistentPOSITIVE NETSMART ([facility]) Ethyl Glucuronide 5000Positive - InconsistentPOSITIVE> NETSMART ([facility]) Pregabalin 0.000NegativeNegative [facility]SM[facility] ([facility]) Gabapentin 46.720NegativeNegative [facility] ([facility]) ID Date Data Source [id number] 04/08/2021 02:15:47 PM EDT [facility] NOTE: Presumptive [...] Result VALIDVALIDVALID [facility] ID Date Data Source [id number] 04/08/2021 02:15:49 PM EDT [facility] NOTE: Presumptive [...] 10.00 ng/mL [facility] ID Date Data Source [id number] 04/08/2021 02:15:49 PM EDT [facility] NOTE: Presumptive [...] 300.00 ng/mL [facility] ID Date Data Source [id number] 04/08/2021 02:15:49 PM EDT [facility] NOTE: Presumptive [...] 300.00 ng/mL [facility] ID Date Data Source [id number] 04/08/2021 02:15:49 PM EDT [facility] NOTE: Presumptive [...] 100.00 ng/mL [facility] ID Date Data Source [id number] 04/08/2021 02:15:50 PM EDT [facility] NOTE: Presumptive [...] 300.00 ng/mL [facility] ID Date Data Source [id number] 04/08/2021 02:15:50 PM EDT [facility] NOTE: Presumptive [...] 500.00 ng/mL [facility] ID Date Data Source [id number] 04/08/2021 02:15:50 PM EDT [facility] NOTE: Presumptive [...] 100.00 mg/dL [facility] ID Date Data Source [id number] 04/08/2021 02:15:50 PM EDT [facility] NOTE: Presumptive [...] 500.00 ng/mL [facility] ID Date Data Source [id number] 04/08/2021 02:15:51 PM EDT [facility] NOTE: Presumptive [...] 25.00 ng/mL [facility] ID Date Data Source [id number] 04/08/2021 02:15:51 PM EDT [facility] NOTE: Presumptive [...] 20.00 ng/mL [facility] ID Date Data Source [id number] 04/08/2021 02:15:51 PM EDT [facility] NOTE: Presumptive [...] 200.00 ng/mL [facility] ID Date Data Source [id number] 04/08/2021 02:15:51 PM EDT [facility] NOTE: Presumptive [...] 500.00 ng/mL [facility] ID Date Data Source [id number] 04/08/2021 02:15:52 PM EDT [facility] NOTE: Presumptive [...] 25.00 ng/mL [facility] ID Date Data Source [id number] 04/08/2021 02:15:53 PM EDT [facility] NOTE: Presumptive [...] 1.00 ng/mL [facility] ID Date Data Source [id number] 04/08/2021 02:15:55 PM EDT [facility] NOTE: Presumptive [...] 50.00 ng/mL [facility] ID Date Data Source [id number] 04/08/2021 02:15:58 PM EDT [facility] NOTE: Presumptive [...] results) [facility] x ID Date Data Source [id number] 04/08/2021 02:15:58 PM EDT [facility] NOTE: Presumptive [...] 500.00 ng/mL [facility] ID Date Data Source [id number] 02/15/2021 03:38:00 PM EDT NETSM[facility] ([facility]) Name Value Range Interpretation Code Description Data Leonie rce(s) Supporting Document(s) Creatinine 175.6NORMALNORMAL NE TSMART ([facility]) pH 6.4NORMALNORMAL [facility]SM [facility] ([facility]) Oxidants -4.00NegativeNegative [facility] ([facility]) Validity Result VALIDVALIDVALID [facility] ([facility]) Heroin (6-AM) -0.70NegativeNegative [facility]SM[facility] ([facility]) Methadone 10.00NegativeNegative [facility] ([facility]) Synthetic Opiates -9.00NegativeNegative [facility] ([facility]) Opiates -5.00NegativeNegative [facility] ([facility]) Ethyl Glucuronide 1910.00PRESUMPTIVE POSITIVEPRESUMPTIVE POSI TIVE [facility] ([facility]) Cocaine Metabolites 386.00PRESUMPTIVE POSITIVEPRESUMPTIVE POS ITIVE [facility] ([facility]) Ethyl Alcohol 17.00NegativeNegative [facility] ([facility]) Ecstasy (MDMA) 13.00NegativeNegative [facility] ([facility]) Phencyclidine -1.30NegativeNegative [facility] ([facility]) Tramadol 22.00NegativeNegative [facility] ([facility]) Cannabinoids -9.60NegativeNegative [facility] ([facility]) Amphetamines 122.00NegativeNegative [facility] ([facility]) Buprenorphine 250Positive - InconsistentPOSITIVE> NETSMART ([facility]) Norbuprenorphine 500Positive - InconsistentPOSITIVE> [facility]SMART ([facility]) Naloxone 1203.640Positive - InconsistentPOSITIVE NETSMART ([facility]) Norfentanyl 0.000NegativeNegative [facility] ([facility]) Fentanyl 0.130NegativeNegative [facility] ([facility]) Carfentanil 0.000NegativeNegative [facility] ([facility]) Benzoylecgonine 1051.960Positive - InconsistentPOSITIVE NETSMART ([facility]) Norcarfentanil 0.220NegativeNegative [facility] ([facility]) Sufentanil 0.100NegativeNegative [facility] ([facility]) Lorazepam 7.960NegativeNegative [facility] ([facility]) Temazepam 0.000NegativeNegative [facility] ([facility]) Oxazepam 10.240NegativeNegative [facility] ([facility]) alpha-Hydroxyalprazolam 0.000NegativeNegative [facility] ([facility]) 7-Aminoclonazepam 1.040NegativeNegative [facility] ([facility]) Nordiazepam 1.270NegativeNegative [facility] ([facility]) Ethyl Sulfate 327.220NegativeNegative [facility] ([facility]) Ethyl Glucuronide 2410.550Positive - InconsistentPOSITIVE NETSMART ([facility]) Pregabalin 30.220NegativeNegative [facility] ([facility]) Gabapentin 168.860NegativeNegative [facility] ([facility]) ID Date Data Source [id number] 02/24/2021 10:40:58 AM EDT [facility] NOTE: Presumptive [...] Result VALIDVALIDVALID [facility] ID Date Data Source [id number] 02/24/2021 10:40:58 AM EDT [facility] NOTE: Presumptive [...] 10.00 ng/mL [facility] ID Date Data Source [id number] 02/24/2021 10:40:58 AM EDT [facility] NOTE: Presumptive [...] 300.00 ng/mL [facility] ID Date Data Source [id number] 02/24/2021 10:40:59 AM EDT [facility] NOTE: Presumptive [...] 300.00 ng/mL [facility] ID Date Data Source [id number] 02/24/2021 10:40:59 AM EDT [facility] NOTE: Presumptive [...] 100.00 ng/mL [facility] ID Date Data Source [id number] 02/24/2021 10:40:59 AM EDT [facility] NOTE: Presumptive [...] 300.00 ng/mL [facility] ID Date Data Source [id number] 02/24/2021 10:40:59 AM EDT [facility] NOTE: Presumptive [...] 500.00 ng/mL [facility] ID Date Data Source [id number] 02/24/2021 10:40:59 AM EDT [facility] NOTE: Presumptive [...] 100.00 mg/dL [facility] ID Date Data Source [id number] 02/24/2021 10:41:00 AM EDT [facility] NOTE: Presumptive [...] 500.00 ng/mL [facility] ID Date Data Source [id number] 02/24/2021 10:41:00 AM EDT [facility] NOTE: Presumptive [...] 25.00 ng/mL [facility] ID Date Data Source [id number] 02/24/2021 10:41:00 AM EDT [facility] NOTE: Presumptive [...] 20.00 ng/mL [facility] ID Date Data Source [id number] 02/24/2021 10:41:00 AM EDT [facility] NOTE: Presumptive [...] 200.00 ng/mL [facility] ID Date Data Source [id number] 02/24/2021 10:41:01 AM EDT [facility] NOTE: Presumptive [...] 500.00 ng/mL [facility] ID Date Data Source [id number] 02/24/2021 10:41:01 AM EDT [facility] NOTE: Presumptive [...] non-numeric results) [facility] ID Date Data Source [id number] 02/24/2021 10:41:01 AM EDT [facility] NOTE: Presumptive [...] 1.00 ng/mL [facility] ID Date Data Source [id number] 02/24/2021 10:41:02 AM EDT [facility] NOTE: Presumptive [...] results) [facility] x ID Date Data Source [id number] 02/24/2021 10:41:01 AM EDT [facility] NOTE: Presumptive [...] 50.00 ng/mL [facility] ID Date Data Source [id number] 02/24/2021 10:41:02 AM EDT [facility] NOTE: Presumptive [...] results) [facility] x ID Date Data Source [id number] 02/24/2021 10:41:01 AM EDT [facility] NOTE: Presumptive [...] STREP CULTURE 06/25/2020 12:00:00 AM EST [facility] Name Value Range Interpretation Code Description Data Leonie rce(s) Supporting Document(s) GROUP B STREP CULTURE eCW1 ([facility]) ID Date Data Source [id number] 06/24/2020 11:15:00 AM EST [facility] Name Value Range Interpretation Code Description Data Leonie rce(s) Supporting Document(s) SARS coronavirus 2 RNA [facility] This lab was ordered by [facility] and reported by [facility]. ID Date Data Source Glucose Challenge Test 1 Hour 05/20/2020 03:54:21 AM EDT eCW 1 ([facility]) Name Value Range Interpretation Code Description Data Leonie rce(s) Supporting Document(s) 95 GLUCOSE CHALLENGE TEST 1 HOUR eCW1 ([facility]) ID Date Data Source Type and Screen (D Rh Antibody Screen) 05/20/2020 03:54:17 A M EDT eCW1 ([facility]) Name Value Range Interpretation Code Description Data Leonie rce(s) Supporting Document(s) NEGATIVE AB SCREEN (INDIRECT COOMB S)VIS eCW1 ([facility]) A POSITIVE BLOOD TYPE eCW1 ([facility]) ID Date Data Source CBC - Complete Blood Count 05/20/2020 03:54:10 AM EDT eCW1 ( [facility]) Name Value Range Interpretation Code Description Data Leonie rce(s) Supporting Document(s) 9.9 HEMOGLOBIN eCW1 ([facility]) 11.9 WHITE BLOOD COUNT eCW1 ([facility]) 3.17 RED BLOOD COUNT eCW1 ([facility]) 31.2 MEAN CORPUSCULAR HEMOGLOBIN eC W1 ([facility]) 29.3 HEMATOCRIT eCW1 ([facility]) 92.4 MEAN CORPUSCULAR VOLUME eCW1 ( [facility]) 33.8 MEAN CORPUSCULAR HGB CONC eCW1 ([facility]) 13.0 RED CELL DISTRIBUTION WIDTH eC W1 ([facility]) 190 PLATELET COUNT, AUTOMATED eCW1 ([facility]) ID Date Data Source WWBC OBS COMPLETE US 05/06/2020 09:51:54 AM EDT eCW1 ([facility]) Name Value Range Interpretation Code Description Data Leonie rce(s) Supporting Document(s) WWBC OBS COMPLETE US eCW1 ([facility]) Procedure Social History Code Duration Value Status Description Data Source(s ) Smoking 10/05/2020 12:00:00 PM EDT Ex-smoker (finding) completed Former Smoker NETSMART ([facility]) Smoking 08/17/2020 12:00:00 AM EST Former Smoker completed Former Smoker eCW1 ([facility]) Smoking 08/17/2020 12:00:00 AM EST Former Smoker completed Former Smoker eCW1 ([facility]) Smoking 08/17/2020 12:00:00 AM EST Former Smoker completed Former Smoker eCW1 ([facility]) Smoking 06/25/2020 12:00:00 AM EST Former Smoker completed Former Smoker eCW1 ([facility]) Smoking 06/25/2020 12:00:00 AM EST Former Smoker completed Former Smoker eCW1 ([facility]) Smoking 06/04/2020 12:00:00 AM EST Former Smoker completed Former Smoker eCW1 ([facility]) Smoking 06/01/2020 12:00:00 AM EST Former Smoker completed Former Smoker eCW1 ([facility]) Smoking 05/20/2020 12:00:00 AM EDT Former Smoker completed Former Smoker eCW1 ([facility]) Smoking 05/20/2020 12:00:00 AM EDT Former Smoker completed Former Smoker eCW1 ([facility]) Vital Signs ID Date Data Source UNK Name Value Range Interpretation Code Description Data Source(s) Body height 162.6 cm 162.6 cm [facility] ([facility] [email or web address]) Body weight 61.4 KG 61.4 [email or web address] Body mass index (BMI) [Ratio] 23.2 23.2 [facility] Body weight 64.68 kg 64.68 kg eCW1 ([facility]) Systolic blood pressure 120 mm[Hg] 120 mm[Hg] e CW1 ([facility]) Body weight 142.6 [lb_av] 142.6 [lb_av] eCW1 ([facility]) Diastolic blood pressure 72 mm[Hg] 72 mm[Hg] eCW1 ([facility]) Body height 64 [in_i] 64 [in_i] eCW1 ([facility]) Body mass index (BMI) [Ratio] 24.477 kg/m2 24.4 77 kg/m2 eCW1 ([facility]) Body weight 138 [lb_av] 138 [lb_av] [facility] Body height 64 [in_i] 64 [in_i] eCW1 ([facility]) Body mass index (BMI) [Ratio] 23.688 kg/m2 23.6 88 kg/m2 eCW1 ([facility]) Systolic blood pressure 110 mm[Hg] 110 mm[Hg] e CW1 ([facility]) Diastolic blood pressure 66 mm[Hg] 66 mm[Hg] eCW1 ([facility]) Body weight 135 [lb_av] 135 [lb_av] eCW1 [facility] Body height 64 [in_i] 64 [in_i] eCW1 ([facility]) Body mass index (BMI) [Ratio] 23.173 kg/m2 23.1 73 kg/m2 eCW1 ([facility]) Systolic blood pressure 100 mm[Hg] 100 mm[Hg] e CW1 ([facility]) Diastolic blood pressure 62 mm[Hg] 62 mm[Hg] eCW1 ([facility]) Patient Treatment Plan of Care Planned Activity Planned Date Details Description Data Source (s) ferrous gluconate 324 MG Oral Tablet 05/20/2020 12:00:00 AM EDT eCW1 ([facility]) ferrous gluconate 324 MG Oral Tablet 05/20/2020 12:00:00 AM EDT eCW1 ([facility]) ferrous gluconate 324 MG Oral Tablet 05/20/2020 12:00:00 AM EDT eCW1 ([facility]) ferrous gluconate 324 MG Oral Tablet 05/20/2020 12:00:00 AM EDT eCW1 ([facility])
== END 2021-06-10 03:32 | disposition left against medical advice (07) ==
LOC: M ED 01:49
DX: Z53.29 Procedure and treatment not carried out because of patient's decision for other reasons (principal)